=== PATIENT | female | born 1945 | race Caucasian/White ===

== ENCOUNTER → 2018-01-21 07:30 | Outpatient (CLI) | payer MEDICARE, SELFPAY ==
--- NOTE | 2018-01-21 07:33 | CDU_ITS ---
Reason For Study: Carotid stenosis Rt. Velocities/BP Lt. Velocities/BP Prox CCA 113.0/21.1 cm/sec. Prox CCA 123.0/23.6 cm/sec. Mid CCA 95.0/21.7 cm/sec. Mid CCA 116.0/25.9 cm/sec. Dist CCA 102.0/27.0 cm/sec. Dist CCA 102.0/23.6 cm/sec. Prox ICA 128.0/42.4 cm/sec. Prox ICA 131.0/41.2 cm/sec. Mid ICA 132.0/40.9 cm/sec. Mid ICA 115.0/31.1 cm/sec. Dist ICA 106.0/35.4 cm/sec. Dist ICA 109.0/32.2 cm/sec. Rt. ICA/CCA = 1.4. Lt. ICA/CCA = 1.1. Prox ECA 105.0/17.6 cm/sec. Prox ECA 111.0/14.7 cm/sec. Rt. Vert. 62.9/21.2 cm/sec. Lt. Vert. 59.2/11.7 cm/sec. Right Extracranial There is intimal thickening but no significant atherosclerotic plaque noted in the right common carotid artery. There is heterogeneous, irregular atherosclerotic plaque noted in the right internal carotid artery. The atherosclerotic plaque causes acoustic shadowing. There is heterogeneous, irregular atherosclerotic plaque noted in the right external carotid artery. Antegrade flow is noted in the right vertebral artery. Left Extracranial There is intimal thickening but no significant atherosclerotic plaque noted in the left common carotid artery. There is heterogeneous, irregular atherosclerotic plaque noted in the left internal carotid artery. The atherosclerotic plaque causes acoustic shadowing. There is heterogeneous, irregular atherosclerotic plaque noted in the left external carotid artery. Antegrade flow is noted in the left vertebral artery. Procedure Carotid Duplex 29178. Exam performed in department. Interpretation Summary Mild (<50%) stenosis right extracranial internal carotid. Mild (<50%) stenosis left extracranial internal carotid. Acoustic shadowing is noted in the proximal internal carotid arteries bilaterally, which obscures clarke-scale views of the arterial lumen. Therefore, luminal narrowing cannot be fully assessed, and may exceed that which is estimated by velocity criteria alone. Therefore, alternative imaging modalities may be helpful. Flow within the vertebral arteries is antegrade bilaterally. Ordering Physician: Charlotte Stevenson Referring Physician: Charlotte Stevenson Performed By: Kiesha Meyers RVT
== END ==
PROVIDERS: Family Provider Family Medicine; PCP Family Medicine; Visit Provider Family Medicine
DX: I65.23 Occlusion and stenosis of bilateral carotid arteries (principal)
CPT/HCPCS: 93880

== ENCOUNTER 2018-03-20 18:36 | Emergency (ER) | payer MEDICARE, SELFPAY ==
[2018-03-20 18:39] VITALS: BP 206/99; PULSE 98; RESP 17; TEMP 37.4; O2SAT 94; BMI 33.6
[2018-03-20 18:55] VITALS: O2SAT 97
--- NOTE | 2018-03-20 18:57 | EKG12_ITS ---
Test Reason : SOB Blood Pressure : / mmHG Vent. Rate : 090 BPM Atrial Rate : 090 BPM P-R Int : 146 ms QRS Dur : 074 ms QT Int : 360 ms P-R-T Axes : -02 015 034 degrees QTc Int : 440 ms Normal sinus rhythm Low voltage QRS Borderline ECG Confirmed by IBIS DANIELS, PATRICE ([id number]), scientific editor DEWEY WILLETT ([id number]) on 03/22/2018 1:19:02 PM Referred By: DAWSON Confirmed By:PATRICE BAUMANN MD
[2018-03-20] MEDS: Albuterol 2.5 MG/3 ML VIAL.NEB. INHALATION (19:06)
[2018-03-20] MEDS: Ipratropium/Albuterol Sulfate 3 ML AMPUL.NEB INHALATION (19:06)
[2018-03-20 19:07] VITALS: PULSE 95; RESP 20
[2018-03-20] MEDS: Triamcinolone Acetonide 40 MG/ML Vial IM (19:10)
--- NOTE | 2018-03-20 19:20 | RAD_ITS ---
STUDY: X-RAY CHEST REASON FOR EXAM: Female, 72 years old. Short of breath TECHNIQUE: PA and lateral views of the chest. COMPARISON: None. FINDINGS: The lungs are clear and expanded. There is no demonstrated pleural abnormality. Normal size heart. Normal mediastinum and chrissy. Normal visualized pulmonary arteries. Normal visualized aortic arch and descending thoracic aorta. There are diffuse degenerative changes of the visualized thoracic spine. Normal visualized ribs, clavicles, and shoulders. There is no demonstrated abnormality of the visualized soft tissue structures of the upper abdomen. RAD/Chest PA and Lateral IMPRESSION: No acute intrathoracic process identified. Electronically Signed: Linda Leon MD at 20:20 EDT Tel , Service support ,
--- NOTE | 2018-03-20 19:50 | ED.VISSUMM ---
- ER Visit Summary Date of Service: 03/20/18 Chief Complaint: Shortness of breath History of Present Illness: The patient is a 72 F who states that she was mowing yesterday and became short of breath. She used her albuterol inhaler with some improvement of symptoms last night. She also had associated itchy and watery eyes which improved with some eyedrops. She does have a history of seasonal allergies. Today she felt more short of breath and her albuterol inhaler did not seem to be helping. She has had a dry cough. She denies any chest pain fevers nausea vomiting or diarrhea. No history of coronary artery disease or myocardial infarction. No history of asthma or COPD. Physical Examination: Initial blood pressure 206/99 vitals otherwise unremarkable pulse ox 94% on room air Patient is slightly tachypneic but able to speak in full sentences she does have inspiratory and expiratory wheezing Heart is regular rate and rhythm Abdomen soft Alert Extremities nontender without edema easily palpable radial pulses Test Results: EKG shows normal sinus rhythm at a rate of 90. Two-view chest x-ray shows no acute process on my review. Emergency Department Course and Treatment: Given the patient's history of seasonal allergies with worsening shortness of breath after being outside mowing and significant wheezing I do believe this is related to an allergic or asthmatic bronchitis. She was given albuterol and Atrovent aerosols with marked improvement of symptoms. She was also given intramuscular Kenalog. She does not have a spacer for her albuterol. She was given a new albuterol MDI and spacer and will have respiratory instruct on appropriate use as well. She understands to return for new or worsening symptoms and was instructed on specific signs and symptoms to monitor for conditions under which to return to the emergency department and she was discharged. Treatment Plan: [] Disposition: Discharge Impression: Asthmatic bronchitis This note was generated with [employer] dictation software. It may contain incorrect words, spelling, and punctuation that were not noted in review of the chart prior to signing ED Disposition - Plan for ED Patient: Chief Complaint: Shortness of Breath Referrals: Charlotte Stevenson DO [Primary Care Provider] -
--- NOTE | 2018-03-20 19:53 | ED.DCSUM_ITS ---
- ER Visit Summary Date of Service: 03/20/18 Chief Complaint: Shortness of breath History of Present Illness: The patient is a 72 F who states that she was mowing yesterday and became short of breath. She used her albuterol inhaler with some improvement of symptoms last night. She also had associated itchy and watery eyes which improved with some eyedrops. She does have a history of seasonal allergies. Today she felt more short of breath and her albuterol inhaler did not seem to be helping. She has had a dry cough. She denies any chest pain fevers nausea vomiting or diarrhea. No history of coronary artery disease or myocardial infarction. No history of asthma or COPD. Physical Examination: Initial blood pressure 206/99 vitals otherwise unremarkable pulse ox 94% on room air Patient is slightly tachypneic but able to speak in full sentences she does have inspiratory and expiratory wheezing Heart is regular rate and rhythm Abdomen soft Alert Extremities nontender without edema easily palpable radial pulses Test Results: EKG shows normal sinus rhythm at a rate of 90. Two-view chest x- ray shows no acute process on my review. Emergency Department Course and Treatment: Given the patient's history of seasonal allergies with worsening shortness of breath after being outside mowing and significant wheezing I do believe this is related to an allergic or asthmatic bronchitis. She was given albuterol and Atrovent aerosols with marked improvement of symptoms. She was also given intramuscular Kenalog. She does not have a spacer for her albuterol. She was given a new albuterol MDI and spacer and will have respiratory instruct on appropriate use as well. She understands to return for new or worsening symptoms and was instructed on specific signs and symptoms to monitor for conditions under which to return to the emergency department and she was discharged. Treatment Plan: [] Disposition: Discharge Impression: Asthmatic bronchitis This note was generated with [employer] dictation software. It may contain incorrect words, spelling, and punctuation that were not noted in review of the chart prior to signing ED Disposition - Plan for ED Patient: Chief Complaint: Shortness of Breath Referrals: Charlotte Stevenson DO [Primary Care Provider] -
--- NOTE | 2018-03-20 19:53 | ED.DEP ---
ED Disposition - Plan for ED Patient: Chief Complaint: Shortness of Breath Instructions: ED Bronchitis Asthmatic Referrals: Charlotte Stevenson DO [Primary Care Provider] -
[2018-03-20 20:03] VITALS: BP 161/84; PULSE 91; RESP 16; O2SAT 97
--- NOTE | 2018-03-21 13:19 | CM.ED ---
ED CALLBACK : Follow-up call placed to patient. Voicemail received and message left with contact information.
== END 2018-03-20 20:03 | disposition home or self-care (01) ==
LOC: ED 19:22
PROVIDERS: Emergency Provider Emergency Medicine; Family Provider Family Medicine; PCP Family Medicine
DX: J45.909 Unspecified asthma, uncomplicated (principal); E78.00 Pure hypercholesterolemia, unspecified; I10 Essential (primary) hypertension
CPT/HCPCS: 71046; 93005; 94640; 96372; 99283

== ENCOUNTER 2018-03-22 00:23 | Emergency (ER) | payer MEDICARE, SELFPAY ==
[2018-03-22 00:23] VITALS: BP 171/104; PULSE 165; RESP 24; TEMP 36.6; O2SAT 93; BMI 33.6
--- NOTE | 2018-03-22 00:39 | ED.RN ---
RN CALLED FOR EKG, PULLED OLD EKG'S FOR
--- NOTE | 2018-03-22 00:46 | EKG12_ITS ---
Test Reason : REPEAT Blood Pressure : / mmHG Vent. Rate : 082 BPM Atrial Rate : 082 BPM P-R Int : 152 ms QRS Dur : 074 ms QT Int : 374 ms P-R-T Axes : -06 018 017 degrees QTc Int : 436 ms Normal sinus rhythm Normal ECG Confirmed by PATRICE BAUMANN MD ([id number]), business editor DEWEY WILLETT ([id number]) on 03/25/2018 2:52:52 PM Referred By: QUITA Confirmed By:PATRICE BAUMANN MD
--- NOTE | 2018-03-22 00:46 | RAD_ITS ---
STUDY: X-RAY CHEST REASON FOR EXAM: Female, 72 years old. Heart racing TECHNIQUE: Single frontal view of the chest. COMPARISON: 03/20/2018 FINDINGS: The film is mislabeled with a left-sided marker over the right shoulder. The lungs are clear and expanded. There is no demonstrated pleural abnormality. Normal size heart. Normal mediastinum and chrissy. Normal visualized pulmonary arteries. Normal visualized aortic arch and descending thoracic aorta. There are diffuse degenerative changes of the visualized thoracic spine. Normal visualized ribs, clavicles, and shoulders. There is no demonstrated abnormality of the visualized soft tissue structures of the upper abdomen. RAD/Chest 1 View (Portable) IMPRESSION: No acute pulmonary findings. Electronically Signed: Rishi Wolff MD at 1:38 EDT Tel , Service support ,
[2018-03-22] MEDS: dilTIAZem 25 MG/5 ML Vial 20 MG IV BOLUS (00:49)
--- NOTE | 2018-03-22 00:49 | ED.DCSUM_ITS ---
- ER Visit Summary Date of Service: 03/22/18 Chief Complaint: Heart racing History of Present Illness: The patient is a 72 F with history of hypertension and hypercholesterolemia who presents for sudden onset of heart racing. Patient was sleeping and was woken by a sensation that her heart was beating really hard and fast. She denies any chest pain, dizziness or lightheadedness, fever, abdominal pain, nausea or vomiting. Patient is having shortness of breath stemming from an allergic reaction to mowing the lawn 2 days ago. She was seen in the emergency department and treated with albuterol treatments, a steroid shot and has been using the albuterol, with the last dose 2 hours ago. Patient has no history of atrial fibrillation. No cardiac history. No alcohol or tobacco use other than occasional drink with dinner. Physical Examination: Vital signs: afebrile, irregularly tachycardic rate 160-180, no hypotension, no hypoxia on room air General: well nourished, well developed, sitting in bed Skin: warm, dry, no rash, no pallor HEENT: normocephalic and atraumatic; PERRL, EOMI, moist mucous membranes Cardiovascular: irregularly irregular rate and rhythm without murmurs, no peripheral edema, 2+ pulses strong all distal extremities Respiratory: Mild dyspnea, diffuse wheezing all serna, no rales, rhonchi Abdominal: Abdomen is soft, nontender with normoactive bowel sounds, no guarding or rebound, no masses MSK: Moves all extremities, no deformities, normal strength Neuro: Awake and alert, oriented ?4. No facial droop, sensation and motor function intact and symmetric Test Results: Abnormal Lab Results 03/22/18 03/22/18 03/22/18 00:36 00:36 00:36 WBC 14.6 H RBC 5.06 Hgb 15.3 H Hct 43.8 MCV 86.6 MCH 30.2 MCHC 34.9 RDW 12.9 RDW Differential 40.1 Plt Count 325 MPV 9.8 Immature Gran % (Auto) 0.200 Neut % (Auto) 63.5 Lymph % (Auto) 19.5 [place] % (Auto) 9.5 Eos % (Auto) 7.2 H Baso % (Auto) 0.1 Absolute Neuts (auto) 9.3 H Absolute Lymphs (auto) 2.84 Total Counted Not Reportable PT 13.6 INR 1.0 APTT 31.6 D-Dimer Quant (PE/DVT) 0.51 H* Sodium 143 Potassium 3.8 Chloride 110 H Carbon Dioxide 24.0 Anion Gap 9 BUN 14 Creatinine 0.72 Estim Creat Clear Calc 43.30 Est GFR (MDRD) Af Amer 103 Est GFR (MDRD) Non-Af 85 BUN/Creatinine Ratio 19.5 Glucose 160 H Calcium 9.5 Magnesium 2.4 Troponin I 0.045 B-Natriuretic Peptide TSH 3.12 03/22/18 00:36 WBC RBC Hgb Hct MCV MCH MCHC RDW RDW Differential Plt Count MPV Immature Gran % (Auto) Neut % (Auto) Lymph % (Auto) [place] % (Auto) Eos % (Auto) Baso % (Auto) Absolute Neuts (auto) Absolute Lymphs (auto) Total Counted PT INR APTT D-Dimer Quant (PE/DVT) Sodium Potassium Chloride Carbon Dioxide Anion Gap BUN Creatinine Estim Creat Clear Calc Est GFR (MDRD) Af Amer Est GFR (MDRD) Non-Af BUN/Creatinine Ratio Glucose Calcium Magnesium Troponin I B-Natriuretic Peptide 112.9 H TSH Clinical Impression(s) from Imaging Studies Chest X-Ray 03/22/18 00:46 IMPRESSION: No acute pulmonary findings. Electronically Signed: Rishi Wolff MD at 1:38 EDT Tel , Service support , Chest CTA 03/22/18 01:14 IMPRESSION: Normal CTA chest examination, without a demonstrated pulmonary embolism or arterial dissection. 5 and 4 mm nodules in the left lower lobe. Based on Fleischner Society Guidelines, suggested follow-up for a >4-6 mm lung nodule detected incidentally on CT (in patients over age 35) is as follows: Low risk patients: Initial follow-up CT at 12 months. If stable at 12 months, no further follow-up is necessary. High risk patients: Initial follow-up CT at 6-12 months. If stable at initial follow-up, repeat CT at 18-24 months. Electronically Signed: Rishi Wolff MD at 2:38 EDT Tel , Service support , Emergency Department Course and Treatment: Patient presents in A. fib with RVR, with no prior history of atrial fibrillation. Patient is currently being treated for wheezing that started 2 days ago after exposure to mowed grass, and has been using albuterol with the last treatment a couple hours prior to presentation. Differential includes AMI, PE, acute CHF, infection, albuterol or steroid use, hyperthyroidism, among other possibilities. Vagal maneuvers were performed upon initial presentation and were unsuccessful. Patient is hemodynamically stable with no chest pain, new shortness of breath, or altered mental status. Rate control with Cardizem was attempted, and patient had modest improvement. She did have wheezing diffusely, but no albuterol treatment given due to the current tachydysrhythmia. Labs showed mild indeterminate troponin (likely due to the tachycardic rate), normal TSH, no electrolyte derangements, leukocytosis of 14.6 (patient is on steroids currently , having received an injection 2 days ago). Because the patient has persistent wheezing with no prior history of reactive airway disease or COPD, a d-dimer was checked, as the tachycardia makes pulmonary embolism on the differential. It was elevated at 0.51. CTA of the chest was performed showed no PE or other acute findings, other than incidental lung nodules. Patient was discussed with Dr. Lr, and decision made to cardiovert patient in the emergency department after a dose of Lovenox. Patient given the Lovenox. While preparing for the cardioversion, patient spontaneously converted to normal sinus rhythm. Repeat EKG showed sinus rhythm with no ST or T-wave changes, patient's baseline as compared to the EKG 2 days ago. Repeat lung exam showed improvement of the wheezing, now only mild. Patient feels well. She was discharged home with instructions to follow-up with her primary care doctor to discuss alternative treatments to her wheezing due to seasonal allergies. Also patient is to follow -up with cardiology regarding this new onset of A. fib with RVR. Patient discharged home with her symptoms resolved. Treatment Plan: [] Disposition: [] Impression: New onset A. fib with RVR Critical care time of 40 minutes for initial evaluation, chemical cardioversion attempts, EKG interpretations, frequent re-evaluations, care coordination, specialist consultation. This note was generated with [employer] software. It may contain incorrect words, spelling, and punctuation that were not noted in review of the chart prior to signing ED Disposition - Plan for ED Patient: Disposition: Home or Assisted Living Chief Complaint: Palpitations Instructions: ED Afib Referrals: Lasha Lr MD [STAFF PHYSICIAN] - As soon as possible Charlotte Stevenson DO [Primary Care Provider] - As soon as possible Additional Instructions: You were in the heart rhythm Atrial Fibrillation at a rapid rate tonight. You went back into a normal heart rhythm on your own. Please stop taking the albuterol and follow-up with your family doctor as soon as possible to discuss alternate treatments for your wheezing. Please follow-up with cardiology, calling tomorrow to make a follow-up appointment, for further evaluation of your atrial fibrillation episode. If you go back into the rapid heart rhythm, developed chest pain, have worsening shortness of breath, any dizziness or lightheadedness, or any other concerns, please return immediately to the emergency department for another evaluation.
[2018-03-22 00:58] LABS: Absolute Lymphocyte Count 2.84 X10^3/ul (0.83-4.51); Absolute Neutrophil Count 9.3 X10^3/uL (2.0-7.7); Basophil# 0.02 X10^3/uL; Basophil% 0.1 % (0-1); Eosinophil# 1.05 X10^3/uL; Eosinophils% 7.2 % (0-5); Hematocrit 43.8 % (37-47); Hemoglobin 15.3 g/dl (12.0-15.0); Lymphocyte # 2.84 X10^3/ul (4.0); Lymphocyte % 19.5 % (19-41); Mean Corp Hgb Conc 34.9 g/gl (32-36); Mean Corpuscular Hgb 30.2 pg (27.0-32.0); Mean Corpuscular Volume 86.6 fL (81-99); Mean Platelet Vol. 9.8 fl (6.2-12.0); Monocyte# 1.39 X10^3/uL; Monocyte% 9.5 % (0-10); Neutrophil # 9.26 X10^3/uL (2.7-7.7); Neutrophil % 63.5 % (47-70); Platelet Count 325 K/mm3 (150-450); RBC Distribution Width CV 12.9 % (11.6-14.6); RBC Distribution Width SD 40.1 fl (35.1-43.9); Red Blood Count 5.06 M/mm3 (4.2-5.4); White Blood Count 14.6 K/mm3 (4.4-11.0)
[2018-03-22 00:59] LABS: POSITIVE COUNT NO; POSITIVE DIFFERENTIAL NO; POSITIVE MORPHOLOGY NO
[2018-03-22 01:03] LABS: Partial Thromboplast Time 31.6 Seconds (24.1-36.2); Prothrombin Time (Protime)PT. 13.6 SECONDS (11.7-14.9)
[2018-03-22] MEDS: 0.9% Normal Saline 1,000 ML 250 ML IV (01:08)
[2018-03-22 01:09] LABS: D-Dimer Quantitative (DVT/PE) 0.51 FEU/ug/m (0.27-0.49)
--- NOTE | 2018-03-22 01:10 | ED.RN ---
LAB CALLED WITH CRITICAL LAB RESULTS. D DIMER 0.51. DR. DEVLIN MADE AWARE. NO NEW ORDERS AT THIS TIME
--- NOTE | 2018-03-22 01:14 | CT_ITS ---
STUDY: CTA CHEST REASON FOR EXAM: Female, 72 years old. Heart racing and SOB RADIATION DOSAGE (If Supplied By Facility): CTDIvol = ( 13.18 ) mGy, DLP = ( 749.02 ) mGycm TECHNIQUE: The examination was performed with the intravenous administration of 100ML ml of Isovue 370 contrast material. Post-processing of the angiographic images was performed, with multiplanar reformation and 3D reconstruction. Individualized dose optimization techniques were used for this CT. COMPARISON: None. FINDINGS: Small hiatal hernia. Normal enhancement of the main pulmonary artery and right and left pulmonary arteries. Normal enhancement of the bilateral peripheral pulmonary arteries. There is no demonstrated pulmonary embolism. Normal thoracic aorta and visualized great vessels. There is no demonstrated aortic dissection. Normal heart and pericardium. Normal mediastinum. Normal hilar regions. Normal visualized trachea and bronchi. The lungs are well expanded. A 4 mm nodule is present in the left lower lobe on image 131 of series 2. A 5 mm nodules present in the left lower lobe on image 130. Normal pleura. Normal chest wall structures. There are degenerative changes of thoracic spine. Normal visualized upper abdomen. CT/CTA Chest W/WO Contrast IMPRESSION: Normal CTA chest examination, without a demonstrated pulmonary embolism or arterial dissection. 5 and 4 mm nodules in the left lower lobe. Based on Fleischner Society Guidelines, suggested follow-up for a >4-6 mm lung nodule detected incidentally on CT (in patients over age 35) is as follows: Low risk patients: Initial follow-up CT at 12 months. If stable at 12 months, no further follow-up is necessary. High risk patients: Initial follow-up CT at 6-12 months. If stable at initial follow-up, repeat CT at 18-24 months. Electronically Signed: Rishi Wolff MD at 2:38 EDT Tel , Service support ,
[2018-03-22 01:19] LABS: Anion Gap 9 (5-15); BUN 14 mg/dL (7-18); BUN/Creat Ratio 19.5 RATIO (10-20); Calcium,Total 9.5 mg/dL (8.5-10.1); Chloride 110 mmol/L (98-107); Creatinine, Serum 0.72 mg/dL (0.55-1.02); EST Glomerular Filtration Rate 85 mL/min (>60); Est Glom Filt Rate - Afr Amer 103 mL/min (>60); Glucose 160 mg/dL (74-106); Magnesium 2.4 mg/dL (1.6-2.6); Potassium 3.8 mmol/L (3.5-5.1); Sodium Level 143 mmol/L (136-145); Thyroid Stim Hormone (TSH) 3.12 uIU/mL (0.358-3.74)
[2018-03-22] MEDS: dilTIAZem 25 MG/5 ML Vial IV BOLUS (01:24)
[2018-03-22 01:25] VITALS: BP 152/109; PULSE 136; RESP 20; O2SAT 95
[2018-03-22 01:38] LABS: BNP,B-Type NATRIURETIC PEPTIDE 112.9 pg/mL (0-100)
--- NOTE | 2018-03-22 02:00 | EKG12_ITS ---
Test Reason : CP Blood Pressure : / mmHG Vent. Rate : 165 BPM Atrial Rate : 141 BPM P-R Int : 000 ms QRS Dur : 080 ms QT Int : 256 ms P-R-T Axes : 000 046 -27 degrees QTc Int : [address] depression, consider subendocardial injury Abnormal ECG Confirmed by IBIS DANIELS, PATRICE ([id number]), makeup editor DEWEY WILLETT ([id number]) on 03/25/2018 2:53:05 PM Referred By: QUITA Confirmed By:PATRICE BAUMANN MD
[2018-03-22 02:03] VITALS: BP 146/107; PULSE 127; RESP 15; O2SAT 95
[2018-03-22 02:31] VITALS: BP 147/96; PULSE 126; RESP 17; TEMP 36.7; O2SAT 95
--- NOTE | 2018-03-22 03:02 | ED.RN ---
PT'S HEART RATE 80' AND AWARE.
[2018-03-22] MEDS: Enoxaparin 100 MG/ML Syringe 90 MG SC (03:11)
[2018-03-22 03:13] VITALS: BP 147/74; PULSE 80; RESP 18; O2SAT 94
--- NOTE | 2018-03-22 03:13 | EKG12_ITS ---
Test Reason : REPEAT Blood Pressure : / mmHG Vent. Rate : 138 BPM Atrial Rate : 170 BPM P-R Int : 000 ms QRS Dur : 076 ms QT Int : 292 ms P-R-T Axes : 000 024 003 degrees QTc Int : 442 ms Atrial fibrillation Nonspecific ST abnormality Abnormal ECG Confirmed by PATRICE BAUMANN MD ([id number]), editor publications DEWEY WILLETT ([id number]) on 03/25/2018 2:53:19 PM Referred By: QUITA Confirmed By:PATRICE BAUMANN MD
--- NOTE | 2018-03-22 03:15 | ED.DEP ---
ED Disposition - Plan for ED Patient: Disposition: Home or Assisted Living Chief Complaint: Palpitations Instructions: ED Afib Referrals: Lasha Lr MD [STAFF PHYSICIAN] - As soon as possible Charlotte Stevenson DO [Primary Care Provider] - As soon as possible Additional Instructions: You were in the heart rhythm Atrial Fibrillation at a rapid rate tonight. You went back into a normal heart rhythm on your own. Please stop taking the albuterol and follow-up with your family doctor as soon as possible to discuss alternate treatments for your wheezing. Please follow-up with cardiology, calling tomorrow to make a follow-up appointment, for further evaluation of your atrial fibrillation episode. If you go back into the rapid heart rhythm, developed chest pain, have worsening shortness of breath, any dizziness or lightheadedness, or any other concerns, please return immediately to the emergency department for another evaluation.
[2018-03-22 03:33] VITALS: BP 147/74; PULSE 76; RESP 16; O2SAT 95
== END 2018-03-22 03:34 | disposition home or self-care (01) ==
PROVIDERS: Emergency Provider Emergency Medicine; Family Provider Family Medicine; PCP Family Medicine
DX: I48.91 Unspecified atrial fibrillation (principal); I10 Essential (primary) hypertension; E78.00 Pure hypercholesterolemia, unspecified
CPT/HCPCS: 71045; 71275; 80048; 83735; 83880; 84443; 84484; 85025; 85379; 85610; 85730; 93005; 99284; J7030; Q9967; A4216

== ENCOUNTER → 2018-04-13 09:00 | Outpatient (CLI) | payer MEDICARE, SELFPAY ==
--- NOTE | 2018-04-13 06:57 | ECHOD_ITS ---
Reason For Study: dyspnea/SOB Procedure This was a 2D Doppler, Color Flow transthoracic echocardiogram. Exam performed in department. Left Ventricle Normal size and thickness. The estimated ejection fraction is 70 %. Stage 1 diastolic dysfunction. No regional wall motion abnormalities noted. Right Ventricle Normal size and thickness. Normal systolic function. Atria Normal left atrium. Normal right atrium. Normal atrial septum. Mitral Valve The mitral valve is structurally normal. No prolapse or stenosis seen. Tricuspid Valve Normal tricuspid valve. Trivial tricuspid valve insufficiency. Right ventricular systolic pressure estimated to be 25 mmHg. Aortic Valve Normal aortic valve. Trisinus/trileaflet aortic valve. Pulmonic Valve Normal pulmonic valve. Great Vessels Normal aortic root. Normal arch. Normal inferior vena cava. Inferior vena cava collapse with sniff. Pericardium/Pleural No pericardial effusion. Medication Diluted definity 1.0ml given slow IV push to enhance endocardial definition. MMode/2D Measurements & Calculations LVIDd: 3.8 cm IVSd: 1.1 cm Ao root diam: 3.0 cm LVIDs: 2.1 cm LVPWd: 1.1 cm LA dimension: 3.4 cm RVDd: 3.3 cm FS: 45.8 % LAV(MOD-bp): 40.6 ml LA A4 area: 11.9 cm2 RA A4 area: 7.8 cm2 LAV(MOD-bp) Indexed: 21.5 ml/m2 LAV(MOD-sp2): 53.3 ml LAV(MOD-sp4): 25.0 ml Time Measurements MV dec time: 0.27 sec Doppler Measurements & Calculations MV E max morgan: 61.8 cm/sec Lat Peak E' Morgan: 11.7 cm/sec Med Peak E' Morgan: 9.4 cm/sec MV A max morgan: 77.9 cm/sec E/E' lat: 5.3 E/E' med: 6.6 MV E/A: 0.79 MV V2 max: 95.9 cm/sec Ao V2 max: 137.3 cm/sec LV V1 max: 111.2 cm/sec MV max P.7 mmHg Ao max P.5 mmHg LV V1 max P.9 mmHg MV V2 mean: 46.2 cm/sec Ao V2 mean: 86.8 cm/sec LV V1 mean P.6 mmHg MV mean P.0 mmHg Ao mean P.5 mmHg LV V1 mean: 76.8 cm/sec MV V2 VTI: 23.5 cm Ao V2 VTI: 27.0 cm LV V1 VTI: 26.0 cm PA V2 max: 98.0 cm/sec TR max morgan: 221.3 cm/sec TR max P.6 mmHg Interpretation Summary The estimated ejection fraction is 70 %. Stage 1 diastolic dysfunction. Trivial tricuspid valve insufficiency. Right ventricular systolic pressure estimated to be 25 mmHg. There is no comparison study available. Ordering Physician: Jc Gomes Referring Physician: Charlotte Stevenson Performed By: Aryan Gates RCS
--- NOTE | 2018-04-13 09:00 | DT_ITS ---
This patient was seen during an EMR downtime April 11, 2018 - April 18, 2018. This patient may have a combination of paper and electronic documentation or all paper documentation. All documentation is viewable within the e-chart portion of [facility] for each patient visit.
== END ==
PROVIDERS: Family Provider Family Medicine; PCP Family Medicine; Visit Provider Internal Medicine Cardiovascular Disease
DX: I48.91 Unspecified atrial fibrillation (principal); R94.31 Abnormal electrocardiogram [ECG] [EKG]; R06.00 Dyspnea, unspecified
CPT/HCPCS: 93306; Q9957; A4216

== ENCOUNTER → 2018-04-21 13:31 | Outpatient (CLI) | payer MEDICARE, SELFPAY ==
[2018-04-21 14:30] LABS: Erythrocyte Sedimentation Rate 8 mm/hr (0-30)
[2018-04-21 14:38] LABS: Absolute Lymphocyte Count 2.27 X10^3/ul (0.83-4.51); Absolute Neutrophil Count 4.8 X10^3/uL (2.0-7.7); Basophil# 0.01 X10^3/uL; Basophil% 0.1 % (0-1); Eosinophil# 0.21 X10^3/uL; Eosinophils% 2.7 % (0-5); Hematocrit 42.6 % (37-47); Hemoglobin 13.9 g/dl (12.0-15.0); Lymphocyte # 2.27 X10^3/ul (4.0); Lymphocyte % 29.1 % (19-41); Mean Corp Hgb Conc 32.6 g/gl (32-36); Mean Corpuscular Hgb 29.3 pg (27.0-32.0); Mean Corpuscular Volume 89.7 fL (81-99); Mean Platelet Vol. 9.6 fl (6.2-12.0); Monocyte# 0.51 X10^3/uL; Monocyte% 6.5 % (0-10); Neutrophil % 61.5 % (47-70); Platelet Count 273 K/mm3 (150-450); RBC Distribution Width CV 12.6 % (11.6-14.6); RBC Distribution Width SD 41.3 fl (35.1-43.9); Red Blood Count 4.75 M/mm3 (4.2-5.4); White Blood Count 7.8 K/mm3 (4.4-11.0)
[2018-04-21 14:41] LABS: POSITIVE COUNT NO; POSITIVE DIFFERENTIAL NO; POSITIVE MORPHOLOGY NO
[2018-04-21 14:50] LABS: CRP < 2.90 mg/L (0.0-3.0)
== END ==
PROVIDERS: Family Provider Family Medicine; PCP Family Medicine; Visit Provider Family Medicine
DX: R68.84 Jaw pain (principal)
CPT/HCPCS: 36415; 85025; 85652; 86140

== ENCOUNTER → 2018-05-10 09:29 | Outpatient (CLI) | payer MEDICARE, SELFPAY ==
--- NOTE | 2018-05-10 09:30 | STE_ITS ---
Reason For Study: ATRIAL FIBRILLATION Stress Results Protocol: Stress Echocardiogram Maximum Predicted HR: 150 bpm Target HR: 128 bpm% Maximum Pr edicted HR: 100 % DurationHeart Rate Stage (mm:ss) (bpm) BPCom ment BASELINE 71 158/86 2 ML DILUTED DEFINITY USED DURING STRESS OSCAR PROTOCOL- STAGE 1 3:00 12 6 162/94 OSCAR PROTOCOL- STAGE 2 2:02 15 0 170/94LEG FATIGUE RECOVERY 87 178/86 Stress Duration: 5:02 mm:ss Maximum Stress HR: 150 bpm Baseline Echocardiogram Findings The estimated ejection fraction is 65 %. Stress Echo Wall motion Data Resting WMIntermediate WMStress WM Resting Wall Motion Wall Motion Stress No regional wall motion No regional wall motion abnormalities noted. abnormalities noted. EKG Data The baseline ECG demonstrates normal sinus rhythm with at rate of _ beats per minute. The patient exercised according to the regular Oscar protocol for a total duration of 5:02. The maximum heart rate attained was 150 beats per minute. This was 100% of maximum predicted heart rate. The patient exercised into stage 2 of the Oscar protocol. During stress, there were no ST or T wave changes noted to suggest ischemia. No clinical angina was noted. No arrhythmias noted. Interpretation Summary The estimated ejection fraction is 65 %. Normal, adequate, treadmill echocardiogram. Negative for ischemia by EKG and echocardiographic criteria. No anginal symptoms noted. Hypertensive blood pressure response to exercise. Average exercise capacity for age. No arrhythmias noted. Decreased sensitivity due to poor echo windows requiring Definity enhancing agent. Final LVEF is 75%. No complications. Ordering Physician: Jc Gomes Referring Physician: Jc Gomes Performed By: Adamaris Krishnamurthy RDCS
== END ==
PROVIDERS: Family Provider Family Medicine; PCP Family Medicine; Visit Provider Internal Medicine Cardiovascular Disease
DX: I48.91 Unspecified atrial fibrillation (principal)
CPT/HCPCS: 93017; 93350; Q9957; A4216; C8928

== ENCOUNTER → 2018-07-19 15:15 | Outpatient (CLI) | payer MEDICARE, SELFPAY ==
[2018-07-19 15:58] LABS: Color, Urine Yellow (Yellow); Glucose, Dipstick Normal (Normal); Ketone-Dipstick Negative (Negative); Leukocyte Esterase-Dipstick Negative /ul (Negative); Nitrite-Dipstick Negative (Negative); Occult Blood-Urine Negative /ul (Negative); Protein-Dipstick Negative (Negative); Specific Gravity, Urine 1.005 (1.002-1.030); Urine Bilirubin Dipstick Negative (Negative); Urine Clarity Clear (Clear); Urine Urobilinogen Normal (Normal)
[2018-07-19 16:15] LABS: Creatinine, Urine (random) < 13.00 mg/dL (NO RANGE EST.); Protein, Urine (Random) < 6.0 mg/dL (<11.9)
[2018-07-19 16:29] LABS: AST(SGOT) 28 U/L (15-37); Alanine Aminotransfer ALT/SGPT 41 U/L (13-56); Albumin, Serum 4.2 g/dL (3.2-5.0); Alkaline Phosphatase 105 U/L (45-117); Anion Gap 10 (5-15); BUN 15 mg/dL (7-18); BUN/Creat Ratio 19.3 RATIO (10-20); Calcium,Total 9.7 mg/dL (8.5-10.1); Chloride 104 mmol/L (98-107); Creatinine, Serum 0.78 mg/dL (0.55-1.02); EST Glomerular Filtration Rate 78 mL/min (>60); Est Glom Filt Rate - Afr Amer 94 mL/min (>60); Globulin 4.2 g/dL (2.2-4.2); Glucose 104 mg/dL (74-106); Protein, Total 8.4 g/dL (6.4-8.2); Sodium Level 140 mmol/L (136-145)
== END ==
PROVIDERS: Family Provider Family Medicine; PCP Family Medicine; Visit Provider Family Medicine
DX: I10 Essential (primary) hypertension (principal)
CPT/HCPCS: 36415; 80053; 81002; 82570; 84156

== ENCOUNTER → 2018-11-14 16:14 | Outpatient (CLI) | payer MEDICARE, SELFPAY | PROVIDERS: Family Provider Family Medicine; PCP Family Medicine; Referring Provider Otolaryngology Otolaryngology/Facial Plastic Surgery; Visit Provider Otolaryngology Otolaryngology/Facial Plastic Surgery | DX: J02.9 Acute pharyngitis, unspecified (principal) | CPT/HCPCS: 87070 ==

== ENCOUNTER → 2018-12-02 10:06 | Outpatient (CLI) | payer MEDICARE, SELFPAY ==
[2018-12-01 13:58] VITALS: BMI 33.8
--- NOTE | 2018-12-02 10:09 | BI_ITS ---
MAMMOGRAPHY - BILATERAL SCREENING REASON FOR EXAM: Female, 73 years old. Routine annual screening examination. PERTINENT HISTORY: Left excisional breast biopsy. Prior right stereotactic breast biopsy. TECHNIQUE: Digital bilateral breast bryce (3D mammographic acquisition) in the CC and MLO projections. 2-D mediolateral oblique (MLO) and craniocaudad (CC) views of both breasts were obtained. CAD: Full Field Digital Mammography with Computer Added Detection was performed. COMPARISON: Comparison is made with prior study dated May 29, 2018 and November 10, 2016. FINDINGS: Breast Composition: The breasts are almost entirely fatty. There are no dominant masses or suspicious calcifications. Stable small benign-appearing bilateral axillary lymph nodes. No other significant abnormalities are identified. There has been no significant change since the prior study. BI/SCREENING MAMM (CAD), BILAT IMPRESSION: Stable bilateral screening mammogram. Yearly follow-up mammogram recommended. (A) ASSESSMENT CATEGORY: BIRADS Category 2: Benign. A letter regarding these results will be sent to the patient by the facility within 30 days. Approximately 10% of breast cancers are not detected by mammography. A normal mammogram should not delay biopsy of a clinically suspicious abnormality. [id number] Electronically Signed: Ash Wang MD at 11:52 EST , Service support ,
== END ==
PROVIDERS: Family Provider Family Medicine; PCP Family Medicine; Referring Provider Family Medicine; Visit Provider Family Medicine
DX: Z12.31 Encounter for screening mammogram for malignant neoplasm of breast (principal)
CPT/HCPCS: 77063; 77067

== ENCOUNTER → 2019-02-20 12:38 | Outpatient (CLI) | payer MEDICARE, SELFPAY ==
[2018-12-01 13:58] VITALS: BMI 33.8
--- NOTE | 2019-02-20 12:43 | CT_ITS ---
STUDY: CT CHEST WITHOUT CONTRAST REASON FOR EXAM: Female, 73 years old. Lung nodules RADIATION DOSAGE (If Supplied By Facility): CTDIvol = ( 17.48 ) mGy, DLP = ( 633.39 ) mGycm TECHNIQUE: Transaxial imaging was performed without the administration of intravenous contrast material. Individualized dose optimization techniques were used for this CT. COMPARISON: Chest 03/22/2018, abdomen December 10, 2014 FINDINGS: 3 mm right lower lobe nodule on image 74 of series 4, stable since 2014 and considered benign. Similar finding on image 77. 6 and 4 mm nodules in the left lower lobe on image 74, also stable since 2015 and considered benign. There is no demonstrated pleural abnormality. Normal heart and pericardium. Normal mediastinum. Normal hilar regions. Normal unenhanced pulmonary arteries. Normal aorta arch and descending thoracic aorta. Normal osseous structures. There is no demonstrated abnormality of the visualized upper abdomen. CT/Chest without Contrast IMPRESSION: Bilateral lower lobe nodules are stable compared to 2015 exam and are considered benign. Electronically Signed: Rishi Wolff MD at 22:19 EDT Tel , Service support ,
== END ==
PROVIDERS: Family Provider Family Medicine; PCP Family Medicine; Referring Provider Family Medicine; Visit Provider Family Medicine
DX: R93.89 Abnormal findings on diagnostic imaging of other specified body structures (principal)
CPT/HCPCS: 71250

== ENCOUNTER → 2019-03-10 09:05 | Outpatient (CLI) | payer MEDICARE, SELFPAY ==
[2018-12-01 13:58] VITALS: BMI 33.8
--- NOTE | 2019-03-10 09:10 | US_ITS ---
STUDY: ABDOMINAL ULTRASOUND - RIGHT UPPER QUADRANT REASON FOR VISIT: Female, 73 years old. Right upper quadrant pain TECHNIQUE: Ultrasound evaluation of the right upper quadrant was performed with real-time and static clarke-scale imaging. TECHNICAL QUALITY: Adequate. COMPARISON: December 10, 2014 CT scan abdomen FINDINGS: Liver: The liver measures 15.9 cm. There is increased echogenicity consistent with fatty infiltration. The bile ducts are within normal limits. There is hepatic color flow. The direction of portal flow is hepatopetal. There is no demonstrated mass lesion. Gallbladder: The gallbladder is been surgically removed. Common Bile Duct (C.B.D.): The common bile duct measures 6 mm. Pancreas: Normal size of the head, body of the pancreas. There is normal echogenicity of the pancreas. There is no demonstrated pancreatic mass or cyst. The tail of pancreas is not well-visualized. Right Kidney: Normal size of the right kidney. The right kidney measures 11.9 x 5.4 x 5.2 cm. Normal renal cortex. The right cortex measures 1.4 cm. There is no demonstrated renal mass or cyst. There is no right hydronephrosis. US/Abdomen Limited IMPRESSION: Status post post cholecystectomy. Hepatic steatosis. No evidence of hydronephrosis. Limited visualization of the pancreas. Electronically Signed: Sultana Macias MD at 1:57 EDT Tel , Service support ,
--- NOTE | 2019-03-10 09:47 | CDU_ITS ---
Reason For Study: STENOSIS Rt. Velocities/BP Lt. Velocities/BP Prox CCA 118/21 cm/sec. Prox CCA 138/30 cm/sec. Mid CCA 85/20 cm/sec. Mid CCA 107/29 cm/sec. Dist CCA 84/20 cm/sec. Dist CCA 100/27 cm/sec. Prox ICA 80/24 cm/sec. Prox ICA 163/49 cm/sec. Mid ICA 114/34 cm/sec. Mid ICA 111/28 cm/sec. Dist ICA 76/29 cm/sec. Dist ICA 77/26 cm/sec. Rt. ICA/CCA = 1.0. Lt. ICA/CCA = 1.2. Prox ECA 105/11 cm/sec. Prox ECA 80/21 cm/sec. Rt. Vert. 78/16 cm/sec. Lt. Vert. 70/18 cm/sec. Right Extracranial There is intimal thickening but no significant atherosclerotic plaque noted in the right common carotid artery. There is heterogeneous, irregular atherosclerotic plaque noted in the right internal carotid artery. The atherosclerotic plaque causes acoustic shadowing. There is heterogeneous, irregular atherosclerotic plaque noted in the right external carotid artery. Antegrade flow is noted in the right vertebral artery. Left Extracranial There is intimal thickening but no significant atherosclerotic plaque noted in the left common carotid artery. There is heterogeneous, irregular atherosclerotic plaque noted in the left internal carotid artery. The atherosclerotic plaque causes acoustic shadowing. There is heterogeneous, irregular atherosclerotic plaque noted in the left external carotid artery. Antegrade flow is noted in the left vertebral artery. Procedure Carotid Duplex [id number]. Exam performed in department. Interpretation Summary Mild (<50%) stenosis right extracranial internal carotid. Moderate (50-69%) stenosis left extracranial internal carotid. Flow within the vertebral arteries is antegrade bilaterally. Ordering Physician: Charlotte Stevenson Referring Physician: Charlotte Stevenson Performed By: Love Rowland, RDCS, RVT
== END ==
PROVIDERS: Family Provider Family Medicine; PCP Family Medicine; Referring Provider Family Medicine; Visit Provider Family Medicine
DX: R10.11 Right upper quadrant pain (principal); I65.23 Occlusion and stenosis of bilateral carotid arteries
CPT/HCPCS: 76705; 93880

== ENCOUNTER → 2019-12-05 10:36 | Outpatient (CLI) | payer MEDICARE, SELFPAY ==
[2019-06-26 13:17] VITALS: BMI 34.3
--- NOTE | 2019-12-05 10:40 | BI_ITS ---
MAMMOGRAPHY - BILATERAL SCREENING REASON FOR EXAM: Female, 74 years old. Routine annual screening examination. PERTINENT HISTORY: Non-contributory. Remote right stereotactic breast biopsy and left excisional breast biopsy. TECHNIQUE: Digital bilateral breast alayna (3D mammographic acquisition) in the CC and MLO projections. 2-D mediolateral oblique (MLO) and craniocaudad (CC) views of both breasts were obtained. CAD: Full Field Digital Mammography with Computer Added Detection was performed. COMPARISON: Comparison is made with prior study dated comparison is made with prior examination dated December 02, 2018 and November 29, 2017. FINDINGS: Breast Composition: The breasts are almost entirely fatty. There are no dominant masses or suspicious calcifications. Stable benign-appearing bilateral axillary lymph nodes. No other significant abnormalities are identified. There has been no significant change since the prior study. BI/SCREEN MAMM (CAD) W/ALAYNA BILAT IMPRESSION: Stable bilateral screening mammogram. Yearly follow-up mammogram recommended. (A) ASSESSMENT CATEGORY: BIRADS Category 2: Benign. A letter regarding these results will be sent to the patient by the facility within 30 days. Approximately 10% of breast cancers are not detected by mammography. A normal mammogram should not delay biopsy of a clinically suspicious abnormality. [id number] Electronically Signed: Ash Wang, at 11:59 EST , Service support ,
== END ==
PROVIDERS: Family Provider Family Medicine; PCP Family Medicine; Referring Provider Family Medicine; Visit Provider Family Medicine
DX: Z12.31 Encounter for screening mammogram for malignant neoplasm of breast (principal)
CPT/HCPCS: 77063; 77067

== ENCOUNTER 2019-12-12 22:19 | Emergency (ER) | payer MEDICARE, SELFPAY ==
[2019-06-26 13:17] VITALS: BMI 34.3
[2019-12-12 22:20] VITALS: BP 197/89; PULSE 82; RESP 18; TEMP 36.4; O2SAT 98; BMI 33.6
--- NOTE | 2019-12-12 22:43 | CT_ITS ---
STUDY: CT BRAIN WITHOUT CONTRAST REASON FOR EXAM: Female, 74 years old. [place] WITH ELEVATED BP RADIATION DOSAGE (If Supplied By Facility): CTDIvol = ( 44.99 ) mGy, DLP = ( 846.73 ) mGycm TECHNIQUE: Transaxial CT imaging of the brain was performed without administration of intravenous contrast material. Individualized dose optimization techniques were used for this CT. COMPARISON: No relevant priors. FINDINGS: Normal soft tissue structures. Normal calvarium. Normal size ventricles and extra-axial spaces for the patient''s age. Normal white matter tracts of the cerebral hemispheres. Normal basal ganglia and thalami. Normal brainstem. Normal cerebellum. There is no intracranial hemorrhage. There are no findings of an acute ischemic infarction. There is mucoperiosteal inflammatory disease of the bilateral ethmoid and maxillary sinuses consistent with mild chronic sinusitis. The bilateral mastoid air cells and ossicles are unopacified. Intracranial arteriosclerosis of the carotid and vertebral arteries. CT/Brain/Head without Contrast IMPRESSION: There is no acute intracranial pathology. Arteriosclerosis and chronic sinus disease. Electronically Signed: Melanie Chow MD at 23:34 EST , Service support ,
--- NOTE | 2019-12-12 22:43 | EKG12_ITS ---
Test Reason : HYPERTRNSION Blood Pressure : / mmHG Vent. Rate : 073 BPM Atrial Rate : 073 BPM P-R Int : 174 ms QRS Dur : 084 ms QT Int : 406 ms P-R-T Axes : 023 008 012 degrees QTc Int : 447 ms Normal sinus rhythm Normal ECG Confirmed by EPI JAMISON ([id number]), desk editor GLENDA SPENCER ([id number]) on 12/15/2019 9:30:32 AM Referred By: CRIS Confirmed By:EPI JAMISON
--- NOTE | 2019-12-12 22:45 | ED.VIS.GEN ---
History of Present Illness Chief Complaint: Hypertension Narrative: Patient is a 74-year-old female who presents with elevated blood pressure. She has had a recent URI-like illness with sore throat. She has been using a vitamin supplement to boost her immune system. She has not been using decongestants but does use saline spray in her nose. She was seen at a [facility] clinic and had a rapid strep test which was negative. At that time her blood pressure was noted to be 150s. Since then she has been frequently checking it at home and has had readings as high as 200 systolic. She complains of a mild to moderate headache which she currently rates as 4 out of 10. She did speak to the nursing line for her primary care physician who noted this may be related to her current illness. Patient became worried that she may have a stroke so presented here. She denies any chest pain or shortness of breath. Lisinopril is her only current medication for blood pressure. Past Medical History - Allergies and Home Meds Allergies/Adverse Reactions: Allergies ciprofloxacin [From Cipro] Allergy (Verified 12/12/19 22:22) Other fluorescein Allergy (Verified 12/12/19 22:22) Anaphylaxis lactose Allergy (Verified 12/12/19 22:22) Upset Stomach nitrofurantoin Allergy (Verified 12/12/19 22:22) Other Sulfa (Sulfonamide Antibiotics) Allergy (Verified 12/12/19 22:22) Rash Primary Care Physician: Charlotte Stevenson DO [Primary Care Provider] - Past Medical History: - - Hypertension Smoking Status: Never smoker Review of Systems All systems negative except as indicated General: Denies: Fever Cardiovascular: Denies: Chest pain Respiratory: Denies: Dyspnea Gastrointestinal: Denies: Nausea, Vomiting Musculoskeletal: Denies: Myalgias, Arthralgias Skin: Denies: Rash Neurological: Reports: Headache Physical Exam Vital Signs/Narrative: Vital Signs Temp Pulse Resp BP Pulse Ox 12/12/19 22:20 97.5 F L 82 18 197/89 H 98 Inital Vital Signs reviewed: Yes General: Well nourished, Well developed Head: Normocephalic, Atraumatic Eyes: EOMI ENT: Moist mucous membranes Neck: Supple Cardiovascular: Regular rate, Regular rhythm Respiratory: No distress, CTA bilaterally Abdomen: Soft, Nontender Skin: Normal color Neurological: Alert, Oriented x3, Normal Strength, Normal Sensation Psychological: Normal affect Diagnostic/Tx/Re-eval Impressions Brain CT 12/12/19 22:43 IMPRESSION: There is no acute intracranial pathology. Arteriosclerosis and chronic sinus disease. Electronically Signed: Melanie Chow MD at 23:34 EST , Service support , 12/12/19 22:43 Brain/Head without Contrast [CT] Stat - Medical Decision Making CT of the head is negative. EKG shows normal sinus rhythm at a rate of 73. Repeat blood pressure without intervention is 152/76. Patient was reassured. She was advised to follow-up with her primary care physician. She understands to return for new or worsening symptoms. ED Disposition - Plan for ED Patient: Disposition: Home or Assisted Living Diagnosis: Hypertension Instructions: HYPERTENSION, Established, Out of Control Referrals: Charlotte Stevenson DO [Primary Care Provider] -
[2019-12-12] MEDS: Acetaminophen 500 MG Tablet 1000 MG PO (22:48)
[2019-12-12 23:49] VITALS: BP 152/76; PULSE 69; RESP 16; O2SAT 94
[2019-12-13 00:14] VITALS: BP 176/75
== END 2019-12-13 00:15 | disposition home or self-care (01) ==
PROVIDERS: Emergency Provider Emergency Medicine; PCP Family Medicine
DX: I10 Essential (primary) hypertension (principal); Z88.1 Allergy status to other antibiotic agents; Z88.2 Allergy status to sulfonamides
CPT/HCPCS: 70450; 93005; 99282

== ENCOUNTER → 2020-04-08 14:00 | Outpatient (CLI) | payer MEDICARE, SELFPAY ==
[2019-12-25 15:26] VITALS: BMI 34.0
--- NOTE | 2020-04-08 14:05 | CT_ITS ---
STUDY: CT ABDOMEN WITH CONTRAST REASON FOR EXAM: Female, 74 years old. RUQ PAIN, CONSTIPATION, PAIN UNDER RT RIB RADIATION DOSAGE (If Supplied By Facility): CTDIvol = ( 18.94 ) mGy, DLP = ( 690.45 ) mGycm TECHNIQUE: Transaxial images were obtained post I.V. administration of Oral and IV Read i-CAT and 100mL Isovue-300, and without oral contrast. Sagittal and coronal images were reconstructed. Individualized dose optimization techniques were used for this CT. COMPARISON: 2014 FINDINGS: The visualized lung bases are unremarkable. The visualized portions of the heart are within normal limits. There is decreased attenuation of the liver consistent with steatosis. There are surgical clips in the gallbladder fossa consistent with a prior cholecystectomy. Normal spleen. Normal pancreas. Normal bilateral adrenal glands. Normal right kidney. Normal left kidney. Normal visualized stomach. Normal small intestine. Normal colon. The appendix is visualized and appears normal. Appendix best seen on axial images 65 through 71 There is diffuse atherosclerotic calcification of the abdominal aorta, without a demonstrated aneurysm. Normal inferior vena cava. Normal retroperitoneum. Normal abdominal wall. There are diffuse degenerative changes of the visualized lumbar spine. CT/Abdomen WITH IV Contrast IMPRESSION: Fatty liver, no discrete lesion No free intraperitoneal fluid, air, or suspicious adenopathy Normal appendix visualized Degenerative bony changes Electronically Signed: Blane Rocha MD at 14:50 EDT , Service support ,
[2020-04-08 14:21] LABS: CREATININE FINGERSTICK < 0.6 mg/dL (0.55-1.02)
== END ==
PROVIDERS: PCP Family Medicine; Referring Provider Family Medicine; Visit Provider Family Medicine
DX: R10.11 Right upper quadrant pain (principal); K59.00 Constipation, unspecified
CPT/HCPCS: 74160; Q9967

== ENCOUNTER → 2020-04-12 09:58 | Outpatient (CLI) | payer MEDICARE, SELFPAY ==
[2019-12-25 15:26] VITALS: BMI 34.0
--- NOTE | 2020-04-12 09:59 | CDU_ITS ---
Reason For Study: Carotid stenosis Rt. Velocities/BP Lt. Velocities/BP Prox CCA 144.8/20.6 cm/sec. Prox CCA 113.8/18.8 cm/sec. Mid CCA 119.3/17 cm/sec. Mid CCA 112/22.5 cm/sec. Dist CCA 115.6/20.6 cm/sec. Dist CCA 91.9/18.8 cm/sec. Prox ICA 145.5/31.4 cm/sec. Prox ICA 158.8/42.2 cm/sec. Mid ICA 134.6/35.8 cm/sec. Mid ICA 163.1/40.2 cm/sec. Dist ICA 128/33.6 cm/sec. Dist ICA 147.7/44.6 cm/sec. Rt. ICA/CCA = 1.2. Lt. ICA/CCA = 1.5. Prox ECA 171.8/11.6 cm/sec. Prox ECA 146.7/7.9 cm/sec. Rt. Vert. 90/15.1 cm/sec. Lt. Vert. 80.2/11.4 cm/sec. Right Extracranial There is intimal thickening but no significant atherosclerotic plaque noted in the right common carotid artery. There is heterogeneous, irregular atherosclerotic plaque noted in the right internal carotid artery. The atherosclerotic plaque causes acoustic shadowing. There is homogeneous, irregular atherosclerotic plaque noted in the right external carotid artery. Antegrade flow is noted in the right vertebral artery. Left Extracranial There is homogeneous, smooth atherosclerotic plaque noted in the left common carotid artery. There is heterogeneous, irregular atherosclerotic plaque noted in the left internal carotid artery. There is heterogeneous, irregular atherosclerotic plaque noted in the left external carotid artery. Antegrade flow is noted in the left vertebral artery. Procedure Carotid Duplex [id number]. Exam performed in department. Interpretation Summary Moderate (50-69%) stenosis right extracranial internal carotid. Moderate (50-69%) stenosis left extracranial internal carotid. Flow within the vertebral arteries is antegrade bilaterally. Ordering Physician: Charlotte Stevenson Referring Physician: Charlotte Stevenson Performed By: Alejandra Greene RVT
== END ==
PROVIDERS: PCP Family Medicine; Referring Provider Family Medicine; Visit Provider Family Medicine
DX: I65.23 Occlusion and stenosis of bilateral carotid arteries (principal)
CPT/HCPCS: 93880

== ENCOUNTER → 2020-07-12 09:30 | Outpatient (CLI) | payer MEDICARE, SELFPAY ==
[2020-07-04 12:34] VITALS: BMI 34.2
--- NOTE | 2020-07-12 09:37 | MRI_ITS ---
STUDY: MRI ORBITS WITH AND WITHOUT CONTRAST REASON FOR EXAM: Female, 75 years old. left orbit pain, inflammation, rt inferior homonyous hemianopsia x 4 days TECHNIQUE: Standardized multiplanar fat and water weighted pulse sequences were obtained. IV Yes YES was administered. COMPARISON: 12/12/2019 CT of the head FINDINGS: Normal bilateral optic nerve sheath complexes and optic nerves. Normal bilateral intraconal and extraconal spaces. Normal bilateral extraocular muscles. Normal optic chiasm and post-chiasmatic tracts. Normal sella turcica, pituitary gland, infundibular stalk, and hypothalamus. Normal bilateral cavernous sinuses. Normal tectal plate and pineal gland. Normal flow voids within the major intracranial circulation suggesting patency by spin echo criteria. Normal size of the ventricles and extra-axial spaces for the patient''s age. Normal white matter tracts of the supratentorial brain. Normal bilateral basal ganglia. Normal thalami. There is no extra-axial fluid accumulation. Normal midbrain, jacobo and medulla. Normal cerebellum. Normal basal cisterns. MRI/Brain W/WO Contrast IMPRESSION: Unremarkable enhanced MRI of the orbits. Electronically Signed: Janusz Rajput MD at 11:09 EDT Tel , Service support ,
[2020-07-12 10:00] LABS: CREATININE FINGERSTICK 0.7 mg/dL (0.55-1.02); EGFR FINGERSTICK > 60.0000 mL/min (>60)
== END ==
PROVIDERS: PCP Family Medicine; Referring Provider Ophthalmology; Visit Provider Ophthalmology
DX: H57.12 Ocular pain, left eye (principal); H53.461 Homonymous bilateral field defects, right side
CPT/HCPCS: 70553; A9575

== ENCOUNTER → 2020-08-07 | Outpatient (CLI) | payer MEDICARE, SELFPAY ==
[2020-07-04 12:34] VITALS: BMI 34.2
[2020-08-07 08:45] LABS: AST(SGOT) 29 U/L (15-37); Alanine Aminotransfer ALT/SGPT 44 U/L (13-56); Albumin, Serum 4.5 g/dL (3.2-5.0); Alkaline Phosphatase 105 U/L (45-117); Anion Gap 4 (5-15); BUN 17 mg/dL (7-18); BUN/Creat Ratio 21.3 RATIO (10-20); Bilirubin, Direct 0.21 mg/dL (0.00-0.30); Calcium,Total 9.5 mg/dL (8.5-10.1); Chloride 101 mmol/L (98-107); Cholesterol 152 mg/dL (200); EST Glomerular Filtration Rate 75 mL/min (>60); Est Glom Filt Rate - Afr Amer 91 mL/min (>60); Globulin 4.2 g/dL (2.2-4.2); Glucose 124 mg/dL (74-106); High Density Lipoprotein 61 mg/dL; Potassium 3.8 mmol/L (3.5-5.1); Protein, Total 8.7 g/dL (6.4-8.2); Sodium Level 135 mmol/L (136-145); Triglycerides 176 mg/dL; Very Low Density Lipoprotein 35 mg/dL (5-40)
== END | disposition home or self-care (01) ==
PROVIDERS: PCP Family Medicine; Referring Provider Physician Assistant Medical; Visit Provider Physician Assistant Medical
DX: I10 Essential (primary) hypertension (principal); E78.5 Hyperlipidemia, unspecified
CPT/HCPCS: 36415; 80048; 80061; 80076

== ENCOUNTER → 2020-10-24 15:29 | Outpatient (CLI) | payer MEDICARE, SELFPAY ==
[2020-07-04 12:34] VITALS: BMI 34.2
--- NOTE | 2020-10-24 15:31 | MRI_ITS ---
STUDY: MRI THORACIC SPINE WITHOUT CONTRAST REASON FOR EXAM: Female, 75 years old. DEGEN DISC DISEASE, right rib pain radiates around to the back TECHNIQUE: Standardized fat and water weighted pulse sequences were obtained in the sagittal and axial planes. COMPARISON: None. FINDINGS: Normal kyphosis of the thoracic spine. There is no substantial scoliosis. No evidence for acute fracture or subluxation. There is a lesion in the left pedicle of T12 demonstrating increased signal intensity on T1 and T2 images consistent with hemangioma. There is mild multilevel disc space narrowing and endplate spurring with desiccation of the discs at all levels consistent with degeneration.. Tiny central disc protrusion at T7-8 without narrowing of the spinal canal. There is a tiny perineural cyst in the left nerve root foramen at T8-9 Normal visualized thoracic cord. Normal conus medullaris that terminates at T12-L1. The soft tissue structures are unremarkable. MRI/Spine Thoracic (Routine) IMPRESSION: No evidence for acute fracture or subluxation.. Spondylosis and multilevel disc degeneration. Tiny central disc protrusion at T7-8 without significant spinal stenosis. Incidental finding of hemangioma within the left pedicle of T12 Electronically Signed: Beau Cueva MD at 17:23 EST , Service support ,
== END ==
PROVIDERS: PCP Family Medicine; Visit Provider Family Medicine
DX: M51.34 Other intervertebral disc degeneration, thoracic region (principal); M54.14 Radiculopathy, thoracic region
CPT/HCPCS: 72146

== ENCOUNTER → 2020-12-19 12:42 | Outpatient (CLI) | payer MEDICARE, SELFPAY ==
[2020-07-04 12:34] VITALS: BMI 34.2
--- NOTE | 2020-12-19 12:47 | BI_ITS ---
MAMMOGRAPHY - BILATERAL SCREENING REASON FOR EXAM: Female, 75 years old. Routine annual screening examination. PERTINENT HISTORY: Non-contributory. Remote right stereotactic breast biopsy and left excisional breast biopsy. TECHNIQUE: Digital bilateral breast alayna (3D mammographic acquisition) in the CC and MLO projections. 2-D mediolateral oblique (MLO) and craniocaudad (CC) views of both breasts were obtained. CAD: Full Field Digital Mammography with Computer Added Detection was performed. COMPARISON: Comparison is made with prior examination dated 12/05/2019 and 12/02/2018. FINDINGS: Breast Composition: The breasts are almost entirely fatty. There are no dominant masses or suspicious calcifications. Stable benign appearing skin calcifications. Stable small benign-appearing bilateral axillary lymph nodes. No other significant abnormalities are identified. There has been no significant change since the prior study. BI/SCRN MAMM (CAD)W/ALAYNA BILAT IMPRESSION: Stable bilateral screening mammogram. Yearly follow-up mammogram recommended. (A) ASSESSMENT CATEGORY: BIRADS Category 2: Benign. A letter regarding these results will be sent to the patient by the facility within 30 days. Approximately 10% of breast cancers are not detected by mammography. A normal mammogram should not delay biopsy of a clinically suspicious abnormality. [id number] Electronically Signed: Ash Wang MD at 9:43 EST , Service support ,
== END ==
PROVIDERS: PCP Family Medicine; Referring Provider Family Medicine; Visit Provider Family Medicine
DX: Z12.31 Encounter for screening mammogram for malignant neoplasm of breast (principal)
CPT/HCPCS: 77063; 77067

== ENCOUNTER → 2020-12-27 08:32 | Outpatient (CLI) | payer MEDICARE, SELFPAY ==
[2020-07-04 12:34] VITALS: BMI 34.2
[2020-12-27 10:27] LABS: AST(SGOT) 22 U/L (15-37); Alanine Aminotransfer ALT/SGPT 33 U/L (13-56); Albumin, Serum 4.1 g/dL (3.2-5.0); Alkaline Phosphatase 111 U/L (45-117); Bilirubin, Direct 0.11 mg/dL (0.00-0.30); Cholesterol 148 mg/dL (200); Globulin 3.7 g/dL (2.2-4.2); High Density Lipoprotein 56 mg/dL; Protein, Total 7.8 g/dL (6.4-8.2); Triglycerides 181 mg/dL; Very Low Density Lipoprotein 36 mg/dL (5-40)
== END ==
PROVIDERS: PCP Family Medicine; Referring Provider Nurse Practitioner Family; Visit Provider Nurse Practitioner Family
DX: E78.00 Pure hypercholesterolemia, unspecified (principal); E78.5 Hyperlipidemia, unspecified
CPT/HCPCS: 36415; 80061; 80076

== ENCOUNTER → 2021-03-18 13:51 | Outpatient (CLI) | payer MEDICARE, SELFPAY ==
[2021-01-03 09:52] VITALS: BMI 33.3
--- NOTE | 2021-03-18 13:54 | CDU_ITS ---
Reason For Study: Carotid artery stenosis Rt. Velocities/BP Lt. Velocities/BP Prox CCA 106/16 cm/sec. Prox CCA 90.4/20.1 cm/sec. Mid CCA 93/17.3 cm/sec. Mid CCA 102.5/23.4 cm/sec. Dist CCA 85.2/16 cm/sec. Dist CCA 77.2/16.8 cm/sec. Prox ICA 135.7/29.8 cm/sec. Prox ICA 144/37.1 cm/sec. Mid ICA 133.9/33.4 cm/sec. Mid ICA 139.4/29.8 cm/sec. Dist ICA 104.7/33.4 cm/sec. Dist ICA 101/27.9 cm/sec. Rt. ICA/CCA = 1.46. Lt. ICA/CCA = 1.59. Prox ECA 133.9/13.3 cm/sec. Prox ECA 130.2/17 cm/sec. Rt. Vert. 61.9/12.4 cm/sec. Lt. Vert. 65.4/9 cm/sec. Right Extracranial There is homogeneous, smooth atherosclerotic plaque noted in the right common carotid artery. There is heterogeneous, irregular atherosclerotic plaque noted in the right internal carotid artery. The atherosclerotic plaque causes acoustic shadowing. There is heterogeneous, irregular atherosclerotic plaque noted in the right external carotid artery. Antegrade flow is noted in the right vertebral artery. Left Extracranial There is homogeneous, smooth atherosclerotic plaque noted in the left common carotid artery. There is heterogeneous, irregular atherosclerotic plaque noted in the left internal carotid artery. The atherosclerotic plaque causes acoustic shadowing. There is heterogeneous, irregular atherosclerotic plaque noted in the left external carotid artery. Antegrade flow is noted in the left vertebral artery. Procedure Carotid Duplex [id number]. This is a Carotid Duplex examination using B-mode, color flow and specral Doppler. Exam performed in department. VL/Carotid Duplex Ultrasound Interpretation Summary Moderate (50-69%) stenosis right extracranial internal carotid. Moderate (50-69 %) stenosis left extracranial internal carotid. Flow within the vertebral arteries is antegrade bilaterally. Ordering Physician: Charlotte Stevenson Referring Physician: Charlotte Stevenson Performed By: Alejandra Greene RVT
== END ==
PROVIDERS: PCP Family Medicine; Referring Provider Family Medicine; Visit Provider Family Medicine
DX: I65.23 Occlusion and stenosis of bilateral carotid arteries (principal)
CPT/HCPCS: 93880

== ENCOUNTER → 2021-07-01 08:46 | Outpatient (CLI) | payer MEDICARE, SELFPAY ==
[2021-07-01 10:39] LABS: AST(SGOT) 19 U/L (15-37); Alanine Aminotransfer ALT/SGPT 36 U/L (13-56); Alkaline Phosphatase 84 U/L (45-117); Bilirubin, Direct 0.14 mg/dL (0.00-0.30); Cholesterol 269 mg/dL (200); Globulin 4.1 g/dL (2.2-4.2); High Density Lipoprotein 52 mg/dL; Protein, Total 8.1 g/dL (6.4-8.2); Triglycerides 222 mg/dL; Very Low Density Lipoprotein 44 mg/dL (5-40)
== END ==
PROVIDERS: PCP Family Medicine; Referring Provider Nurse Practitioner Family; Visit Provider Nurse Practitioner Family
DX: E78.00 Pure hypercholesterolemia, unspecified (principal); E78.5 Hyperlipidemia, unspecified
CPT/HCPCS: 36415; 80061; 80076

== ENCOUNTER → 2021-07-02 14:51 | Outpatient (CLI) | payer MEDICARE, SELFPAY | PROVIDERS: PCP Family Medicine; Referring Provider Otolaryngology Otolaryngology/Facial Plastic Surgery; Visit Provider Otolaryngology Otolaryngology/Facial Plastic Surgery | DX: J32.9 Chronic sinusitis, unspecified (principal) | CPT/HCPCS: 87070; 87205 ==

== ENCOUNTER 2021-09-13 17:41 | Emergency (ER) | payer MEDICARE, SELFPAY ==
[2021-09-13 17:42] VITALS: BP 176/98; PULSE 88; RESP 16; TEMP 36.6; O2SAT 99; BMI 32.5
[2021-09-13 17:51] VITALS: BP 184/84; PULSE 83; RESP 18
--- NOTE | 2021-09-13 17:57 | EKG12_ITS ---
Test Reason : Blood Pressure : / mmHG Vent. Rate : 076 BPM Atrial Rate : 076 BPM P-R Int : 180 ms QRS Dur : 070 ms QT Int : 390 ms P-R-T Axes : 024 004 012 degrees QTc Int : 438 ms Normal sinus rhythm Normal ECG Confirmed by WALDO DANIELS, CURTIS ([id number]), continuity editor REY WEATHERS ([id number]) on 09/16/2021 8:03:51 AM Referred By: Confirmed By:CURTIS HAAS MD
--- NOTE | 2021-09-13 17:58 | EDS_ITS ---
HPI History of Present Illness Chief Complaint: Hypertension Detail of Chief Complaint: Elevated sugar readings x1 week Informant: patient and spouse/S.O. Onset/Context/Timing Onset: Weeks Context: Sudden Onset Timing: Intermittent and Waxes and wanes Quality: Highest systolic reading was 179 Location: Home Current Severity: Moderate Maximum Severity: Moderate Worsened by: Possible anxiety Relieved by: Nothing Associated Symptoms Associated Symptoms: Patient got flushed and lightheaded while working out in the garden. Pleas Narrative Narrative: Patient is an elderly woman with longstanding history of hypertension. She had noted that her blood pressure readings were high. She saw her PCP on . She was started on amlodipine 5 mg daily in addition to hydrochlorothiazide 12.5 mg daily and lisinopril 20 mg twice daily. She had oatmeal for breakfast early this morning. After she felt flushed and lightheaded she took her blood pressure. Pressure was elevated. She sat down and had something to eat. She waited for her . She states she feels her heart pounding it was fast. Her heart rate never was above 100. She states that the numbers that she documented are not normal. She was informed the normal heart rate ranges 60-100. Patient denies headache. She denies double vision, blurred vision or loss of vision. She denies ringing or ears or decreased hearing. She denies trouble with speech or swallowing. She denied chest pain or back pain. She denied weakness in her arms or legs. She denied numbness or tingling in her arms or legs. She denies problems with her balance or gait. Prior similar symptoms: Yes Recent Illness/Hospitalization: Yes [facility] Medical History (Updated 09/13/21 @ 19:[address] Alex Nelson MD) Atrial fibrillation with rapid ventricular response (03/21/18) Bilateral carotid artery stenosis Hyperlipidemia Hypertension Osteopenia Reactive airway disease Home Medications lisinopril 20 mg PO BID 03/20/18 [History Last Taken Unknown] spmtirep-ubp-CO-lycopen-lutein 1 ea PO DAILY 03/20/18 [History Last Taken Unknown] cranberry 500 mg capsule 2,000 mg PO DAILY cap 04/05/18 [History Last Taken Unknown] Lactobacillus rhamnosus GG 5 billion cell chewable tablet 1 tab PO DAILY tab 12/01/18 [History Last Taken Unknown] metronidazole 0.75 % topical gel 1 applic TOPICAL .COMPLEX 12/01/18 [History Last Taken Unknown] montelukast 10 mg tablet 10 mg PO QPM 12/01/18 [History Last Taken Unknown] hydrochlorothiazide 12.5 mg tablet 12.5 mg PO DAILY #90 tab 01/09/21 [Rx Last Taken Unknown] rosuvastatin 10 mg tablet 5 mg PO .COMPLEX tab 08/13/21 [History Last Taken Unknown] amlodipine 5 mg tablet 5 mg PO DAILY #30 tab 09/11/21 [Rx Last Taken Unknown] Allergy/AdvReac Type Severity Reaction Status Date / Time ciprofloxacin [From Cipro] Allergy Other Verified 09/13/21 17:45 fluorescein Allergy Anaphylaxis Verified 09/13/21 17:45 lactose Allergy Upset Verified 09/13/21 17:45 Stomach nitrofurantoin Allergy Other Verified 09/13/21 17:45 Sulfa (Sulfonamide Allergy Rash Verified 09/13/21 17:45 Antibiotics) Family History Father Diabetes Hypertension Brother Diabetes Hypertension Brother Heart disease irregular heart beat w/ PPM Surgical History H/O breast biopsy H/O hemorrhoidectomy History of cataract surgery History of partial hysterectomy History of tonsillectomy Hx of cholecystectomy Social History (Updated 09/13/21 @ 18:[address] Alex Nelson MD) household members: spouse Smoking Status: Never smoker alcohol intake: never substance use type: does not use caffeine: No ROS ROS ED Constitutional Constitutional ED: Denies chills, fever(s), subjective or sweats Eyes Eyes: Denies blurry vision, change in vision or diplopia ENT ENT ED: Denies ear pain, rhinorrhea or sore throat Cardiovascular Cardiovascular: Reports palpitations and racing heartbeat; Denies chest pain or orthopnea Respiratory/Chest Respiratory/Chest: Denies cough, dyspnea, dyspnea on exertion or orthopnea Gastrointestinal Gastrointestinal: Denies abdominal pain, constipation, diarrhea, nausea or vomiting Genitourinary Genitourinary ED: Denies dysuria, hematuria or urinary frequency Musculoskeletal Musculoskeletal: Denies arthralgias, back pain, myalgias or neck pain Integumentary Denies rash Neurologic Neurologic: Denies headache(s), paresthesias or weakness Psychiatric Psychiatric: Reports anxiety Hematologic/Lymphatic Hematologic/Lymphatic: Denies easy bleeding or easy bruising Allergic/Immunologic Allergic/Immunologic ED: Denies mouth swelling or tongue swelling EXAM Physical Exam Const Vital Signs: 09/13/21 17:42 09/13/21 17:51 09/13/21 18:08 Temperature 98 F Temperature Source Temporal Pulse Rate 88 83 81 Respiratory Rate 16 18 16 Respiratory Effort Normal Respiratory Pattern Normal Blood Pressure 176/98 H 184/84 H 158/86 H Blood Pressure Mean 124 117 110 Pulse Ox 99 98 Oxygen Delivery Method Room Air 09/13/21 18:44 09/13/21 18:53 Temperature Temperature Source Pulse Rate 71 68 Respiratory Rate 18 16 Respiratory Effort Respiratory Pattern Blood Pressure 152/75 H 134/76 H Blood Pressure Mean 100 95 Pulse Ox 98 97 Oxygen Delivery Method Room Air Room Air Positive well nourished, well developed and obese General Appearance ED: well developed and other Patient appears stressed. She is very concerned that her pressure is elevated and that her heart rate is presently in the 90s. ; Negative for cyanotic, diaphoretic or NAD Nutritional Appearance: obese HEENT HEENT Narrative: Head is atraumatic normocephalic. Ears normal. Nares patent. Uvula midline. Posterior pharynx out erythema or exudate. Eyes PERRL and EOMs intact bilaterally Eyes Narrative: There is no APD. There is no papilledema. She does have AV nicking noted. There is no exudate or hemorrhage noted. General Eye ED: Negative for pale conjunctiva or scleral icterus Neck no lymphadenopathy, supple and no JVD Neck Narrative: There is no carotid bruit. Resp normal respiratory effort and clear to auscultation bilaterally Cardio regular rate, regular rhythm, S1 normal heart sound, S2 normal heart sound and no murmurs GI normal to inspection, nondistended, normoactive bowel sounds and non-tender; Negative for hepatosplenomegaly GI Narrative: There is no palpable pulsatile mass. There is no abdominal bruit. Palpation: soft Back/Spine no CVA tenderness Extremity normal to inspection Extremity Narrative: DP and PT pulse are palpable. General Extremety ED: Negative for edema or tenderness General Extremity: Negative for edema Neuro oriented x3, CN's II-XII intact bilaterally and no sensory deficits noted Neuro Narrative: There is no dysmetria. DTR symmetric upper lower extremity with no clonus or Babinski sign. Sensorium / Orientation: alert Motor Exam: strength 5/5 throughout Psych Mood & Affect: anxious Skin no rashes or lesions noted and no wounds MDM MDM MDM Narrative Medical decision making narrative: Patient has not had a creatinine in 1 year. Will obtain blood work and UA determine there is evidence of endorgan injury. EKG to determine if there is LVH or changes compared to prior. Since there is no concerning symptoms will have nurse check blood pressure every 15 minutes and observe. Patient's been told that 75% of patients were just observed pressure returns to normal. She was told to try to relax. Lab Data Attestation: I reviewed the patient's lab results. Lab results narrative: Laboratory results are normal Labs: Laboratory Results - last 24 hr 09/13/21 09/13/21 18:04 18:22 Sodium 134 L Potassium 3.9 Chloride 102 Carbon Dioxide 25.0 Anion Gap 7 BUN 18 Creatinine 0.78 Estim Creat Clear Calc 40.83 Est GFR (MDRD) Af Amer 93 Est GFR (MDRD) Non-Af 77 BUN/Creatinine Ratio 23.0 H Glucose 109 H Calcium 9.8 Urine Color Yellow Urine Clarity Clear Urine pH 7.0 Ur Specific [place] 1.010 Urine Protein Negative Urine Glucose (UA) Normal Urine Ketones Negative Urine Occult Blood Negative Urine Nitrite Negative Urine Bilirubin Negative Urine Urobilinogen Normal Ur Leukocyte Esterase 100 H Urine RBC 0 SEEN Urine WBC 0-5 SEEN Ur Squamous Epith Cells 0-5 SEEN Urine Bacteria 0 SEEN Urine Mucus 0 SEEN EKG Initial EKG: Attestation: I personally reviewed and interpreted this EKG as follows: Interpretation: Sinus Rhythm (Sinus rhythm ventricular rate of 76. The EKG is normal. UT interval is 180 ms. QRS duration 70 ms. QT duration 10 to 90 ms. [place] is normal.) Treatment and Re-Evaluation Comments:: With no evidence of endorgan injury and most recent blood pressure 134/76 patient be discharged home Discharge Plan Triage Chief Complaint: Hypertension ED Provider: Alex Nelson Dx/Rx/DC Orders Clinical Impression: Elevated blood pressure reading with diagnosis of hypertension Instructions: ED High Blood Pressure Hypertension Prescriptions: No Action montelukast 10 mg tablet 10 mg PO QPM RF: 0 Culturelle Kids Probiotics 5 billion cell tablet,chewable 1 tab PO DAILY RF: 0 metronidazole 0.75 % gel 1 applic TOPICAL .COMPLEX RF: 0 lisinopril 20 MG tablet 20 mg PO BID RF: 0 vltlqcwt-pjy-LW-lycopen-lutein 1 EACH tablet 1 ea PO DAILY RF: 0 cranberry 500 mg capsule 2,000 mg PO DAILY RF: 0 hydrochlorothiazide 12.5 mg tablet 12.5 mg PO DAILY Qty: 90 RF: 3 rosuvastatin 10 mg tablet 5 mg PO .COMPLEX RF: 0 amlodipine 5 mg tablet 5 mg PO DAILY Qty: 30 RF: 11 Primary Care Provider: Charlotte Stevenson Referrals: Charlotte Stevenson DO [Primary Care Provider] - 1-2 Weeks Miky Chase MD [STAFF PHYSICIAN] - As Needed Activity Restrictions/Additional Instructions: If you are having no symptoms recommend not checking your blood pressure. Disposition Disposition: Home, Self Care
[2021-09-13 18:08] VITALS: BP 158/86; PULSE 81; RESP 16; O2SAT 98
[2021-09-13 18:29] LABS: Bacteria 0 SEEN /hpf (None Seen); Mucous, Urine 0 SEEN /hpf (<or=2+); Red Blood Cells-Urine 0 SEEN /hpf (0-5)
[2021-09-13 18:32] LABS: Anion Gap 7 (5-15); BUN 18 mg/dL (7-18); Calcium,Total 9.8 mg/dL (8.5-10.1); Chloride 102 mmol/L (98-107); Creatinine, Serum 0.78 mg/dL (0.55-1.02); EST Glomerular Filtration Rate 77 mL/min (>60); Est Glom Filt Rate - Afr Amer 93 mL/min (>60); Estimated Creatinine Clearance 40.83 ml/min; Glucose 109 mg/dL (74-106); Potassium 3.9 mmol/L (3.5-5.1); Sodium Level 134 mmol/L (136-145)
[2021-09-13 18:36] LABS: Color, Urine Yellow (Yellow); Glucose, Dipstick Normal (Normal); Ketone-Dipstick Negative (Negative); Leukocyte Esterase-Dipstick 100 /ul (Negative); Nitrite-Dipstick Negative (Negative); Occult Blood-Urine Negative /ul (Negative); Protein-Dipstick Negative (Negative); Urine Bilirubin Dipstick Negative (Negative); Urine Clarity Clear (Clear); Urine Urobilinogen Normal (Normal)
[2021-09-13 18:42] LABS: Squamous Epithelial Cells - UA 0-5 SEEN /hpf (5-10); White Blood Cells 0-5 SEEN /hpf (0-5)
[2021-09-13 18:44] VITALS: BP 152/75; PULSE 71; RESP 18; O2SAT 98
[2021-09-13 18:53] VITALS: BP 134/76; PULSE 68; RESP 16; O2SAT 97
[2021-09-13 19:11] VITALS: BP 142/68; PULSE 74; RESP 16; O2SAT 99
== END 2021-09-13 19:12 | disposition home or self-care (01) ==
PROVIDERS: Emergency Provider Emergency Medicine; PCP Family Medicine
DX: I10 Essential (primary) hypertension (principal); E66.9 Obesity, unspecified; E78.5 Hyperlipidemia, unspecified; I48.91 Unspecified atrial fibrillation; M85.80 Other specified disorders of bone density and structure, unspecified site; J45.909 Unspecified asthma, uncomplicated; I65.23 Occlusion and stenosis of bilateral carotid arteries; Z79.899 Other long term (current) drug therapy
CPT/HCPCS: 80048; 81001; 93005; 99284; A4216

== ENCOUNTER → 2021-09-15 11:29 | Outpatient (CLI) | payer MEDICARE, SELFPAY ==
[2021-09-15 12:04] LABS: Free T3 2.8 pg/mL (2.18-3.98); T4 Free Direct 1.05 ng/dL (0.76-1.46); Thyroid Stim Hormone (TSH) 1.45 uIU/mL (0.358-3.74)
== END ==
PROVIDERS: PCP Family Medicine; Visit Provider Family Medicine
DX: R53.83 Other fatigue (principal); I10 Essential (primary) hypertension
CPT/HCPCS: 84439; 84443; 84481

== ENCOUNTER → 2021-09-25 09:19 | Outpatient (CLI) | payer MEDICARE, SELFPAY ==
--- NOTE | 2021-09-25 09:30 | BD_ITS ---
STUDY: DUAL ENERGY X-RAY ABSORPTIOMETRY / DXA REASON FOR EXAM: Female, 76 years old. 733.00OsteoporosisBONE DENSITY REASON FOR EXAM TECHNIQUE: Bone Mineral Density (BMD) measurements of lumbar spine and bilateral hips were obtained. COMPARISON: Comparison is made with prior study 08/17/2017. FINDINGS: Lumbar Spine (L1-L4): g/cm2 (0.976) / T-score (-0.6) / Z-score (1.7) Findings are suggestive of normal bone density with a low fracture risk. Left Femur Total: g/cm2 (0.863) / T-score (-0.6) / Z-score (1.1) Left Femoral Neck: g/cm2 (0.647) / T-score (-1.8) / Z-score (0.2) Right Femur Total: g/cm2 (0.884) / T-score (-0.5) / Z-score (1.3) Right Femoral Neck: g/cm2 (0.682) / T-score (-1.5) / Z-score (0.5) The T-Scores on the most recent prior examination were: Lumbar Spine (L1-L4): There has been worsening of bone density since the previous examination. Left Femur Total: which represents a worsening of 0.5%. Right Femur Total: which represents a worsening of 1.7%. BD/Dexa Bone Density Study IMPRESSION: The patient is considered osteopenic as outlined below according to World Kash Organization (WHO) criteria with a moderate fracture risk. There has been worsening of bone density since the previous examination. Reference Information: The T-score is the number of standard deviations above or below the standard which is normal for young adults at their peak bone mineral density. The World Health Organization (WHO) interprets the T-scores as follows: Above -1 Normal bone density Between -1 and -2.5 Osteopenia Equal to / or below -2.5 Osteoporosis As a practical clinical guideline, osteopenia may be graded as follows: Mild -1 through -1.5 Moderate -1.6 through -2.0 Severe -2.1 through -2.4 The Z-score is the number of standard deviations above or below age-matched controls. A Z-score of less than -1.5 would be considered abnormal. References: 1. NIH Osteoporosis and Related Bone Diseases www osteo.org 2. International Society for Clinical Densitometry www iscd.org 3. National Osteoporosis Foundation www nof.org Electronically Signed: Ash Wang MD at 9:36 EST , Service support ,
== END ==
PROVIDERS: PCP Family Medicine; Referring Provider Family Medicine; Visit Provider Family Medicine
DX: M81.0 Age-related osteoporosis without current pathological fracture (principal)
CPT/HCPCS: 77080

== ENCOUNTER → 2021-10-07 10:41 | Outpatient (CLI) | payer MEDICARE, SELFPAY ==
--- NOTE | 2021-10-07 10:44 | CDU_ITS ---
Reason For Study: CAROTID ARTERY STENOSIS Rt. Velocities/BP Lt. Velocities/BP Prox CCA 125.6/18.6 cm/sec. Prox CCA 161.6/34.2 cm/sec. Mid CCA 118.2/17.7 cm/sec. Mid CCA 135.2/27.7 cm/sec. Dist CCA 89.5/19.0 cm/sec. Dist CCA 113.2/27.7 cm/sec. Prox ICA 116.7/21.7 cm/sec. Prox ICA 129.5/23.6 cm/sec. Mid ICA 131.2/32.7 cm/sec. Mid ICA 124.0/34.5 cm/sec. Dist ICA 111.1/30.8 cm/sec. Dist ICA 103.9/29.0 cm/sec. Rt. ICA/CCA = 131.2/118.2=1.1. Lt. ICA/CCA = 129.5/135.2=1.0. Prox ECA 152.7/16.7 cm/sec. Prox ECA 208.8/18.1 cm/sec. Rt. Vert. 77.6/11.7 cm/sec. Lt. Vert. 82.0/12.6 cm/sec. Right Extracranial There is intimal thickening but no significant atherosclerotic plaque noted in the right common carotid artery. There is heterogeneous, irregular atherosclerotic plaque noted in the right internal carotid artery. The distal right internal carotid artery is not well visualized. There is homogeneous, smooth atherosclerotic plaque noted in the right external carotid artery. Antegrade flow is noted in the right vertebral artery. There is heterogeneous, irregular atherosclerotic plaque noted in the right bulb. Left Extracranial There is intimal thickening but no significant atherosclerotic plaque noted in the left common carotid artery. There is heterogeneous, smooth atherosclerotic plaque noted in the left internal carotid artery. The distal left internal carotid artery is not well visualized. There is heterogeneous, irregular atherosclerotic plaque noted in the left external carotid artery. Antegrade flow is noted in the left vertebral artery. There is heterogeneous, irregular atherosclerotic plaque noted in the left bulb. Procedure Carotid Duplex [id number]. This is a Carotid Duplex examination using B-mode, color flow and specral Doppler. The study was technically difficult. Exam performed in department. VL/Carotid Duplex Ultrasound Interpretation Summary Moderate (50-69%) stenosis right extracranial internal carotid. Moderate (50-69 %) stenosis left extracranial internal carotid. Flow within the vertebral arteries is antegrade bilaterally. Ordering Physician: Charlotte Stevenson Referring Physician: Miky Chase Performed By: Krystal Pereira, LEAH, RVT
== END ==
PROVIDERS: PCP Family Medicine; Referring Provider Family Medicine; Visit Provider Family Medicine
DX: I65.23 Occlusion and stenosis of bilateral carotid arteries (principal)
CPT/HCPCS: 93880

== ENCOUNTER 2021-12-25 10:41 | Outpatient (CLI) | payer MEDICARE, SELFPAY ==
--- NOTE | 2021-12-25 10:43 | BI_ITS ---
MAMMOGRAPHY - BILATERAL SCREENING REASON FOR EXAM: Female, 76 years old. Routine annual screening examination. PERTINENT HISTORY: Non-contributory. History of prior left excisional breast biopsy and right stereotactic breast biopsy. TECHNIQUE: Digital bilateral breast alayna (3D mammographic acquisition) in the CC and MLO projections. 2-D mediolateral oblique (MLO) and craniocaudad (CC) views of both breasts were obtained. CAD: Full Field Digital Mammography with Computer Added Detection was performed. COMPARISON: Comparison is made with prior study dated 12/19/2020 and 12/05/2019. FINDINGS: Breast Composition: The breasts are almost entirely fatty. There are no dominant masses or suspicious calcifications. Stable benign-appearing bilateral axillary lymph nodes. Stable bilateral macrocalcifications. No other significant abnormalities are identified. There has been no significant change since the prior study. BI/SCRN MAMM (CAD)W/ALAYNA BILAT IMPRESSION: Stable bilateral screening mammogram. Yearly follow-up mammogram recommended. (A) ASSESSMENT CATEGORY: BIRADS Category 2: Benign. A letter regarding these results will be sent to the patient by the facility within 30 days. Approximately 10% of breast cancers are not detected by mammography. A normal mammogram should not delay biopsy of a clinically suspicious abnormality. [id number] Electronically Signed: Ash Wang MD at 14:03 EST ,
== END 2021-12-25 23:59 | disposition home or self-care (01) ==
LOC: OPBI 10:41
PROVIDERS: PCP Family Medicine; Referring Provider Family Medicine; Visit Provider Family Medicine
DX: Z12.31 Encounter for screening mammogram for malignant neoplasm of breast (principal)
CPT/HCPCS: 77063; 77067

== ENCOUNTER → 2022-03-31 | Outpatient (CLI) | payer MEDICARE, SELFPAY ==
--- NOTE | 2022-03-31 09:41 | RAD_ITS ---
INDICATION: DYSPHAGIA EXAMINATION/TECHNIQUE: Barium oral contrast , barium pill, and gas bubbles were administered to the patient. Total Fluoroscopic Time: 0.18 minutes/seconds AND number of Fluoroscopic Images: 13 COMPARISON: Esophagram from 07/06/2014 FINDINGS: No masses or strictures are identified. There is no hiatal hernia. The mucosal pattern is unremarkable. There is normal motility. Reflux was not elicited. RAD/Esophagus Dual Contrast IMPRESSION: Negative. Electronically Signed: Juan J Varela, at 10:58 EDT ,
== END | disposition home or self-care (01) ==
LOC: RAD 09:40
PROVIDERS: PCP Family Medicine; Visit Provider Internal Medicine Gastroenterology
DX: R13.10 Dysphagia, unspecified (principal)
CPT/HCPCS: 74221

== ENCOUNTER → 2022-09-09 | Outpatient (CLI) | payer MEDICARE, SELFPAY | END | disposition home or self-care (01) | LOC: LABSPEC 13:15 | PROVIDERS: PCP Family Medicine; Visit Provider Family Medicine | DX: N39.0 Urinary tract infection, site not specified (principal) | CPT/HCPCS: 87077; 87086; 87088; 87186 ==

== ENCOUNTER → 2022-09-24 | Outpatient (CLI) | payer MEDICARE, SELFPAY ==
--- NOTE | 2022-09-24 07:47 | US_ITS ---
STUDY: ABDOMINAL ULTRASOUND REASON FOR EXAM: Female, 77 years old. PELVIC PAIN TECHNIQUE: Transabdominal ultrasound was performed with real-time and static clarke scale imaging. TECHNICAL QUALITY: Limited. Examination limited due to a combination of factors including obesity and bowel gas. COMPARISON: Comparison is made with prior examination dated 03/10/2019. FINDINGS: Liver: The liver is mildly enlarged and measures 17.9 cm. There is increased echogenicity consistent with fatty infiltration. The bile ducts are within normal limits. There is hepatic color flow. The direction of portal flow is hepatopetal. There is no demonstrated mass lesion. Gallbladder: The patient is status post cholecystectomy. Common Bile Duct (C.B.D.): The common bile duct measures 5.1 mm. Pancreas: There is nonvisualization of the pancreas due to overlying bowel gas. Spleen: Normal size of the spleen. The spleen measures 9.8 cm x 5.1 cm x 4.4 cm. Right Kidney: Normal size of the right kidney. The right kidney measures 10.9 cm x 6 cm x 5 cm. Normal renal cortex. The right cortex measures 1.2 cm. There is no demonstrated renal mass or cyst. There is no right hydronephrosis. Left Kidney: Normal size of the left kidney. The left kidney measures 12.2 cm x 4.1 cm x 5 cm. Normal renal cortex. The left cortex measures 1.4 cm. There is no demonstrated renal mass or cyst. There is no left hydronephrosis. Aorta: Unremarkable I.V.C.: The IVC is patent. There is no ascites. US/Abdomen Complete IMPRESSION: Mild hepatomegaly and diffuse fatty infiltration of the liver. The patient is status post cholecystectomy. Electronically Signed: Ash Wang MD at 11:00 EST ,
== END | disposition home or self-care (01) ==
LOC: US 07:37
PROVIDERS: PCP Family Medicine; Referring Provider Family Medicine; Visit Provider Family Medicine
DX: R14.0 Abdominal distension (gaseous) (principal); R10.9 Unspecified abdominal pain; R10.2 Pelvic and perineal pain; N39.0 Urinary tract infection, site not specified
CPT/HCPCS: 76700

== ENCOUNTER → 2022-10-02 | Outpatient (CLI) | payer MEDICARE, SELFPAY ==
--- NOTE | 2022-10-02 12:23 | US_ITS ---
INDICATION: pelvic pain EXAMINATION: Ultrasound US Pelvis Non OB Complete With Transvaginal Imaging TECHNIQUE: Transabdominal and transvaginal pelvic ultrasound was performed. Grayscale, spectral waveform, and color flow Doppler evaluation of the adnexa. COMPARISON: CT abdomen pelvis with contrast from 12/10/2014. FINDINGS: UTERUS: Total hysterectomy. No masses or fluid collections in the hysterectomy bed. RIGHT OVARY: Not visualized and may be surgically absent. No right adnexal mass or fluid collection. LEFT OVARY: Not visualized and may be surgically absent. No left adnexal mass or fluid collection. FREE FLUID: None. BLADDER: Normal appearance. US/Pelvic (Non ) IMPRESSION: 1. No acute findings. 2. Stable total hysterectomy. 3. Kidneys not visualized or may be surgically absent. Electronically Signed: Juan J Varela, at 14:03 EST ,
== END | disposition home or self-care (01) ==
LOC: OPUS 12:22
PROVIDERS: PCP Family Medicine; Referring Provider Family Medicine; Visit Provider Family Medicine
DX: N39.0 Urinary tract infection, site not specified (principal); R14.0 Abdominal distension (gaseous); R10.9 Unspecified abdominal pain; R10.2 Pelvic and perineal pain
CPT/HCPCS: 76830; 76856

== ENCOUNTER → 2022-10-07 | Outpatient (CLI) | payer MEDICARE, SELFPAY ==
--- NOTE | 2022-10-07 09:50 | CDU_ITS ---
Reason For Study: Stenosis Rt. Velocities/BP Lt. Velocities/BP Prox CCA 88.1/19.2 cm/sec. Prox CCA 112/20.6 cm/sec. Mid CCA 78.7/20.1 cm/sec. Mid CCA 93.7/24.3 cm/sec. Dist CCA 74/20.1 cm/sec. Dist CCA 80.9/22.5 cm/sec. Prox ICA 130.2/29.8 cm/sec. Prox ICA 130.2/37.1 cm/sec. Mid ICA 84.6/24.3 cm/sec. Mid ICA 108.3/33.4 cm/sec. Dist ICA 104.7/29.8 cm/sec. Dist ICA 119.3/33.4 cm/sec. Rt. ICA/CCA = 1.65. Lt. ICA/CCA = 1.39. Prox ECA 88.3/8 cm/sec. Prox ECA 121.1/7.9 cm/sec. Rt. Vert. 70/15.2 cm/sec. Lt. Vert. 52/9.1 cm/sec. Right Extracranial There is intimal thickening but no significant atherosclerotic plaque noted in the right common carotid artery. There is heterogeneous, irregular atherosclerotic plaque noted in the right internal carotid artery. The atherosclerotic plaque causes acoustic shadowing. There is homogeneous, smooth atherosclerotic plaque noted in the right external carotid artery. Antegrade flow is noted in the right vertebral artery. Left Extracranial There is intimal thickening but no significant atherosclerotic plaque noted in the left common carotid artery. There is heterogeneous, irregular atherosclerotic plaque noted in the left internal carotid artery. The atherosclerotic plaque causes acoustic shadowing. There is heterogeneous, irregular atherosclerotic plaque noted in the left external carotid artery. Antegrade flow is noted in the left vertebral artery. Procedure Carotid Duplex [id number]. This is a Carotid Duplex examination using B-mode, color flow and specral Doppler. Exam performed in department. VL/Carotid Duplex Ultrasound Interpretation Summary Irregular calcific plaque with shadowing at the proximal right internal carotid artery with 50 to 69% stenosis Less than 50% stenosis right external carotid artery Extensive calcific plaque with shadowing proximal left internal carotid artery approximately 1.7 cm in length. 50 to 69% stenosis left internal carotid artery Less than 50% stenosis left external carotid artery Patent and antegrade vertebral arteries bilaterally This examination appears to be similar to the previous examination of October 07, 2021 Ordering Physician: Charlotte Stevenson Referring Physician: Charlotte Stevenson Performed By: Alejandra Greene RVT
== END | disposition home or self-care (01) ==
LOC: CVS 09:48
PROVIDERS: PCP Family Medicine; Visit Provider Family Medicine
DX: I65.23 Occlusion and stenosis of bilateral carotid arteries (principal)
CPT/HCPCS: 93880

== ENCOUNTER 2022-11-29 10:23 | Emergency (ER) | payer MEDICARE, SELFPAY ==
[2022-11-29 10:24] VITALS: BP 170/70; PULSE 69; RESP 14; TEMP 36.2; O2SAT 97; BMI 32.8
--- NOTE | 2022-11-29 11:07 | EKG12_ITS ---
Test Reason : Blood Pressure : / mmHG Vent. Rate : 075 BPM Atrial Rate : 075 BPM P-R Int : 170 ms QRS Dur : 078 ms QT Int : 408 ms P-R-T Axes : 014 016 022 degrees QTc Int : 455 ms Sinus rhythm with occasional Premature ventricular complexes Otherwise normal ECG Confirmed by IBIS DANIELS, PATRICE ([id number]), editorial director REY WEATHERS ([id number]) on 11/30/2022 10:53:03 AM Referred By: Confirmed By:PATRICE BAUMANN MD
--- NOTE | 2022-11-29 11:21 | ED.VIS.CHEST ---
HPI History of Present Illness Chief Complaint: Chest Pain Informant: patient Onset/Context/Timing Onset: Days (4) Activity at onset: gradual Timing: Waxes and wanes Quality: Positive for Tightness Location: Substernal and Left Parasternal Worsened By: Eating and - (Worse in the evening) Relieved By: Nothing Associated Symptoms: Positive for Nausea and Palpitations; Negative for Vomiting, Diaphoresis, Dyspnea, Cough, Fever, Lightheadedness or Acid Reflux Narrative Narrative: Patient presents with chest pain that has been getting worse over the last 4 days. Patient states it waxes and wanes. Patient describes it as a tightness. Patient states it is over the substernal and left parasternal area. Patient states it is worse after she eats and worse in the evenings. Patient states nothing seems to help with it. Patient admits to occasional nausea but denies any vomiting. Patient states she did have an episode where she felt lightheaded, shaky, and tingling today. Patient states she has been having episodes where she feels like her heart is racing at times. Patient denies any fevers or chills. Patient denies any cardiac or PE risk factors. CVD Risk Factors: Positive for Hypertension and Hypercholesterolemia; Negative for Diabetes, Family History 1' </=55 or Smoking PE Risk Factors: Negative for Recent Travel/Surgery, Recent Immobilization, Prior DVT or PE, Cancer or OCP + Smoking + >/=35 [facility] Medical History Atrial fibrillation with rapid ventricular response (03/21/18) Bilateral carotid artery stenosis Essential hypertension Hyperlipidemia Osteopenia Paroxysmal atrial fibrillation Reactive airway disease Home Medications lisinopril 20 mg tablet 20 mg PO BID 03/20/18 [History Last Taken Unknown] cikkyhfz-ipt-vkimm acid 0.4 mg-lycopene 300 mcg-lutein 250 mcg tablet 1 ea PO DAILY 03/20/18 [History Last Taken Unknown] cranberry 500 mg capsule 2,000 mg PO DAILY 04/05/18 [History Last Taken Unknown] Lactobacillus rhamnosus GG 5 billion cell chewable tablet (Culturelle Kids Probiotics) 1 tab PO DAILY 12/01/18 [History Last Taken Unknown] metronidazole 0.75 % topical gel 1 applic topical .COMPLEX 12/01/18 [History Last Taken Unknown] montelukast 10 mg tablet 10 mg PO QPM 12/01/18 [History Last Taken Unknown] hydrochlorothiazide 12.5 mg tablet 12.5 mg PO DAILY #90 tabs 01/09/21 [Rx Last Taken Unknown] rosuvastatin 10 mg tablet 10 mg PO .COMPLEX 03/16/22 [History Last Taken Unknown] cephalexin 500 mg capsule 500 mg PO BID 09/11/22 [History Last Taken Unknown] pantoprazole 40 mg tablet,delayed release 40 mg PO DAILY 09/11/22 [History Last Taken Unknown] Allergy/AdvReac Type Severity Reaction Status Date / Time ciprofloxacin [From Cipro] Allergy Other Verified 11/29/22 10:24 fluorescein Allergy Anaphylaxis Verified 11/29/22 10:24 lactose Allergy Upset Verified 11/29/22 10:24 Stomach nitrofurantoin Allergy Other Verified 11/29/22 10:24 Sulfa (Sulfonamide Allergy Rash Verified 11/29/22 10:24 Antibiotics) aspirin AdvReac Other Verified 11/29/22 12:21 Family History (Reviewed 09/11/22 @ 11:22 by Lorena Jaime VISITOR SERVICES TECHNICIAN, VISITOR SERVICES TECHNICIAN-C) Father Diabetes Hypertension Brother Diabetes Hypertension Brother Heart disease irregular heart beat w/ PPM Surgical History H/O breast biopsy H/O hemorrhoidectomy History of cataract surgery History of partial hysterectomy History of tonsillectomy Hx of cholecystectomy Social History household members: spouse Smoking Status: Never smoker alcohol intake: never substance use type: does not use caffeine: No ROS ROS ED Constitutional Constitutional ED: Denies chills or fever(s) Eyes Eyes: Denies blurry vision or change in vision ENT ENT ED: Denies rhinorrhea or sore throat Cardiovascular Cardiovascular: Reports chest pain and palpitations Respiratory/Chest Respiratory/Chest: Denies cough or dyspnea Gastrointestinal Gastrointestinal: Reports nausea; Denies abdominal pain or vomiting Genitourinary Genitourinary ED: Denies dysuria or hematuria Musculoskeletal Musculoskeletal: Reports back pain and neck pain Integumentary Denies abscess or rash Neurologic Neurologic: Reports weakness; Denies headache(s) Allergic/Immunologic Allergic/Immunologic ED: Denies mouth swelling or urticaria EXAM Physical Exam Const Vital Signs: 11/29/22 10:24 11/29/22 11:11 11/29/22 12:28 Temperature 97.2 F L Temperature Source Temporal Pulse Rate 69 73 Respiratory Rate 14 14 Blood Pressure 170/70 H 137/72 H Blood Pressure Mean 103 93 Pulse Ox 97 97 Oxygen Delivery Method Room Air Room Air Room Air Positive well nourished, well developed and obese General Appearance ED: well developed and NAD Nutritional Appearance: obese HEENT normocephalic and atraumatic Eyes PERRL and EOMs intact bilaterally Neck supple and no JVD Chest Wall palpation of chest normal Resp normal respiratory effort and clear to auscultation bilaterally Effort and Inspection: Negative for respiratory distress Cardio regular rate, regular rhythm and no murmurs GI normal to inspection, nondistended, normoactive bowel sounds, soft to palpation, non-tender and non-distended Extremity normal to inspection General Extremety ED: Negative for edema or tenderness General Extremity: Negative for edema Neuro oriented x3, CN's II-XII intact bilaterally and no sensory deficits noted Sensorium / Orientation: awake and alert Motor Exam: strength 5/5 throughout Psych mental status grossly normal Heart Score History: Slightly/Non-Suspicious ECG: Normal Age: >/= 65 years Risk Factors: 1 or 2 Risk Factors Troponin: </= Normal Limit Score: 3 MDM MDM MDM Narrative Medical decision making narrative: Patient was given aspirin here. Differential diagnosis includes cardiac ischemia/dysrhythmia, pneumonia, electrolyte abnormality, congestive heart failure, GERD, and musculoskeletal etiology. Other than her age, patient is a heart is negative and has no PE risk factors, so I do not feel that this is from a pulmonary embolus. Will obtain EKG to assess for cardiac dysrhythmia and cardiac ischemia. Will check a CBC to check for leukocytosis and anemia. Will obtain a basic metabolic profile to check for renal function and electrolyte abnormality. Will obtain a chest x-ray to assess for pneumonia, cardiomegaly, or congestive heart failure. Will obtain a troponin to check for cardiac ischemia. Lab Data Attestation: I reviewed the patient's lab results. Lab results narrative: CBC was reviewed and was within normal limits. Basic metabolic profile was reviewed. There is a mild elevation of the glucose at 125 but was otherwise within normal limits. High-sensitivity troponin was reviewed and was normal at 17. 2-hour repeat high-sensitivity troponin was also reviewed and was normal at 19. Labs: Laboratory Results - last 24 hr 11/29/22 11/29/22 11/29/22 10:43 10:43 12:53 WBC 9.6 RBC 4.93 Hgb 14.9 Hct 42.7 MCV 86.6 MCH 30.2 MCHC 34.9 RDW Std Deviation 37.2 RDW Coeff of [place] 11.8 Plt Count 320 MPV 9.8 Immature Gran % (Auto) 0.200 Neut % (Auto) 67.4 Lymph % (Auto) 22.4 [place] % (Auto) 8.8 Eos % (Auto) 0.9 Baso % (Auto) 0.3 Absolute Neuts (auto) 6.5 Absolute Lymphs (auto) 2.15 Nucleated RBC % 0 Sodium 137 Potassium 3.8 Chloride 103 Carbon Dioxide 25.0 Anion Gap 9 BUN 17 Creatinine 0.82 Estim Creat Clear Calc 49.04 Est GFR (MDRD) Af Amer 87 Est GFR (MDRD) Non-Af 72 BUN/Creatinine Ratio 20.6 H Glucose 125 H Calcium 9.9 Troponin I High Sens 17 19 Radiography Diagnostic Testing: Clinical Impression(s) from Imaging Studies Chest X-Ray 11/29/22 11:25 IMPRESSION: Degenerative changes, as described above. No demonstrated acute cardiopulmonary process. Electronically Signed: Remy Macdonald MD at 11:52 EST Reading Location ID and State: [facility] / [place] , Service support , Portable 1 view chest x-ray was obtained. On my independent interpretation, lung serna are clear. There is normal cardiac silhouette. Bony thorax is normal. There is no acute process noted. Radiologist also interpreted the x-ray and noted some degenerative changes. EKG Initial EKG: Attestation: I personally reviewed and interpreted this EKG as follows: Interpretation: Sinus Rhythm (With occasional PVCs with a rate of 75) and No Acute Injury Pattern Comments: EKG was obtained. On my interpretation, it showed a normal sinus rhythm with a rate of 75 with occasional PVCs. OR interval, QRS interval, and QTc intervals were all normal. [place] was normal. There are no acute ST or T wave changes. Prior EKG tracings: available for review Prior: Unchanged (09/13/2021) Treatment and Re-Evaluation Narrative: Patient was advised of her findings. Patient has a HEART score of 3. Patient was advised that this is low risk for acute cardiac event. Patient was advised that this could be due to gastroesophageal reflux disease, anxiety, or musculoskeletal etiology. Patient was instructed to follow-up with her primary care physician in 5 to 7 days for further evaluation. Patient understood and was agreeable with the plan. All questions were answered. Discharge Plan Triage Chief Complaint: Chest Pain ED Provider: Yuri Garcia Dx/Rx/DC Orders Clinical Impression: Chest pain of uncertain etiology Instructions: ED Chest Pain, Uncertain Cause Prescriptions: No Action montelukast 10 mg tablet 10 mg PO QPM Culturelle Kids Probiotics 5 billion cell tablet,chewable 1 tab PO DAILY metronidazole 0.75 % gel 1 applic TOPICAL .COMPLEX Label Comments: 1 applic TOPICAL as directed; Rx Instructions: 1 applic TOPICAL as directed; cephalexin 500 mg capsule 500 mg PO BID pantoprazole 40 mg tablet,delayed release (DR/EC) 40 mg PO DAILY lisinopril 20 MG tablet 20 mg PO BID tcvolcgs-xhw-SP-lycopen-lutein 1 EACH tablet 1 ea PO DAILY cranberry 500 mg capsule 2,000 mg PO DAILY hydrochlorothiazide 12.5 mg tablet 12.5 mg PO DAILY Qty: 90 3RF rosuvastatin 10 mg tablet 10 mg PO .COMPLEX Rx Instructions: 10 mg PO 3 times per week; Primary Care Provider: Charlotte Stevenson Referrals: Charlotte Stevenson DO [Primary Care Provider] - 3-5 Days Disposition Disposition: Home, Self Care
[2022-11-29 11:25] LABS: Absolute Lymphocyte Count 2.15 X10^3/uL (0.83-4.51); Absolute Neutrophil Count 6.5 X10^3/uL (2.0-7.7); Basophil# 0.03 X10^3/uL; Basophil% 0.3 % (0-1); Eosinophil# 0.09 X10^3/uL; Eosinophils% 0.9 % (0-5); Hematocrit 42.7 % (37-47); Hemoglobin 14.9 g/dL (12.0-15.0); Lymphocyte # 2.15 X10^3/ul (0.83-4.51); Lymphocyte % 22.4 % (19-41); Mean Corp Hgb Conc 34.9 g/dL (32-36); Mean Corpuscular Hgb 30.2 pg (27.0-32.0); Mean Corpuscular Volume 86.6 fL (81-99); Mean Platelet Vol. 9.8 fl (6.2-12.0); Monocyte# 0.84 X10^3/uL; Monocyte% 8.8 % (0-10); NRBC Flagged by Analyzer 0 % (0-5); Neutrophil # 6.46 X10^3/uL (2.7-7.7); Neutrophil % 67.4 % (47-70); Platelet Count 320 K/mm3 (150-450); RBC Distribution Width CV 11.8 % (11.6-14.6); RBC Distribution Width SD 37.2 fl (35.1-43.9); Red Blood Count 4.93 M/mm3 (4.2-5.4); White Blood Count 9.6 K/mm3 (4.4-11.0)
--- NOTE | 2022-11-29 11:25 | RAD_ITS ---
STUDY: X-RAY CHEST REASON FOR EXAM: Female, 77 years old. chest pain CP X 3 D. FEELS LIKE A KNOT UNDER BREAST GOING INTO THE BACK, C/O DIZZINESS AND WEAKNESS TECHNIQUE: Single AP portable view of the chest. COMPARISON: March 22, 2018 FINDINGS: The lungs are clear and expanded. There is no demonstrated pleural abnormality. Normal size heart. Normal mediastinum and chrissy. Normal visualized pulmonary arteries. There is atherosclerotic calcification of the aortic arch with tortuosity. There are diffuse degenerative changes of the visualized thoracic spine. Normal visualized ribs, clavicles, and shoulders. There is no demonstrated abnormality of the visualized soft tissue structures of the upper abdomen. RAD/Chest 1 View (Portable) IMPRESSION: Degenerative changes, as described above. No demonstrated acute cardiopulmonary process. Electronically Signed: Remy Macdonald MD at 11:52 EST ,
[2022-11-29 11:39] LABS: Anion Gap 9 (5-15); BUN 17 mg/dL (7-18); BUN/Creat Ratio 20.6 RATIO (10-20); Calcium,Total 9.9 mg/dL (8.5-10.1); Chloride 103 mmol/L (98-107); Creatinine, Serum 0.82 mg/dL (0.55-1.02); EST Glomerular Filtration Rate 72 mL/min (>60); Est Glom Filt Rate - Afr Amer 87 mL/min (>60); Estimated Creatinine Clearance 49.04 ml/min; Glucose 125 mg/dL (74-106); Potassium 3.8 mmol/L (3.5-5.1); Sodium Level 137 mmol/L (136-145); Troponin-I HS (w/2H Reflex) 17 pg/mL (3.0-54.0)
[2022-11-29 12:28] VITALS: BP 137/72; PULSE 73; RESP 14; O2SAT 97
[2022-11-29 13:18] LABS: Reflex Troponin-HS? (from REC) Y
[2022-11-29 13:35] LABS: Troponin-I HS 19 pg/mL (3.0-54.0)
[2022-11-29 14:24] VITALS: BP 146/85; PULSE 73; RESP 15; O2SAT 98
== END 2022-11-29 14:25 | disposition home or self-care (01) ==
PROVIDERS: Emergency Provider Emergency Medicine; PCP Family Medicine; Visit Provider Emergency Medicine
DX: R07.89 Other chest pain (principal); I48.0 Paroxysmal atrial fibrillation; R11.0 Nausea; R00.2 Palpitations; I10 Essential (primary) hypertension; E78.00 Pure hypercholesterolemia, unspecified; Z79.899 Other long term (current) drug therapy
CPT/HCPCS: 71045; 80048; 84484; 85025; 93005; 99284; A4216

== ENCOUNTER → 2022-12-03 | Outpatient (CLI) | payer MEDICARE, SELFPAY ==
[2022-12-03 15:55] LABS: Hemoglobin A1c 5.9 % (3.8-5.6)
[2022-12-03 16:13] LABS: Free T3 2.6 pg/mL (2.18-3.98); T4 Free Direct 1.01 ng/dL (0.76-1.46); Thyroid Stim Hormone (TSH) 0.56 uIU/mL (0.358-3.74)
== END | disposition home or self-care (01) ==
LOC: LAB 13:56
PROVIDERS: PCP Family Medicine; Visit Provider Family Medicine
DX: R73.03 Prediabetes (principal); E03.9 Hypothyroidism, unspecified; R73.02 Impaired glucose tolerance (oral)
CPT/HCPCS: 83036; 83735; 84439; 84443; 84481

== ENCOUNTER → 2022-12-28 | Outpatient (CLI) | payer MEDICARE, SELFPAY ==
--- NOTE | 2022-12-28 10:54 | BI_ITS ---
MAMMOGRAPHY - BILATERAL SCREENING REASON FOR EXAM: Female, 77 years old. Routine annual screening examination. PERTINENT HISTORY: Non-contributory. TECHNIQUE: Digital bilateral breast alayna (3D mammographic acquisition) in the CC and MLO projections. 2-D mediolateral oblique (MLO) and craniocaudad (CC) views of both breasts were obtained. CAD: Full Field Digital Mammography with Computer Added Detection was performed. COMPARISON: Comparison is made with prior study dated 12/25/2021 and 12/19/2020. FINDINGS: Breast Composition: The breasts are almost entirely fatty. There are no dominant masses or suspicious calcifications. Stable bilateral calcifications suggestive of dermal calcifications. No other significant abnormalities are identified. There has been no significant change since the prior study. BI/SCRN MAMM (CAD)W/ALAYNA BILAT IMPRESSION: Stable bilateral screening mammogram. Yearly follow-up mammogram recommended. (A) ASSESSMENT CATEGORY: BIRADS Category 2: Benign. A letter regarding these results will be sent to the patient by the facility within 30 days. Approximately 10% of breast cancers are not detected by mammography. A normal mammogram should not delay biopsy of a clinically suspicious abnormality. [id number] Electronically Signed: Ash Wang MD at 14:21 EST ,
== END | disposition home or self-care (01) ==
LOC: OPBI 10:52
PROVIDERS: PCP Family Medicine; Visit Provider Family Medicine
DX: Z12.31 Encounter for screening mammogram for malignant neoplasm of breast (principal)
CPT/HCPCS: 77063; 77067

== ENCOUNTER → 2023-03-08 | Outpatient (CLI) | payer MEDICARE, SELFPAY ==
[2023-03-08 12:32] LABS: Absolute Lymphocyte Count 1.94 X10^3/uL (0.83-4.51); Absolute Neutrophil Count 3.5 X10^3/uL (2.0-7.7); Basophil# 0.03 X10^3/uL; Basophil% 0.5 % (0-1); Eosinophil# 0.28 X10^3/uL; Eosinophils% 4.3 % (0-5); Hematocrit 39.3 % (37-47); Hemoglobin 13.4 g/dL (12.0-15.0); Lymphocyte # 1.94 X10^3/ul (0.83-4.51); Lymphocyte % 29.9 % (19-41); Mean Corp Hgb Conc 34.1 g/dL (32-36); Mean Corpuscular Hgb 30.7 pg (27.0-32.0); Mean Corpuscular Volume 89.9 fL (81-99); Mean Platelet Vol. 9.9 fl (6.2-12.0); Monocyte# 0.68 X10^3/uL; Monocyte% 10.5 % (0-10); NRBC Flagged by Analyzer 0 % (0-5); Neutrophil # 3.54 X10^3/uL (2.7-7.7); Neutrophil % 54.6 % (47-70); Platelet Count 279 K/mm3 (150-450); RBC Distribution Width CV 11.9 % (11.6-14.6); Red Blood Count 4.37 M/mm3 (4.2-5.4); White Blood Count 6.5 K/mm3 (4.4-11.0)
[2023-03-08 13:11] LABS: ALB/GLOB Ratio 0.9 RATIO (0.9-2.4); AST(SGOT) 20 U/L (15-37); Alanine Aminotransfer ALT/SGPT 29 U/L (13-56); Albumin, Serum 3.8 g/dL (3.2-5.0); Alkaline Phosphatase 104 U/L (45-117); Anion Gap 9 (5-15); BUN 19 mg/dL (7-18); BUN/Creat Ratio 22.8 RATIO (10-20); Calcium,Total 9.5 mg/dL (8.5-10.1); Chloride 103 mmol/L (98-107); Cholesterol 193 mg/dL (200); Creatinine, Serum 0.83 mg/dL (0.55-1.02); EST Glomerular Filtration Rate 71 mL/min (>60); Est Glom Filt Rate - Afr Amer 86 mL/min (>60); Globulin 4.1 g/dL (2.2-4.2); Glucose 108 mg/dL (74-106); High Density Lipoprotein 48 mg/dL; Potassium 4.1 mmol/L (3.5-5.1); Protein, Total 7.9 g/dL (6.4-8.2); Sodium Level 138 mmol/L (136-145); Triglycerides 261 mg/dL; Very Low Density Lipoprotein 52 mg/dL (5-40)
[2023-03-09 08:50] LABS: Hemoglobin A1c 5.9 % (3.8-5.6)
== END | disposition home or self-care (01) ==
LOC: BFHLAB 09:38
PROVIDERS: PCP Family Medicine; Referring Provider Family Medicine; Visit Provider Family Medicine
DX: Z51.81 Encounter for therapeutic drug level monitoring (principal); R73.03 Prediabetes; E78.1 Pure hyperglyceridemia; R73.02 Impaired glucose tolerance (oral)
CPT/HCPCS: 36415; 80053; 80061; 83036; 85025

== ENCOUNTER → 2023-09-06 | Outpatient (CLI) | payer MEDICARE, SELFPAY ==
[2023-09-06 12:05] LABS: Absolute Lymphocyte Count 2.19 X10^3/uL (0.83-4.51); Absolute Neutrophil Count 4.1 X10^3/uL (2.0-7.7); Basophil# 0.03 X10^3/uL; Basophil% 0.4 % (0-1); Eosinophil# 0.32 X10^3/uL; Eosinophils% 4.4 % (0-5); Hematocrit 40.8 % (37-47); Hemoglobin 13.3 g/dL (12.0-15.0); Lymphocyte # 2.19 X10^3/ul (0.83-4.51); Lymphocyte % 30.4 % (19-41); Mean Corp Hgb Conc 32.6 g/dL (32-36); Mean Corpuscular Hgb 29.2 pg (27.0-32.0); Mean Corpuscular Volume 89.5 fL (81-99); Monocyte# 0.57 X10^3/uL; Monocyte% 7.9 % (0-10); NRBC Flagged by Analyzer 0 % (0-5); Neutrophil # 4.08 X10^3/uL (2.7-7.7); Neutrophil % 56.6 % (47-70); Platelet Count 290 K/mm3 (150-450); RBC Distribution Width SD 39.1 fl (35.1-43.9); Red Blood Count 4.56 M/mm3 (4.2-5.4); White Blood Count 7.2 K/mm3 (4.4-11.0)
[2023-09-06 13:51] LABS: Hemoglobin A1c 5.8 % (3.8-5.6)
[2023-09-06 17:10] LABS: ALB/GLOB Ratio 0.9 RATIO (0.9-2.4); AST(SGOT) 20 U/L (15-37); Alanine Aminotransfer ALT/SGPT 33 U/L (13-56); Albumin, Serum 3.8 g/dL (3.2-5.0); Alkaline Phosphatase 99 U/L (45-117); Anion Gap 6 (5-15); BUN 20 mg/dL (7-18); BUN/Creat Ratio 27.9 RATIO (10-20); Calcium,Total 9.1 mg/dL (8.5-10.1); Chloride 106 mmol/L (98-107); Cholesterol 157 mg/dL (200); Creatinine, Serum 0.72 mg/dL (0.55-1.02); EST Glomerular Filtration Rate 84 mL/min (>60); Est Glom Filt Rate - Afr Amer 102 mL/min (>60); Free T3 2.7 pg/mL (2.18-3.98); Globulin 4.2 g/dL (2.2-4.2); Glucose 106 mg/dL (74-106); High Density Lipoprotein 52 mg/dL; Potassium 4.2 mmol/L (3.5-5.1); Sodium Level 139 mmol/L (136-145); T4 Free Direct 0.86 ng/dL (0.76-1.46); Thyroid Stim Hormone (TSH) 1.09 uIU/mL (0.358-3.74); Triglycerides 251 mg/dL; Very Low Density Lipoprotein 50 mg/dL (5-40)
== END | disposition home or self-care (01) ==
LOC: BFHLAB 10:28
PROVIDERS: PCP Family Medicine; Referring Provider Family Medicine; Visit Provider Family Medicine
DX: E78.5 Hyperlipidemia, unspecified (principal); R73.03 Prediabetes; R73.02 Impaired glucose tolerance (oral); E78.1 Pure hyperglyceridemia
CPT/HCPCS: 36415; 80053; 80061; 83036; 84439; 84443; 84481; 85025

== ENCOUNTER → 2023-10-28 | Outpatient (CLI) | payer MEDICARE, SELFPAY ==
--- NOTE | 2023-10-28 08:52 | CDU_ITS ---
Reason For Study: Stenosis Rt. Velocities/BP Lt. Velocities/BP Prox CCA 108.4/16.3 cm/sec. Prox CCA 102.3/21.2 cm/sec. Mid CCA 79/15.1 cm/sec. Mid CCA 98.6/16.3 cm/sec. Dist CCA 80.2/16.3 cm/sec. Dist CCA 85.1/17.6 cm/sec. Prox ICA 135.7/29.8 cm/sec. Prox ICA 148.5/42.6 cm/sec. Mid ICA 92.5/23.7 cm/sec. Mid ICA 122.9/27.9 cm/sec. Dist ICA 68.7/18.3 cm/sec. Dist ICA 113.8/33.4 cm/sec. Rt. ICA/CCA = 1.69. Lt. ICA/CCA = 1.51. Prox ECA 132.1/11.5 cm/sec. Prox ECA 168.6/9.7 cm/sec. Rt. Vert. 63/11.4 cm/sec. Lt. Vert. 55.3/8 cm/sec. Right Extracranial There is intimal thickening but no significant atherosclerotic plaque noted in the right common carotid artery. There is heterogeneous, irregular atherosclerotic plaque noted in the right internal carotid artery. The atherosclerotic plaque causes acoustic shadowing. There is heterogeneous, irregular atherosclerotic plaque noted in the right external carotid artery. Antegrade flow is noted in the right vertebral artery. Left Extracranial There is homogeneous, smooth atherosclerotic plaque noted in the left common carotid artery. There is heterogeneous, irregular atherosclerotic plaque noted in the left internal carotid artery. The atherosclerotic plaque causes acoustic shadowing. There is heterogeneous, irregular atherosclerotic plaque noted in the left external carotid artery. Antegrade flow is noted in the left vertebral artery. Procedure Carotid Duplex [id number]. This is a Carotid Duplex examination using B-mode, color flow and specral Doppler. Exam performed in department. VL/Carotid Duplex Ultrasound Interpretation Summary Moderate (50-69%) stenosis right extracranial internal carotid. Moderate (50-69%) stenosis left extracranial internal carotid. Patent and antegrade vertebrals bilaterally. Limited due to calcific shadowing, alternative imaging may be beneficial Ordering Physician: Charlotte Stevenson Referring Physician: Charlotte Stevenson Performed By: Alejandra Greene RVT
== END | disposition home or self-care (01) ==
LOC: CVS 08:50
PROVIDERS: PCP Family Medicine; Referring Provider Family Medicine; Visit Provider Family Medicine
DX: I65.23 Occlusion and stenosis of bilateral carotid arteries (principal)
CPT/HCPCS: 93880

== ENCOUNTER → 2023-12-29 | Outpatient (CLI) | payer MEDICARE, SELFPAY ==
--- NOTE | 2023-12-29 09:24 | BI_ITS ---
MAMMOGRAPHY - BILATERAL SCREENING REASON FOR EXAM: Female, 78 years old. Routine annual screening examination. PERTINENT HISTORY: Remote right stereotactic breast biopsy and left excisional breast biopsy. TECHNIQUE: Digital bilateral breast alayna (3D mammographic acquisition) in the CC and MLO projections. 2-D mediolateral oblique (MLO) and craniocaudad (CC) views of both breasts were obtained. CAD: Full Field Digital Mammography with Computer Added Detection was performed. COMPARISON: Comparison is made with prior study dated December 28, 2022 and December 25, 2021. FINDINGS: Breast Composition: The breasts are almost entirely fatty. There are no dominant masses or suspicious calcifications. Stable benign-appearing bilateral axillary lymph nodes. Stable dural calcifications in both breasts. No other significant abnormalities are identified. There has been no significant change since the prior study. BI/SCRN MAMM (CAD)W/ALAYNA BILAT IMPRESSION: Stable bilateral screening mammogram. Yearly follow-up mammogram recommended. (A) ASSESSMENT CATEGORY: BIRADS Category 2: Benign. A letter regarding these results will be sent to the patient by the facility within 30 days. Approximately 10% of breast cancers are not detected by mammography. A normal mammogram should not delay biopsy of a clinically suspicious abnormality. [id number] Electronically Signed: Ash Wang MD at 10:33 EST ,
--- NOTE | 2023-12-29 09:28 | BD_ITS ---
STUDY: DUAL ENERGY X-RAY ABSORPTIOMETRY / DXA REASON FOR EXAM: Female, 78 years old. M810 TECHNIQUE: Bone Mineral Density (BMD) measurements of lumbar spine and bilateral hips were obtained. COMPARISON: Comparison is made with prior study dated September 25, 2021. FINDINGS: Lumbar Spine (L1-L4): g/cm2 (0.958) / T-score (-0.8) / Z-score (1.7) Findings are suggestive of normal bone density with a low fracture risk. Left Femur Total: g/cm2 (0.821) / T-score (-1.0) / Z-score (0.9) Left Femoral Neck: g/cm2 (0.610) / T-score (-2.2) / Z-score (0.0) Right Femur Total: g/cm2 (0.862) / T-score (-0.7) / Z-score (1.2) Right Femoral Neck: g/cm2 (0.628) / T-score (-2.0) / Z-score (0.2) The T-Scores on the most recent prior examination were: Lumbar Spine (L1-L4): There has been worsening of bone density since the previous examination. Left Femur Total: which represents a worsening of 4.9. Right Femur Total: which represents a worsening of 2.4%. BD/Dexa Bone Density Study IMPRESSION: The patient is considered as outlined below according to World Kash Organization (WHO) criteria with a high fracture risk. There has been worsening of bone density since the previous examination. Reference Information: The T-score is the number of standard deviations above or below the standard which is normal for young adults at their peak bone mineral density. The World Health Organization (WHO) interprets the T-scores as follows: Above -1 Normal bone density Between -1 and -2.5 Osteopenia Equal to / or below -2.5 Osteoporosis As a practical clinical guideline, osteopenia may be graded as follows: Mild -1 through -1.5 Moderate -1.6 through -2.0 Severe -2.1 through -2.4 The Z-score is the number of standard deviations above or below age-matched controls. A Z-score of less than -1.5 would be considered abnormal. References: 1. NIH Osteoporosis and Related Bone Diseases www osteo.org 2. International Society for Clinical Densitometry www iscd.org 3. National Osteoporosis Foundation www nof.org Electronically Signed: Ash Wang MD at 13:19 EST ,
--- OUTSIDE RECORDS SUMMARY | 2023-12-29 10:03 | XMS RPT_ITS | CCD ---
Author Name Unknown Address [address] [place] [address] Organization [facility] Care Team Providers [employer] Supervisor Name Role Phone MALYS, ADALI A. Unavailable Unavailable MALYS, ADALI A. Unavailable Unavailable MALYS, ADALI A. Unavailable Unavailable MALYS, ADALI A. Unavailable Unavailable MALYS, ADALI A Referring Unavailable ALAM, GLENN Primary Care Unavailable MALYS, ADALI A Referring Unavailable ALAM, GLENN Primary Care Unavailable Allergies Allergy Classification Reported Allergen(s) Allergy Type Date of Onset Reaction(s) Facility (1 source) Ciprofloxacin; Translations: [CIPROFLOXACIN] Drug Allergy 6 [facility] Repository (1 source) Fluorescein; Translations: [FLUORESCEIN] Drug Allergy 6 [facility] (1 source) Penicillins; Translations: [PENICILLINS] Propensity to adverse reactions to drug (disorder) 6 [facility] Rep[facility] (1 source) Sulfonamides (Antibiotic); Translations: [SULFA (SULFONAMIDE ANTIBIOTICS)] Propensity to adverse reactions to drug (disorder) 6 [facility] Rep[facility] Results Test Name Value Interpretation Reference Range Facil ity Encounters Encounter Date Encounter Type Care Provider Facility Start: 09-07-2022 End: 09-07-2022 ambulatory ADALI A MALYS Facility:[facility] Start: 03-03-2022 End: 03-03-2022 ambulatory ADALI A MALYS Facility:[facility] Start: 08-12-2017 End: 08-13-2017 Ambulatory ADALI A. MALYS Facility:[facility] Start: 08-04-2017 End: 08-05-2017 Ambulatory ADALI A. MALYS Facility:[facility] Payers Date Payer Category Payer Medicare [id number] Summary Purpose Family History No Family History Records FoundNo Family History Records Found Advance Directives No Advanced Directives Records FoundNo Advanced Directives Records Found Additional Source Comments INFORMATION SOURCE (unrecogn ized section and content) DATE CREATED AUTHOR AUTHOR'S SEAN SURESH 09/08/2022 [facility] FOR RECORDS PERTAINING TO PATIENTS WHO ARE OR HAVE BEEN ENROLLED IN A CHEMICAL DEPENDENCY/SUBSTANCEABUSE PROGRAM, SOME INFORMATION MAY BE OMITTED. This clinical summary was aggregated from multiple sources. Caution should be exercised in using it in the provision of clinical care. This summary normalizes information from multiple sources, and as a consequence, information in this document may materially change the coding, format and clinical context of patient data. In addition, data may be omitted in some cases. CLINICAL DECISIONS SHOULD BE BASED ON THE PRIMARY CLINICAL RECORDS. [facility], [facility]. provides no warranty or guarantee of the accuracy or completeness of information in this document.
== END | disposition home or self-care (01) ==
PROVIDERS: PCP Family Medicine; Referring Provider Family Medicine; Visit Provider Family Medicine
DX: Z12.31 Encounter for screening mammogram for malignant neoplasm of breast (principal); M81.0 Age-related osteoporosis without current pathological fracture
CPT/HCPCS: 77063; 77067; 77080

== ENCOUNTER → 2024-07-12 | Outpatient (CLI) | payer MEDICARE, SELFPAY ==
[2024-07-12 12:58] LABS: Absolute Lymphocyte Count 2.55 X10^3/uL (0.83-4.51); Absolute Neutrophil Count 6.3 X10^3/uL (2.0-7.7); Basophil# 0.04 X10^3/uL; Basophil% 0.4 % (0-1); Eosinophil# 0.17 X10^3/uL; Eosinophils% 1.7 % (0-5); Hematocrit 42.4 % (37-47); Hemoglobin 14.2 g/dL (12.0-15.0); Lymphocyte # 2.55 X10^3/ul (0.83-4.51); Lymphocyte % 25.1 % (19-41); Mean Corp Hgb Conc 33.5 g/dL (32-36); Mean Corpuscular Hgb 29.3 pg (27.0-32.0); Mean Corpuscular Volume 87.6 fL (81-99); Mean Platelet Vol. 10.1 fl (6.2-12.0); Monocyte# 1.05 X10^3/uL; Monocyte% 10.3 % (0-10); NRBC Flagged by Analyzer 0 % (0-5); Neutrophil # 6.31 X10^3/uL (2.7-7.7); Neutrophil % 62.2 % (47-70); Platelet Count 323 K/mm3 (150-450); RBC Distribution Width SD 38.6 fl (35.1-43.9); Red Blood Count 4.84 M/mm3 (4.2-5.4); White Blood Count 10.2 K/mm3 (4.4-11.0)
[2024-07-12 13:43] LABS: ALB/GLOB Ratio 0.9 RATIO (0.9-2.4); AST(SGOT) 31 U/L (15-37); Alanine Aminotransfer ALT/SGPT 39 U/L (13-56); Alkaline Phosphatase 104 U/L (45-117); Anion Gap 6 (5-15); BUN 18 mg/dL (7-18); BUN/Creat Ratio 22.1 RATIO (10-20); Chloride 103 mmol/L (98-107); Creatinine, Serum 0.82 mg/dL (0.55-1.02); EST Glomerular Filtration Rate 72 mL/min (>60); Est Glom Filt Rate - Afr Amer 87 mL/min (>60); Globulin 4.3 g/dL (2.2-4.2); Glucose 115 mg/dL (74-106); Magnesium 2.7 mg/dL (1.6-2.6); Potassium 3.9 mmol/L (3.5-5.1); Protein, Total 8.3 g/dL (6.4-8.2); Sodium Level 136 mmol/L (136-145)
== END | disposition home or self-care (01) ==
LOC: LAB 11:38
PROVIDERS: PCP Family Medicine; Referring Provider Nurse Practitioner Family; Visit Provider Nurse Practitioner Family
DX: I48.0 Paroxysmal atrial fibrillation (principal); I10 Essential (primary) hypertension; E78.5 Hyperlipidemia, unspecified
CPT/HCPCS: 36415; 80053; 83735; 84439; 84443; 85025

== ENCOUNTER → 2024-08-07 | Outpatient (CLI) | payer MEDICARE, SELFPAY ==
--- NOTE | 2024-08-07 12:45 | ECHOCS_ITS ---
Reason For Study: ATRIAL FIBRILLATION Procedure This was a 2D Doppler, Color Flow transthoracic echocardiogram. The study was technically difficult. Contrast injection was performed. Exam performed in department. Left Ventricle Normal LV size. Mild concentric left ventricular hypertrophy. Left ventricular systolic function is normal. The left ventricular ejection fraction is 65 %. No regional wall motion abnormalities noted. Right Ventricle Normal RV size. Normal systolic function. Mitral Valve There is mild to moderate mitral annular calcification. Tricuspid Valve Normal tricuspid valve. Mild (1+) tricuspid valve insufficiency. Pulmonary artery systolic pressure is 24 mmHg. Aortic Valve Trisinus/trileaflet aortic valve. Mild focal aortic valve calcification. Pulmonic Valve Normal pulmonic valve. Great Vessels Normal aortic root. The pulmonary artery is normal size. Normal inferior vena cava. Pericardium/Pleural No pericardial effusion. Medication 22 gauge I.V. with prn adaptor inserted into right arm. Diluted definity 2ml given slow IV push to enhance endocardial definition. MMode/2D Measurements & Calculations LVIDd: 3.3 cm IVSd: 1.4 cm LAV(MOD-bp): 41.8 ml LVIDs: 1.8 cm LVPWd: 1.2 cm LAV(MOD-bp) Indexed: 22.4 ml/m2 FS: 45.6 % LAV(MOD-sp2): 37.4 ml LAV(MOD-sp4): 46.8 ml SV(MOD-sp4): 65.3 ml LVAd ap4: 28.7 cm2 LVAd ap2: 28.8 cm2 LVLd ap4: 8.0 cm LVLd ap2: 7.8 cm EDV(MOD-sp4): 83.0 ml EDV(MOD-sp2): 85.0 ml EDV(sp4-el): 87.3 ml EDV(sp2-el): 90.2 ml LVAs ap4: 11.0 cm2 LVAs ap2: 15.9 cm2 LVLs ap4: 5.8 cm LVLs ap2: 6.8 cm ESV(MOD-sp4): 17.6 ml ESV(MOD-sp2): 32.0 ml ESV(sp4-el): 17.7 ml ESV(sp2-el): 31.6 ml EF(MOD-sp4): 78.7 % EF(MOD-sp2): 62.4 % EF(sp4-el): 79.7 % SV(MOD-sp2): 53.0 ml SV(sp4-el): 69.6 ml Ao sinus diam: 3.[address] Junction: 2.4 cm LA A4 area: 17.7 cm2 LA dimension(2D): 3.6 cm TAPSE: 2.0 cm RA A4 area: 9.9 cm2 Doppler Measurements & Calculations Lat Peak E' Morgan: 11.1 cm/sec Med Peak E' [place]: 6.7 cm/sec LV V1 max: 130.0 cm/sec LV V1 max P.8 mmHg LV V1 mean P.8 mmHg LV V1 mean: 91.5 cm/sec LV V1 VTI: 28.9 cm TV V2 max: 230.6 cm/sec TV max P.3 mmHg ECHO/Echo Complete W/ Contrast Interpretation Summary Normal LV size. Left ventricular systolic function is normal. The left ventricular ejection fraction is 65 %. Mild concentric left ventricular hypertrophy. Contrast injection was performed. Ordering Physician: Benoit Krishnamurthy Referring Physician: Charlotte Stevenson Performed By: Jeannette You RDCS and Student
== END | disposition home or self-care (01) ==
LOC: CVS 12:39
PROVIDERS: PCP Family Medicine; Referring Provider Nurse Practitioner Family; Visit Provider Nurse Practitioner Family
DX: I48.0 Paroxysmal atrial fibrillation (principal)
CPT/HCPCS: 93306; Q9957; A4216; C8929

== ENCOUNTER 2024-09-12 05:29 | Inpatient (IN) | payer MEDICARE, SELFPAY ==
[2024-09-12] VITALS (23 sets, daily range): BP systolic 100–180; BP diastolic 53–120; PULSE 57–141; RESP 14–26; TEMP 36.6–37.1; O2SAT 95–100; BMI 33.7; BMI 32.5
--- NOTE | 2024-09-12 05:47 | EKG12_ITS ---
Test Reason : TACHYCARDIA Blood Pressure : */* mmHG Vent. Rate : 141 BPM Atrial Rate : * BPM P-R Int : * ms QRS Dur : 72 ms QT Int : 316 ms P-R-T Axes : * 39 -47 degrees QTcB Int : 484 ms Critical Test Result: High HR Atrial fibrillation with rapid ventricular response Marked ST abnormality, possible inferior subendocardial injury Abnormal ECG Confirmed by Mohamud Canela ([id number]), television news video editor REY WEATHERS ([id number]) on 09/13/2024 11:38:53 AM Referred By: TL Confirmed By: Mohamud Canela
--- NOTE | 2024-09-12 05:50 | RAD_ITS ---
EXAM: XR CHEST, 1 VIEW CLINICAL INDICATION: chest pain TECHNIQUE: Frontal view of the chest. COMPARISON: 11/29/2022. FINDINGS: LUNGS AND PLEURAL SPACES: Unremarkable. No consolidation or edema. No pneumothorax. No effusion. HEART: Unremarkable. Cardiac silhouette not enlarged. MEDIASTINUM: Central airways and mediastinal contour are unremarkable. BONES/JOINTS: Unremarkable. No acute fracture. SOFT TISSUES: Unremarkable. RAD/Chest 1 View (Portable) IMPRESSION: No radiographic evidence of acute cardiopulmonary disease. Electronically Signed: Mohamud Tamez MD at 6:48 EST ,
[2024-09-12] MEDS: Aspirin 81 MG TAB.CHEW 324 MG PO (05:55)
[2024-09-12] MEDS: Metoprolol Tartrate 5 MG/5 ML Vial IV ×3 (05:58→06:12)
[2024-09-12 05:59] LABS: Absolute Lymphocyte Count 3.21 X10^3/uL (0.83-4.51); Absolute Neutrophil Count 5.6 X10^3/uL (2.0-7.7); Basophil# 0.04 X10^3/uL; Basophil% 0.4 % (0-1); Eosinophil# 0.28 X10^3/uL; Eosinophils% 2.8 % (0-5); Hematocrit 41.2 % (37-47); Hemoglobin 14.4 g/dL (12.0-15.0); Lymphocyte # 3.21 X10^3/ul (0.83-4.51); Lymphocyte % 31.8 % (19-41); Mean Corpuscular Hgb 30.1 pg (27.0-32.0); Mean Platelet Vol. 9.9 fl (6.2-12.0); Monocyte# 0.94 X10^3/uL; Monocyte% 9.3 % (0-10); NRBC Flagged by Analyzer 0 % (0-5); Neutrophil # 5.59 X10^3/uL (2.7-7.7); Neutrophil % 55.3 % (47-70); Platelet Count 298 K/mm3 (150-450); RBC Distribution Width CV 12.4 % (11.6-14.6); RBC Distribution Width SD 38.4 fl (35.1-43.9); Red Blood Count 4.79 M/mm3 (4.2-5.4); White Blood Count 10.1 K/mm3 (4.4-11.0)
--- NOTE | 2024-09-12 06:14 | EDS_ITS ---
HPI History of Present Illness Chief Complaint: Palpitations Informant: patient and spouse/S.O. Narrative Narrative: Recurrent palpitations awaken at 4:30 in the morning lightheaded symptoms. States sometimes will feel some chest tightness with the palpitations. No recent cough. No recent vomiting or diarrhea. Denies tobacco history. Triage EKG returning A-fib with RVR. Discussed with the patient she states recently started on metoprolol she takes in the evenings. She is followed by cardiology. She only takes a baby aspirin at this time. Hypertension, hyperlipidemia, prediabetes history. No stroke history. History of carotid disease. She took her metoprolol last night. Prior similar symptoms: Yes [facility] Medical History Paroxysmal atrial fibrillation Essential hypertension Reactive airway disease Osteopenia Bilateral carotid artery stenosis Hyperlipidemia Atrial fibrillation with rapid ventricular response (03/21/18) Home Medications ?Medication ?Instructions ?Recorded ?Last Taken ?Type lisinopril 20 mg tablet 20 mg PO BID 03/20/18 Unknown History qqpmzkye-sdy-cszxo acid 0.4 1 ea PO DAILY 03/20/18 Unknown History mg-lycopene 300 mcg-lutein 250 mcg tablet cranberry 500 mg capsule 2,000 mg PO DAILY 04/05/18 Unknown History metronidazole 0.75 % topical gel 1 applic topical .COMPLEX 12/01/18 Unknown History hydrochlorothiazide 12.5 mg tablet 12.5 mg PO DAILY #90 tabs 01/09/21 Unknown Rx pantoprazole 40 mg tablet,delayed 40 mg PO DAILY 09/11/22 Unknown History release rosuvastatin 10 mg tablet 10 mg PO DAILY 07/20/23 Unknown History aspirin 81 mg tablet,delayed 81 mg PO 3XW 07/12/24 Unknown History release (Adult Aspirin Regimen) montelukast 10 mg tablet 10 mg PO QDAY PRN 07/12/24 Unknown History metoprolol succinate 25 mg 25 mg PO DAILY #30 tabs 08/07/24 Unknown Rx tablet,extended release 24 hr Allergy/AdvReac Type Severity Reaction Status Date / Time ciprofloxacin (From Cipro) Allergy Other Verified 09/12/24 05:30 fluorescein Allergy Anaphylaxis Verified 09/12/24 05:30 lactose Allergy Upset Verified 09/12/24 05:30 Stomach nitrofurantoin Allergy Other Verified 09/12/24 05:30 Sulfa (Sulfonamide Allergy Rash Verified 09/12/24 05:30 Antibiotics) aspirin AdvReac Other Verified 09/12/24 05:30 Family History Father Diabetes Hypertension Brother Diabetes Hypertension Brother Heart disease irregular heart beat w/ PPM Surgical History H/O breast biopsy H/O hemorrhoidectomy History of partial hysterectomy Hx of cholecystectomy History of tonsillectomy History of cataract surgery Social History household members: spouse Smoking Status: Never smoker alcohol intake: never substance use type: does not use caffeine: No ROS ROS ED Constitutional Constitutional ED: Denies chills, fever(s) or sweats Eyes Eyes: Denies change in vision ENT ENT ED: Denies dysphagia or sore throat Cardiovascular Cardiovascular: Reports palpitations and racing heartbeat; Denies chest pain or leg edema Respiratory/Chest Respiratory/Chest: Denies cough, dyspnea or dyspnea on exertion Gastrointestinal Gastrointestinal: Denies abdominal pain, diarrhea, nausea or vomiting Genitourinary Genitourinary ED: Denies dysuria, hematuria or urinary frequency Musculoskeletal Musculoskeletal: Denies back pain, extremity pain or neck pain Integumentary Denies rash or wounds Neurologic Neurologic: Denies headache(s), paresthesias or weakness EXAM Physical Exam Const Vital Signs: 09/12/24 05:29 09/12/24 05:29 09/12/24 05:49 Temperature 98 F Temperature Source Oral Pulse Rate 140 H Respiratory Rate 19 H Respiratory Effort Normal Non-Labored Blood Pressure 176/105 H Blood Pressure Mean 128 Pulse Ox 100 100 Oxygen Delivery Method Room Air Room Air Oxygen Flow Rate (L/min) 09/12/24 05:58 09/12/24 06:04 09/12/24 06:05 Temperature Temperature Source Pulse Rate 130 H 77 122 H Respiratory Rate 18 19 H Respiratory Effort Blood Pressure 145/105 H 180/68 H Blood Pressure Mean 118 105 Pulse Ox 100 100 Oxygen Delivery Method Room Air Nasal Cannula Oxygen Flow Rate (L/min) 2 09/12/24 06:10 09/12/24 06:12 09/12/24 06:38 Temperature Temperature Source Pulse Rate 68 133 H 141 H Respiratory Rate 19 H 18 Respiratory Effort Blood Pressure 175/91 H 176/105 H Blood Pressure Mean 119 128 Pulse Ox 99 100 Oxygen Delivery Method Room Air Nasal Cannula Oxygen Flow Rate (L/min) 2 09/12/24 07:00 09/12/24 07:31 Temperature Temperature Source Pulse Rate 77 62 Respiratory Rate 18 18 Respiratory Effort Blood Pressure 167/120 H 127/116 H Blood Pressure Mean 135 119 Pulse Ox 100 100 Oxygen Delivery Method Nasal Cannula Oxygen Flow Rate (L/min) 2 2 Positive well nourished and well developed General Appearance ED: well developed and NAD HEENT Reports moist mucous membranes normocephalic and atraumatic Eyes EOMs intact bilaterally and conjunctivae normal General Eye ED: Yes normal appearance of both eyes Neck no lymphadenopathy and supple General: Negative for tenderness Chest Wall Chest: Negative for tenderness Resp normal respiratory effort and normal air movement Effort and Inspection: symmetric chest movement; Negative for respiratory distress Cardio no murmurs Rate: tachycardic Rhythm: abnormal rhythm Peripheral Pulses: pulses 2+ throughout GI normal to inspection, nondistended, normoactive bowel sounds and non-tender Palpation: Negative for guarding or rebound tenderness present Back/Spine no CVA tenderness and no thoracic nor lumbar tenderness Extremity normal to inspection General Extremety ED: Negative for edema or tenderness General Extremity: Negative for edema Neuro oriented x3 and no sensory deficits noted Sensorium / Orientation: awake and alert Skin no rashes or lesions noted and no wounds MDM MDM MDM Narrative Medical decision making narrative: Interventions / MDM: Differential diagnosis: A-fib with RVR, palpitations, chest pain Diagnosis considered but do not suspect: N/A My EKG interpretation: A-fib RVR rate of 141, ST depressions in anterior lateral leads with no elevations. Imaging independently reviewed and interpreted by myself: 1 view chest x-ray: No acute process, no pneumothorax External documents reviewed: Previous cardiology note visits, 1 episode of A-fib RVR initially diagnosed May 2018 secondary to albuterol use. 1 event since that time. This was being monitored. Holter monitor for 13 days in July additional finding with A-fib with RVR. Echocardiogram August 07, 2024 EF of 65%. Test considered but not ordered:N/A ED course: Presenting recurrent palpitations EKG A-fib with RVR blood pressure 170s. ST depressions anterior lateral leads likely demand from rate. She does report intermittent chest tightness with tachycardia. Labs including cardiac enzymes ordered. Aspirin ordered. Lopressor IV. 0610: Being evaluated for her second dose of Lopressor did note her to go back to sinus rhythm rate in the 60s however shortly afterwards she went back in RVR heart rate of 112. Give her low-dose of Lopressor. Blood pressure remained stable. Of note reviewing records noted her Holter monitor with additional episode of A- fib RVR CHADS2 Vascor is a 5. She states metoprolol is called in by cardiology for which she started taking. She is hesitant for additional anticoagulation therapy due to reports concerns of bruising that she seen in her friends. 0620: Third dose metoprolol again transient sinus rhythm back to A-fib rate of 130s. Will start a Cardizem drip. 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 She had intermittent paroxysmal sinus rhythm I would go in atrial fibrillation. I reach out spoke with on-call lime vat tender Dr. Canela, he states those pauses are normal with her trying to convert. I discussed her ST depressions on EKG from her arrival. Discussed her initial troponin of 53. He recommended giving her oral metoprolol tartrate 50 mg. And if she converts and maintains to stop the Cardizem drip and monitor. Discussed and agrees with starting Eliquis at this time. Patient agrees with this. Will cycle cardiac enzymes. If she remains A-fib with RVR or enzymes are elevated she will require admission. 0740: Patient sign off to oncoming physcian. Re-evaluation: stable Disposition discussed with patient/family/significant other: patient and spouse Case discussed with consulting clinician: Cardiology This note was generated with [employer] dictation software. It may contain incorrect words, spelling, and punctuation that were not noted in checking the note before signing. Lab Data Attestation: I reviewed the patient's lab results. Labs: Laboratory Results - last 24 hr 09/12/24 05:35 WBC 10.1 RBC 4.79 Hgb 14.4 Hct 41.2 MCV 86.0 MCH 30.1 MCHC 35.0 RDW Std Deviation 38.4 RDW Coeff of Wesley 12.4 Plt Count 298 MPV 9.9 Immature Gran % (Auto) 0.400 Neut % (Auto) 55.3 Lymph % (Auto) 31.8 [place] % (Auto) 9.3 Eos % (Auto) 2.8 Baso % (Auto) 0.4 Absolute Neuts (auto) 5.6 Absolute Lymphs (auto) 3.21 Nucleated RBC % 0 Sodium 139 Potassium 3.3 L Chloride 105 Carbon Dioxide 24.0 Anion Gap 9 BUN 17 Creatinine 0.86 Estim Creat Clear Calc 57.08 Est GFR (MDRD) Af Amer 82 Est GFR (MDRD) Non-Af 68 BUN/Creatinine Ratio 19.7 Glucose 138 H Calcium 9.7 Troponin I High Sens 53 Radiography Diagnostic Testing: Clinical Impression(s) from Imaging Studies Chest X-Ray 09/12/24 05:50 IMPRESSION: No radiographic evidence of acute cardiopulmonary disease. Electronically Signed: Mohamud Tamez MD at 6:48 EST , Critical Care Time Critical Care Time: Yes Critical care time (excluding procedures): 30-74 minutes, Discussing w/Patient &/or Family/Boat Person, Discussing w/Consultants, Arranging Admission or Transfer, Performing Direct Patient Care at Bedside and - (35 minutes) Discharge Plan Dx/Rx/DC Orders Clinical Impression: Atrial fibrillation with RVR, Hypokalemia, Chest pain Disposition Disposition: [facility]
[2024-09-12 06:29] LABS: Anion Gap 9 (5-15); BUN 17 mg/dL (7-18); BUN/Creat Ratio 19.7 RATIO (10-20); Calcium,Total 9.7 mg/dL (8.5-10.1); Chloride 105 mmol/L (98-107); Creatinine, Serum 0.86 mg/dL (0.55-1.02); EST Glomerular Filtration Rate 68 mL/min (>60); Est Glom Filt Rate - Afr Amer 82 mL/min (>60); Estimated Creatinine Clearance 57.08 ml/min; Glucose 138 mg/dL (74-106); Potassium 3.3 mmol/L (3.5-5.1); Sodium Level 139 mmol/L (136-145); Troponin-I HS (w/2H Reflex) 53 pg/mL (3.0-54.0)
[2024-09-12] MEDS: Diltiazem 125 MG in Dextrose 5%-Water (100mL Bag) 100 ML IV (06:38)
[2024-09-12] MEDS: Potassium Chloride Oral Tablet 20 MEQ 40 MEQ PO (06:44)
[2024-09-12] MEDS: APIXABAN 5 MG TABLET PO (07:11)
[2024-09-12] MEDS: Metoprolol Tartrate 50 MG Tablet PO (07:11)
--- NOTE | 2024-09-12 07:30 | ED.RN ---
Per Dr. Mchugh do not titrate Cardizem gtt.
[2024-09-12 07:56] LABS: Reflex Troponin-HS? (from REC) Y
[2024-09-12 08:36] LABS: Troponin-I HS 66 pg/mL (3.0-54.0)
--- NOTE | 2024-09-12 08:38 | HP.PCM.HOS_ITS ---
[facility] - General General Date of Admission: 09/12/24 Date of Service: 09/12/24 Chief Complaint: Palpitations HPI Narrative BELEM ESTES, is a 79 F who presented to the emergency department [facility] on 03/27/2024 in the morning due to palpitation she was having at home. She stated that she was awakened from sleep due to palpitations. She does have a known history of atrial fibrillation and takes metoprolol 25 mg daily at home for this. She had elected to not be on anticoagulation previously. Her [id number] score is 5. She also has a history of moderate carotid artery disease with 50 to 69% stenosis bilaterally. Patient reported that she woke up between 4 and 430 this morning at which time she had a sensation of anxiety and lightheadedness. She felt very anxious and felt palpitations so decided to come to the emergency department. Upon presentation she was found to be in A-fib with RVR and then spontaneously converted into normal sinus rhythm. She ultimately was treated with 3 doses of metoprolol to IV and 1 oral 50 mg dose and then was placed on a Cardizem drip due to persistent intermittent A-fib. Following the administration of beta- denisse and calcium channel denisse she had some sinus pauses due to likely related to her sinus node recovery time being prolonged which made her more anxious and jittery. Vital signs on presentation showed a temperature of 98, heart rate was 140, respiratory was 19, blood pressure was 176/105, and pulse ox was 100% on room air. CBC was unremarkable. Coags were unremarkable. Chemistry panel showed mild hypokalemia with potassium of 3.3 but was otherwise unremarkable other than a nonfasting glucose of 138. Initial troponin was 53 with a delta troponin of 66. EKG was consistent with A-fib with RVR. Chest x-ray was unremarkable. She did have a recent TSH on 07/12/2024 at which time was 1.04. Given her symptoms on presentation and intermittent sinus node pauses due to prolonged recovery time with medications and ongoing intermittent atrial fibrillation the case was discussed with cardiology and they did recommend admission for evaluation and consideration for pacemaker. If her sinus node pauses do not improve despite the wearing off of beta-blockade and calcium channel blockade pacemaker will need to be considered. [facility] Medical History Paroxysmal atrial fibrillation Essential hypertension Reactive airway disease Osteopenia Bilateral carotid artery stenosis Hyperlipidemia Atrial fibrillation with rapid ventricular response (03/21/18) Home Medications ?Medication ?Instructions ?Recorded ?Last Taken ?Type lisinopril 20 mg tablet 20 mg PO BID blood pressu 03/20/18 Unknown History ftogptvu-ouu-wyqnz acid 0.4 1 ea PO DAILY suppliment 03/20/18 Unknown History mg-lycopene 300 mcg-lutein 250 mcg tablet cranberry 500 mg capsule 2,000 mg PO DAILY suppliment 04/05/18 Unknown History metronidazole 0.75 % topical gel 1 applic topical PRN rash 12/01/18 Unknown History hydrochlorothiazide 12.5 mg tablet 12.5 mg PO DAILY bp #90 tabs 01/09/21 Unknown Rx pantoprazole 40 mg tablet,delayed 40 mg PO DAILY reflux 09/11/22 Unknown History release rosuvastatin 10 mg tablet 10 mg PO DAILY cholesterol 07/20/23 Unknown History aspirin 81 mg tablet,delayed 81 mg PO DAILY preventative 07/12/24 Unknown History release (Adult Aspirin Regimen) montelukast 10 mg tablet 10 mg PO QDAY PRN allergies 07/12/24 09/11/24 History metoprolol succinate 25 mg 25 mg PO QHS heart #90 tabs 09/12/24 Unknown Rx tablet,extended release 24 hr Allergy/AdvReac Type Severity Reaction Status Date / Time ciprofloxacin (From Cipro) Allergy Other Verified 09/12/24 05:30 fluorescein Allergy Anaphylaxis Verified 09/12/24 05:30 lactose Allergy Upset Verified 09/12/24 05:30 Stomach nitrofurantoin Allergy Other Verified 09/12/24 05:30 Sulfa (Sulfonamide Allergy Rash Verified 09/12/24 05:30 Antibiotics) aspirin AdvReac Other Verified 09/12/24 05:30 Family History Father Diabetes Hypertension Brother Diabetes Hypertension Brother Heart disease irregular heart beat w/ PPM Surgical History H/O breast biopsy H/O hemorrhoidectomy History of partial hysterectomy Hx of cholecystectomy History of tonsillectomy History of cataract surgery Social History household members: spouse Smoking Status: Never smoker alcohol intake: never substance use type: does not use caffeine: No ROS Constitutional Constitutional: Reports fatigue; Denies anorexia, change in weight, chills, fever(s), malaise, night sweats, weakness or other Eyes Eyes: Denies blurry vision, change in eye color, change in vision, discharge from eye(s), double vision, erythema, eye pain, loss of vision or other ENT HEENT: Denies abnormal hearing, dysphagia, ear pain, epistaxis, headache(s), hearing loss, nasal congestion, nasal discharge, post nasal drip, sinus pressure, sore throat or other Cardiovascular Cardiovascular: Reports lightheadedness, palpitations, rapid heart rate and other Details: Presyncopal sensation ; Denies chest pain, claudication, dyspnea on exertion, edema, orthopnea, paroxysmal nocturnal dyspnea or syncope Respiratory/Chest Respiratory/Chest: Denies cough, dyspnea, excessive phlegm production, hemoptysis, productive cough, shortness of breath at rest, shortness of breath with exertion, wheezing or other Gastrointestinal Gastrointestinal: Denies abdominal pain, coffee ground emesis, constipation, diarrhea, dyspepsia, hematemesis, hematochezia, loose stools, melena, nausea, vomiting or other Genitourinary Genitourinary: Denies burning urination, difficulty urinating, dysuria, hematuria, nocturia, urinary frequency, urinary hesitancy, urinary incontinence, urinary urgency or other Musculoskeletal Musculoskeletal: Denies arthralgias, back pain, joint pain, joint stiffness, joint swelling, myalgias, neck pain or other Neurologic Neurologic: Denies abnormal gait, abnormal speech, confusion, disequilibrium, dizziness, focal weakness, headache(s), numbness, paresthesias, seizure-like activity, seizures, syncope, tingling, tremor(s) or other Psychiatric Psychiatric: Reports anxiety; Denies depression, homicidal ideation, suicidal ideation or other Endocrine Endocrinology: Denies change in body appearance, cold intolerance, excessive sweating, heat intolerance, polydipsia, polyuria or other Hematologic/Lymphatic Hematologic/Lymphatic: Denies anemia, easy bleeding, easy bruising, lymphadenopathy or other Allergic/Immunologic Allergic/Immunologic: Denies rhinitis, hives, eczemia, asthma or other Vital Signs Vital Signs Vital Signs: 09/12/24 05:29 09/12/24 05:29 09/12/24 05:49 Temperature 98 F Temperature Source Oral Pulse Rate 140 H Respiratory Rate 19 H Respiratory Effort Normal Non-Labored Blood Pressure 176/105 H Blood Pressure Mean 128 Pulse Ox 100 100 Oxygen Delivery Method Room Air Room Air Oxygen Flow Rate (L/min) 09/12/24 05:58 09/12/24 06:04 09/12/24 06:05 Temperature Temperature Source Pulse Rate 130 H 77 122 H Respiratory Rate 18 19 H Respiratory Effort Blood Pressure 145/105 H 180/68 H Blood Pressure Mean 118 105 Pulse Ox 100 100 Oxygen Delivery Method Room Air Nasal Cannula Oxygen Flow Rate (L/min) 2 09/12/24 06:10 09/12/24 06:12 09/12/24 06:38 Temperature Temperature Source Pulse Rate 68 133 H 141 H Respiratory Rate 19 H 18 Respiratory Effort Blood Pressure 175/91 H 176/105 H Blood Pressure Mean 119 128 Pulse Ox 99 100 Oxygen Delivery Method Room Air Nasal Cannula Oxygen Flow Rate (L/min) 2 09/12/24 07:00 09/12/24 07:31 09/12/24 07:57 Temperature Temperature Source Pulse Rate 77 62 101 H Respiratory Rate 18 18 19 H Respiratory Effort Blood Pressure 167/120 H 127/116 H 148/101 H Blood Pressure Mean 135 119 116 Pulse Ox 100 100 96 Oxygen Delivery Method Nasal Cannula Nasal Cannula Oxygen Flow Rate (L/min) 2 2 2 09/12/24 08:26 Temperature 98.2 F Temperature Source Pulse Rate 102 H Respiratory Rate 19 H Respiratory Effort Blood Pressure 144/92 H Blood Pressure Mean 109 Pulse Ox 97 Oxygen Delivery Method Oxygen Flow Rate (L/min) Weight Weight: 86.4 kg Body Mass Index (BMI) 33.7 Physical Exam Const alert, oriented x3, no apparent distress, healthy appearing and well nourished; Negative for average body habitus Constitutional Narrative: Obese, mildly anxious, elderly, white female, sitting up in bed, at bedside, currently appears comfortable, does not appear toxic, anxiety does increase when sinus node pauses occur as would be expected General Appearance: cooperative HEENT normocephalic, head/scalp atraumatic and hearing grossly normal bilaterally HEENT Narrative: Mallampati 2, no thrush Eyes PERRL and conjunctivae normal Eyes Narrative: No scleral icterus Neck no lymphadenopathy and supple Neck Narrative: Trachea midline, no noted thyroid enlargement Resp normal respiratory effort, no retractions, no use of accessory muscles and clear to auscultation bilaterally Auscultation: Negative for rales, rhonchi or wheezes Cardio S1 normal heart sound, S2 normal heart sound, no murmurs, no rub, no gallops and no clicks; Negative for regular rate or regular rhythm Cardio Narrative: Irregularly irregular rhythm with rapid rate, intermittent pauses noted GI normal to inspection, nondistended, normoactive bowel sounds, soft to palpation and non-tender Extremity no clubbing, cyanosis or edema Extremity Narrative: Pedal and radial pulses are 2+ Neuro oriented x3, moves all extremities and no focal motor deficits Speech: speech normal Psych affect normal Psych Narrative: Answers questions appropriately, interacts appropriately, eye contact is good Mood & Affect: anxious Results Lab / Micro Data 09/12/24 05:35 09/12/24 05:35 Labs: Laboratory Results - last 24 hr 09/12/24 05:35: WBC 10.1, RBC 4.79, Hgb 14.4, Hct 41.2, MCV 86.0, MCH 30.1, MCHC 35.0, RDW Std Deviation 38.4, RDW Coeff of [place] 12.4, Plt Count 298, MPV 9.9, Immature Gran % (Auto) 0.400, Neut % (Auto) 55.3, Lymph % (Auto) 31.8, [place] % (Auto) 9.3, Eos % (Auto) 2.8, Baso % (Auto) 0.4, Absolute Neuts (auto) 5.6, Absolute Lymphs (auto) 3.21, Nucleated RBC % 0, Sodium 139, Potassium 3.3 L, Chloride 105, Carbon Dioxide 24.0, Anion Gap 9, BUN 17, Creatinine 0.86, Estim Creat Clear Calc 57.08, Est GFR (MDRD) Af Amer 82, Est GFR (MDRD) Non-Af 68, BUN/Creatinine Ratio 19.7, Glucose 138 H, Calcium 9.7, Troponin I High Sens 53 09/12/24 08:05: Troponin I High Sens 66 H Imaging Radiology Impression Chest X-Ray 09/12/24 05:50 IMPRESSION: No radiographic evidence of acute cardiopulmonary disease. Electronically Signed: Mohamud Tamez MD at 6:48 EST , Assessment & Plan Assessment/Plan (1) Atrial fibrillation with RVR: (2) Hypokalemia: (3) Sinus pause: PLAN: Plan Atrial fibrillation with RVR -Patient with known history -Okay for anticoagulation but will utilize heparin for now until we can decide if she needs pacemaker -Plan will be to transition to oral agents with Eliquis 5 mg p.o. twice daily once decision is made with regards to pacer -Flecainide per cardiology -Patient had recent TSH that was within normal limits -Avoid calcium channel denisse and beta-blockade -If has any recurrence of RVR would call cardiology and not give AV shnatanu blockade -Cardiology is consulted-appreciate input--> discussed with Dr. Canela Hypokalemia -40 mEq p.o. potassium given the emergency department -Recheck in a.m. -Check a.m. magnesium Sinus node pauses -Likely related to use of metoprolol and calcium channel denisse -Would avoid rate modulating drugs -Continue to monitor on telemetry -Ongoing evaluation for need of pacemaker Essential hypertension/hyperlipidemia -Continue home HCTZ -Continue home lisinopril -Stop home metoprolol -continue home rosuvastatin GERD -Continue home PPI Carotid artery stenosis -Bilateral 50 to 69% -Continue therapy as above for blood pressure and cholesterol management -Continue aspirin 81 mg daily Osteoporosis -Recent DEXA in December 2023 -Recommend close outpatient follow-up this patient is at increased risk for fracture if she does fall Hepatomegaly -Ultrasound done in 2021 that showed fatty infiltration -Suspect GRAVES -continue aspirin -monitor clinically DVT prophylaxis -Heparin drip as noted above CODE STATUS -Full code as discussed at admission Charges/Coding Visit Charges Inpatient E&M: 44321 Init Hosp L2
--- NOTE | 2024-09-12 09:29 | CON.PCM.CA_ITS ---
Assessment & Plan Assessment/Plan (1) Sinus pause: PLAN: Patient's had episodes of sinus pauses up to 5 to 6 seconds when she converts from atrial fibs back to sinus rhythm. These are very symptomatic she becomes dizzy and lightheaded and extremely anxious. She has not had any linda syncope but she feels like if she was trying to stand up she probably would fall. The patient did receive IV Cardizem and additional dose of metoprolol in the emergency department this morning. Will need to have these wear off prior to making a definitive decision about pacing. (2) Paroxysmal atrial fibrillation: PLAN: Patient has a history of paroxysmal atrial fibrillation dating back to 2018. It has been very infrequent. She had 5 episodes in the month of July that prompted a reevaluation in the [place] [facility] office. An echocardiogram was done at that time which showed normal LV function EF in the 65% range. Both atria were of normal size there was no significant valvular heart disease. The patient has no previous history of valvular heart disease nor does she have a history of known coronary disease. I would recommend that we admit the patient to the hospital and monitor her closely as we institute therapy with flecainide starting with 100 mg twice daily to see if we can control the atrial fibrillation. I would hold the beta-denisse and calcium channel denisse at this time. Would discontinue oral anticoagulation and replace this with IV heparin in case the patient requires permanent pacing in the near future. (3) Essential hypertension: PLAN: Patient's blood pressure has been adequate controlled in her home environment is appropriately elevated given her anxiety provoking symptoms. (4) Hyperlipidemia: QUALIFIERS: Hyperlipidemia type: unspecified Qualified Code(s): E 78.5 - Hyperlipidemia, unspecified PLAN: Patient's lipids have been treated with rosuvastatin this should be continued per the primary service. PLAN: Plan 1. Admit to progressive coronary care unit. 2. [place] flecainide 100 mg twice daily. Monitor closely for rate conduction issues. 3. Will allow washout of the rate modulating drugs metoprolol and diltiazem and if persistent sinus pauses would have to consider permanent pacemaker implantation. 4. Will require long-term oral anticoagulation. Would defer institution of Eliquis at this time in lieu of the need for potential permanent pacemaker implantation will anticoagulate with IV heparin. 5. Will follow-up closely with you. HPI Consult Data Date of Consult: 09/12/24 HPI Narrative Reason for Consultation: PAF with sinus pauses HPI Narrative: BELEM ESTES, is a 79 F who presents patient has a history of documented paroxysmal atrial fibrillation that occurred on a Holter monitor in July 2024. She has a [id number] score of 5 but had opted not to pursue oral anticoagulation therapy. The patient also has a history of mild to moderate carotid artery disease 50 to 69% stenosis bilaterally. The patient awoke at about 0430 hrs. this morning with a sensation of jitteriness and lightheadedness. She felt very anxious and came to the emergency department. She was documented to be in atrial fibrillation with a rapid ventricular response that spontaneously converted into a sinus rhythm. There was significant sinus pause due to sinus node recovery time and the patient's symptoms were reproduced at the time of the sinus pause the jitteriness the lightheadedness and the anxiousness. She then would stay in sinus rhythm for approximately 10 to 15 seconds and then revert back into atrial fibrillation. The patient was treated with IV diltiazem with not much change. An additional 50 mg of metoprolol tartrate was given orally. It appears that this only increase the sinus node recovery time and did not control the atrial fibrillation. The patient continues to have intermittent conversions from atrial fibs to sinus rhythm and back. The patient's history is consistent with a recent sinus congestion with which she took a new antihistamine. Other than that she has had no change in her medications denies any shortness of breath has not had any long trips denies any chest discomfort. Cardiac isoenzymes were negative x 2 sets on this admission. The patient has never been on antiarrhythmic therapy. The patient did receive Eliquis 5 mg orally as a one-time dose in the emergency department. But she continues to be profoundly symptomatic as she flips back and forth between atrial fibrillation and sinus bradycardia at 50 to 55 bpm. [facility] Medical History Paroxysmal atrial fibrillation Essential hypertension Reactive airway disease Osteopenia Bilateral carotid artery stenosis Hyperlipidemia Atrial fibrillation with rapid ventricular response (03/21/18) Home Medications ?Medication ?Instructions ?Recorded ?Last Taken ?Type lisinopril 20 mg tablet 20 mg PO BID 03/20/18 Unknown History tojaeysm-nde-ofcpa acid 0.4 1 ea PO DAILY 03/20/18 Unknown History mg-lycopene 300 mcg-lutein 250 mcg tablet cranberry 500 mg capsule 2,000 mg PO DAILY 04/05/18 Unknown History metronidazole 0.75 % topical gel 1 applic topical .COMPLEX 12/01/18 Unknown History hydrochlorothiazide 12.5 mg tablet 12.5 mg PO DAILY #90 tabs 01/09/21 Unknown Rx pantoprazole 40 mg tablet,delayed 40 mg PO DAILY 09/11/22 Unknown History release rosuvastatin 10 mg tablet 10 mg PO DAILY 07/20/23 Unknown History aspirin 81 mg tablet,delayed 81 mg PO 3XW 07/12/24 Unknown History release (Adult Aspirin Regimen) montelukast 10 mg tablet 10 mg PO QDAY PRN 07/12/24 Unknown History metoprolol succinate 25 mg 25 mg PO DAILY #30 tabs 08/07/24 Unknown Rx tablet,extended release 24 hr Allergy/AdvReac Type Severity Reaction Status Date / Time ciprofloxacin (From Cipro) Allergy Other Verified 09/12/24 05:30 fluorescein Allergy Anaphylaxis Verified 09/12/24 05:30 lactose Allergy Upset Verified 09/12/24 05:30 Stomach nitrofurantoin Allergy Other Verified 09/12/24 05:30 Sulfa (Sulfonamide Allergy Rash Verified 09/12/24 05:30 Antibiotics) aspirin AdvReac Other Verified 09/12/24 05:30 Family History Father Diabetes Hypertension Brother Diabetes Hypertension Brother Heart disease irregular heart beat w/ PPM Surgical History H/O breast biopsy H/O hemorrhoidectomy History of partial hysterectomy Hx of cholecystectomy History of tonsillectomy History of cataract surgery Social History household members: spouse Smoking Status: Never smoker alcohol intake: never substance use type: does not use caffeine: No ROS Constitutional Constitutional: Reports as per HPI Eyes Eyes: Reports systems reviewed and no addt'l complaints, except as documented ENT HEENT: Reports as per HPI Cardiovascular Cardiovascular: Reports as per HPI Respiratory/Chest Respiratory/Chest: Reports as per HPI Gastrointestinal Gastrointestinal: Reports systems reviewed and no addt'l complaints, except as documented Genitourinary Genitourinary: Reports systems reviewed and no addt'l complaints, except as documented Musculoskeletal Musculoskeletal: Reports systems reviewed and no addt'l complaints, except as documented Integumentary Integumentary: Reports systems reviewed and no addt'l complaints, except as documented Neurologic Neurologic: Reports as per HPI Psychiatric Psychiatric: Reports as per HPI and anxiety Endocrine Endocrinology: Reports systems reviewed and no addt'l complaints, except as documented Hematologic/Lymphatic Hematologic/Lymphatic: Reports as per HPI Allergic/Immunologic Allergic/Immunologic: Reports as per HPI Physical Exam Narrative The patient is appropriately anxious resting in recumbent position on the gurney in the emergency department. Const alert and oriented x3 HEENT normocephalic Eyes EOMs intact bilaterally Neck supple, no JVD and no carotid bruits Chest inspection of chest normal Resp normal respiratory effort and clear to auscultation bilaterally Cardio Rate: tachycardic Rhythm: abnormal rhythm irregularly irregular Heart Sounds: S1 normal and S2 normal; Negative for click, gallop, murmur or rub GI soft to palpation and non-tender Extremity no pedal edema Skin no rashes or lesions noted Neuro Neuro Narrative: Alert and oriented x 3 Psych mental status grossly normal Risk Stratification Risk Stratification Applicable: Yes Age >/= 65: Yes >/= 3 CAD Risk Factors (HTN, HLD, DM, family hx of CAD, or current smoker): No Aspirin Use in the Past 7 Days: No Severe Angina (>/= episodes in 24 hours): No EKG ST Changes >/= 0.5mm: No Positive Cardiac Marker: No ANDREA Risk Stratification Score: 1 ANDREA % Risk: 5% Risk Charges/Coding Visit Charges Inpatient E&M: 84943 Init Hosp L3 Objective Data Vital Signs: Vital Signs Temp Pulse Resp BP Pulse Ox O2 Del Method O2 Flow Rate 98.2 F 112 H 19 H 143/103 H 99 Nasal Cannula 2 09/12/24 08:26 09/12/24 08:57 09/12/24 08:57 09/12/24 08:57 09/12/24 08:57 09/12/24 08:57 09/12/24 08:39 Oxygen Flow Rate (L/min) 2 Oxygen Delivery Method Nasal Cannula Weight: 190 lb 7.67 oz Body Mass Index (BMI) 33.7 Intake & Output: Intake and Output for Last 24 Hours 09/10/24 09/11/24 09/12/24 22:59 23:59 23:59 Intake Total 08.16 Balance 08.16 Lab / Micro Data Attestation: I reviewed the patient's lab results. 09/12/24 05:35 09/12/24 05:35 Labs: Laboratory Results - last 24 hr 09/12/24 05:35: WBC 10.1, RBC 4.79, Hgb 14.4, Hct 41.2, MCV 86.0, MCH 30.1, MCHC 35.0, RDW Std Deviation 38.4, RDW Coeff of Wesley 12.4, Plt Count 298, MPV 9.9, Immature Gran % (Auto) 0.400, Neut % (Auto) 55.3, Lymph % (Auto) 31.8, Cottle % (Auto) 9.3, Eos % (Auto) 2.8, Baso % (Auto) 0.4, Absolute Neuts (auto) 5.6, Absolute Lymphs (auto) 3.21, Nucleated RBC % 0, Sodium 139, Potassium 3.3 L, Chloride 105, Carbon Dioxide 24.0, Anion Gap 9, BUN 17, Creatinine 0.86, Estim Creat Clear Calc 57.08, Est GFR (MDRD) Af Amer 82, Est GFR (MDRD) Non-Af 68, BUN/Creatinine Ratio 19.7, Glucose 138 H, Calcium 9.7, Troponin I High Sens 53 09/12/24 08:05: Troponin I High Sens 66 H Rhythm Strip Rhythm Strip: A-fib Rate: 120 Cardiology Labs/Tests 09/12/24 05:35: WBC 10.1, RBC 4.79, Hgb 14.4, Hct 41.2, MCV 86.0, MCH 30.1, MCHC 35.0, Plt Count 298, MPV 9.9, Immature Gran % (Auto) 0.400, Neut % (Auto) 55.3, Lymph % (Auto) 31.8, Cottle % (Auto) 9.3, Eos % (Auto) 2.8, Baso % (Auto) 0.4, Absolute Neuts (auto) 5.6, Nucleated RBC % 0, Sodium 139, Potassium 3.3 L, Chloride 105, Carbon Dioxide 24.0, Anion Gap 9, BUN 17, Creatinine 0.86, Est GFR (MDRD) Af Amer 82, Est GFR (MDRD) Non-Af 68, BUN/Creatinine Ratio 19.7, Glucose 138 H, Calcium 9.7 Rhythm: EKG: ECHO: Stress Test: Cardiac Cath: PCI: CT Surgery: Holter monitor: EPS: PPM: CXR: Chest CT Scan: Radiography Diagnostic Testing: Radiology Impression Chest X-Ray 09/12/24 05:50 IMPRESSION: No radiographic evidence of acute cardiopulmonary disease. Electronically Signed: Mohamud Tamez MD at 6:48 EST ,
[2024-09-12 09:30] LABS: International Normalized Ratio 1.1; Prothrombin Time (Protime)PT. 13.8 SECONDS (11.7-14.9)
[2024-09-12] MEDS: HEPARIN/D5w 25,000 UNITS 25,000 UNITS/250 ML IV.SOLN. 10 UNITS CONT INF (10:19)
[2024-09-12] MEDS: Flecainide 100 MG Tablet PO ×2 (10:20→21:30)
[2024-09-12] MEDS: Pantoprazole Sodium 40 MG Tablet PO (12:05)
[2024-09-12] MEDS: Lisinopril 20 MG Tablet PO ×2 (12:06→21:32)
[2024-09-12 13:20] LABS: Troponin-I HS 64 pg/mL (3.0-54.0)
--- NOTE | 2024-09-12 13:45 | CHAPLAIN ---
Type of Pastoral Visit _x__ Initial Visit ___ Follow-up Visit ___ On-call Visit ___ General Patient Visit ___ Spiritual Assessment ___ Family Conference ___ Bereavement ___ Rapid Response ___ Code Blue ___ Other (describe below) Pastoral Care Referral From _x__ Patient ___ Family ___ Nurse ___ Physician ___ Quality Assurance Supervisor Chassis ___ Analytical Manager ___ Other (describe below) Sacrament/Intervention _x__ Active listening ___ Anointing ___ Uatsdin ___ Bereavement ___ Communion _x__ [place] exploration ___ _x__ Life review _x__ Prayer ___ Reconciliation ___ Sacrament of Sick ___ Supportive presence ___ Wedding ___ Other (describe below) Pastoral Comments patient speaks of reason for admission and how she is handling her situation; pt reports on family health history and has realistic concerns about her health; pt is active in a local tenriism and expresses venice in God; pt has family support; pt states that she is okay for now and will just rest until I am discharged probably tomorrow;
[2024-09-12 16:19] LABS: Partial Thromboplast Time 54.9 Seconds (24.1-36.2)
[2024-09-12] MEDS: Atorvastatin Calcium 20 MG Tablet PO (21:31)
[2024-09-12 23:16] LABS: Partial Thromboplast Time 64.1 Seconds (24.1-36.2)
[2024-09-13 03:00] VITALS: BP 141/69; PULSE 58; RESP 12; TEMP 36.6; O2SAT 97
--- NOTE | 2024-09-13 05:55 | EKG12_ITS ---
Test Reason : RHYTHM CHANGE Blood Pressure : */* mmHG Vent. Rate : 58 BPM Atrial Rate : 58 BPM P-R Int : 200 ms QRS Dur : 74 ms QT Int : 458 ms P-R-T Axes : 22 10 -4 degrees QTcB Int : 449 ms Sinus bradycardia Possible Inferior infarct , age undetermined Abnormal ECG When compared with ECG of 12-Sep-2024 05:37, MANUAL COMPARISON REQUIRED DATA IS UNCONFIRMED Confirmed by Mohamud Canela ([id number]), communications editor REY WEATHERS ([id number]) on 09/13/2024 1:11:11 PM Referred By: Confirmed By: Mohamud Canela
[2024-09-13 06:04] LABS: Partial Thromboplast Time 64.8 Seconds (24.1-36.2)
[2024-09-13 06:26] LABS: Anion Gap 8 (5-15); BUN 25 mg/dL (7-18); BUN/Creat Ratio 28.2 RATIO (10-20); Calcium,Total 9.6 mg/dL (8.5-10.1); Chloride 107 mmol/L (98-107); Creatinine, Serum 0.89 mg/dL (0.55-1.02); EST Glomerular Filtration Rate 66 mL/min (>60); Est Glom Filt Rate - Afr Amer 80 mL/min (>60); Estimated Creatinine Clearance 54.12 ml/min; Glucose 119 mg/dL (74-106); Phosphorus 4.2 mg/dL (2.5-4.9); Potassium 3.7 mmol/L (3.5-5.1); Sodium Level 137 mmol/L (136-145)
[2024-09-13] MEDS: HEPARIN/D5w 25,000 UNITS 25,000 UNITS/250 ML IV.SOLN. 10 UNITS CONT INF (06:32)
[2024-09-13 07:18] VITALS: O2SAT 97
--- NOTE | 2024-09-13 08:30 | PCM.PN.CARD ---
Subjective Subjective Patient reports that she rested well last evening. She remains in sinus rhythm with heart rates in the 50 to 60 bpm range. She has had no recurrence of the atrial fibrillation or sinus pauses. EKG this morning is pending at this time. Objective Data Vital Signs: Vital Signs Temp Pulse Resp BP Pulse Ox O2 Del Method O2 Flow Rate 97.9 F 58 L 12 141/69 H 97 Room Air 2 09/13/24 03:00 09/13/24 03:00 09/13/24 03:00 09/13/24 03:00 09/13/24 03:00 09/13/24 03:00 09/12/24 12:00 Oxygen Flow Rate (L/min) 2 Oxygen Delivery Method Room Air Weight: 183 lb 10.321 oz Body Mass Index (BMI) 32.5 Intake & Output: Intake and Output for Last 24 Hours 09/11/24 09/12/24 09/13/24 23:59 23:59 23:59 Intake Total 945.27 / 1445.27 571.00 / 571.00 Balance 945.27 / 1445.27 571.00 / 571.00 Lab / Micro Data Attestation: I reviewed the patient's lab results. 09/12/24 05:35 09/13/24 05:28 Labs: Laboratory Results - last 24 hr 09/12/24 05:35: PT 13.8, INR 1.1, APTT 32.0 09/12/24 08:05: Troponin I High Sens 66 H 09/12/24 11:30: Troponin I High Sens 64 H 09/12/24 16:00: APTT 54.9 H 09/12/24 22:58: APTT 64.1 H 09/13/24 05:28: APTT 64.8 H, Sodium 137, Potassium 3.7, Chloride 107, Carbon Dioxide 22.0, Anion Gap 8, BUN 25 H, Creatinine 0.89, Estim Creat Clear Calc 54.12, Est GFR (MDRD) Af Amer 80, Est GFR (MDRD) Non-Af 66, BUN/Creatinine Ratio 28.2 H, Glucose 119 H, Calcium 9.6, Phosphorus 4.2, Magnesium 2.0 Rhythm Strip Rhythm Strip: Sinus Rhythm Rate: 55 Cardiology Labs/Tests 09/12/24 05:35: PT 13.8, INR 1.1, APTT 32.0 09/12/24 16:00: APTT 54.9 H 09/12/24 22:58: APTT 64.1 H 09/13/24 05:28: APTT 64.8 H, Sodium 137, Potassium 3.7, Chloride 107, Carbon Dioxide 22.0, Anion Gap 8, BUN 25 H, Creatinine 0.89, Est GFR (MDRD) Af Amer 80, Est GFR (MDRD) Non-Af 66, BUN/Creatinine Ratio 28.2 H, Glucose 119 H, Calcium 9.6, Phosphorus 4.2, Magnesium 2.0 Rhythm: EKG: ECHO: Stress Test: Cardiac Cath: PCI: CT Surgery: Holter monitor: EPS: PPM: CXR: Chest CT Scan: Physical Exam Const alert and oriented x3 Orientation / Consciousness: awake HEENT normocephalic Eyes EOMs intact bilaterally Neck no JVD Chest inspection of chest normal Resp normal respiratory effort and clear to auscultation bilaterally Cardio Rate: regular rate Rhythm: regular rhythm Heart Sounds: S1 normal and S2 normal; Negative for click, gallop, murmur or rub Extremity no pedal edema Skin no rashes or lesions noted Neuro Neuro Narrative: Alert and oriented x 3 Psych mental status grossly normal Assessment & Plan Assessment/Plan (1) Paroxysmal atrial fibrillation: PLAN: Patient has a history of paroxysmal atrial fibrillation. She presented yesterday with atrial for with rapid ventricular response and would spontaneously intermittently convert. When she did there was a prolonged sinus node recovery time resulting in significant pauses that were very symptomatic. To control the rapid rate Lopressor and diltiazem had been administered which precipitated greater sinus node recovery times. The patient was instituted on flecainide 100 mg twice daily after being admitted to the hospital and spontaneously converted to sinus rhythm with heart rates have maintained in the 55 to 60 bpm range. She has had no recurrence of her sinus pauses. All rate slowing drugs have been held. EKG this AM Sinus [place]in with QT 460msec. Will convert heparin to Eliquis for long-term oral anticoagulation. The patient's [id number] score equals 5. (2) Sinus pause: PLAN: Patient's sinus pauses were related to her prolonged sinus node recovery time when she spontaneously converted from atrial fibrillation. This was exacerbated by the metoprolol and diltiazem which have been discontinued. The patient is maintained sinus rhythm on flecainide we will continue to monitor her QT interval for another 24 hours. Patient should be able to be discharged to home tomorrow morning. Should be maintained on flecainide 100 mg twice daily. PLAN: Plan 1. Continue flecainide 100 mg p.o. twice daily. 2. Obtain QT interval on EKG this morning. 3. Discontinue heparin. Start Eliquis 5 mg p.o. twice daily for long-term oral anticoagulation. 4. Tentative schedule for discharge 11 7 AM after EKG is performed and QT interval is documented to be acceptable. 5. Patient be instructed to follow-up in the [place] [facility] office in 1 week for follow-up EKG in [address] Canela. Charges/Coding Visit Charges Inpatient E&M: 36041 Subs Hosp L2
[2024-09-13] MEDS: APIXABAN 5 MG TABLET PO ×2 (09:26→22:17)
[2024-09-13] MEDS: Lisinopril 20 MG Tablet PO ×2 (09:27→22:17)
[2024-09-13] MEDS: Pantoprazole Sodium 40 MG Tablet PO (09:27)
[2024-09-13] MEDS: Aspirin E.C. 81 MG Tablet PO (09:27)
[2024-09-13] MEDS: Flecainide 100 MG Tablet PO ×2 (09:27→22:17)
[2024-09-13 09:29] VITALS: BP 148/71; PULSE 60; RESP 16; TEMP 36.8; O2SAT 97
--- NOTE | 2024-09-13 12:51 | CASEMGMT ---
RN CM RADAR REPAIRER CM?to room to meet with patient for initial transition planning/care coordination assessment. RN CM?introduced self and role at [facility]. Pt voices understanding and consents to assessment?at this time. Pt resting in bed in no distress at this time. @ bedside. Pt is A/O at this time and answers all questions appropriately. Care providers, pharmacy, and demographics verified/updated at this time. Strata:?3 PCP: Dr Stevenson Specialists: [facility]/Cardiology Preferred Pharmacy: [facility] @ discharge. Otherwise, uses [facility] Insurance: [employer] [facility] Prescription Benefit: Yes. Pt to discharge home on Eliquis. Made aware of 30-day free trial-offer card, that will be applied by [facility] pharmacy. Made aware, if refills are not affordable to follow-up with cardiology or PCP. Voices understanding. Living Will/HPOA: Has both LW and HCPOA, who is her , Kris. Son, Chavez, is 1st alternative. LNOK: , son. Living Arrangements: Lives w/ in 2-story home 2/2 steps to enter through the front entrance, or 12-13 steps to enter through the garage. Denies difficulty w/stairs. Could do FFSU, if needed. Independent w/ADL's and IADL's. Transportation:?Pt states drives self and states no transportation concerns at this time. also drives. DME: Denies using any DME and denies needs. HHC/SNF: No hx of either. No needs identified. Pt wishes to return home and states has no concerns with going home at time of discharge. CM?to follow for any further discharge planning/needs. Pt and voice no further concerns/needs at this time. Advised them to ask for CM?if any further questions/concerns/needs arise. They voice understanding. PLAN: Home Nico STONER RN, CM
[2024-09-13 15:55] VITALS: BP 127/65; PULSE 58; RESP 16; TEMP 36.7; O2SAT 94
--- NOTE | 2024-09-13 16:37 | PCM.PN.HOSP ---
Reason for Visit Reason for Visit: Palpitations Subjective Subjective Converted to normal sinus rhythm last night. States that she feels comfortable right now. Was started on flecainide and QTc is stable. Anxious to go home but understanding that she will need to wait till tomorrow due to flecainide being initiated. No issues with anticoagulation thus far. States she feels much better overall. Objective Data Objective Data Vital Signs: Vital Signs Temp Pulse Resp BP Pulse Ox O2 Del Method O2 Flow Rate 98.1 F 58 L 16 127/65 H 94 Room Air 2 09/13/24 15:55 09/13/24 15:55 09/13/24 15:55 09/13/24 15:55 09/13/24 15:55 09/13/24 15:55 09/12/24 12:00 Oxygen Flow Rate (L/min) 2 Oxygen Delivery Method Room Air Weight: 83.3 kg Body Mass Index (BMI) 32.5 Intake & Output: Intake and Output for Last 24 Hours 09/11/24 09/12/24 09/13/24 23:59 23:59 23:59 Intake Total 945.27 / 1445.27 945.67 / 945.67 Balance 945.27 / 1445.27 945.67 / 945.67 Lab / Micro Data 09/12/24 05:35 09/13/24 05:28 Labs: Laboratory Results - last 24 hr 09/12/24 22:58: APTT 64.1 H 09/13/24 05:28: APTT 64.8 H, Sodium 137, Potassium 3.7, Chloride 107, Carbon Dioxide 22.0, Anion Gap 8, BUN 25 H, Creatinine 0.89, Estim Creat Clear Calc 54.12, Est GFR (MDRD) Af Amer 80, Est GFR (MDRD) Non-Af 66, BUN/Creatinine Ratio 28.2 H, Glucose 119 H, Calcium 9.6, Phosphorus 4.2, Magnesium 2.0 Rhythm Strip Rhythm Strip: Sinus Rhythm Rate: 55 Physical Exam Const alert, oriented x3, no apparent distress, healthy appearing and well nourished; Negative for average body habitus Constitutional Narrative: Obese, calm, pleasant, elderly white female, sitting up in bed, watching television, appears comfortable, nontoxic, at bedside General Appearance: cooperative HEENT normocephalic, head/scalp atraumatic and hearing grossly normal bilaterally Resp normal respiratory effort, no retractions, no use of accessory muscles and clear to auscultation bilaterally Auscultation: Negative for rales, rhonchi or wheezes Cardio regular rate, regular rhythm, S1 normal heart sound, S2 normal heart sound, no murmurs, no rub, no gallops and no clicks Cardio Narrative: Now in normal sinus rhythm GI normal to inspection, nondistended, normoactive bowel sounds, soft to palpation and non-tender Extremity no clubbing, cyanosis or edema Extremity Narrative: Pedal and radial pulses are 2+ Neuro oriented x3 and moves all extremities Speech: speech normal Psych affect normal Psych Narrative: Much less anxious today Assessment & Plan Assessment/Plan (1) Atrial fibrillation with RVR: (2) Hypokalemia: (3) Sinus pause: PLAN: Plan Atrial fibrillation with RVR -Patient with known history -Now back in normal sinus rhythm -Continue flecainide -Pre-flecainide QTc was 449 with repeat this morning after flecainide 463 -Will obtain another EKG in a.m. -Heparin drip transition to Eliquis 5 mg p.o. twice daily Hypokalemia - resolved Sinus node pauses -Likely related to use of metoprolol and calcium channel denisse -Resolved Essential hypertension/hyperlipidemia -Continue home HCTZ -Continue home lisinopril -continue home rosuvastatin -Will discontinue beta-blockade at discharge GERD -Continue home PPI Carotid artery stenosis -Bilateral 50 to 69% -Continue therapy as above for blood pressure and cholesterol management -Continue aspirin 81 mg daily Osteoporosis -Recent DEXA in December 2023 -Recommend close outpatient follow-up this patient is at increased risk for fracture if she does fall Hepatomegaly -Ultrasound done in 2021 that showed fatty infiltration -Suspect GRAVES -continue aspirin -monitor clinically DVT prophylaxis -Eliquis 5 mg p.o. twice daily CODE STATUS -Full code Charges/Coding Visit Charges Inpatient E&M: 82207 Subs Hosp L2
[2024-09-13 21:55] VITALS: BP 129/72; PULSE 60; RESP 16; TEMP 36.4; O2SAT 97
[2024-09-13] MEDS: Atorvastatin Calcium 20 MG Tablet PO (22:16)
[2024-09-14 03:19] VITALS: BP 146/63; PULSE 60; RESP 16; TEMP 36.6; O2SAT 95
--- NOTE | 2024-09-14 05:55 | EKG12_ITS ---
Test Reason : AM EKG Blood Pressure : */* mmHG Vent. Rate : 59 BPM Atrial Rate : 59 BPM P-R Int : 204 ms QRS Dur : 84 ms QT Int : 474 ms P-R-T Axes : 33 19 -1 degrees QTcB Int : 469 ms Sinus bradycardia Otherwise normal ECG When compared with ECG of 13-Sep-2024 08:07, No significant change was found Confirmed by Mohamud Canela ([id number]), news editor DIVINE DENIS ([id number]) on 09/15/2024 8:21:31 AM Referred By: Confirmed By: Mohamud Canela
[2024-09-14 08:09] LABS: Partial Thromboplast Time 38.8 Seconds (24.1-36.2)
--- NOTE | 2024-09-14 08:12 | PN.CARD_ITS ---
Subjective Subjective Patient reports that she slept well and denies any tacky or bradycardia arrhythmias. She does have an radha on her phone that is able to check her heart rate and rhythm. She demonstrated that to me today and it shows that she is in sinus rhythm and correlates with her appropriate heart rate on telemetry. Patient is EKG this morning shows sinus bradycardia at 59 bpm and a QT interval of 470 ms. She is tolerating the flecainide at 100 mg twice daily. Objective Data Vital Signs: Vital Signs Temp Pulse Resp BP Pulse Ox O2 Del Method O2 Flow Rate 97.8 F 60 16 146/63 H 95 Room Air 2 09/14/24 03:19 09/14/24 03:19 09/14/24 03:19 09/14/24 03:19 09/14/24 03:19 09/14/24 03:19 09/12/24 12:00 Oxygen Flow Rate (L/min) 2 Oxygen Delivery Method Room Air Weight: 183 lb 10.321 oz Body Mass Index (BMI) 32.5 Intake & Output: Intake and Output for Last 24 Hours 09/12/24 09/13/24 09/14/24 23:59 23:59 23:59 Intake Total 945.27 / 1445.27 1345.67 / 1595.67 500 / 500 Balance 945.27 / 1445.27 1345.67 / 1595.67 500 / 500 Lab / Micro Data Attestation: I reviewed the patient's lab results. 09/12/24 05:35 09/13/24 05:28 Labs: Laboratory Results - last 24 hr 09/14/24 06:31: APTT 38.8 H Rhythm Strip Rhythm Strip: Sinus Rhythm Rate: 59 Ectopy: None Cardiology Labs/Tests 09/14/24 06:31: APTT 38.8 H Rhythm: EKG: ECHO: Stress Test: Cardiac Cath: PCI: CT Surgery: Holter monitor: EPS: PPM: CXR: Chest CT Scan: Physical Exam Const alert and oriented x3 HEENT normocephalic Eyes EOMs intact bilaterally Neck no JVD Chest inspection of chest normal Resp normal respiratory effort and clear to auscultation bilaterally Cardio Rate: bradycardia Rhythm: regular rhythm Heart Sounds: S1 normal and S2 normal; Negative for click, gallop, murmur or rub Extremity no pedal edema Skin no rashes or lesions noted Neuro Neuro Narrative: Alert and oriented x 3 Psych mental status grossly normal Assessment & Plan Assessment/Plan (1) Paroxysmal atrial fibrillation: PLAN: Patient's atrial fibrillation has been well-controlled over the last 48 hours. She remains in sinus rhythm with heart rates in the 55 to 60 bpm range. She is tolerating the flecainide 100 mg twice daily with a QT interval of 470 ms. From a cardiovascular standpoint the patient can be discharged to home this morning. She should follow-up with the [facility] office advanced practitioner in 1 week for an EKG and medication review. At that time we will arrange for her to have long-term oral anticoagulation with Eliquis and she should be reevaluated in [address] Canela in the office. I went over with the patient in detail how to utilize her device on her phone should she have symptoms. Her primary symptoms occurred due to a prolonged sinus node recovery time when she reverted from atrial fibrillation back into sinus rhythm. At that time she was on rate slowing drugs metoprolol and diltiazem. The patient is aware in the past when she went into atrial fibrillation and she is able to track that with the radha on her phone. I asked her to make sure that if she feels those sensations to utilize her phone radha to document what is going on and if she is syncopal or near syncopal she should have someone bring her back to the emergency room. The plan would be to maintain her in normal sinus rhythm with flecainide and we may consider dropping the dose from 100 mg twice daily down to 50 mg twice daily after 3 to 6 months. If she remains in sinus rhythm for 6 months with no recurrence of her atrial fibrillation we could discontinue the Eliquis and then utilize her wearable monitor to determine the need for future oral anticoagulation. (2) Essential hypertension: PLAN: Patient's blood pressure is adequate controlled in the hospital she will be reevaluated in the office. I would recommend that with future alterations in her medical regiment to treat her hypertension that rate modulating drugs to be avoided. PLAN: Plan 1. Will discharge to home on flecainide 100 mg twice daily and Eliquis 5 mg twice daily. 2. Patient will have an EKG and see one of the advanced practitioners in the [facility] in 1 week. 3. Patient will follow-up with Dr. Canela in 2 weeks in the [facility] office. 4. Patient was instructed in the use of her wearable device and her phone radha to monitor her rhythm in her home environment. 5. The patient was instructed to bring her meds in the bottles to every office visit. Charges/Coding Visit Charges Inpatient E&M: 48723 Subs Hosp L3
[2024-09-14 08:24] VITALS: O2SAT 98
[2024-09-14 08:59] VITALS: BP 170/71; PULSE 59; RESP 16; TEMP 36.8; O2SAT 95
[2024-09-14] MEDS: Pantoprazole Sodium 40 MG Tablet PO (09:06)
[2024-09-14] MEDS: Flecainide 100 MG Tablet PO (09:06)
[2024-09-14] MEDS: APIXABAN 5 MG TABLET PO (09:06)
[2024-09-14] MEDS: Lisinopril 20 MG Tablet PO (09:06)
[2024-09-14 11:27] VITALS: BP 157/68
[2024-09-14] MEDS: amLODIPine 5 MG Tablet PO (11:28)
--- NOTE | 2024-09-14 12:37 | PCM.DC.SUM ---
Providers Date of Admission: 09/12/24 Date of Discharge: 09/14/24 Primary Care Physician: Dr. Charlotte Stevenson DO Consultations 09/12/24 09:45 Consult: Cardiology Routine Consulting Provider: Mohamud Canela Reason for Consult: Afib with RVR EMERGENT Consult: No MD Notified: Yes Date Notified: 09/12/24 Time Notified: 08:45 Method of Notification: Verbal Reason For Visit: AFIB WITH RVR Diagnosis Discharge Diagnosis (1) Paroxysmal atrial fibrillation: Status: Acute Code(s): I48.0 - Paroxysmal atrial fibrillation (2) Essential hypertension: Status: Acute Code(s): I10 - Essential (primary) hypertension Medications at Discharge Home Medications lisinopril 20 mg tablet 20 mg PO BID blood pressu 03/20/18 yyxdsnjc-ouo-opdqg acid 0.4 mg-lycopene 300 mcg-lutein 250 mcg tablet 1 ea PO DAILY suppliment 03/20/18 cranberry 500 mg capsule 2,000 mg PO DAILY suppliment 04/05/18 metronidazole 0.75 % topical gel 1 applic topical PRN rash 12/01/18 hydrochlorothiazide 12.5 mg tablet 12.5 mg PO DAILY bp #90 tabs 01/09/21 pantoprazole 40 mg tablet,delayed release 40 mg PO DAILY reflux 09/11/22 rosuvastatin 10 mg tablet 10 mg PO DAILY cholesterol 07/20/23 aspirin 81 mg tablet,delayed release (Adult Aspirin Regimen) 81 mg PO DAILY preventative 07/12/24 montelukast 10 mg tablet 10 mg PO QDAY PRN allergies 07/12/24 estriol micronized (bulk) 100 % powder 1 ea miscellaneous QWEEK infections 09/13/24 fluticasone furoate 27.5 mcg/actuation nasal spray,suspension 2 spray intranasal DAILY PRN allergies 09/13/24 amlodipine 5 mg tablet 5 mg PO DAILY #30 tabs 09/14/24 apixaban 5 mg tablet (Eliquis) 5 mg PO BID #60 tabs 09/14/24 flecainide 100 mg tablet 100 mg PO BID #60 tabs 09/14/24 Hospital Course Operations None Procedures 2-D Echocardiogram, EKG and - (Chest x-ray) Summary of Care Provided Minutes Spent on Discharge: 38 Hospital Course: BELEM ESTES, is a 79 F who presented to the emergency department [facility] on 03/27/2024 in the morning due to palpitation she was having at home. She stated that she was awakened from sleep due to palpitations. She does have a known history of atrial fibrillation and takes metoprolol 25 mg daily at home for this. She had elected to not be on anticoagulation previously. Her [id number] score is 5. She also has a history of moderate carotid artery disease with 50 to 69% stenosis bilaterally. Patient reported that she woke up between 4 and 430 this morning at which time she had a sensation of anxiety and lightheadedness. She felt very anxious and felt palpitations so decided to come to the emergency department. Upon presentation she was found to be in A-fib with RVR and then spontaneously converted into normal sinus rhythm. She ultimately was treated with 3 doses of metoprolol to IV and 1 oral 50 mg dose and then was placed on a Cardizem drip due to persistent intermittent A-fib. Following the administration of beta-denisse and calcium channel denisse she had some sinus pauses due to likely related to her sinus node recovery time being prolonged which made her more anxious and jittery. Vital signs on presentation showed a temperature of 98, heart rate was 140, respiratory was 19, blood pressure was 176/105, and pulse ox was 100% on room air. CBC was unremarkable. Coags were unremarkable. Chemistry panel showed mild hypokalemia with potassium of 3.3 but was otherwise unremarkable other than a nonfasting glucose of 138. Initial troponin was 53 with a delta troponin of 66. EKG was consistent with A-fib with RVR. Chest x-ray was unremarkable. She did have a recent TSH on 07/12/2024 at which time was 1.04. Given her symptoms on presentation and intermittent sinus node pauses due to prolonged recovery time with medications and ongoing intermittent atrial fibrillation the case was discussed with cardiology and they did recommend admission for evaluation and consideration for pacemaker. With discontinuation of beta-blockade and calcium channel blockade and initiation of flecainide started by cardiology, her A-fib reverted to sinus rhythm and the sinus pauses resolved. Rhythm control was preferred as she had significant the symptomatic heart block on medications that affected rate. She did agree to start anticoagulation after risks and benefits were discussed and initially was on heparin as there was concern for possible pacemaker requirement and then transition to Eliquis once that concern resolved. She was monitored for 6 doses of her flecainide. QTc was monitored on daily basis via EKG and she had no significant QT prolongation utilizing flecainide. She will follow-up in 1 week with a heart group for repeat EKG and see one of the RADHA's and then follow-up with Dr. Canela in 2 weeks for further evaluation. With discontinuation of her home metoprolol we did add amlodipine 5 mg daily and discussed blood pressure goals of 130/80 or less. We did discuss that she may need further up titration versus additional medications to address her blood pressure in the outpatient setting. She will check her blood pressures randomly on a daily basis and write them down and take them to her appointment and I have asked her to take her blood pressure monitor to her appointment to have it calibrated against an intraoffice sphygmomanometer. Patient will continue using her watch and phone radha to monitor her rhythm in the home environment and was asked to bring her home medications to her visit as an outpatient. She was able to be discharged home in stable condition on 09/14/2024. I have asked her to follow-up with her primary care physician in 1 week and cardiology as noted above. Discharge diagnoses: Paroxysmal atrial fibrillation-now in sinus Sinus node pauses-resolved Hypokalemia-resolved Essential hypertension Hyperlipidemia GERD Carotid artery stenosis Osteoporosis Hepatomegaly Physical Exam Const alert, oriented x3, no apparent distress, no limitations, healthy appearing and well nourished; Negative for average body habitus Constitutional Narrative: Obese, calm, pleasant, elderly white female, sitting up in bed, watching television, appears comfortable, nontoxic, at bedside General Appearance: cooperative, comfortable, well kempt and well developed Exam Limitations: no limitations Nutritional Appearance: obese HEENT normocephalic, head/scalp atraumatic, hearing grossly normal bilaterally and moist oral mucous membranes HEENT Narrative: Mallampati 2, no thrush Eyes Eyes Narrative: No scleral icterus Neck no lymphadenopathy Neck Narrative: Trachea midline, no noted thyroid enlargement Resp normal respiratory effort, no retractions, no use of accessory muscles and clear to auscultation bilaterally Auscultation: Negative for rales, rhonchi or wheezes Cardio regular rate, regular rhythm, S1 normal heart sound, S2 normal heart sound, no murmurs, no rub, no gallops and no clicks GI normal to inspection, nondistended, normoactive bowel sounds, soft to palpation and non-tender Extremity no clubbing, cyanosis or edema Extremity Narrative: Pedal and radial pulses are 2+ Neuro oriented x3, moves all extremities and no focal motor deficits Speech: speech normal Psych affect normal Psych Narrative: Calm, interacts appropriately, very pleasant Mood & Affect: anxious Weight / BMI Weight Weight: 83.3 kg Body Mass Index (BMI) 32.5 ABG / Lab / Microbiology Data 09/12/24 05:35 09/13/24 05:28 Laboratory: Laboratory Results - last 24 hr 09/14/24 06:31: APTT 38.8 H D/C Instructions Discharge Diet: Low fat / Low cholesterol Discharge Activity: Return to Normal Activity Meaningful Use Info Meaningful Use Meaningful Use Diagnoses (Choose all that apply): None applicable Ischemic Stroke Statin Dosing Therapy Reference: STATIN DOSE THERAPY REFERENCE: * Patients > 75 years receive moderate or high dose statin therapy. * Patients 75 years or YOUNGER should receive HIGH intensity statin dose unless contraindicated. You will be required to document reason for non-treatment if statin daily dose does not meet guidelines. HIGH DOSE STATIN THERAPY DAILY Atorvastatin > than or = to 40 mg Rosuvastatin > than or = to 20 mg Amlodipine + Atorvastatin > than or = to 2.5/40 mg Ezetimibe + Simvastatin 10/80 mg Simvastatin 80mg Discharge Plan Admission Admit Date/Time: 09/12/24 09:12 Primary Reason for Your Visit: Palpitations Attending Provider: Emilie Enriquez Primary Care Provider: Charlotte Stevenson Consulting Providers: Mohamud Canela Instructions Additional Instructions / Restrictions: 1. Take blood pressure daily at random times throughout the day and keep track of what your blood pressures are running. Take them to your next appointment. Goal blood pressure should be less than 130/80. We did alter some of your medications due to to needing to discontinue your metoprolol. Discharge Orders/Prescriptions Prescriptions: New Eliquis 5 mg Tablet 5 mg PO BID Qty: 60 0RF amlodipine 5 mg Tablet 5 mg PO DAILY Qty: 30 0RF flecainide 100 mg Tablet 100 mg PO BID Qty: 60 0RF Continued metronidazole 0.75 % gel 1 applic TOPICAL PRN Patient Comments: 1 applic TOPICAL as directed; Rx Instructions: 1 applic TOPICAL as directed; pantoprazole 40 mg tablet,delayed release (DR/EC) 40 mg PO DAILY aspirin [Adult Aspirin Regimen] 81 mg tablet,delayed release (DR/EC) 81 mg PO DAILY montelukast 10 mg tablet 10 mg PO QDAY PRN (Reason: allergies) lisinopril 20 MG tablet 20 mg PO BID wjltqghu-psu-ZT-lycopen-lutein 1 EACH tablet 1 ea PO DAILY cranberry 500 mg capsule 2,000 mg PO DAILY estriol micronized (bulk) 100 % powder 1 ea MISCELLANEOUS QWEEK fluticasone furoate 27.5 mcg/actuation spray,suspension 2 spray intranasal DAILY PRN (Reason: allergies) Rx Instructions: into each nostril hydrochlorothiazide 12.5 mg tablet 12.5 mg PO DAILY Qty: 90 3RF rosuvastatin 10 mg tablet 10 mg PO DAILY Discontinued metoprolol succinate 25 mg tablet extended release 24 hr 25 mg PO QHS Qty: 90 3RF Referrals / Follow Up: [facility] [Provider Group] - 09/20/24 10:15 am (This appt is for an EKG) Charlotte Stevenson DO [Primary Care Provider] - Within 1 Month Mohamud Canela MD [Med Staff - Active Staff] - 09/26/24 9:00 am (This is the only appt available until the end of October please be sure to keep this appt.) Disposition Disposition (needs filled in before D/C Order can be placed): Home, Self Care Charges/Coding Visit Charges Inpatient E&M: 76607 Disch Hosp >30min
--- NOTE | 2024-09-14 13:32 | CASEMGMT ---
MARCELLE MCCAIN NOTE: Discharge order is in. Magdaquclement has been e-scribed to [facility] retail pharmacy. Per Ann in the pharmacy, Ayden co-pay is $47. Pt and made aware and they would like to use the free 30-day trial offer card. They are aware this card can only be used [id number]. Offered [id number], but they prefer to have pick medications up in the pharmacy. Pt Link: Discussed Pt Link and questions answered. Pt and both interested in this. Referral placed. They deny having further discharge needs/concerns and thanked RN KALYN for information. Nico STONER RN CM
--- NOTE | 2024-09-14 14:13 | PHA.DC.MC.R ---
Pharmacy [facility] Service has performed discharge medication reconciliation and counseling for this patient. 1. AMLODIPINE 5MG PO DAILY 2. APIXABAN 5MG PO BID 3. FLECAINIDE 100MG PO BID 4. STOP METOPROLOL The patient's discharge medication list was reviewed for discrepancies and discrepancies were resolved. The patient was counseled on the following discharge medications and changes in medications for homegoing were reviewed. The Reason for Use, instructions for use, and potential side effects were reviewed for all new medications. The patient's questions regarding all of their medications were answered. The patient was able to verbally demonstrate an understanding of their discharge medications. Patient counseled by pharmacy schedulerHunter. Medications at Discharge Home Medications lisinopril 20 mg tablet 20 mg PO BID blood pressure 03/20/18 ypvtukcw-qtm-bjlme acid 0.4 mg-lycopene 300 mcg-lutein 250 mcg tablet 1 ea PO DAILY supplement 03/20/18 cranberry 500 mg capsule 2,000 mg PO DAILY supplement 04/05/18 metronidazole 0.75 % topical gel 1 applic topical PRN rash 12/01/18 hydrochlorothiazide 12.5 mg tablet 12.5 mg PO DAILY bp #90 tabs 01/09/21 pantoprazole 40 mg tablet,delayed release 40 mg PO DAILY reflux 09/11/22 rosuvastatin 10 mg tablet 10 mg PO DAILY cholesterol 07/20/23 aspirin 81 mg tablet,delayed release (Adult Aspirin Regimen) 81 mg PO DAILY heart health 07/12/24 montelukast 10 mg tablet 10 mg PO QDAY PRN allergies 07/12/24 estriol micronized (bulk) 100 % powder 1 ea miscellaneous QWEEK infections 09/13/24 fluticasone furoate 27.5 mcg/actuation nasal spray,suspension 2 spray intranasal DAILY PRN allergies 09/13/24 amlodipine 5 mg tablet 5 mg PO DAILY #30 tabs 09/14/24 apixaban 5 mg tablet (Eliquis) 5 mg PO BID #60 tabs 09/14/24 flecainide 100 mg tablet 100 mg PO BID #60 tabs 09/14/24
== END 2024-09-14 14:15 | disposition home or self-care (01) | DRG 309 ==
LOC: ED 06:41 → PCU 09:17
PROVIDERS: Internal Medicine Cardiovascular Disease; Admitting Provider Internal Medicine; Emergency Provider Emergency Medicine; PCP Family Medicine; Visit Provider Internal Medicine
DX: I48.0 Paroxysmal atrial fibrillation (principal); I5A Non-ischemic myocardial injury (non-traumatic); K75.81 Nonalcoholic steatohepatitis (NASH); I10 Essential (primary) hypertension; I65.29 Occlusion and stenosis of unspecified carotid artery; E78.5 Hyperlipidemia, unspecified; E87.6 Hypokalemia; K21.9 Gastro-esophageal reflux disease without esophagitis; I45.5 Other specified heart block; R16.0 Hepatomegaly, not elsewhere classified; Z79.82 Long term (current) use of aspirin; M81.0 Age-related osteoporosis without current pathological fracture
CPT/HCPCS: 36415; 71045; 80048; 83735; 84100; 84484; 85025; 85610; 85730; 93005; 94668; 99285; A4216

== ENCOUNTER → 2024-09-20 | Outpatient (CLI) | payer MEDICARE, SELFPAY ==
[2024-09-20 12:17] LABS: Absolute Lymphocyte Count 2.73 X10^3/uL (0.83-4.51); Absolute Neutrophil Count 6.9 X10^3/uL (2.0-7.7); Basophil# 0.04 X10^3/uL; Basophil% 0.4 % (0-1); Eosinophil# 0.15 X10^3/uL; Eosinophils% 1.4 % (0-5); Hematocrit 39.9 % (37-47); Hemoglobin 13.8 g/dL (12.0-15.0); Lymphocyte # 2.73 X10^3/ul (0.83-4.51); Mean Corp Hgb Conc 34.6 g/dL (32-36); Mean Corpuscular Hgb 29.9 pg (27.0-32.0); Mean Corpuscular Volume 86.6 fL (81-99); Monocyte# 1.05 X10^3/uL; Monocyte% 9.6 % (0-10); NRBC Flagged by Analyzer 0 % (0-5); Neutrophil # 6.89 X10^3/uL (2.7-7.7); Neutrophil % 63.1 % (47-70); Platelet Count 323 K/mm3 (150-450); RBC Distribution Width CV 12.2 % (11.6-14.6); RBC Distribution Width SD 38.5 fl (35.1-43.9); Red Blood Count 4.61 M/mm3 (4.2-5.4); White Blood Count 10.9 K/mm3 (4.4-11.0)
[2024-09-20 12:30] LABS: Anion Gap 7 (5-15); BUN 17 mg/dL (7-18); BUN/Creat Ratio 22.3 RATIO (10-20); Calcium,Total 9.7 mg/dL (8.5-10.1); Chloride 103 mmol/L (98-107); Creatinine, Serum 0.76 mg/dL (0.55-1.02); EST Glomerular Filtration Rate 78 mL/min (>60); Est Glom Filt Rate - Afr Amer 95 mL/min (>60); Glucose 120 mg/dL (74-106); Magnesium 2.2 mg/dL (1.6-2.6); Potassium 3.8 mmol/L (3.5-5.1); Sodium Level 135 mmol/L (136-145)
== END | disposition home or self-care (01) ==
LOC: PSN 10:45 → LAB 11:07
PROVIDERS: PCP Family Medicine; Referring Provider Nurse Practitioner Family; Visit Provider Nurse Practitioner Family
DX: R00.2 Palpitations (principal); I48.0 Paroxysmal atrial fibrillation; R42 Dizziness and giddiness; R06.09 Other forms of dyspnea
CPT/HCPCS: 36415; 80048; 83735; 85025; 93225; 93226

== ENCOUNTER 2024-09-23 06:04 | Emergency (ER) | payer MEDICARE, SELFPAY ==
[2024-09-23 06:05] VITALS: BP 159/61; PULSE 72; RESP 16; TEMP 37; O2SAT 96; BMI 32.2
--- NOTE | 2024-09-23 06:23 | EKG12_ITS ---
Test Reason : PALPITATIONS Blood Pressure : */* mmHG Vent. Rate : 66 BPM Atrial Rate : 66 BPM P-R Int : 212 ms QRS Dur : 82 ms QT Int : 446 ms P-R-T Axes : 35 60 22 degrees QTcB Int : 467 ms Poor data quality, interpretation may be adversely affected Sinus rhythm with 1st degree A-V block Otherwise normal ECG Confirmed by IBIS DANIELS, PATRICE ([id number]), primer expeditor and drier DIVINE DENIS ([id number]) on 09/25/2024 9:40:42 AM Referred By: Confirmed By: PATRICE BAUMANN MD
--- NOTE | 2024-09-23 06:24 | EX.ED.DYSGE1 ---
HPI History of Present Illness Chief Complaint: Palpitations Informant: patient and spouse/S.O. Narrative Narrative: 79-year-old female with a history of paroxysmal atrial fibrillation was recently here at the hospital because of symptomatic A-fib episodes, was changed off of her AV shantanu blockers and switched to flecainide. Initially things were going well but she started having symptoms again. She presents this morning at 6 AM Wednesday morning because the past 2 days she has been having very frequent episodes that are random, they are disrupting her life, and she had an episode that woke her up in the middle of the night tonight. She states she feels the worst when the heart rate drops, and she knows this because she is watching her numbers closely on her smart device/watch, watching her pulse go down to 50 often in the last couple days. She has had no lightheadedness, syncope, or other symptoms of symptomatic bradycardia. No chest discomfort or dyspnea. She often gets his symptoms couple hours after taking her flecainide. She states it seems to be regularly occurring. She has been compliant with the medications. [facility] Medical History Paroxysmal atrial fibrillation Essential hypertension Reactive airway disease Osteopenia Bilateral carotid artery stenosis Hyperlipidemia Atrial fibrillation with rapid ventricular response (03/21/18) Home Medications ?Medication ?Instructions ?Recorded ?Last Taken ?Type lisinopril 20 mg tablet 20 mg PO BID blood pressure 03/20/18 Unknown History iwuutffd-yre-uamvr acid 0.4 1 ea PO DAILY supplement 03/20/18 Unknown History mg-lycopene 300 mcg-lutein 250 mcg tablet cranberry 500 mg capsule 2,000 mg PO DAILY supplement 04/05/18 Unknown History metronidazole 0.75 % topical gel 1 applic topical PRN rash 12/01/18 Unknown History hydrochlorothiazide 12.5 mg tablet 12.5 mg PO DAILY bp #90 tabs 01/09/21 Unknown Rx pantoprazole 40 mg tablet,delayed 40 mg PO DAILY reflux 09/11/22 Unknown History release rosuvastatin 10 mg tablet 10 mg PO DAILY cholesterol 07/20/23 Unknown History aspirin 81 mg tablet,delayed 81 mg PO DAILY heart health 07/12/24 Unknown History release (Adult Aspirin Regimen) montelukast 10 mg tablet 10 mg PO QDAY PRN allergies 07/12/24 09/11/24 History estriol micronized (bulk) 100 % 1 ea miscellaneous QWEEK infections 09/13/24 Unknown History powder fluticasone furoate 27.5 2 spray intranasal DAILY PRN 09/13/24 Unknown History mcg/actuation nasal allergies spray,suspension amlodipine 5 mg tablet 5 mg PO DAILY #30 tabs 09/14/24 Unknown Rx apixaban 5 mg tablet (Eliquis) 5 mg PO BID #60 tabs 09/14/24 Unknown Rx flecainide 100 mg tablet 150 mg (1.5 x 100 mg) PO BID #60 09/23/24 Unknown Rx tabs Allergy/AdvReac Type Severity Reaction Status Date / Time ciprofloxacin (From Cipro) Allergy Other Verified 09/23/24 06:05 fluorescein Allergy Anaphylaxis Verified 09/23/24 06:05 lactose Allergy Upset Verified 09/23/24 06:05 Stomach nitrofurantoin Allergy Other Verified 09/23/24 06:05 Sulfa (Sulfonamide Allergy Rash Verified 09/23/24 06:05 Antibiotics) aspirin AdvReac Other Verified 09/23/24 06:05 Family History Father Diabetes Hypertension Brother Diabetes Hypertension Brother Heart disease irregular heart beat w/ PPM Surgical History H/O breast biopsy H/O hemorrhoidectomy History of partial hysterectomy Hx of cholecystectomy History of tonsillectomy History of cataract surgery Social History household members: spouse Smoking Status: Never smoker alcohol intake: never substance use type: does not use caffeine: No ROS ROS ED Constitutional Constitutional ED: Denies chills or fever(s) Eyes Eyes: Denies change in vision or diplopia ENT ENT ED: Denies rhinorrhea or sore throat Cardiovascular Cardiovascular: Reports palpitations; Denies chest pain, lightheadedness or syncope Respiratory/Chest Respiratory/Chest: Denies cough or dyspnea Gastrointestinal Gastrointestinal: Denies abdominal pain, diarrhea, nausea or vomiting Genitourinary Genitourinary ED: Denies dysuria or hematuria Musculoskeletal Musculoskeletal: Denies back pain or neck pain Integumentary Denies abscess or rash Neurologic Neurologic: Denies headache(s), paresthesias or weakness EXAM Physical Exam Const Vital Signs: 09/23/24 06:05 09/23/24 06:07 Temperature 98.6 F Temperature Source Oral Pulse Rate 72 Respiratory Rate 16 Respiratory Effort Normal Blood Pressure 159/61 H Blood Pressure Mean 93 Pulse Ox 96 Oxygen Delivery Method Room Air Positive well nourished and well developed General Appearance ED: well developed and NAD HEENT Reports moist mucous membranes normocephalic and atraumatic Eyes PERRL and EOMs intact bilaterally Neck full ROM and supple Resp normal respiratory effort and clear to auscultation bilaterally Cardio regular rate, regular rhythm and no murmurs GI non-tender and non-distended Auscultation: normoactive bowel sounds Palpation: soft Back/Spine no CVA tenderness General Back: other FROM Extremity normal to inspection General Extremety ED: Negative for edema, pulses abnormal or tenderness General Extremity: Negative for edema or pulses abnormal Neuro oriented x3, CN's II-XII intact bilaterally and no sensory deficits noted Sensorium / Orientation: awake and alert Motor Exam: strength 5/5 throughout Psych Mood & Affect: anxious Skin no rashes or lesions noted and no wounds MDM MDM MDM Narrative Medical decision making narrative: EKG is normal on my interpretation, her labs are unremarkable as well. She had no episodes of dysrhythmias or symptoms while in the emergency department for 2 hours. I discussed with Dr. Munson on-call for cardiology, he agrees patient does not have an indication for admission at this time, recommends going up on her flecainide from 100 twice daily to 150 twice daily and following up as scheduled on Wednesday in the office. She is comfortable with that plan. Lab Data Attestation: I reviewed the patient's lab results. Labs: Laboratory Results - last 24 hr 09/23/24 06:11 WBC 9.8 RBC 4.73 Hgb 14.1 Hct 40.6 MCV 85.8 MCH 29.8 MCHC 34.7 RDW Std Deviation 37.3 RDW Coeff of [place] 11.9 Plt Count 323 MPV 9.7 Immature Gran % (Auto) 0.400 Neut % (Auto) 61.5 Lymph % (Auto) 27.1 [place] % (Auto) 9.7 Eos % (Auto) 0.9 Baso % (Auto) 0.4 Absolute Neuts (auto) 6.1 Absolute Lymphs (auto) 2.67 Nucleated RBC % 0 Sodium 137 Potassium 3.7 Chloride 104 Carbon Dioxide 23.0 Anion Gap 10 BUN 17 Creatinine 0.88 Estim Creat Clear Calc 54.46 Est GFR (MDRD) Af Amer 80 Est GFR (MDRD) Non-Af 66 BUN/Creatinine Ratio 19.3 Glucose 142 H Calcium 9.7 Troponin I High Sens 29 Rhythm Strip Rhythm Strip: Sinus Rhythm Rate: 70 Ectopy: None EKG Initial EKG: Attestation: I personally reviewed and interpreted this EKG as follows: Interpretation: Sinus Rhythm, No Acute Injury Pattern and AV Block (1st deg) Management Discussion w/another healthcare provider: It Security Analyst (cardiology) Discharge Plan Triage Chief Complaint: Palpitations ED Provider: Billy Agudelo Dx/Rx/DC Orders Clinical Impression: Paroxysmal atrial fibrillation Instructions: AFib Dc Prescriptions: Continued metronidazole 0.75 % gel 1 applic TOPICAL PRN Patient Comments: 1 applic TOPICAL as directed; Rx Instructions: 1 applic TOPICAL as directed; pantoprazole 40 mg tablet,delayed release (DR/EC) 40 mg PO DAILY aspirin [Adult Aspirin Regimen] 81 mg tablet,delayed release (DR/EC) 81 mg PO DAILY montelukast 10 mg tablet 10 mg PO QDAY PRN (Reason: allergies) lisinopril 20 MG tablet 20 mg PO BID uunlnzqm-qyz-TY-lycopen-lutein 1 EACH tablet 1 ea PO DAILY cranberry 500 mg capsule 2,000 mg PO DAILY estriol micronized (bulk) 100 % powder 1 ea MISCELLANEOUS QWEEK fluticasone furoate 27.5 mcg/actuation spray,suspension 2 spray intranasal DAILY PRN (Reason: allergies) Rx Instructions: into each nostril Eliquis 5 mg Tablet 5 mg PO BID Qty: 60 0RF amlodipine 5 mg Tablet 5 mg PO DAILY Qty: 30 0RF hydrochlorothiazide 12.5 mg tablet 12.5 mg PO DAILY Qty: 90 3RF rosuvastatin 10 mg tablet 10 mg PO DAILY Changed flecainide 100 mg Tablet 150 mg PO BID Qty: 60 0RF Primary Care Provider: Charlotte Stevenson Referrals: Charlotte Stevenson DO [Primary Care Provider] - Mohamud Canela MD [Med Staff - Active Staff] - Keep Jeanie appointment Print Language: Mongolian Disposition Disposition: Home, Self Care
[2024-09-23 06:34] LABS: Absolute Lymphocyte Count 2.67 X10^3/uL (0.83-4.51); Absolute Neutrophil Count 6.1 X10^3/uL (2.0-7.7); Basophil# 0.04 X10^3/uL; Basophil% 0.4 % (0-1); Eosinophil# 0.09 X10^3/uL; Eosinophils% 0.9 % (0-5); Hematocrit 40.6 % (37-47); Hemoglobin 14.1 g/dL (12.0-15.0); Lymphocyte # 2.67 X10^3/ul (0.83-4.51); Lymphocyte % 27.1 % (19-41); Mean Corp Hgb Conc 34.7 g/dL (32-36); Mean Corpuscular Hgb 29.8 pg (27.0-32.0); Mean Corpuscular Volume 85.8 fL (81-99); Mean Platelet Vol. 9.7 fl (6.2-12.0); Monocyte# 0.95 X10^3/uL; Monocyte% 9.7 % (0-10); NRBC Flagged by Analyzer 0 % (0-5); Neutrophil # 6.05 X10^3/uL (2.7-7.7); Neutrophil % 61.5 % (47-70); Platelet Count 323 K/mm3 (150-450); RBC Distribution Width CV 11.9 % (11.6-14.6); RBC Distribution Width SD 37.3 fl (35.1-43.9); Red Blood Count 4.73 M/mm3 (4.2-5.4); White Blood Count 9.8 K/mm3 (4.4-11.0)
[2024-09-23 06:54] LABS: Anion Gap 10 (5-15); BUN 17 mg/dL (7-18); BUN/Creat Ratio 19.3 RATIO (10-20); Calcium,Total 9.7 mg/dL (8.5-10.1); Chloride 104 mmol/L (98-107); Creatinine, Serum 0.88 mg/dL (0.55-1.02); EST Glomerular Filtration Rate 66 mL/min (>60); Est Glom Filt Rate - Afr Amer 80 mL/min (>60); Estimated Creatinine Clearance 54.46 ml/min; Glucose 142 mg/dL (74-106); Potassium 3.7 mmol/L (3.5-5.1); Sodium Level 137 mmol/L (136-145); Troponin-I HS 29 pg/mL (3.0-54.0)
[2024-09-23 07:13] VITALS: BP 155/62; PULSE 62; RESP 19; TEMP 36.8; O2SAT 98
== END 2024-09-23 07:45 | disposition home or self-care (01) ==
PROVIDERS: Emergency Provider Emergency Medicine; PCP Family Medicine; Visit Provider Emergency Medicine
DX: I48.0 Paroxysmal atrial fibrillation (principal); I10 Essential (primary) hypertension; R00.2 Palpitations; E78.5 Hyperlipidemia, unspecified; Z79.899 Other long term (current) drug therapy; Z79.82 Long term (current) use of aspirin; Z79.01 Long term (current) use of anticoagulants; Z90.710 Acquired absence of both cervix and uterus; Z90.49 Acquired absence of other specified parts of digestive tract
CPT/HCPCS: 80048; 84484; 85025; 93005; 99283; A4216

== ENCOUNTER → 2024-11-03 | Outpatient (CLI) | payer MEDICARE, SELFPAY | END | disposition home or self-care (01) | LOC: LABSPEC 14:20 | PROVIDERS: PCP Family Medicine; Referring Provider Family Medicine; Visit Provider Family Medicine | DX: R30.0 Dysuria (principal) | CPT/HCPCS: 87086 ==

== ENCOUNTER → 2024-11-17 | Outpatient (CLI) | payer MEDICARE, SELFPAY ==
[2024-11-17 09:45] LABS: Mucous, Urine 0 SEEN /hpf (<or=2+); Red Blood Cells-Urine 0 SEEN /hpf (0-5)
[2024-11-17 11:58] LABS: Absolute Lymphocyte Count 2.18 X10^3/uL (0.83-4.51); Absolute Neutrophil Count 7.7 X10^3/uL (2.0-7.7); Basophil# 0.06 X10^3/uL; Basophil% 0.5 % (0-1); Eosinophil# 0.25 X10^3/uL; Eosinophils% 2.3 % (0-5); Hematocrit 36.8 % (37-47); Hemoglobin 12.7 g/dL (12.0-15.0); Lymphocyte # 2.18 X10^3/ul (0.83-4.51); Lymphocyte % 19.8 % (19-41); Mean Corp Hgb Conc 34.5 g/dL (32-36); Mean Corpuscular Hgb 29.7 pg (27.0-32.0); Mean Platelet Vol. 9.5 fl (6.2-12.0); Monocyte# 0.77 X10^3/uL; NRBC Flagged by Analyzer 0 % (0-5); Neutrophil # 7.68 X10^3/uL (2.7-7.7); Neutrophil % 69.9 % (47-70); Platelet Count 347 K/mm3 (150-450); RBC Distribution Width CV 12.1 % (11.6-14.6); RBC Distribution Width SD 38.1 fl (35.1-43.9); Red Blood Count 4.28 M/mm3 (4.2-5.4)
[2024-11-17 12:16] LABS: Color, Urine Yellow (Yellow); Glucose, Dipstick Normal (Normal); Ketone-Dipstick Negative (Negative); Leukocyte Esterase-Dipstick 25 /ul (Negative); Nitrite-Dipstick Negative (Negative); Occult Blood-Urine Negative /ul (Negative); Protein-Dipstick Negative (Negative); Urine Bilirubin Dipstick Negative (Negative); Urine Clarity Clear (Clear); Urine Urobilinogen Normal (Normal)
[2024-11-17 12:24] LABS: ALB/GLOB Ratio 0.8 RATIO (0.9-2.4); AST(SGOT) 18 U/L (15-37); Alanine Aminotransfer ALT/SGPT 24 U/L (13-56); Albumin, Serum 3.4 g/dL (3.2-5.0); Alkaline Phosphatase 95 U/L (45-117); Anion Gap 7 (5-15); BUN 14 mg/dL (7-18); BUN/Creat Ratio 17.3 RATIO (10-20); Calcium,Total 8.9 mg/dL (8.5-10.1); Chloride 102 mmol/L (98-107); Creatinine, Serum 0.81 mg/dL (0.55-1.02); EST Glomerular Filtration Rate 73 mL/min (>60); Est Glom Filt Rate - Afr Amer 89 mL/min (>60); Ferritin 184 ng/mL (8-252); Globulin 4.3 g/dL (2.2-4.2); Glucose 106 mg/dL (74-106); Iron 59 ug/dL (50-170); Potassium 3.2 mmol/L (3.5-5.1); Protein, Total 7.7 g/dL (6.4-8.2); Sodium Level 136 mmol/L (136-145)
[2024-11-17 12:25] LABS: Bacteria RARE /hpf (None Seen); Squamous Epithelial Cells - UA 5-10 SEEN /hpf (5-10); White Blood Cells 0-5 SEEN /hpf (0-5)
[2024-11-17 14:26] LABS: Hemoglobin A1c 6.1 % (3.8-5.6)
== END | disposition home or self-care (01) ==
PROVIDERS: PCP Family Medicine; Referring Provider Family Medicine; Visit Provider Family Medicine
DX: R30.0 Dysuria (principal); Z83.49 Family history of other endocrine, nutritional and metabolic diseases; K76.0 Fatty (change of) liver, not elsewhere classified; I10 Essential (primary) hypertension; R73.02 Impaired glucose tolerance (oral); Z51.81 Encounter for therapeutic drug level monitoring
CPT/HCPCS: 36415; 80053; 81001; 82728; 83036; 83540; 85025; 87086

== ENCOUNTER → 2025-01-01 | Outpatient (CLI) | payer MEDICARE, SELFPAY ==
--- NOTE | 2025-01-01 10:31 | BI_ITS ---
PROCEDURE: SCRN MAMM (CAD)W/ALAYNA BILAT REASON FOR EXAM: F, Age 79 y/o, no family history. Prior right stereotactic breast biopsy and left excisional breast biopsy. TECHNIQUE: Bilateral screening digital breast tomosynthesis with 2D and 3D images. Computer aided detection. COMPARISON: Prior exam(s) dating back to December 29, 2023.. FINDINGS: The breasts are almost entirely fatty. Stable bilateral fat containing axillary lymph nodes. Stable bilateral skin calcifications. No suspicious masses, areas of developing architectural distortion, or suspicious calcifications. BI/SCRN MAMM (CAD)W/ALAYNA BILAT IMPRESSION: BI-RADS 2: BENIGN. RECOMMEND ANNUAL MAMMOGRAPHIC SCREENING. Follow-up code: Routine Follow-up The patient will be notified of the results by letter. Reading Location: [id number]
== END | disposition home or self-care (01) ==
LOC: OPBI 10:29
PROVIDERS: PCP Family Medicine; Referring Provider Family Medicine; Visit Provider Family Medicine
DX: Z12.31 Encounter for screening mammogram for malignant neoplasm of breast (principal)
CPT/HCPCS: 77063; 77067

== ENCOUNTER → 2025-04-17 | Outpatient (CLI) | payer MEDICARE, SELFPAY ==
[2025-04-17 10:26] LABS: Absolute Lymphocyte Count 1.85 X10^3/uL (0.83-4.51); Absolute Neutrophil Count 3.7 X10^3/uL (2.0-7.7); Basophil# 0.05 X10^3/uL; Basophil% 0.8 % (0-1); Eosinophil# 0.15 X10^3/uL; Eosinophils% 2.4 % (0-5); Hematocrit 37.9 % (37-47); Hemoglobin 12.8 g/dL (12.0-15.0); Lymphocyte # 1.85 X10^3/ul (0.83-4.51); Mean Corp Hgb Conc 33.8 g/dL (32-36); Mean Corpuscular Volume 88.8 fL (81-99); Mean Platelet Vol. 9.9 fl (6.2-12.0); Monocyte# 0.65 X10^3/uL; Monocyte% 10.2 % (0-10); NRBC Flagged by Analyzer 0 % (0-5); Neutrophil # 3.65 X10^3/uL (2.7-7.7); Neutrophil % 57.3 % (47-70); Platelet Count 280 K/mm3 (150-450); RBC Distribution Width CV 12.3 % (11.6-14.6); RBC Distribution Width SD 39.6 fl (35.1-43.9); Red Blood Count 4.27 M/mm3 (4.2-5.4); White Blood Count 6.4 K/mm3 (4.4-11.0)
[2025-04-17 10:42] LABS: Hemoglobin A1c 6.2 % (<=5.6)
[2025-04-17 10:48] LABS: ALB/GLOB Ratio 1.4 RATIO (0.9-2.4); AST(SGOT) 25 U/L (<=31); Alanine Aminotransfer ALT/SGPT 22 U/L (<=34); Albumin, Serum 4.3 g/dL (3.4-4.8); Alkaline Phosphatase 98 U/L (35-104); Anion Gap 11 (5-15); BUN 14 mg/dL (4-19); Calcium,Total 9.5 mg/dL (7.6-11.0); Carbon Dioxide 24.7 mmol/L (21.0-32.0); Chloride 103 mmol/L (98-108); Creatinine, Serum 0.71 mg/dL (0.70-1.20); EST Glomerular Filtration Rate 88 (>60); Globulin 3.1 g/dL (2.2-4.2); Glucose 114 mg/dL (70-99); Potassium 4.3 mmol/L (3.3-5.1); Protein, Total 7.4 g/dL (5.9-8.4); Sodium Level 139 mmol/L (133-145); Total Bilirubin 0.41 mg/dL (0.00-1.30)
== END | disposition home or self-care (01) ==
LOC: MTLAB 09:03
PROVIDERS: PCP Family Medicine; Referring Provider Family Medicine; Visit Provider Family Medicine
DX: I10 Essential (primary) hypertension (principal); R73.02 Impaired glucose tolerance (oral); Z51.81 Encounter for therapeutic drug level monitoring
CPT/HCPCS: 36415; 80053; 83036; 85025

== ENCOUNTER → 2025-05-03 | Outpatient (CLI) | payer MEDICARE, SELFPAY ==
--- NOTE | 2025-05-03 10:53 | CDU_ITS ---
Reason For Study Reason For Study: CAROTID STENOSIS Rt. Velocities/BP Lt. Velocities/BP Prox CCA 134.2/15.1 cm/sec. Prox CCA 145.4/28.5 cm/sec. Mid CCA 107.6/17.9 cm/sec. Mid CCA 113.1/18.1 cm/sec. Dist CCA 103.9/24.1 cm/sec. Dist CCA 94.8/16.3 cm/sec. Prox ICA 125.3/23.0 cm/sec. Prox ICA 153.4/37.1 cm/sec. Mid ICA 138.1/26.7 cm/sec. Mid ICA 131.5/26.1 cm/sec. Dist ICA 103.4/26.7 cm/sec. Dist ICA 111.7/28.3 cm/sec. Rt. ICA/CCA = 138.1/107.6=1.3. Lt. ICA/CCA = 153.4/113.1=1.4. Prox ECA 116.2/9.3 cm/sec. Prox ECA 172.8/15.7 cm/sec. Rt. Vert. 74.3/13.8 cm/sec. Lt. Vert. 56.3/0.0 cm/sec. Right Extracranial There is intimal thickening but no significant atherosclerotic plaque noted in the right common carotid artery. There is heterogeneous, irregular atherosclerotic plaque noted in the right internal carotid artery. The atherosclerotic plaque causes acoustic shadowing. Antegrade flow is noted in the right vertebral artery. There is heterogeneous, irregular atherosclerotic plaque noted in the right bulb. Left Extracranial There is homogeneous, smooth atherosclerotic plaque noted in the left common carotid artery. There is heterogeneous, irregular atherosclerotic plaque noted in the left internal carotid artery. The atherosclerotic plaque causes acoustic shadowing. The left external carotid artery is not well visualized. There is heterogeneous, irregular atherosclerotic plaque noted in the left bulb. Procedure Carotid Duplex 47811. This is a Carotid Duplex examination using B-mode, color flow and specral Doppler. The study was technically difficult. Exam performed in department. VL/Carotid Duplex Ultrasound Interpretation Summary Moderate (50-69%) stenosis right extracranial internal carotid. Moderate (50-69%) stenosis left extracranial internal carotid. Patent and antegrade vertebrals bilaterally. Ordering Physician: Charlotte Stevenson Referring Physician: Charlotte Stevenson Performed By: Krystal Pereira, LEAH, RVT
--- OUTSIDE RECORDS SUMMARY | 2025-05-03 21:12 | XMS RPT_ITS | CCD ---
Author Organization [facility] Care Team Providers Care Cadmium Plater Name Role Phone CHARLOTTE STEVENSON Unavailable Unavailable CHARLOTTE STEVENSON Unavailable Unavailable CHARLOTTE STEVENSON Unavailable Unavailable CHARLOTTE STEVENSON Unavailable Unavailable Dr. Charlotte Stevenson Primary Care Provider Addison SEGMENTAL PAVER INSTALLER, SEGMENTAL PAVER INSTALLER-C Lorena Attending Provider Dr. Charlotte Stevenson Referring Provider Dr. Charlotte Stevenson Primary Care Provider [phone] Dr. Charlotte Stevenson Referring Provider Addison TORO, SEGMENTAL PAVER INSTALLER-C Lorena Attending Provider Dr. Lucho Jackman Attending Provider [phone] Dr. Charlotte Stevenson Primary Care Provider [phone] Dr. Charlotte Stevenson Referring Provider [phone] Addison TORO, SEGMENTAL PAVER INSTALLER-C Lorena Attending Provider Dr. Charlotte Stevenson Primary Care Provider Dr. Charlotte Stevenson Referring Provider [phone] Addison SEGMENTAL PAVER INSTALLER, SEGMENTAL PAVER INSTALLER-C Lorena Attending Provider Dr. Yuri Nicholas Attending Provider Dr. Charlotte Stevenson Primary Care Provider [phone] Dr. Charlotte Stevenson Referring Provider GLENN RASMUSSEN Primary Care Unavailable Dr. Charlotte Stevenson DO Primary Care Provider [phone] Dr. Misha Mchugh DO Emergency Provider [phone] Emilie Enriquez DO Admit Provider Mina BELL, Dr. Phan Attending Provider Rola DANIELS, Dr. Mallory Other Provider [phone] Mina BELL, Dr. Phan Other Provider Rola DANIELS, Dr. Mallory Attending Provider Elva BELL, Dr. Porter Referring Provider [phone] Roof SEGMENTAL PAVER INSTALLER-C, Benoit H Attending Provider Roof SEGMENTAL PAVER INSTALLER-C, Benoit H Referring Provider Magnus DANIELS, Dr. Cervantes Attending Provider Magnus DANIELS, Dr. Cervantes Emergency Provider Elva BELL, Dr. Porter Attending Provider [phone] Elva BELL, Dr. Porter Primary Care Provider Elva BELL, Dr. Porter Attending Provider [phone] Elva BELL, Dr. Porter Referring Provider Referred, Self Attending Provider Unavailable Referred, Self Referring Provider Unavailable Cristopher DANIELS, Dr. Welch Attending Provider Mohamud Canela Consulting Unavailable Emilie Enriquez Admitting Unavailable Malys, Charlotte Primary Care Unavailable Mohamud Canela Attending Unavailable Emilie Enriquez Consulting Unavailable Emilie Enriquez Attending Unavailable Be, Erbacon Attending Unavailable Roof SEGMENTAL PAVER INSTALLER, Benoit H Referring Unavailable Malys, Charlotte Primary Care Unavailable Roof SEGMENTAL PAVER INSTALLER, Benoit H Referring Unavailable Malys, Charlotte Primary Care Unavailable Mohamud Canela Attending Unavailable Billy Agudelo Attending Unavailable Malys, Charlotte Primary Care Unavailable Roof SEGMENTAL PAVER INSTALLER, Benoit H Referring Unavailable Roof SEGMENTAL PAVER INSTALLER, Benoit H Attending Unavailable Malys, Charlotte Primary Care Unavailable Roof SEGMENTAL PAVER INSTALLER, Benoit H Referring Unavailable Roof SEGMENTAL PAVER INSTALLER, Benoit H Attending Unavailable Malys, Charlotte Primary Care Unavailable Malys, Charlotte Referring Unavailable Malys, Charlotte Primary Care Unavailable Malys, Charlotte Attending Unavailable Be, Lasha Attending Unavailable Malys, Charlotte Primary Care Unavailable Yuri Nicholas Attending Unavailable Malys, Charlotte Primary Care Unavailable Malys, Charlotte Referring Unavailable Malys, Charlotte Primary Care Unavailable Mohamud Canela Attending Unavailable Roof SEGMENTAL PAVER INSTALLER, Benoit H Attending Unavailable Malys, Charlotte Referring Unavailable Malys, Charlotte Primary Care Unavailable Roof SEGMENTAL PAVER INSTALLER, Benoit De Souza Attending Unavailable Malys, Charlotte Referring Unavailable Malys, Charlotte Primary Care Unavailable Referred, Self Attending Unavailable Referred, Self Referring Unavailable Malys, Charlotte Primary Care Unavailable Malys, Charlotte Primary Care Unavailable Malys, Charlotte Attending Unavailable Malys, Charlotte Referring Unavailable Malys, Charlotte Referring Unavailable Malys, Charlotte Primary Care Unavailable Malys, Charlotte Attending Unavailable Malys, Charlotte Referring Unavailable Malys, Charlotte Primary Care Unavailable Malys, Charlotte Attending Unavailable Emilie Enriquez Admitting Unavailable Emilie Enriquez Attending Unavailable Malys, Charlotte Primary Care Unavailable Mohamud Canela Consulting Unavailable Malys, Charlotte Primary Care Unavailable Malys, Charlotte Attending Unavailable Malys, Charlotte Referring Unavailable Roof SEGMENTAL PAVER INSTALLER, Benoit De Souza Referring Unavailable Roof SEGMENTAL PAVER INSTALLER, Benoit De Souza Attending Unavailable Malys, Charlotte Primary Care Unavailable Malys, Charlotte Referring Unavailable Malys, Charlotte Primary Care Unavailable Mohamud Canela Attending Unavailable Roof SEGMENTAL PAVER INSTALLER, Benoit De Souza Referring Unavailable Roof SEGMENTAL PAVER INSTALLER, Benoit De Souza Attending Unavailable Malys, Charlotte Primary Care Unavailable Allergies Allergy Classification Reported Allergen(s) Allergy Type Date of Onset Reaction(s) Facility Fluorescein (1 source) Fluorescein; Translations: [FLUORESCEIN] Drug Allergy 6 [facility] Penicillins (antibiotic) (1 source) Penicillins; Translations: [PENICILLINS] Drug Allergy 6 [facility] Quinolones (antibiotic) (1 source) Ciprofloxacin; Translations: [CIPROFLOXACIN] Drug Allergy 6 [facility] Sulfonamides (antibiotic) (1 source) Sulfonamides (Antibiotic); Translations: [SULFA (SULFONAMIDE ANTIBIOTICS)] Drug Allergy 6 [facility] (14 sources) Ciprofloxacin Drug Allergy 2 Other [facility] (14 sources) Fluorescein Drug Allergy 2 Anaphylaxis [facility] (14 sources) Lactose Drug Allergy 2 Upset Stomach [facility] (14 sources) Nitrofurantoin Drug Allergy 2 Other [facility] (15 sources) Sulfonamides (Antibiotic); Translations: [Sulfa (Sulfonamide Antibiotics)] Allergy to substance 2 Rash [facility] (9 sources) Aspirin Drug Allergy 3 Other [facility] (2 sources) amLODIPine Drug Allergy 5 Feel weak and tired [facility] (1 source) amLODIPine Drug Allergy 5 [facility] (1 source) Aspirin Drug Allergy 5 [facility] (1 source) Ciprofloxacin Drug Allergy 5 [facility] (1 source) Fluorescein Drug Allergy 5 [facility] (1 source) Lactose Drug Allergy 5 [facility] (1 source) Nitrofurantoin Drug Allergy 5 [facility] Medications Current Medications Medication Drug Class(es) Dates Sig (Normalized) Sig (Original) Cranberry (20 sources) Non-Standardized Food Allergenic Extract, Non-Standardized Plant Allergenic Extract Start: 04-05-2018 take 1 capsule by mouth once daily Cranberry 500 mg capsule Active 2000 mg PO DAILY April 05, 2018 11:45am Start: 04-05-2018 take 1 capsule by mo uth once daily Cranberry 500 mg capsule Active 2000 mg PO DAILY April 05, 2018 10:45am Start: 04-05-2018 take 2000 mg by mout h once daily Cranberry Active 2000 MG PO DAILY April 05, 2018 10:45am Start: 04-05-2018 take 2000 mg by mout h once daily Cranberry Active 2000 MG PO DAILY April 05, 2018 11:45am Start: 03-20-2018 End: 04-05-2018 take 2000 mg by mouth once daily Cranberry Discontinued 2000 MG PO DAILY March 20, 2018 6:51pm April 05, 2018 11:46am Start: 03-20-2018 End: 04-05-2018 take 1 capsule by mouth once daily Cranberry 500 MG capsule Discontinued 2000 mg PO DAILY March 20, 2018 12:00am April 05, 2018 11:46am Start: 03-20-2018 End: 04-05-2018 take 1 capsule by mouth once daily Cranberry 500 MG capsule Discontinued 2000 mg PO DAILY March 19, 2018 11:00pm April 05, 2018 10:46am Start: 03-20-2018 End: 04-05-2018 take 2000 mg by mouth once daily Cranberry Discontinued 2000 MG PO DAILY March 20, 2018 12:00am April 05, 2018 11:46am Start: 03-20-2018 End: 04-05-2018 take 2000 mg by mouth once daily Cranberry Discontinued 2000 MG PO DAILY March 19, 2018 11:00pm April 05, 2018 10:46am Estriol Micronized (Bulk) 10 0 % powder (2 sources) Start: 09-13-2024 Estriol Micron ized (Bulk) 100 % powder Active 1 NMA MC EVERY WEEK September 13, 2024 1:00am Start: 09-13-2024 Estriol Micron ized (Bulk) 100 % powder Active 1 NMA MC EVERY WEEK September 13, 2024 12:00am flecainide acetate 50 mg oral tablet (8 sources) Antiarrhythmic Start: 09-26-2024 End: 12-18-2024 take 1 tablet by mouth every twelve hours Flecainide 50 mg tablet Active 50 mg PO Q12H 180 December 18, 2024 12:48pm Start: 09-23-2024 End: 09-26-2024 Flecainide 100 mg Tablet Discontinued 150 mg PO TWICE A DAY 60 September 23, 2024 8:26am September 26, 2024 10:12am Start: 09-14-2024 End: 09-23-2024 take 1 tablet by mouth twice daily Flecainide 100 mg Tablet Discontinued 100 mg PO TWICE A DAY 60 September 14, 2024 1:00am September 23, 2024 8:26am lisinopril 20 mg oral tablet (14 sources) Angiotensin Converting Enzyme Inhibitor Start: 03-20-2018 take 1 tablet by mouth twice daily Lisinopril 20 MG tablet Active 20 mg PO TWICE A DAY March 20, 2018 12:00am metroNIDAZOLE 0.0075 mg/mg topical gel (14 sources) Nitroimidazole Antimicrobial Start: 12-01-2018 Metronidazole 0.75 % gel Active 1 NMA TOPICAL NEEDED December 01, 2018 1:00am 1 applic TOPICAL as directed; Start: 12-01-2018 Metronidazole Active 1 APPLIC TOPICAL .COMPLEX December 01, 2018 12:00am 1 applic TOPICAL as directed; montelukast 10 mg oral tablet (16 sources) Leukotriene Receptor Antagonist Start: 07-12-2024 take 1 tablet by mouth once daily as needed Montelukast 10 mg tablet Active 10 mg PO daily as needed for allergies July 12, 2024 12:00am Start: 12-01-2018 End: 07-20-2023 take 1 tablet by mouth once daily in the evening Montelukast 10 mg tablet Discontinued 10 mg PO EVERY EVENING December 01, 2018 1:00am July 20, 2023 10:05am Hwxhvwop-Egi-Hk-Lycopen-Lute in (12 sources) Start: 03-20-2018 Yvincjep-Znl-Lg-Lycopen-Lute in Active 1 EACH PO DAILY March 20, 2018 6:51pm Start: 03-20-2018 Qwprpski-Lqk-Y u-Hvemnnv-Jblqqw Active 1 EACH PO DAILY March 20, 2018 12:00am Start: 03-20-2018 Dsjzgyvp-Pog-N s-Hnivoyq-Ssfjqx Active 1 EACH PO DAILY March 19, 2018 11:00pm Uxkyonpw-Cet-Yh-Lycopen-Lute in 1 EACH tablet (2 sources) Start: 03-20-2018 Gulglski-Kjw-Vd-Lycopen-Lute in 1 EACH tablet Active 1 NMA PO DAILY March 20, 2018 12:00am Start: 03-20-2018 Voinngzc-Zqz-Z x-Bbkvzsb-Gqmyyj 1 EACH tablet Active 1 NMA PO DAILY March 19, 2018 11:00pm pantoprazole 40 mg delayed release oral tablet (13 sources) Proton Pump Inhibitor Start: 09-11-2022 take 1 tablet by mouth once daily Pantoprazole 40 mg tablet,delayed release (DR/EC) Active 40 mg PO DAILY September 11, 2022 12:00am rosuvastatin calcium 10 mg oral tablet (20 sources) HMG-CoA Reductase Inhibitor Start: 07-20-2023 take 1 tablet by mouth once daily Rosuvastatin 10 mg tablet Active 10 mg PO DAILY July 20, 2023 10:05am Start: 03-16-2022 End: 07-20-2023 take 1 tablet by mouth three times weekly Rosuvastatin 10 mg tablet Discontinued 10 mg PO .COMPLEX March 16, 2022 11:35am July 20, 2023 10:06am 10 mg PO 3 times per week; Start: 08-13-2021 End: 03-16-2022 take 5 mg by mouth three times weekly Rosuvastatin 10 mg tablet Discontinued 5 mg PO .COMPLEX August 13, 2021 1:47pm March 16, 2022 11:35am 5 mg PO 3 times per week; Start: 08-13-2021 End: 03-16-2022 take 5 mg by mouth three times weekly Rosuvastatin Discontinued 5 MG PO .COMPLEX August 13, 2021 12:47pm March 16, 2022 10:35am 5 mg PO 3 times per week; Start: 07-03-2021 End: 08-13-2021 take 5 mg by mouth once daily Rosuvastatin 10 mg table t Discontinued 5 mg PO DAILY July 03, 2021 12:39pm August 13, 2021 1:47pm Start: 07-03-2021 End: 08-13-2021 take 5 mg by mouth once daily Rosuvastatin Discontinue d 5 MG PO DAILY July 03, 2021 11:39am August 13, 2021 12:47pm Start: 03-20-2018 End: 07-03-2021 take 1 tablet by mouth once daily Rosuvastatin 10 MG tablet Discontinued 10 mg PO DAILY March 20, 2018 12:00am July 03, 2021 12:40pm Completed/Discontinued Medications Medication Drug Class(es) Dates Sig (Normalized) Sig (Original) [id number] actuat albuterol 0.09 mg/actuat metered dose inhaler (14 sources) beta2-Adrenergic Agonist Start: 03-20-2018 End: 03-31-2018 Albuterol Sulfate 1 INHALER inhaler Discontinued 2 NMA INHALATION EVERY 4 HOURS NEEDED as needed for Sob &/Or Wheezing March 20, 2018 12:00am March 31, 2018 2:28pm Start: 03-20-2018 End: 03-31-2018 take 1 puff(s) by inhalation every four hours as needed Albuterol Sulfate Discontinued 2 PUFF INHALATION EVERY 4 HOURS NEEDED March 19, 2018 11:00pm March 31, 2018 1:28pm amLODIPine 5 mg oral tablet (18 sources) Dihydropyridine Calcium Channel Denisse Start: 09-14-2024 End: 10-03-2024 take 1 tablet by mouth once daily Amlodipine 5 mg tablet Discontinued 5 mg PO DAILY September 27, 2024 11:35am October 03, 2024 1:16pm Start: 09-11-2021 End: 10-15-2021 take 1 tablet by mouth once daily Amlodipine 5 mg tablet Discontinued 5 mg PO DAILY September 11, 2021 12:00am October 15, 2021 12:24pm apixaban 5 mg oral tablet (6 sources) Factor Xa Inhibitor Start: 09-14-2024 End: 12-18-2024 take 1 tablet by mouth twice daily Apixaban (Eliquis) 5 mg tablet Discontinued 5 mg PO TWICE A DAY 180 September 27, 2024 11:34am December 18, 2024 12:59pm aspirin 81 mg delayed release oral tablet (20 sources) Platelet Aggregation Inhibitor, Nonsteroidal Anti-inflammatory Drug Start: 07-12-2024 End: 09-26-2024 take 1 tablet by mouth once daily Aspirin (Adult Aspirin Regimen) 81 mg tablet,delayed release (DR/EC) Discontinued 81 mg PO DAILY July 12, 2024 10:46am September 26, 2024 10:11am Start: 07-20-2023 End: 07-12-2024 take 1 tablet by mouth every other day Aspirin (Adult Aspirin Regimen) 81 mg tablet,delayed release (DR/EC) Discontinued 81 mg PO .QOD 30 July 20, 2023 12:00am July 12, 2024 10:48am Start: 03-20-2018 End: 01-03-2021 take 1 tablet by mouth once daily Aspirin 81 MG tablet,chewable Discontinued 81 mg PO DAILY@0800 March 20, 2018 12:00am January 03, 2021 10:56am cephalexin 500 mg oral capsule (13 sources) Cephalosporin Antibacterial Start: 09-11-2022 End: 07-20-2023 take 1 capsule by mouth twice daily Cephalexin 500 mg capsule Discontinued 500 mg PO TWICE A DAY September 11, 2022 12:00am July 20, 2023 10:05am Cholecalciferol (Vitamin D3) (Vitamin D3) 5,000 UNIT capsule (14 sources) Start: 12-12-2019 End: 01-03-2021 take 1 tablet by mouth once daily Cholecalciferol (Vitamin D3) (Vitamin D3) 5,000 UNIT capsule Discontinued 1 TABLET PO DAILY December 12, 2019 11:50pm January 03, 2021 10:57am Start: 12-12-2019 End: 01-03-2021 Cholecalciferol (Vitamin D3) (Vitamin D3) 5,000 UNIT capsule Discontinued 1 {tbl} PO DAILY December 12, 2019 1:00am January 03, 2021 10:57am Start: 12-12-2019 End: 01-03-2021 Cholecalciferol (Vitamin D3) (Vitamin D3) 5,000 UNIT capsule Discontinued 1 {tbl} PO DAILY December 12, 2019 12:00am January 03, 2021 9:57am Start: 12-12-2019 End: 01-03-2021 take 1 tablet by mouth once daily Cholecalciferol (Vitamin D3) (Vitamin D3) 5,000 UNIT capsule Discontinued 1 TABLET PO DAILY December 12, 2019 1:00am January 03, 2021 10:57am Start: 12-12-2019 End: 01-03-2021 take 1 tablet by mouth once daily Cholecalciferol (Vitamin D3) (Vitamin D3) 5,000 UNIT capsule Discontinued 1 TABLET PO DAILY December 12, 2019 12:00am January 03, 2021 9:57am fluticasone furoate 0.0275 mg/actuat metered dose nasal spray (16 sources) Corticosteroid Start: 09-13-2024 End: 12-18-2024 Fluticasone Furoate 27.5 mcg/actuation spray,suspension Discontinued 2 NMA INTRANASAL DAILY as needed for allergies September 13, 2024 1:00am December 18, 2024 12:33pm into each nostril Start: 03-20-2018 End: 07-04-2020 Fluticasone Propionate 1 SPR AY spray,suspension Discontinued 2 NMA NASAL DAILY March 20, 2018 12:00am July 04, 2020 3:23pm Start: 03-20-2018 End: 07-04-2020 Fluticasone Propionate Disco ntinued 2 SPRAY NASAL DAILY March 19, 2018 11:00pm July 04, 2020 2:23pm hydroCHLOROthiazide 12.5 mg oral tablet (20 sources) Thiazide Diuretic Start: 07-20-2020 End: 01-09-2021 take 1 tablet by mouth once daily Hydrochlorothiazide 12.5 mg tablet Discontinued 12.5 mg PO DAILY July 23, 2020 2:10pm January 03, 2021 10:56am Start: 12-25-2019 End: 01-15-2020 take 1 tablet by mouth once daily Hydrochlorothiazide 12.5 mg tablet Discontinued 12.5 mg PO DAILY December 25, 2019 1:00am January 15, 2020 6:50pm L.Acidoph, Paracasei,B. Lact is (12 sources) Start: 03-20-2018 End: 04-05-2018 L.Acidoph, Paracasei,B. Lact is Discontinued 1 EACH PO DAILY March 20, 2018 6:51pm April 05, 2018 11:46am Start: 03-20-2018 End: 04-05-2018 L.Acidoph, Paracasei,B. Lact is Discontinued 1 EACH PO DAILY March 20, 2018 12:00am April 05, 2018 11:46am Start: 03-20-2018 End: 04-05-2018 L.Acidoph, Paracasei,B. Lact is Discontinued 1 EACH PO DAILY March 19, 2018 11:00pm April 05, 2018 10:46am L.Acidoph,Paracasei,B.Animal is 1 EACH capsule (2 sources) Start: 03-20-2018 End: 04-05-2018 take 1 capsule by mouth once daily L.Acidoph,Paracasei,B.Animalis 1 EACH capsule Discontinued 1 NMA PO DAILY March 20, 2018 12:00am April 05, 2018 11:46am Start: 03-20-2018 End: 04-05-2018 take 1 capsule by mouth once daily L.Acidoph,Paracasei,B.Animalis 1 EACH ca psule Discontinued 1 NMA PO DAILY March 19, 2018 11:00pm April 05, 2018 10:46am lactobacillus rhamnosus gg [id number] unt chewable tablet (14 sources) Start: 12-01-2018 End: 07-12-2024 take 5 tablets by mouth once daily Lactobacillus Rhamnosus Gg ([facility] [employer]) 5 billion cell tablet,chewable Discontinued 1 {tbl} PO DAILY December 01, 2018 1:00am July 12, 2024 10:47am 24 hr metoprolol succinate 25 mg extended release oral tablet (6 sources) beta-Adrenergi c Denisse Start: 09-12-2024 End: 09-14-2024 take 1 tablet by mouth every twenty-four hours at bedtime Metoprolol Succinate 25 mg tablet extended release 24 hr Discontinued 25 mg PO AT BEDTIME September 12, 2024 11:57am September 14, 2024 1:38pm Start: 08-07-2024 End: 09-12-2024 take 1 tablet by mouth once daily Metoprolol Succinate 25 mg tablet extended release 24 hr Discontinued 25 mg PO DAILY August 07, 2024 12:00am September 12, 2024 11:15am Problems Active Problems Problem Classification Problem Date Documented Da te Episodic/Chronic Asthma (14 sources) Reactive airway disease; Translations: [Unspecified asthma, uncomplicated] 12-01-2018 Chronic Cardiac dysrhythmias (20 sources) Paroxysmal atrial fibrillation; Translations: [Paroxysmal atrial fibrillation] Onset: 03-21-2018 Chronic Conduction disorders (5 sources) Sinus node dysfunction; Translations: [Other specified heart block] Onset: 09-20-2024 09-22-2024 Chronic Diabetes mellitus without complication (2 sources) Prediabetes; Translations: [Impaired glucose tolerance (oral)] Onset: 04-04-2024 Episodic Disorders of lipid metabolism (20 sources) Hyperlipidemia; Translations: [Hyperlipidemia, unspecified] Onset: 04-04-2024 Chronic E Codes: Adverse effects of medical drugs (1 source) Adverse effect of unspecified drugs, medicaments and biological substances, initial encounter; Translations: [Impaired glucose tolerance associated with drugs] Onset: 04-04-2024 Episodic Essential hypertension (20 sources) Essential hypertension; Translations: [Essential (primary) hypertension] Onset: 10-17-2024 Chronic Headache; including migraine (2 sources) Frequent headache; Translations: [Frequent headaches] 12-18-2024 Episodic Occlusion or stenosis of precerebral arteries (20 sources) Bilateral stenosis of carotid arteries; Translations: [Occlusion and stenosis of bilateral carotid arteries] Onset: 12-18-2024 Chronic Unclassified (1 source) This appt is for an EKG Unclassified (1 source) This is the only appt available until the end of October please be sure to keep this appt. Past or Other Problems Problem Classification Problem Date Documented Da te Episodic/Chronic Cardiac dysrhythmias (1 source) Palpitations; Translations: [Palpitations] Onset: 10-23-2024 Episodic Fluid and electrolyte disorders (4 sources) Hypokalemia; Translations: [Hypokalemia] Onset: 09-26-2024 09-22-2024 Episodic Genitourinary symptoms and ill-defined conditions (1 source) Dysuria; Translations: [Dysuria] Onset: 12-14-2024 Episodic Nonspecific chest pain (13 sources) Chest pain; Translations: [Chest pain, unspecified] Onset: 09-20-2024 11-29-2022 Episodic Other screening for suspected conditions (not mental disorders or infectious disease) (1 source) Encounter for screening mammogram for malignant neoplasm of breast; Translations: [Encounter for screening mammogram for malignant neoplasm of breast] Onset: 01-11-2025 Episodic Results Test Name Value Interpretation Reference Range Facility Absolute lymphocyte countOrd ered By: Charlotte Stevenson on 04-17-2025 Lymphocytes Auto (Unsp spec) [#/Vol] 1.85 10*3/uL 0.83-4.51 [facility] Absolute neutrophil countOrd ered By: Charlotte Stevenson on 04-17-2025 Neutrophils (Bld) [#/Vol] 3.7 10*3/uL 2.0-7.7 [facility] Anion gap in Serum or Plasma Ordered By: Charlotte Stevenson on 04-17-2025 Anion gap [Moles/Vol] 11 mmol/L 5- [facility] Automated lymphocyte count a s percentage of total leukocytesOrdered By: Charlotte Stevenson on 04-17-2025 Lymphocytes/100 WBC Auto (Unsp spec) 29.0 % - [facility] BUN/creatinine ratioOrdered By: Charlotte Stevenson on 04-17-2025 Urea nitrogen/Creatinine [Mass ratio] 20.0 mg/mg - [facility] Basophil percentageOrdered B y: Charlotte Stevenson on 04-17-2025 Basophils/100 WBC (Bld) 0.8 % 0- [facility] Bilirubin, totalOrdered By: Charlotte Stevenson on 04-17-2025 Bilirubin [Mass/Vol] 0.41 mg/dL 0.00-1.30 [facility] CBC W/Diff, Automatedon 04-08 Absolute Lymph 1.85 X10 3/uL Normal 0.83-4.51 [facility] Comment on above: Performed By: #### L 100.0100, L501.9916, [id number] #### [facility] [address] [place], [place], [id number] Absolute Neut 3.7 X10 3/uL Normal 2.0-7.7 [facility] Comment on above: Performed By: #### L 100.0100, L501.9985, [id number] #### [facility] [address] [place], [address] Basophils/100 WBC (Bld) 0.8 % Normal 0-1 [facility] Comment on above: Performed By: #### L 100.0100, L501.9985, [id number] #### [facility] [address] [place], [address] Eosinophils/100 WBC (Bld) 2.4 % Normal 0-5 [facility] Comment on above: Performed By: #### L 100.0100, [id number], [id number] #### [facility] [address] [place], [address] Erythrocyte distribution width (RBC) [Ratio] 12.3 % Normal 11.6-14.6 [facility] Comment on above: Performed By: #### L 100.0100, L501.9985, [id number] #### [facility] [address] [place], [address] Hematocrit (Bld) [Volume fraction] 37.9 % Normal 37-47 [facility] Comment on above: Performed By: #### L 100.0100, [id number], [id number] #### [facility] [address] [place], [address] Hemoglobin (Bld) [Mass/Vol] 12.8 g/dL Normal 12.0-15.0 [facility] Comment on above: Performed By: #### L 100.0100, [id number], [id number] #### [facility] [address] [place], [address] IG% 0.300 Normal 0.0-0.9 [facility] Comment on above: Result Comment: IG% - Immature Granulocytes (promyelocytes, myelocytes and metamyelocytes) > 1% indicates that a LEFT SHIFT is Present. Performed By: #### L 100.0100, [id number], [id number] #### [facility] [address] [place], [address] Lymphocytes/100 WBC (Bld) 29.0 % Normal 19-41 [facility] Comment on above: Performed By: #### L 100.0100, [id number], [id number] #### [facility] Laboratory [address] [place], [address] MCH (RBC) [Entitic mass] 30.0 pg Normal 27.0-32.0 [facility] Comment on above: Performed By: #### L 100.0100, L501.9985, L500.4050 #### [facility] [address] [place], [address] MCHC (RBC) [Mass/Vol] 33.8 g/dL Normal 32-36 [facility] Comment on above: Performed By: #### L 100.0100, L501.9985, L500.4050 #### [facility] [address] [place], [address] MCV (RBC) [Entitic vol] 88.8 fL Normal 81-99 [facility] Comment on above: Performed By: #### L 100.0100, L501.9985, L500.4050 #### [facility] [address] [place], [address] Monocytes/100 WBC (Bld) 10.2 % High 0-10 [facility] Comment on above: Performed By: #### L 100.0100, L501.9985, L500.4050 #### [facility] [address] [place], [address] Neutrophils/100 WBC (Bld) 57.3 % Normal 47-70 [facility] Comment on above: Performed By: #### L 100.0100, L501.9985, L500.4050 #### [facility] [address] [place], [address] Nucleated RBC (Bld) [#/Vol] 0 10*3/uL Normal 0-5 [facility] Comment on above: Performed By: #### L 100.0100, L501.9985, L500.4050 #### [facility] [address] [place], [address] Platelet mean volume (Bld) [Entitic vol] 9.9 fL Normal 6.2-12.0 [facility] Comment on above: Performed By: #### L 100.0100, L501.9985, L500.4050 #### [facility] [address] [place], [address] Platelets (Bld) [#/Vol] 280 10*3/uL Normal 150-450 [facility] Comment on above: Performed By: #### L 100.0100, L501.9985, L500.4050 #### [facility] [address] [place], [address] RBC (Bld) [#/Vol] 4.27 10*6/uL Normal 4.2-5.4 [facility] Comment on above: Performed By: #### L 100.0100, L501.9985, L500.4050 #### [facility] [address] [place], [address] RDW SD 39.6 fl Normal 35.1-43.9 [facility] Comment on above: Performed By: #### L 100.0100, L501.9985, L500.4050 #### [facility] [address] [place], [address] WBC (Bld) [#/Vol] 6.4 10*3/uL Normal 4.4-11.0 [facility] Comment on above: Performed By: #### L 100.0100, L501.9985, L500.4050 #### [facility] [address] [place], [address] Carbon dioxide, total [Moles /volume] in Central venous bloodOrdered By: Charlotte Stevenson on 04-17-2025 CO2 [Moles/Vol] 24.7 mmol/L 21.0-32.0 [facility] Chloride assayOrdered By: Erika Stevenson on 04-17-2025 Chloride [Moles/Vol] 103 mmol/L 98-108 [facility] Comprehensive Metabolic Prof ilon 04-17-2025 Albumin [Mass/Vol] 4.3 g/dL Normal 3.4-4.8 [facility] Comment on above: Performed By: #### L 100.0100, L501.9985, L500.4050 #### [facility] [address] [place], [address] Albumin/Globulin [Mass ratio] 1.4 {ratio} Normal 0.9-2.4 [facility] Comment on above: Performed By: #### L 100.0100, L501.9985, L500.4050 #### [facility] [address] [place], [address] ALK PHOS 98 U/L Normal 35-104 [facility] Comment on above: Performed By: #### L 100.0100, L501.9985, L500.4050 #### [facility] [address] [place], [address] ALT [Catalytic activity/Vol] 22 U/L Normal <=34 [facility] Comment on above: Performed By: #### L 100.0100, L501.9985, L500.4050 #### [facility] [address] [place], [address] AST [Catalytic activity/Vol] 25 U/L Normal <=31 [facility] Comment on above: Performed By: #### L 100.0100, L501.9985, L500.4050 #### [facility] [address] [place], [address] Bilirubin [Mass/Vol] 0.41 mg/dL Normal 0.00-1.30 [facility] Comment on above: Performed By: #### L 100.0100, L501.9985, L500.4050 #### [facility] [address] [place], [address] BUN/CRE 20.0 RATIO Normal 10-20 [facility] Comment on above: Performed By: #### L 100.0100, L501.9985, L500.4050 #### [facility] [address] [place], [address] Calcium [Mass/Vol] 9.5 mg/dL Normal 7.6-11.0 [facility] Comment on above: Performed By: #### L 100.0100, L501.9985, L500.4050 #### [facility] [address] [place], [address] Chloride [Moles/Vol] 103 mmol/L Normal 98-108 [facility] Comment on above: Performed By: #### L 100.0100, L501.9985, L500.4050 #### [facility] [address] [place], [address] CO2 [Moles/Vol] 24.7 mmol/L Normal 21.0-32.0 [facility] Comment on above: Performed By: #### L 100.0100, L501.9985, L500.4050 #### [facility] [address] [place], [address] Creatinine [Mass/Vol] 0.71 mg/dL Normal 0.70-1.20 [facility] Comment on above: Performed By: #### L 100.0100, L501.9985, L500.4050 #### [facility] [address] [place], [address] GAP 11 Normal 5-15 [facility] Comment on above: Performed By: #### L 100.0100, L501.9985, L500.4050 #### [facility] [address] [place], [address] GFR/1.73 sq M.predicted among non-blacks MDRD (S/P/Bld) [Vol rate/Area] 88 mL/min/{1.73_m2} Normal >60 [facility] Comment on above: Result Comment: mL/m in/1.73m2 CKD-EPI Creatinine Equation (2020) Performed By: #### L 100.0100, L501.9985, L500.4050 #### [facility] [address] [place], [address] Globulin (S) [Mass/Vol] 3.1 g/dL Normal 2.2-4.2 [facility] Comment on above: Performed By: #### L 100.0100, L501.9985, L500.4050 #### [facility] [address] [place], [address] Glucose [Mass/Vol] 114 mg/dL High 70-99 [facility] Comment on above: Performed By: #### L 100.0100, L501.9985, L500.4050 #### [facility] [address] [place], [address] Potassium [Moles/Vol] 4.3 mmol/L Normal 3.3-5.1 [facility] Comment on above: Performed By: #### L 100.0100, L501.9985, L500.4050 #### [facility] [address] [place], [address] Sodium [Moles/Vol] 139 mmol/L Normal 133-145 [facility] Comment on above: Performed By: #### L 100.0100, L501.9985, L500.4050 #### [facility] [address] [place], [address] T PROT 7.4 g/dL Normal 5.9-8.4 [facility] Comment on above: Performed By: #### L 100.0100, L501.9985, L500.4050 #### [facility] [address] [place], [address] Urea nitrogen [Mass/Vol] 14 mg/dL Normal 4-19 [facility] Comment on above: Performed By: #### L 100.0100, L501.9985, L500.4050 #### [facility] [address] [place], [address] Eosinophil percentageOrdered By: Charlotte Stevenson on 04-17-2025 Eosinophils/100 WBC (Bld) 2.4 % 0-5 [facility] Erythrocyte distribution wid th ratioOrdered By: Charlotte Stevenson on 04-17-2025 Erythrocyte distribution width (RBC) [Ratio] 12.3 % 11.6-14.6 [facility] Erythrocyte distribution wid th standard deviationOrdered By: Charlotte Stevenson on 04-17-2025 Erythrocyte distribution width (RBC) [Ratio] 39.6 fl 35.1-43.9 [facility] Glomerular filtration rate ( GFR) estimation/1.73 sq m using serum, plasma, or whole bOrdered By: Charlotte Stevenson on 04-17-2025 GFR/1.73 sq M.predicted among non-blacks MDRD (S/P/Bld) [Vol rate/Area] 88 mL/min/{1.73_m2} >60 [facility] Comment on above: mL/min/1.73m2 CKD-EP I Creatinine Equation (2020) Hematocrit Auto (Bld) [Volum e fraction]Ordered By: Charlotte Stevenson on 06-10-2025 Hematocrit (Bld) [Volume fraction] 37.9 % 37-47 [facility] Hemoglobin A1con 04-17-2025 HbA1c (Bld) [Mass fraction] 6.2 % High <=5.6 [facility] Comment on above: Result Comment: Norm al < 5.7 % Prediabetic 5.7 - 6.4 % Diabetic >or= 6.5 % Please note range changes. Performed By: #### L 100.0100, L501.9985, L500.4050 #### [facility] [address] [place], [address] Hemoglobin A1c percentageOrd ered By: Charlotte Stevenson on 04-17-2025 HbA1c (Bld) [Mass fraction] 6.2 % High <5.7 [facility] Comment on above: Normal < 5.7 % Predi abetic 5.7 - 6.4 % Diabetic >or= 6.5 % Please note range changes. Hemoglobin measurementOrdere d By: Charlotte Stevenson on 04-17-2025 Hemoglobin (Bld) [Mass/Vol] 12.8 g/dL 12.0-15.0 [facility] Immature granulocytes/100 WB C Auto (Bld)Ordered By: Charlotte Stevenson on 04-17-2025 Immature granulocytes/100 WBC (Bld) 0.300 % 0.0-0.9 [facility] Comment on above: IG% - Immature Granu locytes (promyelocytes, myelocytes and metamyelocytes) > 1% indicates that a LEFT SHIFT is Present. Laboratory - Chemistry and C hemistry - challengeOrdered By: Charlotte Stevenson on 04-17-2025 AST [Catalytic activity/Vol] 25 U/L <32 [facility] MCV (mean corpuscular volume ) determinationOrdered By: Charlotte Stevenson on 04-17-2025 MCV (RBC) [Entitic vol] 88.8 fL 81-99 [facility] Mean corpuscular hemoglobin (MCH) determinationOrdered By: Charlotte Stevenson on 04-17-2025 MCH (RBC) [Entitic mass] 30.0 pg 27.0-32.0 [facility] Mean corpuscular hemoglobin concentration (MCHC) determinationOrdered By: Charlotte Stevenson on 04-17-2025 MCHC (RBC) [Mass/Vol] 33.8 g/dL 32-36 [facility] Mean platelet volume determi nationOrdered By: Charlotte Stevenson on 04-17-2025 Platelet mean volume (Bld) [Entitic vol] 9.9 fL 6.2-12.0 [facility] Monocyte percentageOrdered B y: Charlotte Stevenson on 04-17-2025 Monocytes/100 WBC (Bld) 10.2 % High 0-10 [facility] Neutrophil percentageOrdered By: Charlotte Stevenson on 04-17-2025 Neutrophils/100 WBC (Bld) 57.3 % 47-70 [facility] Nucleated red blood cell per centageOrdered By: Charlotte Stevenson on 04-17-2025 Nucleated RBC/100 WBC (Bld) [Ratio] 0 % 0-5 [facility] Platelet countOrdered By: Erika Stevenson on 04-17-2025 Platelets (Bld) [#/Vol] 280 10*3/uL 150-450 [facility] Potassium measurement (mass/ volume)Ordered By: Charlotte Stevenson on 04-17-2025 Potassium (Unsp spec) [Mass/Vol] 4.3 mmol/L 3.3-5.1 [facility] RBC Auto (Bld) [#/Vol]Ordere d By: Charlotte Stevenson on 04-17-2025 RBC (Bld) [#/Vol] 4.27 10*6/uL 4.2-5.4 [facility] Serum creatinine measurement (mass/volume)Ordered By: Charlotte Stevenson on 04-17-2025 Creatinine [Mass/Vol] 0.71 mg/dL 0.70-1.20 [facility] Serum globulin measurementOr dered By: Charlotte Stevenson on 04-17-2025 Globulin (S) [Mass/Vol] 3.1 g/dL 2.2-4.2 [facility] Serum glucose measurement (m ass/volume)Ordered By: Charlotte Stevenson on 04-17-2025 Glucose [Mass/Vol] 114 mg/dL High 70-99 [facility] Serum or plasma alanine yip otransferase (ALT) measurementOrdered By: Charlotte Stevenosn on 04-17-2025 ALT [Catalytic activity/Vol] 22 U/L <35 [facility] Serum or plasma albumin cheko urement (mass/volume)Ordered By: Charlotte Stevenson on 04-17-2025 Albumin [Mass/Vol] 4.3 g/dL 3.4-4.8 [facility] Serum or plasma albumin/glob ulin mass ratioOrdered By: Charlotte Stevenson on 04-17-2025 Albumin/Globulin [Mass ratio] 1.4 {ratio} 0.9-2.4 [facility] Serum or plasma alkaline ed sphatase measurementOrdered By: Charlotte Stevenson on 04-17-2025 ALP [Catalytic activity/Vol] 98 U/L 35-104 [facility] Serum or plasma calcium cheko urement (mass/volume)Ordered By: Charlotte Stevenson on 04-17-2025 Calcium [Mass/Vol] 9.5 mg/dL 7.6-11.0 [facility] Serum or plasma urea nitroge n measurement (mass/volume)Ordered By: Charlotte Stevenson on 04-17-2025 Urea nitrogen [Mass/Vol] 14 mg/dL 4-19 [facility] Sodium levelOrdered By: Charlotte Stevenson on 04-17-2025 Sodium [Moles/Vol] 139 mmol/L 133-145 [facility] Total proteinOrdered By: Lary Stevenson on 04-17-2025 Protein [Mass/Vol] 7.4 g/dL 5.9-8.4 [facility] White blood cell (WBC) count Ordered By: Charlotte Stevenson on 04-17-2025 WBC (Bld) [#/Vol] 6.4 10*3/uL 4.4-11.0 [facility] Breast imaging reportOrdered By: Ash Wang on 01-01-2025 Study report [facility] Imaging Services [address] [place], [place] [id number] SCRN MAMM (CAD)W/ALAYNA BILAT MR#: [id number] Acct: [id number] Name: BELEM ESTES ANN Rep #: [id number] : 1945 F 79 From: Hans Wang MD PCP: Dr. Charlotte Stevenson DO Status: REG CLI Study:SCRN MAMM (CAD)W/ALAYNA BILAT Date of Exa m: 01/01/25 Exam# [id number] Ordering Dr: Erika Stevenson sa, DO PROCEDURE: SCRN MAMM (CAD)W/ALAYNA BILAT REASON FOR EXAM: F, Age 79 y/o, no family history. Prior right stereotactic breast biopsy and left excisional breast biopsy. TECHNIQUE: Bilateral screening digital breast tomosynthesis with 2D and 3D images. Computeraided detection. COMPARISON: Prior exam(s) dating back to December 29, 2023.. FINDINGS: The breasts are almost entirely fatty. Stable bilateral fat containing axillary lymph nodes. Stable bilateral skin calcifications. No suspicious masses, areas of developing architectural distortion, or suspicious calcifications. BI/SCRN MAMM (CAD)W/ALAYNA BILAT IMPRESSION: BI-RADS 2: BENIGN. RECOMMEND ANNUAL MAMMOGRAPHIC SCREENING. Follow-up code: Routine Follow-up The patient will be notified of the results by letter. Reading Location: [id number] CC: Dr. 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 Charlotte Stevenson DO Status: REG CLI Study: SCRN MAMM (CAD)W/ALAYNA BILAT Date of Exam: 12/10 03/02 Exam# [id number] Ordering Dr: Charlotte Stevenson DO PROCEDURE: SCRN MAMM (CAD)W/ALAYNA BILAT REASON FOR EXAM: F, Age 79 y/o, no family history. Prior right stereotactic breast biopsy and left excisional breast biopsy. TECHNIQUE: Bilateral screening digital breast tomosynthesis with 2D and 3D images. Computer aided detection. COMPARISON: Prior exam(s) dating back to December 29, 2023.. FINDINGS: The breasts are almost entirely fatty. Stable bilateral fat containing axillary lymph nodes. Stable bilateral skin calcifications. No suspicious masses, areas of developing architectural distortion, or suspicious calcifications. BI/SCRN MAMM (CAD)W/ALAYNA BILAT IMPRESSION: BI-RADS 2: BENIGN. RECOMMEND ANNUAL MAMMOGRAPHIC SCREENING. Follow-up code: Routine Follow-up The patient will be notified of the results by letter. Reading Location: [id number] CC: Dr. Charlotte Stevenson DO [employer] Officer: Signed Normal [facility] Cardiology Visit Reporton Cardiology Visit Report [facility] [place] [id number] [facility]. [address] [place] [address] OFFICE VISIT Date of Service: 12/18/24 MR#: [id number] Acct: [id number] Name: BELEM ESTES Rep #: [id number] : 1945 Provider: JUANY esquivel Age/Sex: 79/F Location: [facility] [place] Status: Signed HPI HPI History of Present Illness Details: Patient comes in today for monitoring of her cardiovascular disease status. The patient was in the emergency department 09/23/2020 for with complaints of palpitations that started several days after she had been discharged in the hospital where she was loaded with flecainide. The patient originally presented with near syncope and had a prolonged sinus node recovery time of 3 to 6 seconds while she was converting randomly [id number] from atrial fibrillation to sinus bradycardia. She was hospitalized her beta-denisse therapy was discontinued and she was placed on flecainide which controlled her atrial fibrillation. In the emergency department the patient was in a sinus rhythm with a right bundle branch block. This was found to be an intermittent right bundle branch block that was rate dependent as she was placed on a 24-hour Holter following that evaluation. Her flecainide was increased to 150 mg twice daily in the emergency department. On the Holter monitor average heart rate was 60 bpm with a rate dependent bundle branch block minimum heart rate was 36 which was sinus bradycardia and the maximum heart rate was 83 and a normal sinus rhythm with a right bundle branch block. She also noted palpitations at 83 bpm with no ventricular ectopy and rare PACs. Following this monitor had her hold her flecainide last night and she reports she feels much better this morning. The plan was to decrease her flecainide to 50 mg twice daily at this office visit when she was originally discharged in the hospital after the flecainide load. She denies chest, arm, jaw, or neck discomfort. She denies palpitations. She denies bilateral lower extremity edema. She denies claudication. She denies shortness of breath with activity, shortness of breath at rest, orthopnea, or PND. She denies chronic cough. She denies significant, sudden weight gain. She denies lightheadedness, dizziness, near-syncope, or syncope. She denies blood in urine, blood in stool, or epistaxis. He denies fever with chills. She denies myalgia. She denies fatigue. Her exercise level has remained stable. 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 Is patient in pain?: No Allergies ciprofloxacin (From Cipro) Allergy (Verified 12/18/24 11:28) Other fluorescein Allergy (Verified 12/18/24:) Anaphylaxis lactose Allergy (Verified 12/18/24:) Upset Stomach nitrofurantoin Allergy (Verified 12/18/24:) Other Sulfa (Sulfonamide Antibiotics) Allergy (Verified 12/18/24:) Rash amlodipine Adverse Reaction (Intermediate, Verified 12/18/24:) Feel weak and tired aspirin Adverse Reaction (Verified 12/18/24:) Other Medications ???Medication ???Instructions ???Recorded ???Confirmed ???Type lisinopril 20 mg tablet 20 mg PO BID blood pressure 12/18/24 History qbghnlzt-bov-nzpbl acid 0.4 1 ea PO DAILY supplement 03/20/18 12/18/24 History mg-lycopene 300 mcg-lutein 250 mcg tablet cranberry 500 mg capsule 2,000 mg PO DAILY supplement 04/0512/18/24 History metronidazole 0.75 % topical gel 1 applic topical PRN rash 12/01/18 12/18/24 History hydrochlorothiazide 12.5 mg tablet 12.5 mg PO DAILY bp #90 tabs 02/2612/18/24 Rx pantoprazole 40 mg tablet,delayed 40 mg PO DAILY reflux 09/11/22 History release rosuvastatin 10 mg tablet 10 mg PO DAILY cholesterol 3 12/18/24 History montelukast 10 mg tablet 10 mg PO QDAY PRN allergies 12/18/24 History estriol micronized (bulk) 100 % 1 ea miscellaneous QWEEK infection s 09/13/24 12/18/24 History powder apixaban 5 mg tablet (Eliquis) 5 mg PO BID #180 tabs 12/18/2409/01 Rx flecainide 50 mg tablet 50 mg PO Q12H #180 tabs 12/18/24 0 12/18/24 Rx Ejection fraction %: 65 Have you fallen in the past year?: No PFSH Medical History Paroxysmal atrial fibrillation Essential hypertension Reactive airway disease Osteopenia Bilateral carotid artery stenosis Hyperlipidemia Atrial fibrillation with rapid ventricular response (03/21/18) Surgical History H/O b (more content not included)... Normal [facility] L3410.9999on 11-24-2024 [facility] Misc. COMMENT Normal . [facility] Comment on above: Order Comment: [id number] 5HEREDITARY HEMOCHROMATOSIS Result Comment: Test Ordered: [id number] Hered.Hemochromatosis, DNA Hereditary Hemochromatosis Comment TG Reference Range: . Result: c.845G>A (p.Brf032Jsq) - Not Detected c.187C>G (p.Lnp70Hjt) - Not Detected c.193A>T (p.Jcq88Tsh) - Not Detected Not associated with increased risk to develop clinical symptoms of Hereditary Hemochromatosis. In symptomatic individuals, other causes of iron overload should be evaluated. See Additional Information and Comments. Additional Clinical Information: Hereditary hemochromatosis (HFE related) is an autosomal recessive iron storage disorder. Patients may have a genetic diagnosis of hereditary hemochromatosis and never show clinical symptoms. Clinical symptoms typically appear between 40 to 60 years in males and after menopause in females. Signs and symptoms may include organ damage, primarily in the liver, risk for hepatocellular carcinoma, diabetes, and heart disease due to iron accumulation. Life expectancy may be decreased in individuals who develop cirrhosis. Treatment for clinically symptomatic individuals may include therapeutic phlebotomy. Liver transplant may be used to treat end stage liver failure. For preventive care, monitoring for iron overload is recommended for patients who are homozygous for c.845G>A (p.Lyt118Yna) and have yet to experience clinical symptoms. Comments: The most common HFE variants associated with hereditary hemochromatosis are c.845G>A (p.Ruz591Ulr), c.187C>G (p.Nja11Jbc), c.193A>T (p.Bjb89Lch). While patients homozygous for c.845G>A (p.Vrp847Cur) are the most likely to present clinical symptoms, less than 10% develop clinically significant iron overload with tissue and organ damage. Genetic counseling is recommended to discuss the potential clinical implications of positive results, as well as recommendations for testing family members. Genetic Coordinators are available for health care providers to discuss results at [phone] ([phone]). Test Details: Three variants analyzed: c.845G>A (p.Lnb978Pos), commonly referred to as C282Y c.187C>G (p.Gpr45Zri), commonly referred to as H63D c.193A>T (p.Jpt85Vlw), commonly referred to as S65C Methods/Limitations: DNA Analysis of the HFE gene (NM_000410.4) was performed by PCR amplification followed by restriction enzyme digestion analyses. Results must be combined with clinical information for the most accurate interpretation. Molecular- based testing is highly accurate, but as in any laboratory test, diagnostic errors may occur. False positive or false negative results may occur for reasons that include genetic variants, blood transfusions, bone marrow transplantation, somatic or tissue-specific mosaicism, mislabeled samples, or erroneous representation of family relationships. This test was developed and its performance characteristics determined by [facility]. It has not been cleared or approved by the Food and Drug Administration. References: Ortiz BR, Jimmy PC, Dagoberto KV, Horace LW, Robert ; [employer]. Diagnosis and management of hemochromatosis: 2011 practice guideline by the [employer]. Hepatology. 2011 May;54(1):328-43. doi: 10.1002/hep.12680. PMID: 66439829; PMCID: ERL0006446. Kavita G, Christiano P, Freddie DW, Devika H, Christiano O, Prieto S, Ben I, Justo M, Milly S. [facility] best practice guidelines for the molecular genetic diagnosis of hereditary hemochromatosis (HH). Eur J Hum Renee. 2016 Feb;24(4):479-95. doi: 10.1038/ejhg.2015.128. Epub 2014May 15. PMID: 57575692; PMCID: BHY9783917. Reviewed by: Comment TG Reference Range: . Technical Component performed at [facility] RT Professional Component performed by: Emma Tracy, Ph.D., [facility] Director, Molecular Genetics [address] [place] [id number] Performed at: - [facility] [address] [place], [place] [id number] Reject Opener: Heidy Rivas Formerly Self [facility], Phone: [phone] Performed at: - [address] [id number] Reject Opener: Koffi Verdugo PhD, Phone: [phone] Performed By: #### L 500.2500, L506.4725, L100.0100 #### [facility] [place], [address] Urine Cultureon 11-18-2024 URC Culture exhibits no growth. Normal [facility] Comment on above: Performed By: #### L 500.2500, L501.5425, L100.0100 #### [facility] [address] [place], [address] Absolute neutrophil countOrd ered By: Charlotte Stevenson on 11-17-2024 Neutrophils (Bld) [#/Vol] 7.7 10*3/uL 2.0-7.7 [facility] Albumin to globulin ratioOrd ered By: Charlotte Stevenson on 11-17-2024 Albumin/Globulin [Mass ratio] 0.8 {ratio} Low 0.9-2.4 [facility] Bacteria LM.HPF (Urine sed) [#/Area]Ordered By: Charlotte Stevenson on 11-17-2024 Urine Bacteria RARE /hpf None Seen [facility] Basophil percentageOrdered B y: Charlotte Stevenson on 11-17-2024 Basophils/100 WBC (Bld) 0.5 % 0- [facility] Bilirubin Test strip Ql (U)O rdered By: Charlotte Stevenson on 11-17-2024 Bilirubin Ql (U) Negative Negative [facility] Bilirubin, totalOrdered By: Charlotte Stevenson on 11-17-2024 Bilirubin [Mass/Vol] 0.40 mg/dL 0.20-1.00 [facility] Comment on above: For patients on eltr ombopag therapy, use of Dimension [place] TBIL is not recommended. Blood urea nitrogen (BUN)/cr eatinine ratioOrdered By: Charlotte Stevenson on 11-17-2024 Urea nitrogen/Creatinine [Mass ratio] 17.3 mg/mg 10-20 [facility] CBC W/Diff, Automatedon 11-08 Absolute Lymph 2.18 X10 3/uL Normal 0.83-4.51 [facility] Comment on above: Performed By: #### L 500.2500, L501.5425, L100.0100 #### [facility] [address] [place], [address] Absolute Neut 7.7 X10 3/uL Normal 2.0-7.7 [facility] Comment on above: Performed By: #### L 500.2500, L501.5425, L100.0100 #### [facility] [address] [place], [address] Basophils/100 WBC (Bld) 0.5 % Normal 0-1 [facility] Comment on above: Performed By: #### L 500.2500, L501.5425, L100.0100 #### [facility] [address] [place], [address] Eosinophils/100 WBC (Bld) 2.3 % Normal 0-5 [facility] Comment on above: Performed By: #### L 500.2500, L501.5425, L100.0100 #### [facility] [address] [place], [address] Erythrocyte distribution width (RBC) [Ratio] 12.1 % Normal 11.6-14.6 [facility] Comment on above: Performed By: #### L 500.2500, L501.5425, L100.0100 #### [facility] [address] [place], [address] Hematocrit (Bld) [Volume fraction] 36.8 % Low 37-47 [facility] Comment on above: Performed By: #### L 500.2500, L501.5425, L100.0100 #### [facility] [address] [place], [address] Hemoglobin (Bld) [Mass/Vol] 12.7 g/dL Normal 12.0-15.0 [facility] Comment on above: Performed By: #### L 500.2500, L501.5425, L100.0100 #### [facility] [address] [place], [address] IG% 0.500 Normal 0.0-0.9 [facility] Comment on above: Result Comment: IG% - Immature Granulocytes (promyelocytes, myelocytes and metamyelocytes) > 1% indicates that a LEFT SHIFT is Present. Performed By: #### L 500.2500, L501.5425, L100.0100 #### [facility] [address] [place], [address] Lymphocytes/100 WBC (Bld) 19.8 % Normal 19-41 [facility] Comment on above: Performed By: #### L 500.2500, L501.5425, L100.0100 #### [facility] [address] [place], [address] MCH (RBC) [Entitic mass] 29.7 pg Normal 27.0-32.0 [facility] Comment on above: Performed By: #### L 500.2500, L501.5425, L100.0100 #### [facility] [address] [place], [address] MCHC (RBC) [Mass/Vol] 34.5 g/dL Normal 32-36 [facility] Comment on above: Performed By: #### L 500.2500, L501.5425, L100.0100 #### [facility] [address] [place], [address] MCV (RBC) [Entitic vol] 86.0 fL Normal 81-99 [facility] Comment on above: Performed By: #### L 500.2500, L501.5425, L100.0100 #### [facility] [address] [place], [address] Monocytes/100 WBC (Bld) 7.0 % Normal 0-10 [facility] Comment on above: Performed By: #### L 500.2500, L501.5425, L100.0100 #### [facility] [address] [place], [address] Neutrophils/100 WBC (Bld) 69.9 % Normal 47-70 [facility] Comment on above: Performed By: #### L 500.2500, L501.5425, L100.0100 #### [facility] [address] [place], [address] Nucleated RBC (Bld) [#/Vol] 0 10*3/uL Normal 0-5 [facility] Comment on above: Performed By: #### L 500.2500, L501.5425, L100.0100 #### [facility] [address] [place], [address] Platelet mean volume (Bld) [Entitic vol] 9.5 fL Normal 6.2-12.0 [facility] Comment on above: Performed By: #### L 500.2500, L501.5425, L100.0100 #### [facility] [address] [place], [address] Platelets (Bld) [#/Vol] 347 10*3/uL Normal 150-450 [facility] Comment on above: Performed By: #### L 500.2500, L501.5425, L100.0100 #### [facility] [address] [place], [address] RBC (Bld) [#/Vol] 4.28 10*6/uL Normal 4.2-5.4 [facility] Comment on above: Performed By: #### L 500.2500, L501.5425, L100.0100 #### [facility] [address] [place], [address] RDW SD 38.1 fl Normal 35.1-43.9 [facility] Comment on above: Performed By: #### L 500.2500, L501.5425, L100.0100 #### [facility] [address] [place], [address] WBC (Bld) [#/Vol] 11.0 10*3/uL Normal 4.4-11.0 [facility] Comment on above: Performed By: #### L 500.2500, L501.5425, L100.0100 #### [facility] [address] [place], [address] Carbon dioxide measurementOr dered By: Charlotte Stevenson on 11-17-2024 CO2 [Moles/Vol] 27.0 mmol/L 21.0-32.0 [facility] Chloride measurementOrdered By: Charlotte Stevenson on 11-17-2024 Chloride [Moles/Vol] 102 mmol/L 98-107 [facility] Comprehensive Metabolic Prof ilon 11-17-2024 Albumin [Mass/Vol] 3.4 g/dL Normal 3.2-5.0 [facility] Comment on above: Performed By: #### L 500.2500, L501.5425, L100.0100 #### [facility] [address] [place], [address] Albumin/Globulin [Mass ratio] 0.8 {ratio} Low 0.9-2.4 [facility] Comment on above: Performed By: #### L 500.2500, L501.5425, L100.0100 #### [facility] [address] [place], [address] ALK P 95 U/L Normal 45-117 [facility] Comment on above: Performed By: #### L 500.2500, L501.5425, L100.0100 #### [facility] [address] [place], [address] ALT [Catalytic activity/Vol] 24 U/L Normal 13-56 [facility] Comment on above: Performed By: #### L 500.2500, L501.5425, L100.0100 #### [facility] [address] [place], [address] AST [Catalytic activity/Vol] 18 U/L Normal 15-37 [facility] Comment on above: Performed By: #### L 500.2500, L501.5425, L100.0100 #### [facility] [address] [place], [address] Bilirubin [Mass/Vol] 0.40 mg/dL Normal 0.20-1.00 [facility] Comment on above: Result Comment: For patients on eltrombopag therapy, use of Dimension [place] TBIL is not recommended. Performed By: #### L 500.2500, L501.5425, L100.0100 #### [facility] [address] [place], [address] BUN/CRE 17.3 RATIO Normal 10-20 [facility] Comment on above: Performed By: #### L 500.2500, L501.5425, L100.0100 #### [facility] [address] [place], [address] CA,Total 8.9 mg/dL Normal 8.5-10.1 [facility] Comment on above: Performed By: #### L 500.2500, L501.5425, L100.0100 #### [facility] [address] [place], [address] Chloride [Moles/Vol] 102 mmol/L Normal 98-107 [facility] Comment on above: Performed By: #### L 500.2500, L501.5425, L100.0100 #### [facility] [address] [place], [address] CO2 [Moles/Vol] 27.0 mmol/L Normal 21.0-32.0 [facility] Comment on above: Performed By: #### L 500.2500, L501.5425, L100.0100 #### [facility] [address] [place], [address] Creatinine [Mass/Vol] 0.81 mg/dL Normal 0.55-1.02 [facility] Comment on above: Result Comment: The validity of the calculated GFR GFRAA in patients over 70 years has not been determined. Clinical correlation is essential. Performed By: #### L 500.2500, L501.5425, L100.0100 #### [facility] [address] [place], [address] EST GFR - AA 89 mL/min Normal >60 [facility] Comment on above: Result Comment: Afri can Faroese GFR Calc Performed By: #### L 500.2500, L501.5425, L100.0100 #### [facility] [address] [place], [address] GAP 7 Normal 5-15 [facility] Comment on above: Performed By: #### L 500.2500, L501.5425, L100.0100 #### [facility] [address] [place], [address] GFR/1.73 sq M.predicted among non-blacks MDRD (S/P/Bld) [Vol rate/Area] 73 mL/min/{1.73_m2} Normal >60 [facility] Comment on above: Result Comment: Non- GFR Calc Performed By: #### L 500.2500, L501.5425, L100.0100 #### [facility] [address] [place], [address] Globulin (S) [Mass/Vol] 4.3 g/dL High 2.2-4.2 [facility] Comment on above: Performed By: #### L 500.2500, L501.5425, L100.0100 #### [facility] [address] [place], [address] Glucose [Mass/Vol] 106 mg/dL Normal 74-106 [facility] Comment on above: Result Comment: Fast ing Glucose result from 100 to 125 mg/dL suggests IMPAIRED HOMEOSTASIS per A.D.A. criteria. Performed By: #### L 500.2500, L501.5425, L100.0100 #### [facility] [address] [place], [address] Potassium [Moles/Vol] 3.2 mmol/L Low 3.5-5.1 [facility] Comment on above: Performed By: #### L 500.2500, L501.5425, L100.0100 #### [facility] [address] [place], [address] Sodium [Moles/Vol] 136 mmol/L Normal 136-145 [facility] Comment on above: Performed By: #### L 500.2500, L501.5425, L100.0100 #### [facility] [address] [place], [address] T PROT 7.7 g/dL Normal 6.4-8.2 [facility] Comment on above: Performed By: #### L 500.2500, L501.5425, L100.0100 #### [facility] [address] [place], [address] Urea nitrogen [Mass/Vol] 14 mg/dL Normal 7-18 [facility] Comment on above: Performed By: #### L 500.2500, L501.5425, L100.0100 #### [facility] [address] [place], [address] Eosinophil percentageOrdered By: Charlotte Stevenson on 11-17-2024 Eosinophils/100 WBC (Bld) 2.3 % 0-5 [facility] Epithelial cells.squamous LM Ql (Urine sed)Ordered By: Charlotte Stevenson on 11-17-2024 Epithelial cells.squamous LM.HPF (Urine sed) [#/Area] 5 /[HPF] 5-10 [facility] Erythrocyte distribution wid th ratioOrdered By: Charlotte Stevenson on 11-17-2024 Erythrocyte distribution width (RBC) [Ratio] 12.1 % 11.6-14.6 [facility] Erythrocyte distribution wid th standard deviationOrdered By: Charlotte Stevenson on 11-17-2024 Erythrocyte distribution width (RBC) [Entitic vol] 38.1 fL 35.1-43.9 [facility] Estimated glomerular filtrat ion rate (GFR) AmericanOrdered By: Charlotte Stevenson on 11-17-2024 Estimated GFR (MDRD) Amer 89 mL/min >60 [facility] Comment on above: GFR Calc Ferritinon 11-17-2024 Ferritin [Mass/Vol] 184 ng/mL Normal 8-252 [facility] Comment on above: Performed By: #### L 500.2500, L501.5425, L100.0100 #### [facility] [address] [place], [place], [address] Ferritin measurementOrdered By: Charlotte Stevenson on 11-17-2024 Ferritin [Mass/Vol] 184 ng/mL 8-252 [facility] Glomerular filtration rate ( GFR) estimationOrdered By: Charlotte Stevenson on 11-17-2024 Estimated GFR (MDRD) Non-Af Amer 73 mL/min >60 [facility] Comment on above: Non- GFR Calc Glucose Ql (U)Ordered By: Erika Stevenson on 11-17-2024 Urine Glucose (UA) Normal mg/dl Normal [facility] Glucose measurementOrdered B y: Charlotte Stevenson on 11-17-2024 Glucose [Mass/Vol] 106 mg/dL 74-106 [facility] Comment on above: Fasting Glucose resu lt from 100 to 125 mg/dL suggests IMPAIRED HOMEOSTASIS per A.D.A. criteria. Hematocrit Auto (Bld) [Volum e fraction]Ordered By: Charlotte Stevenson on 11-17-2024 Hematocrit (Bld) [Volume fraction] 36.8 % Low 37-47 [facility] Hemoglobin A1con 11-17-2024 HbA1c (Bld) [Mass fraction] 6.1 % High 3.8-5.6 [facility] Comment on above: Result Comment: Norm al < 5.7 % Prediabetic 5.7 - 6.4 % Diabetic >or= 6.5 % Please note range changes. Performed By: #### L 500.2500, L501.5425, L100.0100 #### [facility] [address] [place], [place], [address] Hemoglobin A1c percentageOrd ered By: Charlotte Stevenson on 11-17-2024 HbA1c (Bld) [Mass fraction] 6.1 % High 3.8-5.6 [facility] Comment on above: Normal < 5.7 % Predi abetic 5.7 - 6.4 % Diabetic >or= 6.5 % Please note range changes. Hemoglobin measurementOrdere d By: Charlotte Stevenson on 11-17-2024 Hemoglobin (Bld) [Mass/Vol] 12.7 g/dL 12.0-15.0 [facility] Immature granulocytes/100 WB C Auto (Bld)Ordered By: Charlotte Stevenson on 11-17-2024 Immature granulocytes/100 WBC (Bld) 0.500 % 0.0-0.9 [facility] Comment on above: IG% - Immature Granu locytes (promyelocytes, myelocytes and metamyelocytes) > 1% indicates that a LEFT SHIFT is Present. Ironon 11-17-2024 Iron [Mass/Vol] 59 ug/dL Normal 50-170 [facility] Comment on above: Performed By: #### L 500.2500, L501.5425, L100.0100 #### [facility] [address] [facility] [place], [address] Iron (Unsp spec) [Mass/Mass] Ordered By: Charlotte Stevenson on 11-17-2024 Iron [Mass/Vol] 59 ug/dL 50-170 [facility] Ketones Test strip Ql (U)Ord ered By: Charlotte Stevenson on 11-17-2024 Ketones Ql (U) Negative Negative [facility] - Chemistry and C hemistry - challengeOrdered By: Charlotte Stevenson on 11-17-2024 AST [Catalytic activity/Vol] 18 U/L 15-37 [facility] Lymphocytes Auto (Unsp spec) [#/Vol]Ordered By: Charlotte Stevenson on 11-17-2024 Lymphocytes (Bld) [#/Vol] 2.18 10*3/uL 0.83-4.51 [facility] Lymphocytes/100 WBC Auto (Un sp spec)Ordered By: Charlotte Stevenson on 11-17-2024 Lymphocytes/100 WBC (Bld) 19.8 % 19-41 [facility] MCV (mean corpuscular volume ) determinationOrdered By: Charlotte Stevenson on 11-17-2024 MCV (RBC) [Entitic vol] 86.0 fL 81-99 [facility] Mean corpuscular hemoglobin (MCH) determinationOrdered By: Charlotte Stevenson on 11-17-2024 MCH (RBC) [Entitic mass] 29.7 pg 27.0-32.0 [facility] Mean corpuscular hemoglobin concentration (MCHC) determinationOrdered By: Charlotte Stevenson on 11-17-2024 MCHC (RBC) [Mass/Vol] 34.5 g/dL 32-36 [facility] Mean platelet volume determi nationOrdered By: Charlotte Stevenson on 11-17-2024 Platelet mean volume (Bld) [Entitic vol] 9.5 fL 6.2-12.0 [facility] Microscopic analysis of urin e for red blood cells (RBC)Ordered By: Charlotte Stevenson on 11-17-2024 Urine RBC 0 SEEN /hpf 0-5 [facility] Monocyte percentageOrdered B y: Charlotte Stevenson on 11-17-2024 Monocytes/100 WBC (Bld) 7.0 % 0-10 [facility] Mucus LM Ql (Urine sed)Order ed By: Charlotte Stevenson on 11-17-2024 Mucus Ql (Urine sed) 0 SEEN /hpf [facility] Neutrophil percentageOrdered By: Charlotte Stevenson on 11-17-2024 Neutrophils/100 WBC (Bld) 69.9 % 47-70 [facility] Nitrite Test strip Ql (U)Ord ered By: Charlotte Stevenson on 11-17-2024 Nitrite Ql (U) Negative Negative [facility] No Panel InformationOrdered By: Charlotte Stevenson on 11-17-2024 Miscellaneous Test COMMENT . [facility] Comment on above: Test Ordered: [id number] Hered.Hemochromatosis, DNAHereditary Hemochromatosis Comment TG Reference Range: .Result:c.845G>A (p.Rvt934Nvy) - Not Detectedc.187C>G (p.Hik42Oxz) - Not Detectedc.193A>T (p.Lbc74Ths) - Not DetectedNot associated with increased risk to develop clinicalsymptoms of Hereditary Hemochromatosis. In symptomaticindividuals, other causes of iron overload should beevaluated. See Additional Information and Comments.Additional Clinical Information:Hereditary hemochromatosis (HFE related) is an autosomalrecessive iron storage disorder. Patients may have agenetic diagnosis of hereditary hemochromatosis and nevershow clinical symptoms. Clinical symptoms typically appearbetween 40 to 60 years in males and after menopause infemales. Signs and symptoms may include organ damage,primarily in the liver, risk for hepatocellularcarcinoma, diabetes, and heart disease due to ironaccumulation. Life expectancy may be decreased inindividuals who develop cirrhosis. Treatment forclinically symptomatic individuals may includetherapeutic phlebotomy. Liver transplant may be used totreat end stage liver failure. For preventive care,monitoring for iron overload is recommended for patientswho are homozygous for c.845G>A (p.Chy549Sqm) and have yetto experience clinical symptoms.Comments:The most common HFE variants associated with hereditaryhemochromatosis are c.845G>A (p.Ixq170Jix), c.187C>G(p.Kwo96Mkn), c.193A>T (p.Xks43Iho). While patientshomozygous for c.845G>A (p.Dou542Vic) are the most likelyto present clinical symptoms, less than 10% developclinically significant iron overload with tissue and organdamage.Genetic counseling is recommended to discuss the potentialclinical implications of positive results, as well asrecommendations for testing family members.Genetic Coordinators are available for health careproviders to discuss results at [phone]).Test Details:Three variants analyzed:c.845G>A (p.Wxv159Jba), commonly referred to as C282Yc.187C>G (p.Eki79Ewp), commonly referred to as H63Dc.193A>T (p.Uky40Qjo), commonly referred to as Z28YJxjdkkc/Limitations:DNA Analysis of the HFE gene (NM_[id number]) was performedby PCR amplification followed by restriction enzymedigestion analyses. Results must be combined with clinicalinformation for the most accurate interpretation. Molecular-based testing is highly accurate, but as in any laboratorytest, diagnostic errors may occur. False positive or falsenegative results may occur for reasons that include geneticvariants, blood transfusions, bone marrow transplantation,somatic or tissue-specific mosaicism, mislabeled samples,or erroneous representation of family relationships.This test was developed and its performancecharacteristics determined by [employer]. It has not beencleared or approved by the Food and Drug Administration.References:Ortiz BR, Jimmy PC, Dagoberto KV, Horace LW, Robert ;[place] Association for the Study of Liver Diseases.Diagnosis and management of hemochromatosis: 2011 practiceguideline by the [place] Association for the Study ofLiver Diseases. Hepatology. 2010;54(1):328-43. doi:10.1002/hep.21155. PMID: 58890781; PMCID: GSF2904997.Kavita G, Christiano P, Freddie DELGADILLO, Devika H, Christiano O,Prieto S, Ben I, Justo M, Milly S. QN best practiceguidelines for the molecular genetic diagnosis ofhereditary hemochromatosis (HH). Eur J Hum Renee. 2016Apr;24(4):479-95. doi: 10.1038/ejhg.2015.128. Epub 2014. PMID: 52880073; PMCID: RRE8059973.Reviewed by: Sona MARIA Reference Range: .Technical Component performed at [facility] RTPProfessional Component performed by:Emma Tracy, Ph.D., FACMGDirector, Molecular [address] [place] [id number] at: [facility] [address] [place], [place] [id number] Director: Heidy Rivas [facility], Phone: [phone] at: - [address] [id number] Director: Koffi Verdugo PhD, Phone: [phone] Nucleated red blood cell per centageOrdered By: Charlotte Stevenson on 11-17-2024 Nucleated RBC/100 WBC (Bld) [Ratio] 0 % 0-5 [facility] Platelet countOrdered By: Erika Stevenson on 11-17-2024 Platelets (Bld) [#/Vol] 347 10*3/uL 150-450 [facility] Potassium measurementOrdered By: Charlotte Stevenson on 11-17-2024 Potassium [Moles/Vol] 3.2 mmol/L Low 3.5-5.1 [facility] Protein Test strip Ql (U)Ord ered By: Charlotte Stevenson on 11-17-2024 Protein Ql (U) Negative Negative [facility] RBC Auto (Bld) [#/Vol]Ordere d By: Charlotte Stevenson on 11-17-2024 RBC (Bld) [#/Vol] 4.28 10*6/uL 4.2-5.4 [facility] Serum anion gap measurementO rdered By: Charlotte Stevenson on 11-17-2024 Anion gap [Moles/Vol] 7 mmol/L 5-15 [facility] Serum globulin measurementOr dered By: Charlotte Stevenson on 11-17-2024 Globulin (S) [Mass/Vol] 4.3 g/dL High 2.2-4.2 [facility] Serum or plasma alanine yip otransferase (ALT) measurementOrdered By: Charlotte Stevenson on 11-17-2024 ALT [Catalytic activity/Vol] 24 U/L 13-56 [facility] Serum or plasma albumin cheko urement (mass/volume)Ordered By: Charlotte Stevenson on 11-17-2024 Albumin [Mass/Vol] 3.4 g/dL 3.2-5.0 [facility] Serum or plasma alkaline ed sphatase measurementOrdered By: Charlotte Stevenson on 11-17-2024 ALP [Catalytic activity/Vol] 95 U/L 45-117 [facility] Serum or plasma calcium cheko urement (mass/volume)Ordered By: Charlotte Stevenson on 11-17-2024 Calcium [Mass/Vol] 8.9 mg/dL 8.5-10.1 [facility] Serum or plasma creatinine m easurement (mass/volume)Ordered By: Charlotte Stevenson on 11-17-2024 Creatinine [Mass/Vol] 0.81 mg/dL 0.55-1.02 [facility] Comment on above: The validity of the calculated GFR & GFRAA in patients over 70 years has not been determined. Clinical correlation is essential. Serum or plasma urea nitroge n measurement (mass/volume)Ordered By: Charlotte Stevenson on 11-17-2024 Urea nitrogen [Mass/Vol] 14 mg/dL 7-18 [facility] Sodium levelOrdered By: Charlotte Stevenson on 11-17-2024 Sodium [Moles/Vol] 136 mmol/L 136-145 [facility] Total proteinOrdered By: Lary Stevenson on 11-17-2024 Protein [Mass/Vol] 7.7 g/dL 6.4-8.2 [facility] Urinalysis, Completeon 11-17 BACTERIA RARE Normal None Seen [facility] Comment on above: Order Comment: CLEAN CATCH Performed By: #### L 500.2500, L501.5425, L100.0100 #### [facility] [address] [place], [address] EPI,SQUAMOUS 5-10 SEEN Normal 5-10 [facility] Comment on above: Order Comment: CLEAN CATCH Performed By: #### L 500.2500, L501.5425, L100.0100 #### [facility] [address] [place], [address] WBC 0-5 SEEN Normal 0-5 [facility] Comment on above: Order Comment: CLEAN CATCH Performed By: #### L 500.2500, L501.5425, L100.0100 #### [facility] [address] [place], [address] Mucus Ql (Urine sed) 0 SEEN Normal [facility] Comment on above: Order Comment: CLEAN CATCH Performed By: #### L 500.2500, L501.5425, L100.0100 #### [facility] [address] [place] [place], [address] RBC 0 SEEN Normal 0-5 [facility] Comment on above: Order Comment: CLEAN CATCH Performed By: #### L 500.2500, L501.5425, L100.0100 #### [facility] [address] [place], [address] Urine blood detectionOrdered By: Charlotte Stevenson on 11-17-2024 Urine Occult Blood Negative Negative [facility] Urine clarityOrdered By: Lary Stevenson on 11-17-2024 Clarity (U) Clear Clear [facility] Urine color determinationOrd ered By: Charlotte Stevenson on 11-17-2024 Color (U) Yellow Yellow [facility] Urine cultureOrdered By: Lary Stevenson on 11-17-2024 Bacteria identified Cx Nom (U) Culture exhibits no growth. [facility] Urine leukocyte esterase det ection by dipstickOrdered By: Charlotte Stevenson on 11-17-2024 Leukocyte esterase Test strip Ql (U) 25 /ul High Negative [facility] Urine pHOrdered By: Charlotte richardson on 11-17-2024 pH (U) 6.0 [pH] 5.0 - 8.0 [facility] Urine specific gravity measu rementOrdered By: Charlotte Stevenson on 11-17-2024 Specific gravity (U) [Rel density] 1.010 1.002-1.03 0 [facility] Urobilinogen Ql (U)Ordered B y: Charlotte Stevenson on 11-17-2024 Urine Urobilinogen Normal mg/dl Normal [facility] White blood cell (WBC) count Ordered By: Charlotte Stevenson on 11-17-2024 WBC (Bld) [#/Vol] 11.0 10*3/uL 4.4-11.0 [facility] White blood cell countOrdere d By: Charlotte Stevenson on 11-17-2024 Urine WBC 0-5 SEEN /hpf 0-5 [facility] Urine Cultureon 11-04-2024 URC Culture exhibits no growth. Normal [facility] Comment on above: Performed By: #### L 500.1330, L501.5489, L100.0100 #### [facility] [place], [address] Urine cultureOrdered By: Lary Stevenson on 11-03-2024 Bacteria identified Cx Nom (U) Culture exhibits no growth. [facility] 12 Lead EKG performed by [facility] on 09-26-2024 12 Lead EKG performed by [facility] [address] [place] [address] 12 Lead EKG performed by [facility] 09/26/24904 MR#: [id number] Acct: [id number] Name: BELEM ESTES ANN Rep #: [id number] : 1945 79 From: Mohamud Canela MD Attending Dr: Dr. Mohamud Canela MD Status: DE P AMB Ordering Dr: Mohamud Canela MD Date: 09/26/24 Location: [facility] Sex: F C Admitted: [facility]/12 Lead EKG performed by [facility] ECG Report Interpretation S inus Bradycardia with occasional junctional rhythmLow voltage -possible pulmonary disease. ABNORMALCompared to 09/25/2024 RBBB no lomger present Electronically signed on 09/26/2024 at 11:[address] Mohamud Canela [employer] Version 8610 09/26/24 1137 Date Mohamud Canela MD CC: Dr. 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 [place] [address] OFFICE VISIT Date of Service: 09/26/24 MR#: [id number] Acct: [id number] Name: BELEM ESTES ANN Rep #: [id number] : 1945 Provider: Dr. Mohamud toribio MD Age/Sex: 79/F Location: [facility] [place] Status: Signed HPI HPI History of Present Illness Details: Patient comes in today for monitoring of her cardiovascular disease status. The patient was in the emergency department 09/23/2020 for with complaints of palpitations that started several days after she had been discharged in the hospital where she was loaded with flecainide. The patient originally presented with near syncope and had a prolonged sinus node recovery time of 3 to 6 seconds while she was converting randomly [id number] from atrial fibrillation to sinus bradycardia. She was hospitalized her beta-denisse therapy was discontinued and she was placed on flecainide which controlled her atrial fibrillation. In the emergency department the patient was in a sinus rhythm with a right bundle branch block. This was found to be an intermittent right bundle branch block that was rate dependent as she was placed on a 24-hour Holter following that evaluation. Her flecainide was increased to 150 mg twice daily in the emergency department. On the Holter monitor average heart rate was 60 bpm with a rate dependent bundle branch block minimum heart rate was 36 which was sinus bradycardia and the maximum heart rate was 83 and a normal sinus rhythm with a right bundle branch block. She also noted palpitations at 83 bpm with no ventricular ectopy and rare PACs. Following this monitor had her hold her flecainide last night and she reports she feels much better this morning. The plan was to decrease her flecainide to 50 mg twice daily at this office visit when she was originally discharged in the hospital after the flecainide load. The patient denies any syncope or near syncope. She does have a [employer] mobile device in her home environment and she brought in some strips that showed what appeared to be sinus rhythm with right bundle branch block and other strips that show sinus rhythm with a normal QRS. This is consistent with what was documented on the Holter monitor. EKG done in the office today shows sinus bradycardia at 51 bpm with an occasional junctional beat but a narrow QRS. She does report that she feels better today after holding the flecainide and we will decrease the dose to 50 mg twice daily. 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 Accompanied by: Is patient in pain?: No Allergies ciprofloxacin (From Cipro) Allergy (Verified 09/26/24 09:09) Other fluorescein Allergy (Verified 09/26/24 09:09) Anaphylaxis lactose Allergy (Verified 09/26/24 09:09) Upset Stomach nitrofurantoin Allergy (Verified 09/26/24 09:09) Other Sulfa (Sulfonamide Antibiotics) Allergy (Verified 09/26/24 09:09) Rash aspirin Adverse Reaction (Verified 09/26/24 09:09) Other Medications ???Medication ???Instructions ???Recorded ???Confirmed ???Type lisinopril 20 mg tablet 20 mg PO BID blood pressure 03/20/18 09/26/24 History wkatbkda-jvm-cgnmw acid 0.4 1 ea PO DAILY supplement 03/20/18 09/26/24 History mg-lycopene 300 mcg-lutein 250 mcg tablet cranberry 500 mg capsule 2,000 mg PO DAILY supplement 04/05/18 09/26/24 History metronidazole 0.75 % topical gel 1 applic topical PRN rash 12/01/18 09/26/24 History hydrochlorothiazide 12.5 mg tablet 12.5 mg PO DAILY bp #90 tabs 01/09/21 09/26/24 Rx pantoprazole 40 mg tablet,delayed 40 mg PO DAILY reflux 09/11/22 09/26/24 History release rosuvastatin 10 mg tablet 10 mg PO DAILY cholesterol 07/20/23 09/26/24 History montelukast 10 mg tablet 10 mg PO QDAY PRN allergies 07/12/24 09/26/24 History estriol micronized (bulk) 100 % 1 ea miscellaneous QWEEK infections 09/13/24 09/26/24 History powder fluticasone furoate 27.5 2 spray intranasal DAILY PRN 09/13/24 09/26/24 History mcg/actuation nasal allergies spray,suspension amlodipine 5 mg tablet 5 mg PO DAILY #30 tabs 09/14/24 09/26/24 Rx apixaban 5 mg tablet (Eliquis) 5 mg PO BID #60 tabs 09/14/24 09/26/24 Rx flecainide 50 mg tablet 50 mg PO Q12H #60 tabs 09/26/24 09/26/24 Rx Ejection fraction %: 65 Have you fallen in the past year?: Yes (Trip and fall) PFSH Medical History Paroxysmal atrial fibrillation Essential hypertension Reactive airway disease Osteopenia Bilatera (more content not included)... Normal [facility] 12 Lead EKGon 09-23-2024 12 Lead EKG [facility] [address] [place] [address] 12 Lead EKG 09/23/24 0635 MR#: [id number] Acct: [id number] Name: BELEM ESTES Rep #: [id number] : 1945 79 From: Lasha Lr MD Attending Dr: Status: DEP ER Ordering Dr: Billy Agudelo MD Date: 09/23/24 Location: ED Sex: F C Admitted: Test Reason : PALPITATIONS Blood Pressure : */* mmHG Vent. Rate : 66 BPM Atrial Rate : 66 BPM P-R Int : 212 ms QRS Dur : 82 ms QT Int : 446 ms P-R-T Axes : 35 60 22 degrees QTcB Int : 467 ms Poor data quality, interpretation may be adversely affected Sinus rhythm with 1st degree A-V block Otherwise normal ECG Confirmed by LASHA LR MD ([id number]), makeup editor DIIVNE DENIS ([id number]) on 09/25/2024 9:40:42 AM Referred By: Confirmed By: LASHA LR MD 09/25/24 0935 Date Lasha Lr MD CC: Dr. Billy Agudelo MD; Dr. Charlotte Stevenson DO Signed Normal [facility] Absolute neutrophil countOrd ered By: Billy Agudelo on 09-23-2024 Neutrophils (Bld) [#/Vol] 6.1 10*3/uL 2.0-7.7 [facility] Basic Metabolic Profile (BMP )on 09-23-2024 BUN/CRE 19.3 RATIO Normal 08-27 [facility] Comment on above: Order Comment: 'TROP ' Serial specimen #1, #2 or #3: 1 Performed By: #### L 500.2500, L501.5425, L100.0100 #### [facility] [address] [place], [address] CA,Total 9.7 mg/dL Normal 8.5-10.1 [facility] Comment on above: Order Comment: 'TROP ' Serial specimen #1, #2 or #3: 1 Performed By: #### L 500.2500, L501.5425, L100.0100 #### [facility] [address] [place], [address] Chloride [Moles/Vol] 104 mmol/L Normal 98-107 [facility] Comment on above: Order Comment: 'TROP ' Serial specimen #1, #2 or #3: 1 Performed By: #### L 500.2500, L501.5425, L100.0100 #### [facility] [address] [place], [address] CO2 [Moles/Vol] 23.0 mmol/L Normal 21.0-32.0 [facility] Comment on above: Order Comment: 'TROP ' Serial specimen #1, #2 or #3: 1 Performed By: #### L 500.2500, L501.5425, L100.0100 #### [facility] [address] [place], [address] Creatinine [Mass/Vol] 0.88 mg/dL Normal 0.55-1.02 [facility] Comment on above: Order Comment: 'TROP ' Serial specimen #1, #2 or #3: 1 Result Comment: The validity of the calculated GFR GFRAA in patients over 70 years has not been determined. Clinical correlation is essential. Performed By: #### L 500.2500, L501.5425, L100.0100 #### [facility] [address] [place], [address] ECRCL 54.46 ml/min Normal [facility] Comment on above: Order Comment: 'TROP ' Serial specimen #1, #2 or #3: 1 Performed By: #### L 500.2500, L501.5425, L100.0100 #### [facility] [address] [place], [address] EST GFR - AA 80 mL/min Normal >60 [facility] Comment on above: Order Comment: 'TROP ' Serial specimen #1, #2 or #3: 1 Result Comment: Afri can Faroese GFR Calc Performed By: #### L 500.2500, L501.5425, L100.0100 #### [facility] [address] [place], [address] GAP 10 Normal 5-15 [facility] Comment on above: Order Comment: 'TROP ' Serial specimen #1, #2 or #3: 1 Performed By: #### L 500.2500, L501.5425, L100.0100 #### [facility] [address] [place], [address] GFR/1.73 sq M.predicted among non-blacks MDRD (S/P/Bld) [Vol rate/Area] 66 mL/min/{1.73_m2} Normal >60 [facility] Comment on above: Order Comment: 'TROP ' Serial specimen #1, #2 or #3: 1 Result Comment: Non- GFR Calc Performed By: #### L 500.2500, L501.5425, L100.0100 #### [facility] [address] [place], [address] Glucose [Mass/Vol] 142 mg/dL High 74-106 [facility] Comment on above: Order Comment: 'TROP ' Serial specimen #1, #2 or #3: 1 Result Comment: Fast ing Glucose result greater than or equal to 126 mg/dL suggests DIABETES MELLITUS per A.D.A. criteria. Performed By: #### L 500.2500, L501.5425, L100.0100 #### [facility] [address] [place], [address] Potassium [Moles/Vol] 3.7 mmol/L Normal 3.5-5.1 [facility] Comment on above: Order Comment: 'TROP ' Serial specimen #1, #2 or #3: 1 Performed By: #### L 500.2500, L501.5425, L100.0100 #### [facility] [address] [place], [address] Sodium [Moles/Vol] 137 mmol/L Normal 136-145 [facility] Comment on above: Order Comment: 'TROP ' Serial specimen #1, #2 or #3: 1 Performed By: #### L 500.2500, L501.5425, L100.0100 #### [facility] [address] [place], [address] Urea nitrogen [Mass/Vol] 17 mg/dL Normal 7-18 [facility] Comment on above: Order Comment: 'TROP ' Serial specimen #1, #2 or #3: 1 Performed By: #### L 500.2500, L501.5425, L100.0100 #### [facility] [address] [place], [address] Basophil percentageOrdered B y: Billy Agudelo on 09-23-2024 Basophils/100 WBC (Bld) 0.4 % 0-1 [facility] Blood urea nitrogen (BUN)/cr eatinine ratioOrdered By: Billy Agudelo on 09-23-2024 Urea nitrogen/Creatinine [Mass ratio] 19.3 mg/mg 10-20 [facility] CBC W/Diff, Automatedon 09-08 Absolute Lymph 2.67 X10 3/uL Normal 0.83-4.51 [facility] Comment on above: Performed By: #### L 500.2500, L501.5425, L100.0100 #### [facility] [address] [place], [address] Absolute Neut 6.1 X10 3/uL Normal 2.0-7.7 [facility] Comment on above: Performed By: #### L 500.2500, L501.5425, L100.0100 #### [facility] [address] [place], [address] Basophils/100 WBC (Bld) 0.4 % Normal 0-1 [facility] Comment on above: Performed By: #### L 500.2500, L501.5425, L100.0100 #### [facility] [address] [place], [address] Eosinophils/100 WBC (Bld) 0.9 % Normal 0-5 [facility] Comment on above: Performed By: #### L 500.2500, L501.5425, L100.0100 #### [facility] [address] [place], [address] Erythrocyte distribution width (RBC) [Ratio] 11.9 % Normal 11.6-14.6 [facility] Comment on above: Performed By: #### L 500.2500, L501.5425, L100.0100 #### [facility] [address] [place], [address] Hematocrit (Bld) [Volume fraction] 40.6 % Normal 37-47 [facility] Comment on above: Performed By: #### L 500.2500, L501.5425, L100.0100 #### [facility] [address] [place], [address] Hemoglobin (Bld) [Mass/Vol] 14.1 g/dL Normal 12.0-15.0 [facility] Comment on above: Performed By: #### L 500.2500, L501.5425, L100.0100 #### [facility] [address] [place], [address] IG% 0.400 Normal 0.0-0.9 [facility] Comment on above: Result Comment: IG% - Immature Granulocytes (promyelocytes, myelocytes and metamyelocytes) > 1% indicates that a LEFT SHIFT is Present. Performed By: #### L 500.2500, L501.5425, L100.0100 #### [facility] [address] [place], [address] Lymphocytes/100 WBC (Bld) 27.1 % Normal 19-41 [facility] Comment on above: Performed By: #### L 500.2500, L501.5425, L100.0100 #### [facility] [address] [place], [address] MCH (RBC) [Entitic mass] 29.8 pg Normal 27.0-32.0 [facility] Comment on above: Performed By: #### L 500.2500, L501.5425, L100.0100 #### [facility] [address] [place], [address] MCHC (RBC) [Mass/Vol] 34.7 g/dL Normal 32-36 [facility] Comment on above: Performed By: #### L 500.2500, L501.5425, L100.0100 #### [facility] [address] [place], [address] MCV (RBC) [Entitic vol] 85.8 fL Normal 81-99 [facility] Comment on above: Performed By: #### L 500.2500, L501.5425, L100.0100 #### [facility] [address] [place], [address] Monocytes/100 WBC (Bld) 9.7 % Normal 0-10 [facility] Comment on above: Performed By: #### L 500.2500, L501.5425, L100.0100 #### [facility] [address] [place], [address] Neutrophils/100 WBC (Bld) 61.5 % Normal 47-70 [facility] Comment on above: Performed By: #### L 500.2500, L501.5425, L100.0100 #### [facility] [address] [place], [address] Nucleated RBC (Bld) [#/Vol] 0 10*3/uL Normal 0-5 [facility] Comment on above: Performed By: #### L 500.2500, L501.5425, L100.0100 #### [facility] [address] [place], [address] Platelet mean volume (Bld) [Entitic vol] 9.7 fL Normal 6.2-12.0 [facility] Comment on above: Performed By: #### L 500.2500, L501.5425, L100.0100 #### [facility] [address] [place], [address] Platelets (Bld) [#/Vol] 323 10*3/uL Normal 150-450 [facility] Comment on above: Performed By: #### L 500.2500, L501.5425, L100.0100 #### [facility] [address] [place], [address] RBC (Bld) [#/Vol] 4.73 10*6/uL Normal 4.2-5.4 [facility] Comment on above: Performed By: #### L 500.2500, L501.5425, L100.0100 #### [facility] [address] [place], [address] RDW SD 37.3 fl Normal 35.1-43.9 [facility] Comment on above: Performed By: #### L 500.2500, L501.5425, L100.0100 #### [facility] [address] [place], [address] WBC (Bld) [#/Vol] 9.8 10*3/uL Normal 4.4-11.0 [facility] Comment on above: Performed By: #### L 500.2500, L501.5425, L100.0100 #### [facility] [address] [place], [address] Carbon dioxide measurementOr dered By: Billy Agudelo on 09-23-2024 CO2 [Moles/Vol] 23.0 mmol/L 21.0-32.0 [facility] Chloride measurementOrdered By: Billy Agudelo on 09-23-2024 Chloride [Moles/Vol] 104 mmol/L 98-107 [facility] Emergency Department Summary on 09-23-2024 Emergency Department Summary [facility] Medical Records Department [address] [place] [address] Emergency Department Summary 09/23/24 MR#: [id number] Acct: [id number] Name: BELEM ESTES Rep #: [id number] : 1945 79 From: Billy Agudelo MD PCP: Dr. Charlotte Stevenson, DO Status:REG ER Location: ED HPI History of Present Illness Chief Complaint: Palpitations Informant: patient and spouse/S.O. Narrative Narrative: 79-year-old female with a history of paroxysmal atrial fibrillation was recently here at the hospital because of symptomatic A-fib episodes, was changed off of her AV shantanu blockers and switched to flecainide. Initially things were going well but she started having symptoms again. She presents this morning at 6 AM Wednesday morning because the past 2 days she has been having very frequent episodes that are random, they are disrupting her life, and she had an episode that woke her up in the middle of the night tonight. She states she feels the worst when the heart rate drops, and she knows this because she is watching her numbers closely on her smart device/watch, watching her pulse go down to 50 often in the last couple days. She has had no lightheadedness, syncope, or other symptoms of symptomatic bradycardia. No chest discomfort or dyspnea. She often gets his symptoms couple hours after taking her flecainide. She states it seems to be regularly occurring. She has been compliant with the medications. [facility] Medical History Paroxysmal atrial fibrillation Essential hypertension Reactive airway disease Osteopenia Bilateral carotid artery stenosis Hyperlipidemia Atrial fibrillation with rapid ventricular response (03/21/18) Home Medications ???Medication ???Instructions ???Recorded ???Last Taken ???Type lisinopril 20 mg tablet 20 mg PO BID blood pressure 03/20/18 Unknown History dpgevpiv-jfn-uleey acid 0.4 1 ea PO DAILY supplement 03/20/18 Unknown History mg-lycopene 300 mcg-lutein 250 mcg tablet cranberry 500 mg capsule 2,000 mg PO DAILY supplement 04/05/18 Unknown History metronidazole 0.75 % topical gel 1 applic topical PRN rash 12/01/18 Unknown History hydrochlorothiazide 12.5 mg tablet 12.5 mg PO DAILY bp #90 tabs 01/09/21 Unknown Rx pantoprazole 40 mg tablet,delayed 40 mg PO DAILY reflux 09/11/22 Unknown History release rosuvastatin 10 mg tablet 10 mg PO DAILY cholesterol 07/20/23 Unknown History aspirin 81 mg tablet,delayed 81 mg PO DAILY heart health 07/12/24 Unknown History release (Adult Aspirin Regimen) montelukast 10 mg tablet 10 mg PO QDAY PRN allergies 07/12/24 09/11/24 History estriol micronized (bulk) 100 % 1 ea miscellaneous QWEEK infections 09/13/24 Unknown History powder fluticasone furoate 27.5 2 spray intranasal DAILY PRN 09/13/24 Unknown History mcg/actuation nasal allergies spray,suspension amlodipine 5 mg tablet 5 mg PO DAILY #30 tabs 09/14/24 Unknown Rx apixaban 5 mg tablet (Eliquis) 5 mg PO BID #60 tabs 09/14/24 Unknown Rx flecainide 100 mg tablet 150 mg (1.5 x 100 mg) PO BID #60 09/23/24 Unknown Rx tabs Allergy/AdvReac Type Severity Reaction Status Date / Time ciprofloxacin (From Cipro) Allergy Other Verified 09/23/24 06:05 fluorescein Allergy Anaphylaxis Verified 09/23/24 06:05 lactose Allergy Upset Verified 09/23/24 06:05 Stomach nitrofurantoin Allergy Other Verified 09/23/24 06:05 Sulfa (Sulfonamide Allergy Rash Verified 09/23/24 06:05 Antibiotics) aspirin AdvReac Other Verified 09/23/24 06:05 Family History Father Diabetes Hypertension Brother Diabetes Hypertension Brother Heart disease irregular heart beat w/ PPM Surgical History H/O breast biopsy H/O hemorrhoidectomy History of partial hysterectomy Hx of cholecystectomy History of tonsillectomy History of cataract surgery Social History household members: spouse Smoking Status: Never smoker alcohol intake: never substance use type: does not use caffeine: No ROS ROS ED Constitutional Constitutional ED: Denies chills or fever(s) Eyes Eyes: Denies change in vision or diplopia ENT ENT ED: Denies rhinorrhea or sore throat Cardiovascular Cardiovascular: Reports palpitations; Denies chest pain, lightheadedness or syncope Respiratory/Chest Respiratory/Chest: Denies cough or dyspnea Gastrointestinal Gastrointestinal: Denies abdominal pain, diarrhea, nausea or vomiting Genitourinary Genitourinary ED: Denies dysuria or hematuria Musculoskeletal Musculoskeletal: Denies back pain or neck pain Integumentary Denies abscess or rash Neurologic Neurologic: Denies headache(s), paresth (more content not included)... Normal [facility] Eosinophil percentageOrdered By: Billy Agudelo on 09-23-2024 Eosinophils/100 WBC (Bld) 0.9 % 0-5 [facility] Erythrocyte distribution wid th ratioOrdered By: Billy Agudelo on 09-23-2024 Erythrocyte distribution width (RBC) [Ratio] 11.9 % 11.6-14.6 [facility] Erythrocyte distribution wid th standard deviationOrdered By: Billy Agudelo on 09-23-2024 Erythrocyte distribution width (RBC) [Entitic vol] 37.3 fL 35.1-43.9 [facility] Estimated glomerular filtrat ion rate (GFR) AmericanOrdered By: Billy Agudelo on 09-23-2024 Estimated GFR (MDRD) Amer 80 mL/min >60 [facility] Comment on above: GFR Calc Estimation of creatinine dona aranceOrdered By: Billy Agudelo on 09-23-2024 Estimated Creatinine Clearance Calc 54.46 ml/min [facility] Glomerular filtration rate ( GFR) estimationOrdered By: Billy Agudelo on 09-23-2024 Estimated GFR (MDRD) Non-Af Amer 66 mL/min >60 [facility] Comment on above: Non- GFR Calc Glucose measurementOrdered B y: Billy Agudelo on 09-23-2024 Glucose [Mass/Vol] 142 mg/dL High 74-106 [facility] Comment on above: Fasting Glucose resu lt greater than or equal to 126 mg/dL suggests DIABETES MELLITUS per A.D.A. criteria. Hematocrit Auto (Bld) [Volum e fraction]Ordered By: Billy Agudelo on 09-23-2024 Hematocrit (Bld) [Volume fraction] 40.6 % 37-47 [facility] Hemoglobin measurementOrdere d By: Billy Agudelo on 09-23-2024 Hemoglobin (Bld) [Mass/Vol] 14.1 g/dL 12.0-15.0 [facility] Immature granulocytes/100 WB C Auto (Bld)Ordered By: Billy Agudelo on 09-23-2024 Immature granulocytes/100 WBC (Bld) 0.400 % 0.0-0.9 [facility] Comment on above: IG% - Immature Granu locytes (promyelocytes, myelocytes and metamyelocytes) > 1% indicates that a LEFT SHIFT is Present. L501.4020on 09-23-2024 TROPONIN-I HS 29 pg/mL Normal 3.0-54.0 [facility] Comment on above: Order Comment: 1 Y Result Comment: Kodak orozco Note: New Test Units and Gender Specific Reference Ranges. For more information see Policy Stat Procedure [place] High Sensitivity Troponin (TNIH) and attachments. Performed By: #### L 500.2500, L501.5425, L100.0100 #### [facility] [address] [place], [address] Lymphocytes Auto (Unsp spec) [#/Vol]Ordered By: Billy Agudelo on 09-23-2024 Lymphocytes (Bld) [#/Vol] 2.67 10*3/uL 0.83-4.51 [facility] Lymphocytes/100 WBC Auto (Un sp spec)Ordered By: Billy Agudelo on 09-23-2024 Lymphocytes/100 WBC (Bld) 27.1 % 19-41 [facility] MCV (mean corpuscular volume ) determinationOrdered By: Billy Agudelo on 09-23-2024 MCV (RBC) [Entitic vol] 85.8 fL 81-99 [facility] Mean corpuscular hemoglobin (MCH) determinationOrdered By: Billy Agudelo on 09-23-2024 MCH (RBC) [Entitic mass] 29.8 pg 27.0-32.0 [facility] Mean corpuscular hemoglobin concentration (MCHC) determinationOrdered By: Billy Agudelo on 09-23-2024 MCHC (RBC) [Mass/Vol] 34.7 g/dL 32-36 [facility] Mean platelet volume determi nationOrdered By: Billy Agudelo on 09-23-2024 Platelet mean volume (Bld) [Entitic vol] 9.7 fL 6.2-12.0 [facility] Monocyte percentageOrdered B y: Billy Agudelo on 09-23-2024 Monocytes/100 WBC (Bld) 9.7 % 0-10 [facility] Neutrophil percentageOrdered By: Billy Agudelo on 09-23-2024 Neutrophils/100 WBC (Bld) 61.5 % 47-70 [facility] Nucleated red blood cell per centageOrdered By: Billy Agudelo on 09-23-2024 Nucleated RBC/100 WBC (Bld) [Ratio] 0 % 0-5 [facility] Platelet countOrdered By: Brent Agudelo on 09-23-2024 Platelets (Bld) [#/Vol] 323 10*3/uL 150-450 [facility] Potassium measurementOrdered By: Billy Agudelo on 09-23-2024 Potassium [Moles/Vol] 3.7 mmol/L 3.5-5.1 [facility] RBC Auto (Bld) [#/Vol]Ordere d By: Billy Agudelo on 09-23-2024 RBC (Bld) [#/Vol] 4.73 10*6/uL 4.2-5.4 [facility] Serum anion gap measurementO rdered By: Billy Agudelo on 09-23-2024 Anion gap [Moles/Vol] 10 mmol/L 5-15 [facility] Serum or plasma calcium cheko urement (mass/volume)Ordered By: Billy Agudelo on 09-23-2024 Calcium [Mass/Vol] 9.7 mg/dL 8.5-10.1 [facility] Serum or plasma creatinine m easurement (mass/volume)Ordered By: Billy Agudelo on 09-23-2024 Creatinine [Mass/Vol] 0.88 mg/dL 0.55-1.02 [facility] Comment on above: The validity of the calculated GFR & GFRAA in patients over 70 years has not been determined. Clinical correlation is essential. Serum or plasma urea nitroge n measurement (mass/volume)Ordered By: Billy Agudelo on 09-23-2024 Urea nitrogen [Mass/Vol] 17 mg/dL 7-18 [facility] Sodium levelOrdered By: Josesito Agudelo on 09-23-2024 Sodium [Moles/Vol] 137 mmol/L 136-145 [facility] Troponin IOrdered By: Jessie Agudelo on 09-23-2024 Troponin I High Sensitivity 29 pg/mL 3.0-54.0 [facility] Comment on above: Please Note: New Erika t Units and Gender Specific Reference Ranges. For more information see Policy Stat Procedure [place] High Sensitivity Troponin (TNIH) and attachments. White blood cell (WBC) count Ordered By: Billy Agudelo on 09-23-2024 WBC (Bld) [#/Vol] 9.8 10*3/uL 4.4-11.0 [facility] 12 Lead EKG performed by [facility] on 09-20-2024 12 Lead EKG performed by [address] [address] 12 Lead EKG performed by [facility] 09/20/24 1000 MR#: [id number] Acct: [id number] Name: BELEM ESTES Rep #: [id number] : 1945 79 From: Mohamud Canela MD Attending Dr: Dr. Mohamud Canela MD Status: DE P KEO Ordering Dr: Mohamud Canela MD Date: 09/20/24 Location: [facility] [place] Sex: F C Admitted: [facility]/12 Lead EKG performed by [facility] ECG Report Interpretation S inus Rhythm -Right bundle branch block. ABNORMAL Electronically signed on 09/25/2024 at 11:[address] Mohamud Canela [employer] Version [id number] 09/25/24 1156 Date Mohamud Canela MD CC: Dr. Charlotte Stevenson, DO Date Dictated: 09/20/24 1000 Date Transcribed: 09/20/24999 [employer] Officer: Signed Normal [facility] Absolute neutrophil countOrd ered By: Benoit Krishnamurthy on 09-20-2024 Neutrophils (Bld) [#/Vol] 6.9 10*3/uL 2.0-7.7 [facility] Basic Metabolic Profile (BMP )on 09-20-2024 BUN/CRE 22.3 RATIO High 10-20 [facility] Comment on above: Performed By: #### L 501.2300, L501.5200, L500.2500 #### [facility] [address] [place], [address] CA,Total 9.7 mg/dL Normal 8.5-10.1 [facility] Comment on above: Performed By: #### L 501.2300, L501.5200, L500.2500 #### [facility] [address] [place], [address] Chloride [Moles/Vol] 103 mmol/L Normal 98-107 [facility] Comment on above: Performed By: #### L 501.2300, L501.5200, L500.2500 #### [facility] [address] [place], [address] CO2 [Moles/Vol] 25.0 mmol/L Normal 21.0-32.0 [facility] Comment on above: Performed By: #### L 501.2300, L501.5200, L500.2500 #### [facility] [address] [place], [address] Creatinine [Mass/Vol] 0.76 mg/dL Normal 0.55-1.02 [facility] Comment on above: Result Comment: The validity of the calculated GFR GFRAA in patients over 70 years has not been determined. Clinical correlation is essential. Performed By: #### L 501.2300, L501.5200, L500.2500 #### [facility] [address] [place], [address] EST GFR - AA 95 mL/min Normal >60 [facility] Comment on above: Result Comment: Afri can Faroese GFR Calc Performed By: #### L 501.2300, L501.5200, L500.2500 #### [facility] [address] [place], [address] GAP 7 Normal 5-15 [facility] Comment on above: Performed By: #### L 501.2300, L501.5200, L500.2500 #### [facility] [address] [place], [address] GFR/1.73 sq M.predicted among non-blacks MDRD (S/P/Bld) [Vol rate/Area] 78 mL/min/{1.73_m2} Normal >60 [facility] Comment on above: Result Comment: Non- GFR Calc Performed By: #### L 501.2300, L501.5200, L500.2500 #### [facility] [address] [place], [address] Glucose [Mass/Vol] 120 mg/dL High 74-106 [facility] Comment on above: Result Comment: Fast ing Glucose result from 100 to 125 mg/dL suggests IMPAIRED HOMEOSTASIS per A.D.A. criteria. Performed By: #### L 501.2300, L501.5200, L500.2500 #### [facility] [address] [place], [address] Potassium [Moles/Vol] 3.8 mmol/L Normal 3.5-5.1 [facility] Comment on above: Performed By: #### L 501.2300, L501.5200, L500.2500 #### [facility] [address] [place], [address] Sodium [Moles/Vol] 135 mmol/L Low 136-145 [facility] Comment on above: Performed By: #### L 501.2300, L501.5200, L500.2500 #### [facility] [address] [place], [address] Urea nitrogen [Mass/Vol] 17 mg/dL Normal 7-18 [facility] Comment on above: Performed By: #### L 501.2300, L501.5200, L500.2500 #### [facility] [address] [place], [address] Basophil percentageOrdered B y: Benoit Krishnamurthy on 09-20-2024 Basophils/100 WBC (Bld) 0.4 % 0-1 [facility] Blood urea nitrogen (BUN)/cr eatinine ratioOrdered By: Benoit Krishnamurthy on 09-20-2024 Urea nitrogen/Creatinine [Mass ratio] 22.3 mg/mg High 10-20 [facility] CBC W/Diff, Automatedon 09-08 Absolute Lymph 2.73 X10 3/uL Normal 0.83-4.51 [facility] Comment on above: Performed By: #### L 501.2300, L501.5200, L500.2500 #### [facility] [address] [place], [address] Absolute Neut 6.9 X10 3/uL Normal 2.0-7.7 [facility] Comment on above: Performed By: #### L 501.2300, L501.5200, L500.2500 #### [facility] [address] [place], [address] Basophils/100 WBC (Bld) 0.4 % Normal 0-1 [facility] Comment on above: Performed By: #### L 501.2300, L501.5200, L500.2500 #### [facility] [address] [place], [address] Eosinophils/100 WBC (Bld) 1.4 % Normal 0-5 [facility] Comment on above: Performed By: #### L 501.2300, L501.5200, L500.2500 #### [facility] [address] [place], [address] Erythrocyte distribution width (RBC) [Ratio] 12.2 % Normal 11.6-14.6 [facility] Comment on above: Performed By: #### L 501.2300, L501.5200, L500.2500 #### [facility] [address] [place], [address] Hematocrit (Bld) [Volume fraction] 39.9 % Normal 37-47 [facility] Comment on above: Performed By: #### L 501.2300, L501.5200, L500.2500 #### [facility] [address] [place], [address] Hemoglobin (Bld) [Mass/Vol] 13.8 g/dL Normal 12.0-15.0 [facility] Comment on above: Performed By: #### L 501.2300, L501.5200, L500.2500 #### [facility] [address] [place], [address] IG% 0.500 Normal 0.0-0.9 [facility] Comment on above: Result Comment: IG% - Immature Granulocytes (promyelocytes, myelocytes and metamyelocytes) > 1% indicates that a LEFT SHIFT is Present. Performed By: #### L 501.2300, L501.5200, L500.2500 #### [facility] [address] [place], [address] Lymphocytes/100 WBC (Bld) 25.0 % Normal 19-41 [facility] Comment on above: Performed By: #### L 501.2300, L501.5200, L500.2500 #### [facility] [address] [place], [address] MCH (RBC) [Entitic mass] 29.9 pg Normal 27.0-32.0 [facility] Comment on above: Performed By: #### L 501.2300, L501.5200, L500.2500 #### [facility] [address] [place], [address] MCHC (RBC) [Mass/Vol] 34.6 g/dL Normal 32-36 [facility] Comment on above: Performed By: #### L 501.2300, L501.5200, L500.2500 #### [facility] [address] [place], [address] MCV (RBC) [Entitic vol] 86.6 fL Normal 81-99 [facility] Comment on above: Performed By: #### L 501.2300, L501.5200, L500.2500 #### [facility] [address] [place], [address] Monocytes/100 WBC (Bld) 9.6 % Normal 0-10 [facility] Comment on above: Performed By: #### L 501.2300, L501.5200, L500.2500 #### [facility] [address] [place], [address] Neutrophils/100 WBC (Bld) 63.1 % Normal 47-70 [facility] Comment on above: Performed By: #### L 501.2300, L501.5200, L500.2500 #### [facility] [address] [place], [address] Nucleated RBC (Bld) [#/Vol] 0 10*3/uL Normal 0-5 [facility] Comment on above: Performed By: #### L 501.2300, L501.5200, L500.2500 #### [facility] [address] [place], [address] Platelet mean volume (Bld) [Entitic vol] 10.0 fL Normal 6.2-12.0 [facility] Comment on above: Performed By: #### L 501.2300, L501.5200, L500.2500 #### [facility] [address] [place], [address] Platelets (Bld) [#/Vol] 323 10*3/uL Normal 150-450 [facility] Comment on above: Performed By: #### L 501.2300, L501.5200, L500.2500 #### [facility] [address] [place], [address] RBC (Bld) [#/Vol] 4.61 10*6/uL Normal 4.2-5.4 [facility] Comment on above: Performed By: #### L 501.2300, L501.5200, L500.2500 #### [facility] [address] [place], [address] RDW SD 38.5 fl Normal 35.1-43.9 [facility] Comment on above: Performed By: #### L 501.2300, L501.5200, L500.2500 #### [facility] [address] [place], [address] WBC (Bld) [#/Vol] 10.9 10*3/uL Normal 4.4-11.0 [facility] Comment on above: Performed By: #### L 501.2300, L501.5200, L500.2500 #### [facility] [address] [place], [address] Carbon dioxide measurementOr dered By: Benoit Krishnamurthy on 09-20-2024 CO2 [Moles/Vol] 25.0 mmol/L 21.0-32.0 [facility] Chloride measurementOrdered By: Benoit Krishnamurthy on 09-20-2024 Chloride [Moles/Vol] 103 mmol/L 98-107 [facility] Eosinophil percentageOrdered By: Benoit Krishnamurthy on 09-20-2024 Eosinophils/100 WBC (Bld) 1.4 % 0-5 [facility] Erythrocyte distribution wid th ratioOrdered By: Benoit Krishnamurthy on 09-20-2024 Erythrocyte distribution width (RBC) [Ratio] 12.2 % 11.6-14.6 [facility] Erythrocyte distribution wid th standard deviationOrdered By: Benoit Krishnamurthy on 09-20-2024 Erythrocyte distribution width (RBC) [Entitic vol] 38.5 fL 35.1-43.9 [facility] Estimated glomerular filtrat ion rate (GFR) AmericanOrdered By: Benoit Krishnamurthy on 09-20-2024 Estimated GFR (MDRD) Amer 95 mL/min >60 [facility] Comment on above: GFR Calc Glomerular filtration rate ( GFR) estimationOrdered By: Benoit Krishnamurthy on 09-20-2024 Estimated GFR (MDRD) Non-Af Amer 78 mL/min >60 [facility] Comment on above: Non- GFR Calc Glucose measurementOrdered B y: Benoit Krishnamurthy on 09-20-2024 Glucose [Mass/Vol] 120 mg/dL High 74-106 [facility] Comment on above: Fasting Glucose resu lt from 100 to 125 mg/dL suggests IMPAIRED HOMEOSTASIS per A.D.A. criteria. Hematocrit Auto (Bld) [Volum e fraction]Ordered By: Benoit Krishnamurthy on 09-20-2024 Hematocrit (Bld) [Volume fraction] 39.9 % 37-47 [facility] Hemoglobin measurementOrdere d By: Benoit Krishnamurthy on 09-20-2024 Hemoglobin (Bld) [Mass/Vol] 13.8 g/dL 12.0-15.0 [facility] Immature granulocytes/100 WB C Auto (Bld)Ordered By: Benoit Krishnamurthy on 09-20-2024 Immature granulocytes/100 WBC (Bld) 0.500 % 0.0-0.9 [facility] Comment on above: IG% - Immature Granu locytes (promyelocytes, myelocytes and metamyelocytes) > 1% indicates that a LEFT SHIFT is Present. Lymphocytes Auto (Unsp spec) [#/Vol]Ordered By: Benoit Krishnamurthy on 09-20-2024 Lymphocytes (Bld) [#/Vol] 2.73 10*3/uL 0.83-4.51 [facility] Lymphocytes/100 WBC Auto (Un sp spec)Ordered By: Benoit Krishnamurthy on 09-20-2024 Lymphocytes/100 WBC (Bld) 25.0 % 19-41 [facility] MCV (mean corpuscular volume ) determinationOrdered By: Benoit Krishnamurthy on 09-20-2024 MCV (RBC) [Entitic vol] 86.6 fL 81-99 [facility] Magnesiumon 09-20-2024 Magnesium [Mass/Vol] 2.2 mg/dL Normal 1.6-2.6 [facility] Comment on above: Performed By: #### L 501.2300, L501.5200, L500.2500 #### [facility] [address] [place] [address], [address] Magnesium measurementOrdered By: Benoit Krishnamurthy on 09-20-2024 Magnesium [Mass/Vol] 2.2 mg/dL 1.6-2.6 [facility] Mean corpuscular hemoglobin (MCH) determinationOrdered By: Benoit Krishnamurthy on 09-20-2024 MCH (RBC) [Entitic mass] 29.9 pg 27.0-32.0 [facility] Mean corpuscular hemoglobin concentration (MCHC) determinationOrdered By: Benoit Krishnamurthy on 09-20-2024 MCHC (RBC) [Mass/Vol] 34.6 g/dL 32-36 [facility] Mean platelet volume determi nationOrdered By: Benoit Krishnamurthy on 09-20-2024 Platelet mean volume (Bld) [Entitic vol] 10.0 fL 6.2-12.0 [facility] Monocyte percentageOrdered B y: Benoit Krishnamurthy on 09-20-2024 Monocytes/100 WBC (Bld) 9.6 % 0-10 [facility] Neutrophil percentageOrdered By: Benoit Krishnamurthy on 09-20-2024 Neutrophils/100 WBC (Bld) 63.1 % 47-70 [facility] Nucleated red blood cell per centageOrdered By: Benoit Krishnamurthy on 09-20-2024 Nucleated RBC/100 WBC (Bld) [Ratio] 0 % 0-5 [facility] Platelet countOrdered By: Erika Krishnamurthy on 09-20-2024 Platelets (Bld) [#/Vol] 323 10*3/uL 150-450 [facility] Potassium measurementOrdered By: Benoit Krishnamurthy on 09-20-2024 Potassium [Moles/Vol] 3.8 mmol/L 3.5-5.1 [facility] RBC Auto (Bld) [#/Vol]Ordere d By: Benoit Krishnamurthy on 09-20-2024 RBC (Bld) [#/Vol] 4.61 10*6/uL 4.2-5.4 [facility] Serum anion gap measurementO rdered By: Benoit Krishnamurthy on 09-20-2024 Anion gap [Moles/Vol] 7 mmol/L 5-15 [facility] Serum or plasma calcium cheko urement (mass/volume)Ordered By: Benoit Krishnamurthy on 09-20-2024 Calcium [Mass/Vol] 9.7 mg/dL 8.5-10.1 [facility] Serum or plasma creatinine m easurement (mass/volume)Ordered By: Benoit Krishnamurthy on 09-20-2024 Creatinine [Mass/Vol] 0.76 mg/dL 0.55-1.02 [facility] Comment on above: The validity of the calculated GFR & GFRAA in patients over 70 years has not been determined. Clinical correlation is essential. Serum or plasma urea nitroge n measurement (mass/volume)Ordered By: Benoit Krishnamurthy on 09-20-2024 Urea nitrogen [Mass/Vol] 17 mg/dL 7-18 [facility] Sodium levelOrdered By: Benoit Krishnamurthy on 09-20-2024 Sodium [Moles/Vol] 135 mmol/L Low 136-145 [facility] White blood cell (WBC) count Ordered By: Benoit Krishnamurthy on 09-20-2024 WBC (Bld) [#/Vol] 10.9 10*3/uL 4.4-11.0 [facility] 12 Lead EKGon 09-14-2024 12 Lead EKG [facility] [address] [place] [address] 12 Lead EKG 09/14/24 0551 MR#: [id number] Acct: [id number] Name: BELEM ESTES Rep #: [id number] : 1945 79 From: Mohamud Canela MD Attending Dr: Dr. Emilie Enriquez DO Status: DIS I N Ordering Dr: Mohamud Canela MD Date: 09/14/24 Location: [facility] Sex: F C Admitted: 09/12/24 Test Reason : AM EKG Blood Pressure : */* mmHG Vent. Rate : 59 BPM Atrial Rate : 59 BPM P-R Int : 204 ms QRS Dur : 84 ms QT Int : 474 ms P-R-T Axes : 33 19 -1 degrees QTcB Int : 469 ms Sinus bradycardia Otherwise normal ECG When compared with ECG of 13-Sep-2024 08:07, No significant change was found Confirmed by Mohamud Canela ([id number]), makeup editor DIVINE DENIS ([id number]) on 09/15/2024 8:21:31 AM Referred By: Confirmed By: Mohamud Canela 09/15/24820 Date Mohamud Canela MD CC: Dr. Emilie Enriquez DO; Dr. Charlotte Stevenson DO; Dr. Mohamud Canela MD Signed Normal [facility] Partial Thromboplast Timeon 09-14-2024 aPTT Coag (Bld) [Time] 38.8 s High 24.1-36.2 [facility] Comment on above: Performed By: #### L 500.2500, L501.5425, L100.0100 #### [facility] [address] [place], [address] aPTT Coag (PPP) [Time]Ordere d By: Emilie Enriquez on 09-14-2024 aPTT Coag (Bld) [Time] 38.8 s High 24.1-36.2 [facility] 12 Lead EKGon 09-13-2024 12 Lead EKG [facility] [address] [place] [address] 12 Lead EKG 09/12/24 1207 MR#: [id number] Acct: [id number] Name: BELEM ESTES Rep #: [id number] : 1945 79 From: Mohamud Canela MD Attending Dr: Dr. Emilie Enriquez DO Status: ADM I N Ordering Dr: Mohamud Canela MD Date: 09/13/24 Location: [facility] Sex: F C Admitted: 09/12/24 Test Reason : RHYTHM CHANGE Blood Pressure : */* mmHG Vent. Rate : 58 BPM Atrial Rate : 58 BPM P-R Int : 200 ms QRS Dur : 74 ms QT Int : 458 ms P-R-T Axes : 22 10 -4 degrees QTcB Int : 449 ms Sinus bradycardia Possible Inferior infarct , age undetermined Abnormal ECG When compared with ECG of 12-Sep-2024 05:37, MANUAL COMPARISON REQUIRED DATA IS UNCONFIRMED Confirmed by Mohamud Canela ([id number]), makeup editor REY WEATHERS ([id number]) on 09/13/2024 1:11:11 PM Referred By: Confirmed By: Mohamud Canela 09/13/24 1311 Date Mohamud Canela MD CC: Dr. Emilie Enriquez DO; Dr. Charlotte Stevenson DO; Dr. Mohamud Canela MD Signed Normal [facility] Basic Metabolic Profile (BMP )on 09-13-2024 BUN/CRE 28.2 RATIO High 10-20 [facility] Comment on above: Performed By: #### L 501.2300, L501.5200, L500.2500 #### [facility] [address] [place], [address] CA,Total 9.6 mg/dL Normal 8.5-10.1 [facility] Comment on above: Performed By: #### L 501.2300, L501.5200, L500.2500 #### [facility] [address] [place], [address] Chloride [Moles/Vol] 107 mmol/L Normal 98-107 [facility] Comment on above: Performed By: #### L 501.2300, L501.5200, L500.2500 #### [facility] [address] [place], [address] CO2 [Moles/Vol] 22.0 mmol/L Normal 21.0-32.0 [facility] Comment on above: Performed By: #### L 501.2300, L501.5200, L500.2500 #### [facility] [address] [place], [address] Creatinine [Mass/Vol] 0.89 mg/dL Normal 0.55-1.02 [facility] Comment on above: Result Comment: The validity of the calculated GFR GFRAA in patients over 70 years has not been determined. Clinical correlation is essential. Performed By: #### L 501.2300, L501.5200, L500.2500 #### [facility] [address] [place], [address] ECRCL 54.12 ml/min Normal [facility] Comment on above: Performed By: #### L 501.2300, L501.5200, L500.2500 #### [facility] [address] [place], [address] EST GFR - AA 80 mL/min Normal >60 [facility] Comment on above: Result Comment: Afri can Faroese GFR Calc Performed By: #### L 501.2300, L501.5200, L500.2500 #### [facility] [address] [place], [address] GAP 8 Normal 5-15 [facility] Comment on above: Performed By: #### L 501.2300, L501.5200, L500.2500 #### [facility] [address] [place], [address] GFR/1.73 sq M.predicted among non-blacks MDRD (S/P/Bld) [Vol rate/Area] 66 mL/min/{1.73_m2} Normal >60 [facility] Comment on above: Result Comment: Non- GFR Calc Performed By: #### L 501.2300, L501.5200, L500.2500 #### [facility] [address] [place], [address] Glucose [Mass/Vol] 119 mg/dL High 74-106 [facility] Comment on above: Result Comment: Fast ing Glucose result from 100 to 125 mg/dL suggests IMPAIRED HOMEOSTASIS per A.D.A. criteria. Performed By: #### L 501.2300, L501.5200, L500.2500 #### [facility] [address] [place], [address] Potassium [Moles/Vol] 3.7 mmol/L Normal 3.5-5.1 [facility] Comment on above: Performed By: #### L 501.2300, L501.5200, L500.2500 #### [facility] [address] [place], [address] Sodium [Moles/Vol] 137 mmol/L Normal 136-145 [facility] Comment on above: Performed By: #### L 501.2300, L501.5200, L500.2500 #### [facility] [address] [place], [address] Urea nitrogen [Mass/Vol] 25 mg/dL High 7-18 [facility] Comment on above: Performed By: #### L 501.2300, L501.5200, L500.2500 #### [facility] [address] [place], [address] Blood urea nitrogen (BUN)/cr eatinine ratioOrdered By: Emilie Enriquez on 09-13-2024 Urea nitrogen/Creatinine [Mass ratio] 28.2 mg/mg High 10-20 [facility] Carbon dioxide measurementOr dered By: Emilie Enriquez on 09-13-2024 CO2 [Moles/Vol] 22.0 mmol/L 21.0-32.0 [facility] Chloride measurementOrdered By: Emilie Enriquez on 09-13-2024 Chloride [Moles/Vol] 107 mmol/L 98-107 [facility] Estimated glomerular filtrat ion rate (GFR) AmericanOrdered By: Emilie Enriquez on 09-13-2024 Estimated GFR (MDRD) Amer 80 mL/min >60 [facility] Comment on above: GFR Calc Estimation of creatinine dona aranceOrdered By: Emilie Enriquez on 09-13-2024 Estimated Creatinine Clearance Calc 54.12 ml/min [facility] Glomerular filtration rate ( GFR) estimationOrdered By: Emilie Enriquez on 09-13-2024 Estimated GFR (MDRD) Non-Af Amer 66 mL/min >60 [facility] Comment on above: Non- GFR Calc Glucose measurementOrdered B y: Emilie Enriquez on 09-13-2024 Glucose [Mass/Vol] 119 mg/dL High 74-106 [facility] Comment on above: Fasting Glucose resu lt from 100 to 125 mg/dL suggests IMPAIRED HOMEOSTASIS per A.D.A. criteria. Magnesiumon 09-13-2024 Magnesium [Mass/Vol] 2.0 mg/dL Normal 1.6-2.6 [facility] Comment on above: Performed By: #### L 501.2300, L501.5200, L500.2500 #### [facility] [address] [place], [place], [address] Magnesium measurementOrdered By: Emilie Enriquez on 09-13-2024 Magnesium [Mass/Vol] 2.0 mg/dL 1.6-2.6 [facility] Partial Thromboplast Timeon 09-13-2024 aPTT Coag (Bld) [Time] 64.8 s High 24.1-36.2 [facility] Comment on above: Performed By: #### L 500.2500, L501.5425, L100.0100 #### [facility] [address] [place], [place], [address] Phosphoruson 09-13-2024 Phosphate [Mass/Vol] 4.2 mg/dL Normal 2.5-4.9 [facility] Comment on above: Performed By: #### L 501.2300, L501.5200, L500.2500 #### [facility] [address] [place], [address] Phosphorus measurementOrdere d By: Emilie Enriquez on 09-13-2024 Phosphorus Level 4.2 mg/dL 2.5-4.9 [facility] Potassium measurementOrdered By: Emilie Enriquez on 09-13-2024 Potassium [Moles/Vol] 3.7 mmol/L 3.5-5.1 [facility] Serum anion gap measurementO rdered By: Emilie Enriquez on 09-13-2024 Anion gap [Moles/Vol] 8 mmol/L 5-15 [facility] Serum or plasma calcium cheko urement (mass/volume)Ordered By: Emilie Enriquez on 09-13-2024 Calcium [Mass/Vol] 9.6 mg/dL 8.5-10.1 [facility] Serum or plasma creatinine m easurement (mass/volume)Ordered By: Emilie Enriquez on 09-13-2024 Creatinine [Mass/Vol] 0.89 mg/dL 0.55-1.02 [facility] Comment on above: The validity of the calculated GFR & GFRAA in patients over 70 years has not been determined. Clinical correlation is essential. Serum or plasma urea nitroge n measurement (mass/volume)Ordered By: Emilie Enriquez on 09-13-2024 Urea nitrogen [Mass/Vol] 25 mg/dL High 7-18 [facility] Sodium levelOrdered By: Mary Enriquez on 09-13-2024 Sodium [Moles/Vol] 137 mmol/L 136-145 [facility] 12 Lead EKGon 09-12-2024 12 Lead EKG [facility] Services [address] [place] [address] 12 Lead EKG 09/12/24 0537 MR#: [id number] Acct: [id number] Name: BELEM ESTES ANN Rep #: [id number] : 1945 79 From: Mohamud Canela MD Attending Dr: Dr. Emilie Enriquez DO Status: ADM I N Ordering Dr: Misha Mchugh DO Date: 09/12/24 Location: [facility] Sex: F C Admitted: 09/12/24 Test Reason : TACHYCARDIA Blood Pressure : */* mmHG Vent. Rate : 141 BPM Atrial Rate : * BPM P-R Int : * ms QRS Dur : 72 ms QT Int : 316 ms P-R-T Axes : * 39 -47 degrees QTcB Int : 484 ms Critical Test Result: High HR Atrial fibrillation with rapid ventricular response Marked ST abnormality, possible inferior subendocardial injury Abnormal ECG Confirmed by Mohamud Canela ([id number]), makeup editor REY WEATHERS ([id number]) on 09/13/2024 11:38:53 AM Referred By: TL Confirmed By: Mohamud Canela 09/13/24 1138 Date Mohamud Canela MD CC: Dr. Emilie Enriquez DO; Dr. Charlotte Stevenson DO; Dr. Misha Mchugh DO Signed Normal [facility] Absolute neutrophil countOrd ered By: Misha Mchugh on 09-12-2024 Neutrophils (Bld) [#/Vol] 5.6 10*3/uL 2.0-7.7 [facility] Basic Metabolic Profile (BMP )on 09-12-2024 BUN/CRE 19.7 RATIO Normal 10-20 [facility] Comment on above: Order Comment: 1 Y Performed By: #### L 500.2500, L501.5425, L100.0100 #### [facility] [address] [place], [address] CA,Total 9.7 mg/dL Normal 8.5-10.1 [facility] Comment on above: Order Comment: 1 Y Performed By: #### L 500.2500, L501.5425, L100.0100 #### [facility] [address] [place], [address] Chloride [Moles/Vol] 105 mmol/L Normal 98-107 [facility] Comment on above: Order Comment: 1 Y Performed By: #### L 500.2500, L501.5425, L100.0100 #### [facility] [address] [place], [address] CO2 [Moles/Vol] 24.0 mmol/L Normal 21.0-32.0 [facility] Comment on above: Order Comment: 1 Y Performed By: #### L 500.2500, L501.5425, L100.0100 #### [facility] [address] [place], [address] Creatinine [Mass/Vol] 0.86 mg/dL Normal 0.55-1.02 [facility] Comment on above: Order Comment: 1 Y Result Comment: The validity of the calculated GFR GFRAA in patients over 70 years has not been determined. Clinical correlation is essential. Performed By: #### L 500.2500, L501.5425, L100.0100 #### [facility] [address] [place], [address] ECRCL 57.08 ml/min Normal [facility] Comment on above: Order Comment: 1 Y Performed By: #### L 500.2500, L501.5425, L100.0100 #### [facility] [address] [place], [address] EST GFR - AA 82 mL/min Normal >60 [facility] Comment on above: Order Comment: 1 Y Result Comment: Afri can Faroese GFR Calc Performed By: #### L 500.2500, L501.5425, L100.0100 #### [facility] [address] [place], [address] GAP 9 Normal 5-15 [facility] Comment on above: Order Comment: 1 Y Performed By: #### L 500.2500, L501.5425, L100.0100 #### [facility] [address] [place], [address] GFR/1.73 sq M.predicted among non-blacks MDRD (S/P/Bld) [Vol rate/Area] 68 mL/min/{1.73_m2} Normal >60 [facility] Comment on above: Order Comment: 1 Y Result Comment: Non- GFR Calc Performed By: #### L 500.2500, L501.5425, L100.0100 #### [facility] [address] [place], [address] Glucose [Mass/Vol] 138 mg/dL High 74-106 [facility] Comment on above: Order Comment: 1 Y Result Comment: Fast ing Glucose result greater than or equal to 126 mg/dL suggests DIABETES MELLITUS per A.D.A. criteria. Performed By: #### L 500.2500, L501.5425, L100.0100 #### [facility] [address] [place], [address] Potassium [Moles/Vol] 3.3 mmol/L Low 3.5-5.1 [facility] Comment on above: Order Comment: 1 Y Performed By: #### L 500.2500, L501.5425, L100.0100 #### [facility] [address] [place], [address] Sodium [Moles/Vol] 139 mmol/L Normal 136-145 [facility] Comment on above: Order Comment: 1 Y Performed By: #### L 500.2500, L501.5425, L100.0100 #### [facility] [address] [place], [address] Urea nitrogen [Mass/Vol] 17 mg/dL Normal 7-18 [facility] Comment on above: Order Comment: 1 Y Performed By: #### L 500.2500, L501.5425, L100.0100 #### [facility] [address] [place], [address] Basophil percentageOrdered B y: Misha Mchugh on 09-12-2024 Basophils/100 WBC (Bld) 0.4 % 0-1 [facility] CBC W/Diff, Automatedon Absolute Lymph 3.21 X10 3/uL Normal 0.83-4.51 [facility] Comment on above: Performed By: #### L 500.2500, L501.5425, L100.0100 #### [facility] [address] [place], [address] Absolute Neut 5.6 X10 3/uL Normal 2.0-7.7 [facility] Comment on above: Performed By: #### L 500.2500, L501.5425, L100.0100 #### [facility] [address] [place], [address] Basophils/100 WBC (Bld) 0.4 % Normal 0-1 [facility] Comment on above: Performed By: #### L 500.2500, L501.5425, L100.0100 #### [facility] [address] [place], [address] Eosinophils/100 WBC (Bld) 2.8 % Normal 0-5 [facility] Comment on above: Performed By: #### L 500.2500, L501.5425, L100.0100 #### [facility] [address] [place], [address] Erythrocyte distribution width (RBC) [Ratio] 12.4 % Normal 11.6-14.6 [facility] Comment on above: Performed By: #### L 500.2500, L501.5425, L100.0100 #### [facility] [address] [place], [address] Hematocrit (Bld) [Volume fraction] 41.2 % Normal 37-47 [facility] Comment on above: Performed By: #### L 500.2500, L501.5425, L100.0100 #### [facility] [address] [place], [address] Hemoglobin (Bld) [Mass/Vol] 14.4 g/dL Normal 12.0-15.0 [facility] Comment on above: Performed By: #### L 500.2500, L501.5425, L100.0100 #### [facility] [address] [place], [address] IG% 0.400 Normal 0.0-0.9 [facility] Comment on above: Result Comment: IG% - Immature Granulocytes (promyelocytes, myelocytes and metamyelocytes) > 1% indicates that a LEFT SHIFT is Present. Performed By: #### L 500.2500, L501.5425, L100.0100 #### [facility] [address] [place], [address] Lymphocytes/100 WBC (Bld) 31.8 % Normal 19-41 [facility] Comment on above: Performed By: #### L 500.2500, L501.5425, L100.0100 #### [facility] [address] [place], [address] MCH (RBC) [Entitic mass] 30.1 pg Normal 27.0-32.0 [facility] Comment on above: Performed By: #### L 500.2500, L501.5425, L100.0100 #### [facility] [address] [place], [address] MCHC (RBC) [Mass/Vol] 35.0 g/dL Normal 32-36 [facility] Comment on above: Performed By: #### L 500.2500, L501.5425, L100.0100 #### [facility] [address] [place], [address] MCV (RBC) [Entitic vol] 86.0 fL Normal 81-99 [facility] Comment on above: Performed By: #### L 500.2500, L501.5425, L100.0100 #### [facility] [address] [place], [address] Monocytes/100 WBC (Bld) 9.3 % Normal 0-10 [facility] Comment on above: Performed By: #### L 500.2500, L501.5425, L100.0100 #### [facility] [address] [place], [address] Neutrophils/100 WBC (Bld) 55.3 % Normal 47-70 [facility] Comment on above: Performed By: #### L 500.2500, L501.5425, L100.0100 #### [facility] [address] [place], [address] Nucleated RBC (Bld) [#/Vol] 0 10*3/uL Normal 0-5 [facility] Comment on above: Performed By: #### L 500.2500, L501.5425, L100.0100 #### [facility] [address] [place], [address] Platelet mean volume (Bld) [Entitic vol] 9.9 fL Normal 6.2-12.0 [facility] Comment on above: Performed By: #### L 500.2500, L501.5425, L100.0100 #### [facility] [address] [place], [address] Platelets (Bld) [#/Vol] 298 10*3/uL Normal 150-450 [facility] Comment on above: Performed By: #### L 500.2500, L501.5425, L100.0100 #### [facility] [address] [place], [address] RBC (Bld) [#/Vol] 4.79 10*6/uL Normal 4.2-5.4 [facility] Comment on above: Performed By: #### L 500.2500, L501.5425, L100.0100 #### [facility] [address] [place], [address] RDW SD 38.4 fl Normal 35.1-43.9 [facility] Comment on above: Performed By: #### L 500.2500, L501.5425, L100.0100 #### [facility] [address] [place], [address] WBC (Bld) [#/Vol] 10.1 10*3/uL Normal 4.4-11.0 [facility] Comment on above: Performed By: #### L 500.2500, L501.5425, L100.0100 #### [facility] [address] [place] [place], [address] Chest 1 View (Portable)on Chest 1 View (Portable) [facility] Imaging Services [address] [place] [address] Chest 1 View (Portable) MR#: [id number] Acct: [id number] Name: BELEM ESTES ANN Rep #: [id number] : 1945 F 79 From: Mohamud Manning PCP: Dr. Charlotte Stevenson DO Status: [facility] ER Study: Chest 1 View (Portable) Date of Exam: 09/12/24 Exam# [id number] Ordering Dr: Misha Mchugh DO 0:[id number] EXAM: XR CHEST, 1 VIEW CLINICAL INDICATION: chest pain TECHNIQUE: Frontal view of the chest. COMPARISON: 11/29/2022. FINDINGS: LUNGS AND PLEURAL SPACES: Unremarkable. No consolidation or edema. No pneumothorax. No effusion. HEART: Unremarkable. Cardiac silhouette not enlarged. MEDIASTINUM: Central airways and mediastinal contour are unremarkable. BONES/JOINTS: Unremarkable. No acute fracture. SOFT TISSUES: Unremarkable. RAD/Chest 1 View (Portable) IMPRESSION: No radiographic evidence of acute cardiopulmonary disease. Electronically Signed: Mohamud Tamez MD at 6:48 EST , CC: Dr. Charlotte Stevenson DO; Dr. Misha Mchugh DO [employer] Officer: Signed Normal [facility] Consultation - Cardiologyon 09-12-2024 Consultation - Cardiology [facility] Medical Records Department [address] [place] [address] Consultation - Cardiology 09/12/24 0929 MR#: [id number] Acct: [id number] Name: BELEM ESTES Rep #: [id number] : 1945 79 From: Mohamud Canela MD PCP: Dr. Charlotte Stevenson DO Status:ADM IN Location: [place] [id number] Assessment Plan Assessment/Plan (1) Sinus pause: PLAN: Patient's had episodes of sinus pauses up to 5 to 6 seconds when she converts from atrial fibs back to sinus rhythm. These are very symptomatic she becomes dizzy and lightheaded and extremely anxious. She has not had any linda syncope but she feels like if she was trying to stand up she probably would fall. The patient did receive IV Cardizem and additional dose of metoprolol in the emergency department this morning. Will need to have these wear off prior to making a definitive decision about pacing. (2) Paroxysmal atrial fibrillation: PLAN: Patient has a history of paroxysmal atrial fibrillation dating back to 2018. It has been very infrequent. She had 5 episodes in the month of July that prompted a reevaluation in the [place] [facility] office. An echocardiogram was done at that time which showed normal LV function EF in the 65% range. Both atria were of normal size there was no significant valvular heart disease. The patient has no previous history of valvular heart disease nor does she have a history of known coronary disease. I would recommend that we admit the patient to the hospital and monitor her closely as we institute therapy with flecainide starting with 100 mg twice daily to see if we can control the atrial fibrillation. I would hold the beta-denisse and calcium channel denisse at this time. Would discontinue oral anticoagulation and replace this with IV heparin in case the patient requires permanent pacing in the near future. (3) Essential hypertension: PLAN: Patient's blood pressure has been adequate controlled in her home environment is appropriately elevated given her anxiety provoking symptoms. (4) Hyperlipidemia: QUALIFIERS: Hyperlipidemia type: unspecified Qualified Code(s): E78.5 - Hyperlipidemia, unspecified PLAN: Patient's lipids have been treated with rosuvastatin this should be continued per the primary service. PLAN: Plan 1. Admit to progressive coronary care unit. 2. [place] flecainide 100 mg twice daily. Monitor closely for rate conduction issues. 3. Will allow washout of the rate modulating drugs metoprolol and diltiazem and if persistent sinus pauses would have to consider permanent pacemaker implantation. 4. Will require long-term oral anticoagulation. Would defer institution of Eliquis at this time in lieu of the need for potential permanent pacemaker implantation will anticoagulate with IV heparin. 5. Will follow-up closely with you. HPI Consult Data Date of Consult: 09/12/24 HPI Narrative Reason for Consultation: PAF with sinus pauses HPI Narrative: BELEM ESTES, is a 79 F who presents patient has a history of documented paroxysmal atrial fibrillation that occurred on a Holter monitor in July 2024. She has a [id number] score of 5 but had opted not to pursue oral anticoagulation therapy. The patient also has a history of mild to moderate carotid artery disease 50 to 69% stenosis bilaterally. The patient awoke at about 0430 hrs. this morning with a sensation of jitteriness and lightheadedness. She felt very anxious and came to the emergency department. She was documented to be in atrial fibrillation with a rapid ventricular response that spontaneously converted into a sinus rhythm. There was significant sinus pause due to sinus node recovery time and the patient's symptoms were reproduced at the time of the sinus pause the jitteriness the lightheadedness and the anxiousness. She then would stay in sinus rhythm for approximately 10 to 15 seconds and then revert back into atrial fibrillation. The patient was treated with IV diltiazem with not much change. An additional 50 mg of metoprolol tartrate was given orally. It appears that this only increase the sinus node recovery time and did not control the atrial fibrillation. The patient continues to have intermittent conversions from atrial fibs to sinus rhythm and back. The patient's history is consistent with a recent sinus congestion with which she took a new antihistamine. Other than that she has had no change in her medications denies any shortness of breath has not had any long trips denies any chest discomfort. Cardiac isoenzymes were negative x 2 sets on this admission. The patient has never been on antiarrhythmic therapy. The patient did receive Eliquis 5 mg orally as a one-time dose in the emergency department. But she continues to be profoundly symptomatic as she flips back and forth between atrial fibrillation and sinus bradycardia at 50 to 55 bpm. (more content not included)... Normal [facility] Emergency Department Summary on 09-12-2024 Emergency Department Summary [facility] Medical Records Department [address] [place] [address] Emergency Department Summary 09/12/24 MR#: [id number] Acct: [id number] Name: BELEM ESTES Rep #: [id number] : 1945 79 From: Misha Hall PCP: Dr. Charlotte Stevenson DO Status:REG ER Location: ED ADDENDUM by Dr. Dangelo Mcdonough MD on 09/12/24 at 0827 Patient turned over to me at around 7:30 AM. In the emergency department currently for recurrent A- fib RVR. Currently she is on a Cardizem drip at a rate of 5 mg. Show periods where she is bradycardic in the 50s. Other times where she is A-fib RVR in the 130 range. Currently she is A- fib RVR rate of 131. And other times will show have sinus pauses with lightheadedness. Initially they were hoping to get the patient feeling better and her rate controlled and allow her to go home but I do not think it is going to be the case. Hospitalist is on page for admission. I discussed patient's test results with both her and her at bedside. 09/12/24 08 Cosigner Signature (if applicable): cc: Dr. Charlotte Stevenson DO * Signed HPI History of Present Illness Chief Complaint: Palpitations Informant: patient and spouse/S.O. Narrative Narrative: Recurrent palpitations awaken at 4:30 in the morning lightheaded symptoms. States sometimes will feel some chest tightness with the palpitations. No recent cough. No recent vomiting or diarrhea. Denies tobacco history. Triage EKG returning A-fib with RVR. Discussed with the patient she states recently started on metoprolol she takes in the evenings. She is followed by cardiology. She only takes a baby aspirin at this time. Hypertension, hyperlipidemia, prediabetes history. No stroke history. History of carotid disease. She took her metoprolol last night. Prior similar symptoms: Yes PFSH [facility] Medical History Paroxysmal atrial fibrillation Essential hypertension Reactive airway disease Osteopenia Bilateral carotid artery stenosis Hyperlipidemia Atrial fibrillation with rapid ventricular response (03/21/18) Home Medications ???Medication ???Instructions ???Recorded ???Last Taken ???Type lisinopril 20 mg tablet 20 mg PO BID 03/20/18 Unknown History yawgxqte-zto-kecft acid 0.4 1 ea PO DAILY 03/20/18 Unknown History mg-lycopene 300 mcg-lutein 250 mcg tablet cranberry 500 mg capsule 2,000 mg PO DAILY 04/05/18 Unknown History metronidazole 0.75 % topical gel 1 applic topical .COMPLEX 12/01/18 Unknown History hydrochlorothiazide 12.5 mg tablet 12.5 mg PO DAILY #90 tabs 01/09/21 Unknown Rx pantoprazole 40 mg tablet,delayed 40 mg PO DAILY 09/11/22 Unknown History release rosuvastatin 10 mg tablet 10 mg PO DAILY 07/20/23 Unknown History aspirin 81 mg tablet,delayed 81 mg PO 3XW 07/12/24 Unknown History release (Adult Aspirin Regimen) montelukast 10 mg tablet 10 mg PO QDAY PRN 07/12/24 Unknown History metoprolol succinate 25 mg 25 mg PO DAILY #30 tabs 08/07/24 Unknown Rx tablet,extended release 24 hr Allergy/AdvReac Type Severity Reaction Status Date / Time ciprofloxacin (From Cipro) Allergy Other Verified 09/12/24 05:30 fluorescein Allergy Anaphylaxis Verified 09/12/24 05:30 lactose Allergy Upset Verified 09/12/24 05:30 Stomach nitrofurantoin Allergy Other Verified 09/12/24 05:30 Sulfa (Sulfonamide Allergy Rash Verified 09/12/24 05:30 Antibiotics) aspirin AdvReac Other Verified 09/12/24 05:30 Family History Father Diabetes Hypertension Brother Diabetes Hypertension Brother Heart disease irregular heart beat w/ PPM Surgical History H/O breast biopsy H/O hemorrhoidectomy History of partial hysterectomy Hx of cholecystectomy History of tonsillectomy History of cataract surgery Social History household members: spouse Smoking Status: Never smoker alcohol intake: never substance use type: does not use caffeine: No ROS ROS ED Constitutional Constitutional ED: Denies chills, fever(s) or sweats Eyes Eyes: Denies change in vision ENT ENT ED: Denies dysphagia or sore throat Cardiovascular Cardiovascular: Reports palpitations and racing heartbeat; Denies chest pain or leg edema Respiratory/Chest Respiratory/Chest: Denies cough, dyspnea or dyspnea on exertion Gastrointestinal Gastrointestinal: Denies abdominal pain, diarrhea, nausea or vomiting Genitourinary Genitourinary ED: Denies dysuria, hematuria or urinary frequency Musculoskeletal Musculoskeletal: Denies back pain, extremity pain or neck pain Integumentary Denies rash or wounds Neurologic Neurologic: Denies headache(s), paresthesias or weakness EXAM Physical (more content not included)... Normal [facility] Eosinophil percentageOrdered By: Misha Mchugh on 09-12-2024 Eosinophils/100 WBC (Bld) 2.8 % 0-5 [facility] Erythrocyte distribution wid th ratioOrdered By: Misha Mchugh on 09-12-2024 Erythrocyte distribution width (RBC) [Ratio] 12.4 % 11.6-14.6 [facility] Erythrocyte distribution wid th standard deviationOrdered By: Misha Mchugh on 09-12-2024 Erythrocyte distribution width (RBC) [Entitic vol] 38.4 fL 35.1-43.9 [facility] H AND P Exam - Hospital[place] 09-12-2024 H&P Exam - Hospitalist [facility] Medical Records Department [address] [place] [address] H P Exam - Hospitalist 09/12/24 0838 MR#: [id number] Acct: [id number] Name: BELEM ESTES ANN Rep #: [id number] : 1945 79 From: Emilie Enriquez DO PCP: Dr. Charlotte Stevenson DO Status:ADM IN Location: [facility] [id number] HPI - General General Date of Admission: 09/12/24 Date of Service: 09/12/24 Chief Complaint: Palpitations HPI Narrative BELEM ESTES, is a 79 F who presented to the emergency department [facility] on [place] 03/27/2024 in the morning due to palpitation she was having at home. She stated that she was awakened from sleep due to palpitations. She does have a known history of atrial fibrillation and takes metoprolol 25 mg daily at home for this. She had elected to not be on anticoagulation previously. Her SIL7EP2-DSZb score is 5. She also has a history of moderate carotid artery disease with 50 to 69% stenosis bilaterally. Patient reported that she woke up between 4 and 430 this morning at which time she had a sensation of anxiety and lightheadedness. She felt very anxious and felt palpitations so decided to come to the emergency department. Upon presentation she was found to be in A-fib with RVR and then spontaneously converted into normal sinus rhythm. She ultimately was treated with 3 doses of metoprolol to IV and 1 oral 50 mg dose and then was placed on a Cardizem drip due to persistent intermittent A-fib. Following the administration of beta-denisse and calcium channel denisse she had some sinus pauses due to likely related to her sinus node recovery time being prolonged which made her more anxious and jittery. Vital signs on presentation showed a temperature of 98, heart rate was 140, respiratory was 19, blood pressure was 176/105, and pulse ox was 100% on room air. CBC was unremarkable. Coags were unremarkable. Chemistry panel showed mild hypokalemia with potassium of 3.3 but was otherwise unremarkable other than a nonfasting glucose of 138. Initial troponin was 53 with a delta troponin of 66. EKG was consistent with A-fib with RVR. Chest x-ray was unremarkable. She did have a recent TSH on 07/12/2024 at which time was 1.04. Given her symptoms on presentation and intermittent sinus node pauses due to prolonged recovery time with medications and ongoing intermittent atrial fibrillation the case was discussed with cardiology and they did recommend admission for evaluation and consideration for pacemaker. If her sinus node pauses do not improve despite the wearing off of beta-blockade and calcium channel blockade pacemaker will need to be considered. [facility] Medical History Paroxysmal atrial fibrillation Essential hypertension Reactive airway disease Osteopenia Bilateral carotid artery stenosis Hyperlipidemia Atrial fibrillation with rapid ventricular response (03/21/18) Home Medications ???Medication ???Instructions ???Recorded ???Last Taken ???Type lisinopril 20 mg tablet 20 mg PO BID blood pressu 03/20/18 Unknown History cimufxkt-mki-fymmj acid 0.4 1 ea PO DAILY suppliment 03/20/18 Unknown History mg-lycopene 300 mcg-lutein 250 mcg tablet cranberry 500 mg capsule 2,000 mg PO DAILY suppliment 04/05/18 Unknown History metronidazole 0.75 % topical gel 1 applic topical PRN rash 12/01/18 Unknown History hydrochlorothiazide 12.5 mg tablet 12.5 mg PO DAILY bp #90 tabs 01/09/21 Unknown Rx pantoprazole 40 mg tablet,delayed 40 mg PO DAILY reflux 09/11/22 Unknown History release rosuvastatin 10 mg tablet 10 mg PO DAILY cholesterol 07/20/23 Unknown History aspirin 81 mg tablet,delayed 81 mg PO DAILY preventative 07/12/24 Unknown History release (Adult Aspirin Regimen) montelukast 10 mg tablet 10 mg PO QDAY PRN allergies 07/12/24 09/11/24 History metoprolol succinate 25 mg 25 mg PO QHS heart #90 tabs 09/12/24 Unknown Rx tablet,extended release 24 hr Allergy/AdvReac Type Severity Reaction Status Date / Time ciprofloxacin (From Cipro) Allergy Other Verified 09/12/24 05:30 fluorescein Allergy Anaphylaxis Verified 09/12/24 05:30 lactose Allergy Upset Verified 09/12/24 05:30 Stomach nitrofurantoin Allergy Other Verified 09/12/24 05:30 Sulfa (Sulfonamide Allergy Rash Verified 09/12/24 05:30 Antibiotics) aspirin AdvReac Other Verified 09/12/24 05:30 Family History Father Diabetes Hypertension Brother Diabetes Hypertension Brother Heart disease irregular heart beat w/ PPM Surgical History H/O breast biopsy H/O hemorrhoidectomy History of partial hysterectomy Hx of cholecystectomy History of tonsillectomy History of cataract surgery Social History ... Normal [facility] Hematocrit Auto (Bld) [Volum e fraction]Ordered By: Misha Mchugh on 09-12-2024 Hematocrit (Bld) [Volume fraction] 41.2 % 37-47 [facility] Hemoglobin measurementOrdere d By: Misha Mchugh on 09-12-2024 Hemoglobin (Bld) [Mass/Vol] 14.4 g/dL 12.0-15.0 [facility] Immature granulocytes/100 WB C Auto (Bld)Ordered By: Misha Mchugh on 09-12-2024 Immature granulocytes/100 WBC (Bld) 0.400 % 0.0-0.9 [facility] Comment on above: IG% - Immature Granu locytes (promyelocytes, myelocytes and metamyelocytes) > 1% indicates that a LEFT SHIFT is Present. International normalized rat io (INR) calculationOrdered By: Emilie Enriquez on 09-12-2024 INR Coag (Bld) [Relative time] 1.1 {INR} [facility] L501.4020on 09-12-2024 TROPONIN-I HS 64 pg/mL High 3.0-54.0 [facility] Comment on above: Order Comment: 1 Y Result Comment: Plea se Note: New Test Units and Gender Specific Reference Ranges. For more information see Policy Stat Procedure [place] High Sensitivity Troponin (TNIH) and attachments. Performed By: #### L 500.2500, L501.5425, L100.0100 #### [facility] [address] [place], [address] TROPONIN-I HS 66 pg/mL High 3.0-54.0 [facility] Comment on above: Result Comment: Plea se Note: New Test Units and Gender Specific Reference Ranges. For more information see Policy Stat Procedure [place] High Sensitivity Troponin (TNIH) and attachments. Performed By: #### L 501.4020 #### [facility] [address] [place], [address] L501.5425on 09-12-2024 TROPONIN-I HS 53 pg/mL Normal 3.0-54.0 [facility] Comment on above: Order Comment: 1 Y Result Comment: Kodak orozco Note: New Test Units and Gender Specific Reference Ranges. For more information see Policy Stat Procedure [place] High Sensitivity Troponin (TNIH) and attachments. Performed By: #### L 500.2500, L501.5425, L100.0100 #### [facility] [address] [place], [address] Lymphocytes Auto (Unsp spec) [#/Vol]Ordered By: Misha Mchugh on 09-12-2024 Lymphocytes (Bld) [#/Vol] 3.21 10*3/uL 0.83-4.51 [facility] Lymphocytes/100 WBC Auto (Un sp spec)Ordered By: Misha Mchugh on 09-12-2024 Lymphocytes/100 WBC (Bld) 31.8 % 19-41 [facility] MCV (mean corpuscular volume ) determinationOrdered By: Misha Mchugh on 09-12-2024 MCV (RBC) [Entitic vol] 86.0 fL 81-99 [facility] Mean corpuscular hemoglobin (MCH) determinationOrdered By: Misha Mchugh on 09-12-2024 MCH (RBC) [Entitic mass] 30.1 pg 27.0-32.0 [facility] Mean corpuscular hemoglobin concentration (MCHC) determinationOrdered By: Misha Mchugh on 09-12-2024 MCHC (RBC) [Mass/Vol] 35.0 g/dL 32-36 [facility] Mean platelet volume determi nationOrdered By: Misha Mchugh on 09-12-2024 Platelet mean volume (Bld) [Entitic vol] 9.9 fL 6.2-12.0 [facility] Monocyte percentageOrdered B y: Misha Mchugh on 09-12-2024 Monocytes/100 WBC (Bld) 9.3 % 0-10 [facility] Neutrophil percentageOrdered By: Misha Mchugh on 09-12-2024 Neutrophils/100 WBC (Bld) 55.3 % 47-70 [facility] Nucleated red blood cell per centageOrdered By: Misha Mchugh on 09-12-2024 Nucleated RBC/100 WBC (Bld) [Ratio] 0 % 0-5 [facility] Partial Thromboplast Timeon 09-12-2024 aPTT Coag (Bld) [Time] 64.1 s High 24.1-36.2 [facility] Comment on above: Performed By: #### L 500.2500, L501.5425, L100.0100 #### [facility] [address] [place], [address] aPTT Coag (Bld) [Time] 54.9 s High 24.1-36.2 [facility] Comment on above: Performed By: #### L 500.2500, L501.5425, L100.0100 #### [facility] [address] [place], [address] aPTT Coag (Bld) [Time] 32.0 s Normal 24.1-36.2 [facility] Comment on above: Performed By: #### L 501.2300, L501.5200, L500.2500 #### [facility] [address] [place], [address] Platelet countOrdered By: Shade Mchugh on 09-12-2024 Platelets (Bld) [#/Vol] 298 10*3/uL 150-450 [facility] Prothrombin Time w/INRon INR Coag (PPP) [Relative time] 1.1 {INR} Normal [facility] Comment on above: Performed By: #### L 501.2300, L501.5200, L500.2500 #### [facility] [address] [place], [address] PT Coag (PPP) [Time] 13.8 s Normal 11.7-14.9 [facility] Comment on above: Performed By: #### L 501.2300, L501.5200, L500.2500 #### [facility] [address] [place], [address] Prothrombin timeOrdered By: Emilie Enriquez on 09-12-2024 PT Coag (PPP) [Time] 13.8 s 11.7-14.9 [facility] RBC Auto (Bld) [#/Vol]Ordere d By: Misha Le on 09-12-2024 RBC (Bld) [#/Vol] 4.79 10*6/uL 4.2-5.4 [facility] Troponin IOrdered By: Perfecto Enriquez on 09-12-2024 Troponin I High Sensitivity 64 pg/mL High 3.0-54.0 [facility] Comment on above: Please Note: New Erika t Units and Gender Specific Reference Ranges. For more information see Policy Stat Procedure [place] High Sensitivity Troponin (TNIH) and attachments. White blood cell (WBC) count Ordered By: Misha Le on 09-12-2024 WBC (Bld) [#/Vol] 10.1 10*3/uL 4.4-11.0 [facility] Echo Complete W/ Contraston 08-07-2024 Echo Complete W/ Contrast [facility] [address] [place] [address] Echo Complete W/ Contrast 08/07/24 1256 MR#: [id number] Acct: [id number] Name: BELEM ESTES ANN Rep #: [id number] : 1945 79 From: Lasha Lr MD Attending Dr: Benoit Krishnamurthy, SEGMENTAL PAVER INSTALLER-C Status: REG CLI Ordering Dr: Benoit Krishnamurthy SEGMENTAL PAVER INSTALLER SEGMENTAL PAVER INSTALLER-C Date: 08/07/24 Location: [facility] Sex: F C Admitted: Reason For Study: ATRIAL FIBRILLATION Procedure This was a 2D Doppler, Color Flow transthoracic echocardiogram. The study was technically difficult. Contrast injection was performed. Exam performed in department. Left Ventricle Normal LV size. Mild concentric left ventricular hypertrophy. Left ventricular systolic function is normal. The left ventricular ejection fraction is 65 %. No regional wall motion abnormalities noted. Right Ventricle Normal RV size. Normal systolic function. Mitral Valve There is mild to moderate mitral annular calcification. Tricuspid Valve Normal tricuspid valve. Mild (1+) tricuspid valve insufficiency. Pulmonary artery systolic pressure is 24 mmHg. Aortic Valve Trisinus/trileaflet aortic valve. Mild focal aortic valve calcification. Pulmonic Valve Normal pulmonic valve. Great Vessels Normal aortic root. The pulmonary artery is normal size. Normal inferior vena cava. Pericardium/Pleural No pericardial effusion. Medication 22 gauge I.V. with prn adaptor inserted into right arm. Diluted definity 2ml given slow IV push to enhance endocardial definition. MMode/2D Measurements Calculations LVIDd: 3.3 cm IVSd: 1.4 cm LAV(MOD-bp): 41.8 ml LVIDs: 1.8 cm LVPWd: 1.2 cm LAV(MOD-bp) Indexed: 22.4 ml/m2 FS: 45.6 % LAV(MOD-sp2): 37.4 ml LAV(MOD-sp4): 46.8 ml SV(MOD-sp4): 65.3 ml LVAd ap4: 28.7 cm2 LVAd ap2: 28.8 cm2 LVLd ap4: 8.0 cm LVLd ap2: 7.8 cm EDV(MOD-sp4): 83.0 ml EDV(MOD-sp2): 85.0 ml EDV(sp4-el): 87.3 ml EDV(sp2-el): 90.2 ml LVAs ap4: 11.0 cm2 LVAs ap2: 15.9 cm2 LVLs ap4: 5.8 cm LVLs ap2: 6.8 cm ESV(MOD-sp4): 17.6 ml ESV(MOD-sp2): 32.0 ml ESV(sp4-el): 17.7 ml ESV(sp2-el): 31.6 ml EF(MOD-sp4): 78.7 % EF(MOD-sp2): 62.4 % EF(sp4-el): 79.7 % SV(MOD-sp2): 53.0 ml SV(sp4-el): 69.6 ml Ao sinus diam: 3.[address] Junction: 2.4 cm LA A4 area: 17.7 cm2 LA dimension(2D): 3.6 cm TAPSE: 2.0 cm RA A4 area: 9.9 cm2 Doppler Measurements Calculations Lat Peak E' Morgan: 11.1 cm/sec Med Peak E' Morgan: 6.7 cm/sec LV V1 max: 130.0 cm/sec LV V1 max P.8 mmHg LV V1 mean P.8 mmHg LV V1 mean: 91.5 cm/sec LV V1 VTI: 28.9 cm TV V2 max: 230.6 cm/sec TV max P.3 mmHg ECHO/Echo Complete W/ Contrast Interpretation Summary Normal LV size. Left ventricular systolic function is normal. The left ventricular ejection fraction is 65 %. Mild concentric left ventricular hypertrophy. Contrast injection was performed. Ordering Physician: Benoit Krishnamurthy Referring Physician: Charlotte Stevensno Performed By: Jeannette You RDCS and Student 08/07/241533 Date Lasha Lr MD CC: SEGMENTAL PAVER INSTALLER-C Benoit Krishnamurthy; Dr. Charlotte Stevenson, Date Dictated: 08/07/24 1256 Date Transcribed: 08/07/241533 [employer] Officer: Signed Normal [facility] CBC W/Diff, Automatedon 09-0 -2023 Absolute Lymph 2.55 X10 3/uL Normal 0.83-4.51 [facility] Comment on above: Performed By: #### L 501.2300, L501.5200, L500.2500 #### [facility] [address] [place], [address] Absolute Neut 6.3 X10 3/uL Normal 2.0-7.7 [facility] Comment on above: Performed By: #### L 501.2300, L501.5200, L500.2500 #### [facility] [address] [place], [address] Basophils/100 WBC (Bld) 0.4 % Normal 0-1 [facility] Comment on above: Performed By: #### L 501.2300, L501.5200, L500.2500 #### [facility] [address] [place], [address] Eosinophils/100 WBC (Bld) 1.7 % Normal 0-5 [facility] Comment on above: Performed By: #### L 501.2300, L501.5200, L500.2500 #### [facility] [address] [place], [address] Erythrocyte distribution width (RBC) [Ratio] 12.0 % Normal 11.6-14.6 [facility] Comment on above: Performed By: #### L 501.2300, L501.5200, L500.2500 #### [facility] [address] [place], [address] Hematocrit (Bld) [Volume fraction] 42.4 % Normal 37-47 [facility] Comment on above: Performed By: #### L 501.2300, L501.5200, L500.2500 #### [facility] [address] [place], [address] Hemoglobin (Bld) [Mass/Vol] 14.2 g/dL Normal 12.0-15.0 [facility] Comment on above: Performed By: #### L 501.2300, L501.5200, L500.2500 #### [facility] [address] [place], [address] IG% 0.300 Normal 0.0-0.9 [facility] Comment on above: Result Comment: IG% - Immature Granulocytes (promyelocytes, myelocytes and metamyelocytes) > 1% indicates that a LEFT SHIFT is Present. Performed By: #### L 501.2300, L501.5200, L500.2500 #### [facility] [address] [place], [address] Lymphocytes/100 WBC (Bld) 25.1 % Normal 19-41 [facility] Comment on above: Performed By: #### L 501.2300, L501.5200, L500.2500 #### [facility] [address] [place], [address] MCH (RBC) [Entitic mass] 29.3 pg Normal 27.0-32.0 [facility] Comment on above: Performed By: #### L 501.2300, L501.5200, L500.2500 #### [facility] [address] [place], [address] MCHC (RBC) [Mass/Vol] 33.5 g/dL Normal 32-36 [facility] Comment on above: Performed By: #### L 501.2300, L501.5200, L500.2500 #### [facility] [address] [place], [address] MCV (RBC) [Entitic vol] 87.6 fL Normal 81-99 [facility] Comment on above: Performed By: #### L 501.2300, L501.5200, L500.2500 #### [facility] [address] [place], [address] Monocytes/100 WBC (Bld) 10.3 % High 0-10 [facility] Comment on above: Performed By: #### L 501.2300, L501.5200, L500.2500 #### [facility] [address] [place], [address] Neutrophils/100 WBC (Bld) 62.2 % Normal 47-70 [facility] Comment on above: Performed By: #### L 501.2300, L501.5200, L500.2500 #### [facility] [address] [place], [address] Nucleated RBC (Bld) [#/Vol] 0 10*3/uL Normal 0-5 [facility] Comment on above: Performed By: #### L 501.2300, L501.5200, L500.2500 #### [facility] [address] [place], [address] Platelet mean volume (Bld) [Entitic vol] 10.1 fL Normal 6.2-12.0 [facility] Comment on above: Performed By: #### L 501.2300, L501.5200, L500.2500 #### [facility] [address] [place], [address] Platelets (Bld) [#/Vol] 323 10*3/uL Normal 150-450 [facility] Comment on above: Performed By: #### L 501.2300, L501.5200, L500.2500 #### [facility] [address] [place], [address] RBC (Bld) [#/Vol] 4.84 10*6/uL Normal 4.2-5.4 [facility] Comment on above: Performed By: #### L 501.2300, L501.5200, L500.2500 #### [facility] [address] [place], [address] RDW SD 38.6 fl Normal 35.1-43.9 [facility] Comment on above: Performed By: #### L 501.2300, L501.5200, L500.2500 #### [facility] [address] [place], [address] WBC (Bld) [#/Vol] 10.2 10*3/uL Normal 4.4-11.0 [facility] Comment on above: Performed By: #### L 501.2300, L501.5200, L500.2500 #### [facility] [address] [place], [address] Cardiology Visit Reporton Cardiology Visit Report [facility] [address] [place] [address] OFFICE VISIT Date of Service: 07/12/24 MR#: [id number] Acct: [id number] Name: BELEM ESTES ANN Rep #: [id number] : 1945 Provider: JUANY esquivel Age/Sex: 79/F Location: [facility] [place] Status: Signed [facility] HPI History of Present Illness Details: This is a 79-year-old white female who presents today for outpatient cardiovascular follow-up visit. She has a history of paroxysmal atrial fibrillation, carotid artery stenosis, hyperlipidemia, and hypertension. She denies chest, arm, jaw, or neck discomfort. She acknowledges 5 episodes of palpitations over the last month. She describes this as fast and associate with chest tightness and generalized weakness. She states at 1 point her heart is 150 bpm for 1 hour. She denies bilateral lower extremity edema. She denies claudication. She denies shortness of breath with activity, shortness of breath at rest, orthopnea, or PND. She denies chronic cough. She denies significant, sudden weight gain. She denies lightheadedness, dizziness, near-syncope, or syncope. She denies blood in urine, blood in stool, or epistaxis. He denies fever with chills. She denies myalgia. She denies fatigue. Her exercise level has remained stable. 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 Accompanied by: Allergies ciprofloxacin (From Cipro) Allergy (Verified 07/20/23 10:04) Other fluorescein Allergy (Verified 07/20/23 10:04) Anaphylaxis lactose Allergy (Verified 07/20/23 10:04) Upset Stomach nitrofurantoin Allergy (Verified 07/20/23 10:04) Other Sulfa (Sulfonamide Antibiotics) Allergy (Verified 07/20/23 10:04) Rash aspirin Adverse Reaction (Verified 07/20/23 10:04) Other Medications ???Medication ???Instructions ???Recorded ???Confirmed ???Type lisinopril 20 mg tablet 20 mg PO BID 03/20/18 07/12/24 History tfphozyf-hmh-xdsuy acid 0.4 1 ea PO DAILY 03/20/18 07/12/24 History mg-lycopene 300 mcg-lutein 250 mcg tablet cranberry 500 mg capsule 2,000 mg PO DAILY 04/05/18 07/12/24 History metronidazole 0.75 % topical gel 1 applic topical .COMPLEX 12/01/18 07/12/24 History hydrochlorothiazide 12.5 mg tablet 12.5 mg PO DAILY #90 tabs 01/09/21 07/12/24 Rx pantoprazole 40 mg tablet,delayed 40 mg PO DAILY 09/11/22 07/12/24 History release rosuvastatin 10 mg tablet 10 mg PO DAILY 07/20/23 07/12/24 History aspirin 81 mg tablet,delayed 81 mg PO 3XW 07/12/24 07/12/24 History release (Adult Aspirin Regimen) montelukast 10 mg tablet 10 mg PO QDAY PRN 07/12/24 07/12/24 History Ejection fraction %: 70 Have you fallen in the past year?: No PFSH Medical History (Reviewed 07/12/24 @ 11:01 by Benoit Krishnamurthy SEGMENTAL PAVER INSTALLER, SEGMENTAL PAVER INSTALLER-C) Paroxysmal atrial fibrillation Essential hypertension Reactive airway disease Osteopenia Bilateral carotid artery stenosis Hyperlipidemia Atrial fibrillation with rapid ventricular response (03/21/18) Surgical History (Reviewed 07/12/24 @ 11:01 by Benoit Krishnamurthy SEGMENTAL PAVER INSTALLER, SEGMENTAL PAVER INSTALLER-C) H/O breast biopsy H/O hemorrhoidectomy History of partial hysterectomy Hx of cholecystectomy History of tonsillectomy History of cataract surgery Family History Father Diabetes Hypertension Brother Diabetes Hypertension Brother Heart disease irregular heart beat w/ PPM Social History household members: spouse Smoking Status: Never smoker alcohol intake: never substance use type: does not use caffeine: No ROS Const Const: Positive for weakness (generalized on days with tachycardia); Negative for fatigue Eyes Eyes: Negative for change in vision ENT ENT: Negative for dizziness, Nosebleed/epistaxis or balance problems Cardio Chest Pain: No Palpitations: Yes (5 times in the last month) feels like its: fast (150 bpm, last about an hour. Does have chest tightness) Edema: None Muscle aches with walking: None Resp Respiratory: Negative for SOB with activity, SOB at rest, SOB orthopnea SOB lying down, Cough or paroxysmal nocturnal dyspnea GI GI: Negative nausea, heartburn or black,tarry stools : Negative for hematuria Musc Musc: Negative for muscle aches/ myalgia, muscle weakness, joint pain or balance problems Skin Skin: Negative rash Neuro Neuro: Positive for weakness (generalized on days with tachycardia); Negative for dizziness, lightheadedness, near syncope or syncope Jevon Hematologic/Lymphatic: Negative for easy bleeding o (more content not included)... Normal [facility] Comprehensive Metabolic Prof ilon 07-12-2024 Albumin [Mass/Vol] 4.0 g/dL Normal 3.2-5.0 [facility] Comment on above: Performed By: #### L 501.2300, L501.5200, L500.2500 #### [facility] [address] [place], [address] Albumin/Globulin [Mass ratio] 0.9 {ratio} Normal 0.9-2.4 [facility] Comment on above: Performed By: #### L 501.2300, L501.5200, L500.2500 #### [facility] [address] [place], [address] ALK P 104 U/L Normal 45-117 [facility] Comment on above: Performed By: #### L 501.2300, L501.5200, L500.2500 #### [facility] [address] [place], [address] ALT [Catalytic activity/Vol] 39 U/L Normal 13-56 [facility] Comment on above: Performed By: #### L 501.2300, L501.5200, L500.2500 #### [facility] [address] [place], [address] AST [Catalytic activity/Vol] 31 U/L Normal 15-37 [facility] Comment on above: Performed By: #### L 501.2300, L501.5200, L500.2500 #### [facility] [address] [place], [address] Bilirubin [Mass/Vol] 0.50 mg/dL Normal 0.20-1.00 [facility] Comment on above: Result Comment: For patients on eltrombopag therapy, use of Dimension [place] TBIL is not recommended. Performed By: #### L 501.2300, L501.5200, L500.2500 #### [facility] [address] [place], [address] BUN/CRE 22.1 RATIO High 10-20 [facility] Comment on above: Performed By: #### L 501.2300, L501.5200, L500.2500 #### [facility] [address] [place], [address] CA,Total 10.0 mg/dL Normal 8.5-10.1 [facility] Comment on above: Performed By: #### L 501.2300, L501.5200, L500.2500 #### [facility] [address] [place], [address] Chloride [Moles/Vol] 103 mmol/L Normal 98-107 [facility] Comment on above: Performed By: #### L 501.2300, L501.5200, L500.2500 #### [facility] [address] [place], [address] CO2 [Moles/Vol] 27.0 mmol/L Normal 21.0-32.0 [facility] Comment on above: Performed By: #### L 501.2300, L501.5200, L500.2500 #### [facility] [address] [place], [address] Creatinine [Mass/Vol] 0.82 mg/dL Normal 0.55-1.02 [facility] Comment on above: Result Comment: The validity of the calculated GFR GFRAA in patients over 70 years has not been determined. Clinical correlation is essential. Performed By: #### L 501.2300, L501.5200, L500.2500 #### [facility] [address] [place], [address] EST GFR - AA 87 mL/min Normal >60 [facility] Comment on above: Result Comment: Afri can Faroese GFR Calc Performed By: #### L 501.2300, L501.5200, L500.2500 #### [facility] [address] [place], [address] GAP 6 Normal 5-15 [facility] Comment on above: Performed By: #### L 501.2300, L501.5200, L500.2500 #### [facility] [address] [place], [address] GFR/1.73 sq M.predicted among non-blacks MDRD (S/P/Bld) [Vol rate/Area] 72 mL/min/{1.73_m2} Normal >60 [facility] Comment on above: Result Comment: Non- GFR Calc Performed By: #### L 501.2300, L501.5200, L500.2500 #### [facility] [address] [place], [address] Globulin (S) [Mass/Vol] 4.3 g/dL High 2.2-4.2 [facility] Comment on above: Performed By: #### L 501.2300, L501.5200, L500.2500 #### [facility] [address] [place], [address] Glucose [Mass/Vol] 115 mg/dL High 74-106 [facility] Comment on above: Result Comment: Fast ing Glucose result from 100 to 125 mg/dL suggests IMPAIRED HOMEOSTASIS per A.D.A. criteria. Performed By: #### L 501.2300, L501.5200, L500.2500 #### [facility] [address] [place], [address] Potassium [Moles/Vol] 3.9 mmol/L Normal 3.5-5.1 [facility] Comment on above: Performed By: #### L 501.2300, L501.5200, L500.2500 #### [facility] [address] [place], [address] Sodium [Moles/Vol] 136 mmol/L Normal 136-145 [facility] Comment on above: Performed By: #### L 501.2300, L501.5200, L500.2500 #### [facility] [address] [place], [address] T PROT 8.3 g/dL High 6.4-8.2 [facility] Comment on above: Performed By: #### L 501.2300, L501.5200, L500.2500 #### [facility] [address] [place], [address] Urea nitrogen [Mass/Vol] 18 mg/dL Normal 7-18 [facility] Comment on above: Performed By: #### L 501.2300, L501.5200, L500.2500 #### [facility] [address] [place], [address] Magnesiumon 07-12-2024 Magnesium [Mass/Vol] 2.7 mg/dL High 1.6-2.6 [facility] Comment on above: Performed By: #### L 501.2300, L501.5200, L500.2500 #### [facility] [address] [place], [address] T4 Free Directon 07-12-2024 T4 FREE DIRECT 1.00 ng/dL Normal 0.76-1.46 [facility] Comment on above: Performed By: #### L 501.2300, L501.5200, L500.2500 #### [facility] [address] [place], [address] Thyroid Stim Hormone (TSH)on 07-12-2024 TSH 1.040 uIU/mL Normal 0.358-3.74 0 [facility] Comment on above: Performed By: #### L 501.2300, L501.5200, L500.2500 #### [facility] [address] [place], [address] CBC W Auto Differential pane l (Bld)on 04-04-2024 Basophils (Bld) [#/Vol] 0.04 10*3/uL Normal <0.11 [facility] Comment on above: Order Comment: Speci men Type: BLOOD SPECIMEN Ordering Facility: [facility] Address: [address] [place] [address] [place] [address] Performed By: #### 5 7021-8 #### [facility] CLIA [id number] [address] [place] [address] [place] Basophils/100 WBC (Bld) 0.6 % Normal [facility] Comment on above: Order Comment: Speci men Type: BLOOD SPECIMEN Ordering Facility: [facility] Address: [address] [place] [address] Performed By: #### 5 7021-8 #### [facility] CLIA [id number] [address] [place] [address] [place] Differential cell count method Nom (Bld) Auto Normal [facility] Comment on above: Order Comment: Speci men Type: BLOOD SPECIMEN Ordering Facility: [facility] Address: [address] [place] [address] Performed By: #### 5 7021-8 #### [facility] CLIA [id number] [address] [place] [address] [place] Eosinophils (Bld) [#/Vol] 0.28 10*3/uL Normal <0.46 [facility] Comment on above: Order Comment: Speci men Type: BLOOD SPECIMEN Ordering Facility: [facility] Address: [address] [place] [address] [place] [address] Performed By: #### 5 7021-8 #### [facility] CLIA [id number] [address] [place] [address] [place] Eosinophils/100 WBC (Bld) 4.1 % Normal [facility] Comment on above: Order Comment: Speci men Type: BLOOD SPECIMEN Ordering Facility: [facility] Address: [address] [place] [address] [place] [address] Performed By: #### 5 7021-8 #### [facility] CLIA [id number] [address] [place] [address] [place] Erythrocyte distribution width (RBC) [Ratio] 12.3 % Normal 11.5-15.0 [facility] Comment on above: Order Comment: Speci men Type: BLOOD SPECIMEN Ordering Facility: [facility] Address: [address] [place] [address] [place] [address] Performed By: #### 5 7021-8 #### [facility] CLIA [id number] [address] [place] [address] [place] Hematocrit (Bld) [Volume fraction] 37.0 % Normal 36.0-46.0 [facility] Comment on above: Order Comment: Speci men Type: BLOOD SPECIMEN Ordering Facility: [facility] Address: [address] [place] [address] [place] [address] Performed By: #### 5 7021-8 #### [facility] CLIA [id number] [address] [place] [address] [place] Hemoglobin (Bld) [Mass/Vol] 12.8 g/dL Normal 11.5-15.5 [facility] Comment on above: Order Comment: Speci men Type: BLOOD SPECIMEN Ordering Facility: [facility] Address: [address] [place] [address] [place] [address] Performed By: #### 5 7021-8 #### [facility] CLIA [id number] [address] [place] [address] [place] Immature granulocytes (Bld) [#/Vol] 10*3/uL Normal <0.10 [facility] Comment on above: Order Comment: Speci men Type: BLOOD SPECIMEN Ordering Facility: [facility] Address: [address] [place] [address] [place] [address] Performed By: #### 5 7021-8 #### [facility] CLIA [id number] [address] [place] [address] [place] Immature granulocytes/100 WBC (Bld) 0.1 % Normal [facility] Comment on above: Order Comment: Speci men Type: BLOOD SPECIMEN Ordering Facility: [facility] Address: [address] [place] [address] [place] [address] Performed By: #### 5 7021-8 #### [facility] CLIA [id number] [address] [place] [address] [place] Lymphocytes (Bld) [#/Vol] 2.24 10*3/uL Normal 1.00-4.00 [facility] Comment on above: Order Comment: Speci men Type: BLOOD SPECIMEN Ordering Facility: [facility] Address: [address] [place], [place] [address] [address] Performed By: #### 5 7021-8 #### [id number] [address] [place] [address] [place] Lymphocytes/100 WBC (Bld) 32.9 % Normal [facility] Comment on above: Order Comment: Speci men Type: BLOOD SPECIMEN Ordering Facility: [facility] Address: [address] [place] [address] [place] [address] Performed By: #### 5 7021-8 #### [facility] CLIA [id number] [address] [place] [address] [place] MCH (RBC) [Entitic mass] 29.9 pg Normal 26.0-34.0 [facility] Comment on above: Order Comment: Speci men Type: BLOOD SPECIMEN Ordering Facility: [facility] Address: [address] [place] [address] [place] [address] Performed By: #### 5 7021-8 #### [facility] CLIA [id number] [address] [place] [address] [place] MCHC (RBC) [Mass/Vol] 34.6 g/dL Normal 30.5-36.0 [facility] Comment on above: Order Comment: Speci men Type: BLOOD SPECIMEN Ordering Facility: [facility] Address: [address] [place] [address] [place] [address] Performed By: #### 5 7021-8 #### [facility] CLIA [id number] [address] [place] [address] [place] MCV (RBC) [Entitic vol] 86.4 fL Normal 80.0-100.0 [facility] Comment on above: Order Comment: Speci men Type: BLOOD SPECIMEN Ordering Facility: [facility] Address: [address] [place] [address] [place] [address] Performed By: #### 5 7021-8 #### [facility] CLIA [id number] [address] [place] [address] [place] Monocytes (Bld) [#/Vol] 0.71 10*3/uL Normal <0.87 [facility] Comment on above: Order Comment: Speci men Type: BLOOD SPECIMEN Ordering Facility: [facility] Address: [address] [place] [address] [place] [address] Performed By: #### 5 7021-8 #### [facility] CLIA [id number] [address] [place] [address] [place] Monocytes/100 WBC (Bld) 10.4 % Normal [facility] Comment on above: Order Comment: Speci men Type: BLOOD SPECIMEN Ordering Facility: [facility] Address: [address] [place] [address] [place] [address] Performed By: #### 5 7021-8 #### [facility] CLIA [id number] [address] [place] [address] [place] Neutrophils (Bld) [#/Vol] 3.53 10*3/uL Normal 1.45-7.50 [facility] Comment on above: Order Comment: Speci men Type: BLOOD SPECIMEN Ordering Facility: [facility] Address: [address] [place] [address] [place] [address] Performed By: #### 5 7021-8 #### [facility] CLIA [id number] [address] [place] [address] [place] Neutrophils/100 WBC (Bld) 51.9 % Normal [facility] Comment on above: Order Comment: Speci men Type: BLOOD SPECIMEN Ordering Facility: [facility] Address: [address] [place] [address] [place] [address] Performed By: #### 5 7021-8 #### [facility] CLIA [id number] [address] [place] [address] [place] Nucleated RBC (Bld) [#/Vol] 10*3/uL Normal <0.01 [facility] Comment on above: Order Comment: Speci men Type: BLOOD SPECIMEN Ordering Facility: [facility] Address: [address] [place] [address] [place] [address] Performed By: #### 5 7021-8 #### [facility] CLIA [id number] [address] [place] [address] [place] Nucleated RBC/100 WBC (Bld) [Ratio] 0.0 /100 WBC Normal [facility] Comment on above: Order Comment: Speci men Type: BLOOD SPECIMEN Ordering Facility: [facility] Address: [address] [place], [place] [address] [address] Performed By: #### 5 7021-8 #### [facility] CLIA [id number] [address] [place] [address] [place] Platelet mean volume (Bld) [Entitic vol] 9.2 fL Normal 9.0-12.7 [facility] Comment on above: Order Comment: Speci men Type: BLOOD SPECIMEN Ordering Facility: [facility] Address: [address] [place] [address] [place] [address] Performed By: #### 5 7021-8 #### [facility] CLIA [id number] [address] [place] [address] [place] Platelets (Bld) [#/Vol] 259 10*3/uL Normal 150-400 [facility] Comment on above: Order Comment: Speci men Type: BLOOD SPECIMEN Ordering Facility: [facility] Address: [address] [place], [place] [address] [address] Performed By: #### 5 7021-8 #### [facility] CLIA [id number] [address] [place] [address] [place] RBC (Bld) [#/Vol] 4.28 10*6/uL Normal 3.90-5.20 [facility] Comment on above: Order Comment: Speci men Type: BLOOD SPECIMEN Ordering Facility: [facility] Address: [address] [place], [place] [address] [address] Performed By: #### 5 7021-8 #### [facility] CLIA [id number] [address] [place] [address] [place] WBC (Bld) [#/Vol] 6.81 10*3/uL Normal 3.70-11.00 [facility] Comment on above: Order Comment: Speci men Type: BLOOD SPECIMEN Ordering Facility: [facility] Address: [address] [place] [address] [place] [address] Performed By: #### 5 7021-8 #### [facility] CLIA [id number] [address] [place] [address] [place] Comprehensive metabolic 2000 panelon 04-04-2024 Albumin [Mass/Vol] 4.2 g/dL Normal 3.9-4.9 [facility] Comment on above: Order Comment: Speci men Type: BLOOD SPECIMEN Ordering Facility: [facility] Address: [address] [place] [address] [address], [place] [address] Performed By: #### 2 4323-8 #### [facility] CLIA [id number] [address] [place] [address] [place] ALP [Catalytic activity/Vol] 85 U/L Normal 34-123 [facility] Comment on above: Order Comment: Speci men Type: BLOOD SPECIMEN Ordering Facility: [facility] Address: [address] [place] [address] [address], [place] [address] Performed By: #### 2 4323-8 #### [facility] CLIA [id number] [address] [place] [address] [place] ALT [Catalytic activity/Vol] 20 U/L Normal 7-38 [facility] Comment on above: Order Comment: Speci men Type: BLOOD SPECIMEN Ordering Facility: [facility] Address: [address] [place] [address] [address], [place] [address] Performed By: #### 2 4323-8 #### [facility] [id number] [address] [place] [address] [place] Anion gap [Moles/Vol] 11 mmol/L Normal 9-18 [facility] Comment on above: Order Comment: Speci men Type: BLOOD SPECIMEN Ordering Facility: [facility] Address: [address] [place] [address] [address], [place] [address] Performed By: #### 2 4323-8 #### [facility] CLIA [id number] [address] [place] [address] [place] AST [Catalytic activity/Vol] 22 U/L Normal 13-35 [facility] Comment on above: Order Comment: Speci men Type: BLOOD SPECIMEN Ordering Facility: [facility] Address: [address] [place] [address] [address], [place] [address] Performed By: #### 2 4323-8 #### [facility] CLIA [id number] [address] [place] [address] [place] Bilirubin [Mass/Vol] 0.3 mg/dL Normal 0.2-1.3 [facility] Comment on above: Order Comment: Speci men Type: BLOOD SPECIMEN Ordering Facility: [facility] Address: [address] [place] [address] [place] [address] Performed By: #### 2 4323-8 #### [facility] CLIA [id number] [address] [place] [address] [place] Calcium [Mass/Vol] 9.7 mg/dL Normal 8.5-10.2 [facility] Comment on above: Order Comment: Speci men Type: BLOOD SPECIMEN Ordering Facility: [facility] Address: [address] [place] [address] [place] [address] Performed By: #### 2 4323-8 #### [facility] CLIA [id number] [address] [place] [address] [place] Chloride [Moles/Vol] 102 mmol/L Normal 97-105 [facility] Comment on above: Order Comment: Speci men Type: BLOOD SPECIMEN Ordering Facility: [facility] Address: [address] [place] [address] [place] [address] Performed By: #### 2 4323-8 #### [facility] CLIA [id number] [address] [place] [address] [place] CO2 [Moles/Vol] 25 mmol/L Normal 22-30 [facility] Comment on above: Order Comment: Speci men Type: BLOOD SPECIMEN Ordering Facility: [facility] Address: [address] [place], [place] [address] [address] Performed By: #### 2 4323-8 #### [facility] CLIA [id number] [address] [place] [address] [place] Creatinine [Mass/Vol] 0.70 mg/dL Normal 0.58-0.96 [facility] Comment on above: Order Comment: Alfie hunt Type: BLOOD SPECIMEN Ordering Facility: [facility] Address: [address] [place] [address] Performed By: #### 2 4323-8 #### [facility] [id number] [address] [place] [address] [place] Creatinine and Glomerular filtration rate.predicted panel (S/P/Bld) 90 mL/min/1.73m??? Normal >=60 [facility] Comment on above: Order Comment: Alfie hunt Type: BLOOD SPECIMEN Ordering Facility: [facility] Address: [address] [place] [address] Result Comment: Homa mated Glomerular Filtration Rate (eGFR) is calculated using the 2020 CKD-EPI creatinine equation. This equation utilizes serum creatinine, sex, and age as parameters. The creatinine assay has traceable calibration to isotope dilution-mass spectrometry. Refer to KDIGO guidelines for clinical interpretation. In patients with unstable renal function, e.g. those with acute kidney injury, the eGFR may not accurately reflect actual GFR. Performed By: #### 2 4323-8 #### [facility] [id number] [address] [place] [address] [place] Glucose [Mass/Vol] 116 mg/dL High 74-99 [facility] Comment on above: Order Comment: Alfie hunt Type: BLOOD SPECIMEN Ordering Facility: [facility] Address: [address] [place] [address] Result Comment: The [place] Diabetes Association (ADA) provides guidance for cutoff values for fasting glucose and random glucose. The ADA defines fasting as no caloric intake for at least 8 hours. Fasting plasma glucose results between 100 to 125 mg/dL indicate increased risk for diabetes (prediabetes). Fasting plasma glucose results greater than or equal to 126 mg/dL meet the criteria for diagnosis of diabetes. In the absence of unequivocal hyperglycemia, results should be confirmed by repeat testing. In a patient with classic symptoms of hyperglycemia or hyperglycemic crisis, random plasma glucose results greater than or equal to 200 mg/dL meet the criteria for diagnosis of diabetes. Reference: Standards of Medical Care in Diabetes 2016, [place] Diabetes Association. Diabetes Care. 2016.39(Suppl 1). Performed By: #### 2 4323-8 #### [facility] CLIA [id number] [address] [place] [address] [place] Potassium [Moles/Vol] 3.9 mmol/L Normal 3.7-5.1 [facility] Comment on above: Order Comment: Speci men Type: BLOOD SPECIMEN Ordering Facility: [facility] Address: [address] [place] [address] [address], [place] [address] Performed By: #### 2 4323-8 #### [facility] [id number] [address] [place] [address] [place] Protein [Mass/Vol] 7.1 g/dL Normal 6.3-8.0 [facility] Comment on above: Order Comment: Speci men Type: BLOOD SPECIMEN Ordering Facility: [facility] Address: [address] [place] [address] [address], [place] [address] Performed By: #### 2 4323-8 #### [facility] [id number] [address] [place] [address] [place] Sodium [Moles/Vol] 138 mmol/L Normal 136-144 [facility] Comment on above: Order Comment: Speci men Type: BLOOD SPECIMEN Ordering Facility: [facility] Address: [address] [place] [address] [address], [place] [address] Performed By: #### 2 4323-8 #### [facility] CLIA [id number] [address] [place] [address] [place] Urea nitrogen [Mass/Vol] 21 mg/dL Normal 7-21 [facility] Comment on above: Order Comment: Speci men Type: BLOOD SPECIMEN Ordering Facility: [facility] Address: [address] [place] [address] [place] [address] Performed By: #### 2 4323-8 #### [facility] CLIA [id number] [address] [place] [address] [place] HbA1c (Bld)on 04-04-2024 Average glucose Estimated from glycated hemoglobin (Bld) [Mass/Vol] 137 mg/dL Normal [facility] Comment on above: Order Comment: Specciro men Type: BLOOD SPECIMEN Ordering Facility: [facility] Address: [address] [place] [address] [place] [address] Result Comment: eAG: (Estimated average glucose) is a calculated value from HgbA1c and is student services representative of the average blood glucose level in the last 2-3 month period. Performed By: #### 5 5454-3 #### [facility] [place] [id number] [address] [place] [address] [place] HbA1c (Bld) [Mass fraction] 6.4 % High 4.3-5.6 [facility] Comment on above: Order Comment: Alfie hunt Type: BLOOD SPECIMEN Ordering Facility: [facility] Address: [address] [place] [address] [place] [address] Result Comment: [place] Diabetes Association guidelines indicate that patients with HgbA1c in the range 5.7-6.4% are at increased risk for development of diabetes, and intervention by lifestyle modification may be beneficial. HgbA1c greater or equal to 6.5% is considered diagnostic of diabetes. Performed By: #### 5 5454-3 #### [facility] CLIA [id number] [address] [place], [place] [id number] [place] Lipid 1996 panelon Cholesterol [Mass/Vol] 157 mg/dL Normal <200 [facility] Comment on above: Order Comment: Alfie hunt Type: BLOOD SPECIMEN Ordering Facility: [facility] Address: [address] [place] [address] [place] [address] Result Comment: <200 mg/dL, Desirable 200-239 mg/dL, Borderline high >239 mg/dL, High Performed By: #### 3 016-3, 3051-0, 3024-7 #### [facility] CLIA [id number] [address] [place] [address] [place] #### [id number] #### [facility] CLIA [id number] [address] [place] [address] [place] [facility] CLIA [id number] [address] [place] [address] [place] Cholesterol in HDL [Mass/Vol] 47 mg/dL Normal >39 [facility] Comment on above: Order Comment: Alfie hunt Type: BLOOD SPECIMEN Ordering Facility: [facility] Address: [address] [place] [address] [place] [address] Result Comment: 40-5 9 mg/dL, Acceptable >59 mg/dL, High: Negative risk factor for coronary heart disease <40 mg/dL, Low: Positive risk factor for coronary heart disease Performed By: #### 3 016-3, 3051-0, 3024-7 #### [facility] CLIA [id number] [address] [place] [address] [place] #### [id number] #### [facility] CLIA [id number] [address] [place] [id number] [place] [facility] CLIA [id number] [address] [place] [address] [place] Cholesterol in LDL [Mass/Vol] 55 mg/dL Normal <100 [facility] Comment on above: Order Comment: Alfie hunt Type: BLOOD SPECIMEN Ordering Facility: [facility] Address: [address] [place] [address] [place] [address] Result Comment: <100 mg/dL, Optimal 100-129 mg/dL, Near optimal/above optimal 130-159 mg/dL, Borderline high 160-189 mg/dL, High >189 mg/dL, Very high Secondary prevention optimal LDL Cholesterol levels are recommended to be < 70 mg/dL Performed By: #### 3 016-3, 3051-0, 3024-7 #### [facility] CLIA [id number] [address] [place] [id number] [place] #### [id number] #### [facility] CLIA [id number] [address] [place] [address] [place] [facility] CLIA [id number] [address] [place] [address] [place] Cholesterol in LDL/Cholesterol in HDL [Mass ratio] 1.17 {ratio} Normal <2.54 [facility] Comment on above: Order Comment: Speci men Type: BLOOD SPECIMEN Ordering Facility: [facility] Address: [address] [place] [address] [place] [address] Result Comment: Refe rence: 1. National Cholesterol Education Program ATP III Guideline At-A-Glance Quick Desk Reference: National Heart, Lung, and Blood [place]. National Institutes of Health. 2001: NIH Publication No. 01-3305. 2. An International Atherosclerosis Society position paper: global recommendations for the management of dyslipidemia: executive summary, Atherosclerosis. 2014: 232(2):410-413. Performed By: #### 3 016-3, 3051-0, 3024-7 #### [facility] CLIA [id number] [address] [place] [id number] [place] #### [id number] #### [facility] CLIA [id number] [address] [place] [id number] [place] [id number] [address] [place] [address] [place] Cholesterol in VLDL [Mass/Vol] 55 mg/dL High <30 [facility] Comment on above: Order Comment: Speci men Type: BLOOD SPECIMEN Ordering Facility: [facility] Address: [address] [place] [address] [place] [address] Performed By: #### 3 016-3, 0, 3024-05 #### [facility] CLIA [id number] [address] [place] [address] [place] #### 07945-3 #### [facility] CLIA [id number] [facility] [place] [address] [place] [facility] [id number] [address] [place] [address] [place] Cholesterol non HDL [Mass/Vol] 110 mg/dL Normal <130 [facility] Comment on above: Order Comment: Speci men Type: BLOOD SPECIMEN Ordering Facility: [facility] Address: [address] [place] [address] [place] [address] Result Comment: <130 mg/dL, Optimal 130-159 mg/dL, Near optimal/above optimal 160-189 mg/dL, Borderline high 190-219 mg/dL, High >219 mg/dL, Very high Secondary prevention optimal non HDL Cholesterol levels are recommended to be <100 mg/dL Performed By: #### 3 016-3, 0, 3024-05 #### [facility] CLIA [id number] [address] [place] [address] [place] #### 65417-3 #### [facility] CLIA [id number] [address] [place] [address] [place] [facility] CLIA [id number] [address] [place] [address] [place] Cholesterol.total/Chol esterol in HDL [Mass ratio] 3.34 {ratio} Normal <5.10 [facility] Comment on above: Order Comment: Speci men Type: BLOOD SPECIMEN Ordering Facility: [facility] Address: [address] [place] [address] [place] [address] Performed By: #### 3 016-3, 0, 3024-05 #### [facility] CLIA [id number] [address] [place] [address] [place] #### 64214-5 #### [facility] CLIA [id number] [address] [place] [address] [place] [facility] CLIA [id number] [address] [place] [address] [place] FASTING TIME 12 hrs Normal [facility] Comment on above: Order Comment: Speci men Type: BLOOD SPECIMEN Ordering Facility: [facility] Address: [address] [place], [place] [address]WHellen [place] A, [place] [address] Performed By: #### 3 016-3, 0, 3024-05 #### [facility] CLIA [id number] [address] [place] [address] [place] #### [id number] #### [facility] CLIA [id number] [address] [place] [address] [place] [facility] [id number] [address] [place] [address] [place] Triglyceride [Mass/Vol] 276 mg/dL High <150 [facility] Comment on above: Order Comment: Speci men Type: BLOOD SPECIMEN Ordering Facility: [facility] Address: [address] [place] [address] [address], [place] [address] Result Comment: <150 mg/dL, Normal 150-199 mg/dL, Borderline high 200-499 mg/dL, High >499 mg/dL, Very high Performed By: #### 3 016-3, 3050-0, 3024-05 #### [facility] CLIA [id number] [address] [place] [address] [place] #### 03679-7 #### [facility] CLIA [id number] [address] [place] [address] [place] [facility] CLIA [id number] [address] [place] [address] [place] T3Free SerPl-mCncon 04-04-20 24 Free T3 [Mass/Vol] 3.2 pg/mL Normal 2.3-4.1 [facility] Comment on above: Order Comment: Speci men Type: BLOOD SPECIMEN Ordering Facility: [facility] Address: [address] [place] [address] [place] A, [place] [address] Performed By: #### 3 016-3, 3050-0, 3024-05 #### [facility] CLIA [id number] [address] [place] [address] [place] #### [id number] #### [facility] CLIA [id number] [address] [place] [address] [place] [facility] [id number] [address] [place] [address] [place] T4 Free SerPl-mCncon 024 Free T4 [Mass/Vol] 1.0 ng/dL Normal 0.9-1.7 [facility] Comment on above: Order Comment: Speci men Type: BLOOD SPECIMEN Ordering Facility: [facility] Address: [address] [place], [place] [address]Hellen [place] A, [place] [address] Performed By: #### 3 016-3, 0, 3024-05 #### [facility] CLIA [id number] [facility] [place] [address] [place] #### 53210-6 #### [facility] CLIA [id number] [address] [place] [address] [place] [facility] CLIA [id number] [address] [place] [address] [place] TSH SerPl-aCncon 04-04-2024 TSH Qn 1.330 m[IU]/L Normal 0.270-4.20 0 [facility] Comment on above: Order Comment: Speci men Type: BLOOD SPECIMEN Ordering Facility: [facility] Address: [address] [place] [address] [place] Mccoy, [place] [address] Performed By: #### 3 016-3, 3051-0, 3024-7 #### [facility] CLIA [id number] [facility] [address] #### 36107-2 #### [facility] CLIA [id number] [address] [place] [address] CLIA [id number] [address] Absolute lymphocyte countOrd ered By: Charlotte Stevenson on 09-06-2023 Lymphocytes Auto (Unsp spec) [#/Vol] 2.19 10*3/uL 0.83-4.51 [facility] Basophil percentageOrdered B y: Charlotte Stevenson on 09-06-2023 Basophils/100 WBC (Bld) 0.4 % 0-1 [facility] Bilirubin [Mass/Vol] 0.40 mg/dL 0.20-1.00 [facility] Comment on above: For patients on eltr ombopag therapy, use of Dimension [place] TBIL is not recommended. Chloride [Moles/Vol] 106 mmol/L 98-107 [facility] Cholesterol [Mass/Vol] 157 mg/dL <200 [facility] Comment on above: <200 mg/dL Desirable 200-240 mg/dL Borderline >240 mg/dL High Risk Eosinophils/100 WBC (Bld) 4.4 % 0-5 [facility] Glucose [Mass/Vol] 106 mg/dL 74-106 [facility] Comment on above: Fasting Glucose resu lt from 100 to 125 mg/dL suggests IMPAIRED HOMEOSTASIS per A.D.A. criteria. Neutrophils (Bld) [#/Vol] 4.1 10*3/uL 2.0-7.7 [facility] Neutrophils/100 WBC (Bld) 56.6 % 47-70 [facility] Potassium [Moles/Vol] 4.2 mmol/L 3.5-5.1 [facility] Protein [Mass/Vol] 8.0 g/dL 6.4-8.2 [facility] Sodium [Moles/Vol] 139 mmol/L 136-145 [facility] Triglyceride [Mass/Vol] 251 mg/dL <199 [facility] Comment on above: The drugs N-Acetylcy steine and Metamizole may falsely depress this assay.Serum Triglycerides Reference Interval Normal <150 mg/dL Borderline high 150 - 199 mg/dL High 200 - 499 mg/dL Very High > or = 500 mg/dL WBC (Bld) [#/Vol] 7.2 10*3/uL 4.4-11.0 [facility] Blood erythrocytes count (nu mber/volume)Ordered By: Charlotte Stevenson on 09-06-2023 RBC (Bld) [#/Vol] 4.56 10*6/uL 4.2-5.4 [facility] Blood hemoglobin measurement (mass/volume)Ordered By: Charlotte Stevenson on 09-06-2023 Hemoglobin (Bld) [Mass/Vol] 13.3 g/dL 12.0-15.0 [facility] Blood lymphocytes/100 leukoc ytesOrdered By: Charlotte Stevenson on 09-06-2023 Lymphocytes/100 WBC (Bld) 30.4 % 19-41 [facility] Blood monocytes/100 leukocyt esOrdered By: Charlotte Stevenson on 09-06-2023 Monocytes/100 WBC (Bld) 7.9 % 0-10 [facility] Blood platelet mean volumeOr dered By: Charlotte Stevenson on 09-06-2023 Platelet mean volume (Bld) [Entitic vol] 10.0 fL 6.2-12.0 [facility] Determination of erythrocyte mean corpuscular volume (MCV)Ordered By: Charlotte Stevenson on 09-06-2023 MCV (RBC) [Entitic vol] 89.5 fL 81-99 [facility] Hematocrit Auto (Bld) [Volum e fraction]Ordered By: Charlotte Stevenson on 09-06-2023 Hematocrit (Bld) [Volume fraction] 40.8 % 37-47 [facility] - Chemistry and C hemistry - challengeOrdered By: Charlotte Stevenson on 09-06-2023 ALP [Catalytic activity/Vol] 99 U/L 45-117 [facility] ALT [Catalytic activity/Vol] 33 U/L 13-56 [facility] CO2 [Moles/Vol] 27.0 mmol/L 21.0-32.0 [facility] Free T4 [Mass/Vol] 0.86 ng/dL 0.76-1.46 [facility] Globulin (S) [Mass/Vol] 4.2 g/dL 2.2-4.2 [facility] Urea nitrogen/Creatinine [Mass ratio] 27.9 mg/mg 10-20 [facility] - Hematology and Cell countsOrdered By: Charlotte Stevenson on 09-06-2023 Erythrocyte distribution width (RBC) [Entitic vol] 39.1 fL 35.1-43.9 [facility] Erythrocyte distribution width (RBC) [Ratio] 12.0 % 11.6-14.6 [facility] Immature granulocytes/100 WBC (Bld) 0.300 % 0.0-0.9 [facility] Comment on above: IG% - Immature Granu locytes (promyelocytes, myelocytes and metamyelocytes) > 1% indicates that a LEFT SHIFT is Present. MCH (RBC) [Entitic mass] 29.2 pg 27.0-32.0 [facility] Nucleated RBC/100 WBC (Bld) [Ratio] 0 % 0-5 [facility] MCHC Auto (RBC) [Mass/Vol]Or dered By: Charlotte Stevenson on 09-06-2023 MCHC (RBC) [Mass/Vol] 32.6 g/dL 32-36 [facility] No Panel InformationOrdered By: Charlotte Stevenson on 09-06-2023 Estimated GFR (MDRD) Amer 102 mL/min >60 [facility] Comment on above: GFR Calc Estimated GFR (MDRD) Non-Af Amer 84 mL/min >60 [facility] Comment on above: Non- GFR Calc Free Triiodothyronine (T3) pg/dL 2.7 pg/mL 2.18-3.98 [facility] Thyroid Stimulating Hormone (TSH) 1.09 uIU/mL 0.358-3.74 [facility] Platelets bldOrdered By: Lary Stevenson on 09-06-2023 Platelets (Bld) [#/Vol] 290 10*3/uL 150-450 [facility] Serum or plasma albumin cheko urement (mass/volume)Ordered By: Charlotte Stevenson on 09-06-2023 Albumin [Mass/Vol] 3.8 g/dL 3.2-5.0 [facility] Serum or plasma albumin/glob ulin mass ratioOrdered By: Charlotte Stevenson on 09-06-2023 Albumin/Globulin [Mass ratio] 0.9 {ratio} 0.9-2.4 [facility] Serum or plasma calcium cheko urement (mass/volume)Ordered By: Charlotte Stevenson on 09-06-2023 Calcium [Mass/Vol] 9.1 mg/dL 8.5-10.1 [facility] Serum or plasma cholesterol in HDL measurement (mass/volume)Ordered By: Charlotte Stevenson on 09-06-2023 Cholesterol in HDL [Mass/Vol] 52 mg/dL >40 [facility] Comment on above: The drugs N-Acetylcy steine and Metamizole may falsely depress this assay. Reference Range HDL <40 mg/dL Low HDL Cholesterol HDL >or= 60 mg/dL High HDL Cholesterol Serum or plasma cholesterol in VLDL measurement (mass/volume)Ordered By: Charlotte Stevenson on 09-06-2023 Cholesterol in VLDL [Mass/Vol] 50 mg/dL 5-40 [facility] Serum or plasma creatinine m easurement (mass/volume)Ordered By: Charlotte Stevenson on 09-06-2023 Creatinine [Mass/Vol] 0.72 mg/dL 0.55-1.02 [facility] Comment on above: The validity of the calculated GFR & GFRAA in patients over 70 years has not been determined. Clinical correlation is essential. Serum or plasma low density lipoprotein (LDL) cholesterol measurement (mass/volume)Ordered By: Charlotte Stevenson on 09-06-2023 Cholesterol in LDL [Mass/Vol] 55 mg/dL 0-130 [facility] Serum or plasma urea nitroge n measurement (mass/volume)Ordered By: Charlotte Stevenson on 09-06-2023 Urea nitrogen [Mass/Vol] 20 mg/dL 7-18 [facility] Thin prep Papanicolaou smear with manual screeningOrdered By: Charlotte Stevenson on 09-06-2023 Thin prep Papanicolaou smear with manual screening 20 U/L 15-37 [facility] Thin prep Papanicolaou smear with manual screening 6 5-15 [facility] Whole blood hemoglobin A1c/t otal hemoglobin ratio (mass fraction)Ordered By: Charlotte Stevenson on 09-06-2023 HbA1c (Bld) [Mass fraction] 5.8 % 3.8-5.6 [facility] Comment on above: Normal < 5.7 % Predi abetic 5.7 - 6.4 % Diabetic >or= 6.5 % Please note range changes. Absolute lymphocyte countOrd ered By: Dr. Stevenson on 03-08-2023 Lymphocytes Auto (Unsp spec) [#/Vol] 1.94 10*3/uL 0.83-4.51 [facility] Basophil percentageOrdered B y: Dr. Stevenson on 03-08-2023 Basophils/100 WBC (Bld) 0.5 % 0-1 [facility] Bilirubin [Mass/Vol] 0.50 mg/dL 0.20-1.00 [facility] Comment on above: For patients on eltr ombopag therapy, use of Dimension [place] TBIL is not recommended. Chloride [Moles/Vol] 103 mmol/L 98-107 [facility] Cholesterol [Mass/Vol] 193 mg/dL <200 [facility] Comment on above: <200 mg/dL Desirable 200-240 mg/dL Borderline >240 mg/dL High Risk Eosinophils/100 WBC (Bld) 4.3 % 0-5 [facility] Glucose [Mass/Vol] 108 mg/dL 74-106 [facility] Comment on above: Fasting Glucose resu lt from 100 to 125 mg/dL suggests IMPAIRED HOMEOSTASIS per A.D.A. criteria. Neutrophils (Bld) [#/Vol] 3.5 10*3/uL 2.0-7.7 [facility] Neutrophils/100 WBC (Bld) 54.6 % 47-70 [facility] Potassium [Moles/Vol] 4.1 mmol/L 3.5-5.1 [facility] Protein [Mass/Vol] 7.9 g/dL 6.4-8.2 [facility] Sodium [Moles/Vol] 138 mmol/L 136-145 [facility] Triglyceride [Mass/Vol] 261 mg/dL <199 [facility] Comment on above: The drugs N-Acetylcy steine and Metamizole may falsely depress this assay.Serum Triglycerides Reference Interval Normal <150 mg/dL Borderline high 150 - 199 mg/dL High 200 - 499 mg/dL Very High > or = 500 mg/dL WBC (Bld) [#/Vol] 6.5 10*3/uL 4.4-11.0 [facility] Blood erythrocytes count (nu mber/volume)Ordered By: Dr. Stevenson on 03-08-2023 RBC (Bld) [#/Vol] 4.37 10*6/uL 4.2-5.4 [facility] Blood hemoglobin measurement (mass/volume)Ordered By: Dr. Stevenson on 03-08-2023 Hemoglobin (Bld) [Mass/Vol] 13.4 g/dL 12.0-15.0 [facility] Blood lymphocytes/100 leukoc ytesOrdered By: Dr. Stevenson on 03-08-2023 Lymphocytes/100 WBC (Bld) 29.9 % 19-41 [facility] Blood monocytes/100 leukocyt esOrdered By: Dr. Stevenson on 03-08-2023 Monocytes/100 WBC (Bld) 10.5 % 0-10 [facility] Blood platelet mean volumeOr dered By: Dr. Stevenson on 03-08-2023 Platelet mean volume (Bld) [Entitic vol] 9.9 fL 6.2-12.0 [facility] Determination of erythrocyte mean corpuscular volume (MCV)Ordered By: Dr. Stevenson on 03-08-2023 MCV (RBC) [Entitic vol] 89.9 fL 81-99 [facility] Hematocrit Auto (Bld) [Volum e fraction]Ordered By: Dr. Stevenson on 03-08-2023 Hematocrit (Bld) [Volume fraction] 39.3 % 37-47 [facility] - Chemistry and C hemistry - challengeOrdered By: Dr. Stevenson on 03-08-2023 ALP [Catalytic activity/Vol] 104 U/L 45-117 [facility] ALT [Catalytic activity/Vol] 29 U/L 13-56 [facility] CO2 [Moles/Vol] 26.0 mmol/L 21.0-32.0 [facility] Globulin (S) [Mass/Vol] 4.1 g/dL 2.2-4.2 [facility] Urea nitrogen/Creatinine [Mass ratio] 22.8 mg/mg 10-20 [facility] - Hematology and Cell countsOrdered By: Dr. Stevenson on 03-08-2023 Erythrocyte distribution width (RBC) [Entitic vol] 39.0 fL 35.1-43.9 [facility] Erythrocyte distribution width (RBC) [Ratio] 11.9 % 11.6-14.6 [facility] Immature granulocytes/100 WBC (Bld) 0.200 % 0.0-0.9 [facility] Comment on above: IG% - Immature Granu locytes (promyelocytes, myelocytes and metamyelocytes) > 1% indicates that a LEFT SHIFT is Present. MCH (RBC) [Entitic mass] 30.7 pg 27.0-32.0 [facility] Nucleated RBC/100 WBC (Bld) [Ratio] 0 % 0-5 [facility] MCHC Auto (RBC) [Mass/Vol]Or dered By: Dr. Stevenson on 03-08-2023 MCHC (RBC) [Mass/Vol] 34.1 g/dL 32-36 [facility] No Panel InformationOrdered By: Dr. Stevenson on 03-08-2023 Estimated GFR (MDRD) Amer 86 mL/min >60 [facility] Comment on above: GFR Calc Estimated GFR (MDRD) Non-Af Amer 71 mL/min >60 [facility] Comment on above: Non- GFR Calc Platelets bldOrdered By: Dr. Stevenson on 03-08-2023 Platelets (Bld) [#/Vol] 279 10*3/uL 150-450 [facility] Serum or plasma albumin cheko urement (mass/volume)Ordered By: Dr. Stevenson on 03-08-2023 Albumin [Mass/Vol] 3.8 g/dL 3.2-5.0 [facility] Serum or plasma albumin/glob ulin mass ratioOrdered By: Dr. Stevenson on 03-08-2023 Albumin/Globulin [Mass ratio] 0.9 {ratio} 0.9-2.4 [facility] Serum or plasma calcium cheko urement (mass/volume)Ordered By: Dr. Stevenson on 03-08-2023 Calcium [Mass/Vol] 9.5 mg/dL 8.5-10.1 [facility] Serum or plasma cholesterol in HDL measurement (mass/volume)Ordered By: Dr. Stevenson on 03-08-2023 Cholesterol in HDL [Mass/Vol] 48 mg/dL >40 [facility] Comment on above: The drugs N-Acetylcy steine and Metamizole may falsely depress this assay. Reference Range HDL <40 mg/dL Low HDL Cholesterol HDL >or= 60 mg/dL High HDL Cholesterol Serum or plasma cholesterol in VLDL measurement (mass/volume)Ordered By: Dr. Stevenson on 03-08-2023 Cholesterol in VLDL [Mass/Vol] 52 mg/dL 5-40 [facility] Serum or plasma creatinine m easurement (mass/volume)Ordered By: Dr. Stevenson on 03-08-2023 Creatinine [Mass/Vol] 0.83 mg/dL 0.55-1.02 [facility] Comment on above: The validity of the calculated GFR & GFRAA in patients over 70 years has not been determined. Clinical correlation is essential. Serum or plasma low density lipoprotein (LDL) cholesterol measurement (mass/volume)Ordered By: Dr. Stevenson on 03-08-2023 Cholesterol in LDL [Mass/Vol] 93 mg/dL 0-130 [facility] Serum or plasma urea nitroge n measurement (mass/volume)Ordered By: Dr. Stevenson on 03-08-2023 Urea nitrogen [Mass/Vol] 19 mg/dL 7-18 [facility] Thin prep Papanicolaou smear with manual screeningOrdered By: Dr. Stevenson on 03-08-2023 Thin prep Papanicolaou smear with manual screening 20 U/L 15-37 [facility] Thin prep Papanicolaou smear with manual screening 9 5-15 [facility] Whole blood hemoglobin A1c/t otal hemoglobin ratio (mass fraction)Ordered By: Dr. Stevenson on 03-08-2023 HbA1c (Bld) [Mass fraction] 5.9 % 3.8-5.6 [facility] Comment on above: Normal < 5.7 % Predi abetic 5.7 - 6.4 % Diabetic >or= 6.5 % Please note range changes. Laboratory - Chemistry and C hemistry - challengeOrdered By: Dr. Stevenson on 12-03-2022 Free T4 [Mass/Vol] 1.01 ng/dL 0.76-1.46 [facility] Magnesium [Mass/Vol] 2.0 mg/dL 1.6-2.6 [facility] No Panel InformationOrdered By: Dr. Stevenson on 12-03-2022 Free Triiodothyronine (T3) pg/dL 2.6 pg/mL 2.18-3.98 [facility] Thyroid Stimulating Hormone (TSH) 0.56 uIU/mL 0.358-3.74 [facility] Whole blood hemoglobin A1c/t otal hemoglobin ratio (mass fraction)Ordered By: Dr. Stevenson on 12-03-2022 HbA1c (Bld) [Mass fraction] 5.9 % 3.8-5.6 [facility] Comment on above: Normal < 5.7 % Predi abetic 5.7 - 6.4 % Diabetic >or= 6.5 % Please note range changes. Absolute lymphocyte countOrd ered By: Dr. Garcia on 11-29-2022 Lymphocytes Auto (Unsp spec) [#/Vol] 2.15 10*3/uL 0.83-4.51 [facility] Basophil percentageOrdered B y: Dr. Garcia on 11-29-2022 Basophils/100 WBC (Bld) 0.3 % 0-1 [facility] Chloride [Moles/Vol] 103 mmol/L 98-107 [facility] Eosinophils/100 WBC (Bld) 0.9 % 0-5 [facility] Glucose [Mass/Vol] 125 mg/dL 74-106 [facility] Comment on above: Fasting Glucose resu lt from 100 to 125 mg/dL suggests IMPAIRED HOMEOSTASIS per A.D.A. criteria. Neutrophils (Bld) [#/Vol] 6.5 10*3/uL 2.0-7.7 [facility] Neutrophils/100 WBC (Bld) 67.4 % 47-70 [facility] Potassium [Moles/Vol] 3.8 mmol/L 3.5-5.1 [facility] Sodium [Moles/Vol] 137 mmol/L 136-145 [facility] WBC (Bld) [#/Vol] 9.6 10*3/uL 4.4-11.0 [facility] Blood erythrocytes count (nu mber/volume)Ordered By: Dr. Garcia on 11-29-2022 RBC (Bld) [#/Vol] 4.93 10*6/uL 4.2-5.4 [facility] Blood hemoglobin measurement (mass/volume)Ordered By: Dr. Garcia on 11-29-2022 Hemoglobin (Bld) [Mass/Vol] 14.9 g/dL 12.0-15.0 [facility] Blood lymphocytes/100 leukoc ytesOrdered By: Dr. Garcia on 11-29-2022 Lymphocytes/100 WBC (Bld) 22.4 % 19-41 [facility] Blood monocytes/100 leukocyt esOrdered By: Dr. Gracia on 11-29-2022 Monocytes/100 WBC (Bld) 8.8 % 0-10 [facility] Blood platelet mean volumeOr dered By: Dr. Garcia on 11-29-2022 Platelet mean volume (Bld) [Entitic vol] 9.8 fL 6.2-12.0 [facility] Determination of erythrocyte mean corpuscular volume (MCV)Ordered By: Dr. Garcia on 11-29-2022 MCV (RBC) [Entitic vol] 86.6 fL 81-99 [facility] [facility] Hematocrit Auto (Bld) [Volum e fraction]Ordered By: Dr. Garcia on 11-29-2022 Hematocrit (Bld) [Volume fraction] 42.7 % 37-47 [facility] - Chemistry and C hemistry - challengeOrdered By: Dr. Garcia on 11-29-2022 CO2 [Moles/Vol] 25.0 mmol/L 21.0-32.0 [facility] Urea nitrogen/Creatinine [Mass ratio] 20.6 mg/mg 10-20 [facility] - Hematology and Cell countsOrdered By: Dr. Garcia on 01-22-2023 Erythrocyte distribution width (RBC) [Entitic vol] 37.2 fL 35.1-43.9 [facility] Erythrocyte distribution width (RBC) [Ratio] 11.8 % 11.6-14.6 [facility] Immature granulocytes/100 WBC (Bld) 0.200 % 0.0-0.9 [facility] Comment on above: IG% - Immature Granu locytes (promyelocytes, myelocytes and metamyelocytes) > 1% indicates that a LEFT SHIFT is Present. MCH (RBC) [Entitic mass] 30.2 pg 27.0-32.0 [facility] Nucleated RBC/100 WBC (Bld) [Ratio] 0 % 0-5 [facility] MCHC Auto (RBC) [Mass/Vol]Or dered By: Dr. Garcia on 11-29-2022 MCHC (RBC) [Mass/Vol] 34.9 g/dL 32-36 [facility] No Panel InformationOrdered By: Dr. Garcia on 11-29-2022 Troponin I High Sensitivity 19 pg/mL 3.0-54.0 [facility] Comment on above: Please Note: New Erika t Units and Gender Specific Reference Ranges. For more information see Policy Stat Procedure [place] High Sensitivity Troponin (TNIH) and attachments. Estimated Creatinine Clearance Calc 49.04 ml/min [facility] Estimated GFR (MDRD) Amer 87 mL/min >60 [facility] Comment on above: GFR Calc Estimated GFR (MDRD) Non-Af Amer 72 mL/min >60 [facility] Comment on above: Non- GFR Calc Platelets bldOrdered By: Dr. Garcia on 11-29-2022 Platelets (Bld) [#/Vol] 320 10*3/uL 150-450 [facility] Serum or plasma calcium cheko urement (mass/volume)Ordered By: Dr. Garcia on 11-29-2022 Calcium [Mass/Vol] 9.9 mg/dL 8.5-10.1 [facility] Serum or plasma creatinine m easurement (mass/volume)Ordered By: Dr. Garcia on 11-29-2022 Creatinine [Mass/Vol] 0.82 mg/dL 0.55-1.02 [facility] Comment on above: The validity of the calculated GFR & GFRAA in patients over 70 years has not been determined. Clinical correlation is essential. Serum or plasma urea nitroge n measurement (mass/volume)Ordered By: Dr. Garcia on 11-29-2022 Urea nitrogen [Mass/Vol] 17 mg/dL 7-18 [facility] Thin prep Papanicolaou smear with manual screeningOrdered By: Dr. 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 Normal [facility] ([place]) Comment on above: Performed By: #### A 1C, LIPID ####[id number] [place] [address]#### HCV1 ####[place] [address] A1Con 08-12-2017 Hemoglobin A1c/Hemoglobin.total mass fraction (Bld) 6.0 % High 4.8-5.9 [facility] ([place]) Comment on above: Performed By: #### A 1C, LIPID ####[place] [id number] [place] [address]#### HCV1 ####[place] [address] LIPIDon 08-12-2017 Cholesterol 163 mg/dL Normal 131-200 [facility] ([place]) Comment on above: Result Comment: Chol esterol Reference Interval:Less than 200 [id number] Borderline high [id number] and above High risk Performed By: #### A 1C, LIPID ####[id number] [place], [place] [address]#### HCV1 ####[address] [address] HDL Cholesterol 57 mg/dL Normal 35-90 [facility] ([place]) Comment on above: Result Comment: HDL Reference Interval:Less than 40 Low - high risk60 or above Optimal/lowers risk Performed By: #### A 1C, LIPID ####[place] [address]#### HCV1 ####[place] [address] LDL Cholesterol 72 mg/dL Normal 0-130 [facility] ([place]) Comment on above: Result Comment: LDL is a calculated result and requires a 12- hr fast.LDL Reference Interval:Less than 100 [id number] Near or above [id number] Borderline high [id number] High mrsn490 and above Very high risk Performed By: #### A 1C, LIPID ####[place] [address]#### HCV1 ####[place] [address] Triglyceride 172 mg/dL High 40-150 [facility] ([place]) Comment on above: Result Comment: Trig lyceride Reference Interval:Less than 150 [id number] Borderline high [id number] High pmjw312 or higher Very high risk Performed By: #### A 1C, LIPID ####[place] [address]#### HCV1 ####[place] [address] .Auto Diffon 08-04-2017 Basophils Auto #/vol (Bld) 0.00 10 3/mcL Normal 0.00-0.19 [facility] ([place]) Comment on above: Performed By: #### C BC, ADIFF, ANEU, TSH, CMP, GFR ####[place] [address]#### VIDH ####[place] [address] Basophils/100 WBC Auto (Bld) 0.4 % Normal 0.0-2.5 [facility] ([place]) Comment on above: Performed By: #### C BC, ADIFF, ANEU, TSH, CMP, GFR ####[place] [address]#### VIDH ####[address] [address] Eosinophils 0.30 10 3/mcL Normal 0.00-0.40 [facility] ([place]) Comment on above: Performed By: #### C BC, ADIFF, ANEU, TSH, CMP, GFR ####[place] [address]#### VIDH ####[place] [address] Eosinophils/100 leukocytes 3.8 % Normal 0.0-7.0 [facility] ([place]) Comment on above: Performed By: #### C BC, ADIFF, ANEU, TSH, CMP, GFR ####[place] [address]#### VIDH ####[place] [address] Lymphocytes 2.10 10 3/mcL Normal 0.77-3.85 [facility] ([place]) Comment on above: Performed By: #### C BC, ADIFF, ANEU, TSH, CMP, GFR ####[place] [address]#### VIDH ####[place] [address] Lymphocytes/100 leukocytes 31.8 % Normal 10.0-50.0 [facility] ([place]) Comment on above: Performed By: #### C BC, ADIFF, ANEU, TSH, CMP, GFR ####[place] [address]#### VIDH ####[address] [address] Monocytes 0.70 10 3/mcL Normal 0.15-1.00 [facility] ([place]) Comment on above: Performed By: #### C BC, ADIFF, ANEU, TSH, CMP, GFR ####[address] [address]#### VIDH ####[address] [address] Monocytes/100 leukocytes 10.7 % Normal 1.7-13.0 [facility] ([place]) Comment on above: Performed By: #### C BC, ADIFF, ANEU, TSH, CMP, GFR ####[address] [address]#### VIDH ####[address] [address] Neutrophils/100 WBC Auto (Bld) 53.3 % Normal 37.0-80.0 [facility] ([place]) Comment on above: Performed By: #### C BC, ADIFF, ANEU, TSH, CMP, GFR ####[address] [address]#### VIDH ####[address] [address] .GFRon 08-04-2017 eGFR (non-black) 102 ml/min/1.73sqm Normal [facility] ([place]) Comment on above: Result Comment: GFR Population mean for , Non- Americans Ages 20-29 = 116 mL/min/1.73 sq.m. Ages 30-39 = 107 mL/min/1.73 sq.m. Ages 40-49 = 99 mL/min/1.73 sq.m. Ages 50-59 = 93 mL/min/1.73 sq.m. Ages 60-69 = 85 mL/min/1.73 sq.m. Ages 70+ = 75 mL/min/1.73 sq.m.Chronic Kidney Disease: Less than 60 mL/min/1.73 square metersEnd Stage Renal Disease: Less than 15 mL/min/1.73 square meters Performed By: #### C BC, ADIFF, ANEU, TSH, CMP, GFR ####[facility] [place], [place] [address]#### VIDH ####[address] [address] eGFR (non-black) mL/min/{1.73_m2} Normal [facility] ([place]) Comment on above: Result Comment: GFR Population mean for , Non- Americans Ages 20-29 = 116 mL/min/1.73 sq.m. Ages 30-39 = 107 mL/min/1.73 sq.m. Ages 40-49 = 99 mL/min/1.73 sq.m. Ages 50-59 = 93 mL/min/1.73 sq.m. Ages 60-69 = 85 mL/min/1.73 sq.m. Ages 70+ = 75 mL/min/1.73 sq.m.Chronic Kidney Disease: Less than 60 mL/min/1.73 square metersEnd Stage Renal Disease: Less than 15 mL/min/1.73 square meters Performed By: #### C BC, ADIFF, ANEU, TSH, CMP, GFR ####[place] [address]#### VIDH ####[place] [address] .NEUABSon 08-04-2017 Neutrophils 3.60 10 3/mcL Normal 2.85-6.16 [facility] ([place]) Comment on above: Performed By: #### C BC, ADIFF, ANEU, TSH, CMP, GFR ####[place] [address]#### VIDH ####[place] [address] CBCon 08-04-2017 Erythrocyte distribution width Auto Ratio (RBC) 13.0 % Normal 11.5-14.5 [facility] ([place]) Comment on above: Performed By: #### C BC, ADIFF, ANEU, TSH, CMP, GFR ####[place] [address]#### VIDH ####[place] [address] Erythrocytes (RBC) 4.59 10 6/mcL Normal 4.20-5.40 [facility] ([place]) Comment on above: Performed By: #### C BC, ADIFF, ANEU, TSH, CMP, GFR ####[place] [address]#### VIDH ####[place] [address] Hematocrit (HCT) 39.5 % Normal 37.0-47.0 [facility] ([place]) Comment on above: Performed By: #### C BC, ADIFF, ANEU, TSH, CMP, GFR ####[place] [address]#### VIDH ####[place] [address] Hemoglobin mass conc (Bld) 13.4 G/dL Normal 12.0-16.0 [facility] ([place]) Comment on above: Performed By: #### C BC, ADIFF, ANEU, TSH, CMP, GFR ####[place] [address]#### VIDH ####[place] [address] MCH 29.1 pg Normal 27.0-31.2 [facility] ([place]) Comment on above: Performed By: #### C BC, ADIFF, ANEU, TSH, CMP, GFR ####[place] [address]#### VIDH ####[place] [address] MCHC mass conc (RBC) 33.8 G/dL Normal 33.0-37.0 [facility] ([place]) Comment on above: Performed By: #### C BC, ADIFF, ANEU, TSH, CMP, GFR ####[place] [address]#### VIDH ####[place] [address] MCV 86.1 fL Normal 80.0-94.0 [facility] ([place]) Comment on above: Performed By: #### C BC, ADIFF, ANEU, TSH, CMP, GFR ####[place] [id number]#### VIDH ####[address] [address] Platelet mean volume (PMV) 8.0 fL Normal 7.4-10.4 [facility] ([place]) Comment on above: Performed By: #### C BC, ADIFF, ANEU, TSH, CMP, GFR ####[place] [address]#### VIDH ####[place] [address] Platelets 274 10 3/mcL Normal 130-400 [facility] ([place]) Comment on above: Performed By: #### C BC, ADIFF, ANEU, TSH, CMP, GFR ####[place] [address]#### VIDH ####[place] [address] WBC (Leukocytes) 6.80 10 3/mcL Normal 4.60-10.80 [facility] ([place]) Comment on above: Performed By: #### C BC, ADIFF, ANEU, TSH, CMP, GFR ####[place] [address]#### VIDH ####[place] [address] CMPon 08-04-2017 Alanine aminotransferase (ALT) 26 U/L Normal 10-35 [facility] ([place]) Comment on above: Performed By: #### C BC, ADIFF, ANEU, TSH, CMP, GFR ####[place] [address]#### VIDH ####[place] [address] Albumin 4.5 G/dL Normal 3.4-4.8 [facility] ([place]) Comment on above: Performed By: #### C BC, ADIFF, ANEU, TSH, CMP, GFR ####[place] [id number] [place] [address]#### VIDH ####[place] [address] Albumin/Globulin Ratio 1.5 {ratio} Normal 1.1-2.5 [facility] ([place]) Comment on above: Performed By: #### C BC, ADIFF, ANEU, TSH, CMP, GFR ####[place] [address]#### VIDH ####[place] [address] Alk Phos 93 IU/L Normal 40-135 [facility] ([place]) Comment on above: Performed By: #### C BC, ADIFF, ANEU, TSH, CMP, GFR ####[place] [address]#### VIDH ####[place] [address] Aspartate aminotransferase (AST) 24 U/L Normal 10-40 [facility] ([place]) Comment on above: Performed By: #### C BC, ADIFF, ANEU, TSH, CMP, GFR ####[place] [address]#### VIDH ####[place] [address] Bili Total 0.6 mg/dL Normal 0.2-1.0 [facility] ([place]) Comment on above: Performed By: #### C BC, ADIFF, ANEU, TSH, CMP, GFR ####[place] [address]#### VIDH ####[place] [address] BUN/Creatinine Ratio 17 ratio Normal 7-27 [facility] ([place]) Comment on above: Performed By: #### C BC, ADIFF, ANEU, TSH, CMP, GFR ####[place] [address]#### VIDH ####[place] [address] Calcium 9.3 mg/dL Normal 8.4-10.2 [facility] ([place]) Comment on above: Performed By: #### C BC, ADIFF, ANEU, TSH, CMP, GFR ####[place] [id number]#### VIDH ####[place] [address] Chloride 102 mmol/L Normal 98-107 [facility] ([place]) Comment on above: Performed By: #### C BC, ADIFF, ANEU, TSH, CMP, GFR ####[place] [address]#### VIDH ####[place] [address] CO2 26 mmol/L Normal 23-31 [facility] ([place]) Comment on above: Performed By: #### C BC, ADIFF, ANEU, TSH, CMP, GFR ####[place] [address]#### VIDH ####[place] [address] Creatinine 0.7 mg/dL Normal 0.6-1.2 [facility] ([place]) Comment on above: Performed By: #### C BC, ADIFF, ANEU, TSH, CMP, GFR ####[place] [address]#### VIDH ####[place] [address] Electrolyte Balance 10.0 mEq/L Normal [facility] ([place]) Comment on above: Performed By: #### C BC, ADIFF, ANEU, TSH, CMP, GFR ####[place] [address]#### VIDH ####[place] [address] Globulin 3.0 G/dL Normal [facility] ([place]) Comment on above: Performed By: #### C BC, ADIFF, ANEU, TSH, CMP, GFR ####[place] [address]#### VIDH ####[place] [address] Glucose mass conc 93 mg/dL Normal 83-110 [facility] ([place]) Comment on above: Performed By: #### C BC, ADIFF, ANEU, TSH, CMP, GFR ####[place] [address]#### VIDH ####[place] [address] Potassium molar conc 4.2 mmol/L Normal 3.5-5.1 [facility] ([place]) Comment on above: Performed By: #### C BC, ADIFF, ANEU, TSH, CMP, GFR ####[place] [address]#### VIDH ####[place] [address] Protein 7.5 G/dL Normal 6.0-8.3 [facility] ([place]) Comment on above: Performed By: #### C BC, ADIFF, ANEU, TSH, CMP, GFR ####[place] [address]#### VIDH ####[place] [address] Sodium 138 mmol/L Normal 136-146 [facility] ([place]) Comment on above: Performed By: #### C BC, ADIFF, ANEU, TSH, CMP, GFR ####[place] [address]#### VIDH ####[place] [address] Urea nitrogen 12.2 mg/dL Normal 7.0-18.0 [facility] ([place]) Comment on above: Performed By: #### C BC, ADIFF, ANEU, TSH, CMP, GFR ####[place] [address]#### VIDH ####[place] [address] TSHon 08-04-2017 Thyroid stimulating hormone (TSH) 1.05 mcIU/mL Normal 0.27-4.20 [facility] ([place]) Comment on above: Performed By: #### C BC, ADIFF, ANEU, TSH, CMP, GFR ####[id number] [place] [id number]#### VIDH ####[address] [address] VIELZAon 08-04-2017 Vit. 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 Charlotte Stevenson DO Work Phone: [facility] 12-18-2024 11:24-0500 Body mass index (BMI) [Ratio] 32.4 kg/m2 Dr. Charlotte Stevenson DO Work Phone: [facility] 12-18-2024 11:24-0500 Body weight [address] Charlotte Stevenson DO Work Phone: [facility] 12-18-2024 11:24-0500 Diastolic blood pressure 80 mm[Hg] Dr. Charlotte Stevenson DO Work Phone: [facility] 12-18-2024 11:24-0500 Heart rate 68 /min Dr. Charlotte Stevenson DO Work Phone: [facility] 12-18-2024 11:24-0500 Respiratory rate 18 /min Dr. Charlotte Stevenson DO Work Phone: [facility] 12-18-2024 11:24-0500 Systolic blood pressure 174 mm[Hg] Dr. Charlotte Stevenson DO Work Phone: [facility] 09-26-2024 09:05-0500 Body mass index (BMI) [Ratio] 32.2 kg/m2 Dr. Charlotte Stevenson DO Work Phone: [facility] 09-26-2024 09:05-0500 Body weight 82.[address] Charlotte Stevenson DO Work Phone: [facility] 09-26-2024 09:05-0500 Diastolic blood pressure 68 mm[Hg] Dr. Charlotte Stevenson DO Work Phone: [facility] 09-26-2024 09:05-0500 Heart rate 51 /min Dr. Charlotte Stevenson DO Work Phone: [facility] 09-26-2024 09:05-0500 Respiratory rate 18 /min Dr. Charlotte Stevenson DO Work Phone: [facility] 09-26-2024 09:05-0500 Systolic blood pressure 129 mm[Hg] Dr. Charlotte Stevenson DO Work Phone: [facility] 09-23-2024 07:13-0500 Body temperature 98.2 [degF] Dr. Charlotte Stevenson DO Work Phone: [facility] 09-23-2024 07:13-0500 Diastolic blood pressure 62 mm[Hg] Dr. Charlotte Stevenson DO Work Phone: [facility] 09-23-2024 07:13-0500 Heart rate 62 /min Dr. Charlotte Stevenson DO Work Phone: [facility] 09-23-2024 07:13-0500 Respiratory rate 19 /min Dr. Charlotte Stevenson DO Work Phone: [facility] 09-23-2024 07:13-0500 SaO2% (BldA) [Mass fraction] 98 % Dr. Charlotte Stevenson DO Work Phone: [facility] 09-23-2024 07:13-0500 Systolic blood pressure 155 mm[Hg] Dr. Charlotte Stevenson DO Work Phone: [facility] 09-23-2024 06:05-0500 Body mass index (BMI) [Ratio] 32.2 kg/m2 Dr. Charlotte Stevenson DO Work Phone: [facility] 09-23-2024 06:05-0500 Body weight 82.[address] Charlotte Stevenson DO Work Phone: [facility] 09-14-2024 11:27-0500 Diastolic blood pressure 68 mm[Hg] Dr. Charlotte Stevenson DO Work Phone: [facility] 09-14-2024 11:27-0500 Systolic blood pressure 157 mm[Hg] Dr. Charlotte Stevenson DO Work Phone: [facility] 09-14-2024 08:59-0500 Body temperature 98.2 [degF] Dr. Charlotte Stevenson DO Work Phone: [facility] 09-14-2024 08:59-0500 Heart rate 59 /min Dr. Charlotte Stevenson DO Work Phone: [facility] 09-14-2024 08:59-0500 Respiratory rate 16 /min Dr. Charlotte Stevenson DO Work Phone: [facility] 09-14-2024 08:59-0500 SaO2% (BldA) [Mass fraction] 95 % Dr. Charlotte Stevenson DO Work Phone: [facility] 09-12-2024 12:00-0500 Inhaled oxygen flow rate 2 L/min Dr. Charlotte Stevenson DO Work Phone: [facility] 09-12-2024 09:49-0500 Body mass index (BMI) [Ratio] 32.5 kg/m2 Dr. Charlotte Stevenson DO Work Phone: [facility] 09-12-2024 09:49-0500 Body weight 83.[address] Charlotte Stevenson DO Work Phone: [facility] 07-20-2023 10:00-0400 Body height 160.[address] Charlotte Stevenson Work Phone: [facility] 07-20-2023 10:00-0400 Body mass index (BMI) [Ratio] 33.6 kg/m2 Dr. Charlotte Stevenson Work Phone: [facility] 07-20-2023 10:00-0400 Body weight 86.[address] Charlotte Stevenson Work Phone: [facility] 07-20-2023 10:00-0400 Diastolic blood pressure 81 mm[Hg] Dr. Charlotte Stevenson Work Phone: [facility] 07-20-2023 10:00-0400 Heart rate 72 /min Dr. Charlotte Stevenson Work Phone: [facility] 07-20-2023 10:00-0400 Respiratory rate 18 /min Dr. Charlotte Stevenson Work Phone: [facility] 07-20-2023 10:00-0400 SaO2% (BldA) [Mass fraction] 96 % Dr. Charlotte Stevenson Work Phone: [facility] 07-20-2023 10:00-0400 Systolic blood pressure 170 mm[Hg] Dr. Charlotte Stevenson Work Phone: [facility] 11-29-2022 14:24-0500 Diastolic blood pressure 85 mm[Hg] Dr. Charlotte Stevenson Work Phone: [facility] 11-29-2022 14:24-0500 Heart rate 73 /min Dr. Charlotte Stevenson Work Phone: [facility] 11-29-2022 14:24-0500 Respiratory rate 15 /min Dr. Charlotte Stevenson Work Phone: [facility] 11-29-2022 14:24-0500 SaO2% (BldA) [Mass fraction] 98 % Dr. Charlotte Stevenson Work Phone: [facility] 11-29-2022 14:24-0500 Systolic blood pressure 146 mm[Hg] Dr. Charlotte Stevenson Work Phone: [facility] 11-29-2022 10:24-0500 Body height 160.[address] Charlotte Stevenson Work Phone: [facility] 11-29-2022 10:24-0500 Body mass index (BMI) [Ratio] 32.8 kg/m2 Dr. Charlotte Stevenson Work Phone: [facility] 11-29-2022 10:24-0500 Body temperature 97.2 [degF] Dr. Charlotte Stevenson Work Phone: [facility] 11-29-2022 10:24-0500 Body weight 83.[address] Charlotte Stevenson Work Phone: [facility] 09-11-2022 10:52-0400 Body height 160.[address] Charlotte Stevenson Work Phone: [facility] Work Phone: 09-11-2022 10:52-0400 Body mass index (BMI) [Ratio] 33.1 kg/m2 Dr. Charlotte Stevenson Work Phone: [facility] 09-11-2022 10:52-0400 Body weight 84.[address] Charlotte Stevenson Work Phone: [facility] 09-11-2022 10:52-0400 Diastolic blood pressure 79 mm[Hg] Dr. Charlotte Stevenson Work Phone: [facility] 09-11-2022 10:52-0400 Heart rate 70 /min Dr. Charlotte Stevenson Work Phone: [facility] 09-11-2022 10:52-0400 Respiratory rate 18 /min Dr. Charlotte Stevenson Work Phone: [facility] 09-11-2022 10:52-0400 SaO2% (BldA) [Mass fraction] 98 % Dr. Charlotte Stevenson Work Phone: [facility] 09-11-2022 10:52-0400 Systolic blood pressure 147 mm[Hg] Dr. Charlotte Stevenson Work Phone: [facility] 03-16-2022 11:14-0400 Body height 160.[address] Charlotte Stevenson Work Phone: [facility] Work Phone: 03-16-2022 11:14-0400 Body mass index (BMI) [Ratio] 32.9 kg/m2 Dr. Charlotte Stevenson Work Phone: [facility] Work Phone: 03-16-2022 11:14-0400 Body weight 84.[address] Charlotte Stevenson Work Phone: [facility] Work Phone: 03-16-2022 11:14-0400 Diastolic blood pressure 82 mm[Hg] Dr. Charlotte Stevenson Work Phone: [facility] Work Phone: 03-16-2022 11:14-0400 Heart rate 86 /min Dr. Charlotte Stevenson Work Phone: [facility] Work Phone: 03-16-2022 11:14-0400 Respiratory rate 18 /min Dr. Charlotte Stevenson Work Phone: [facility] Work Phone: 03-16-2022 11:14-0400 SaO2% (BldA) [Mass fraction] 94 % Dr. Charlotte Stevenson Work Phone: [facility] Work Phone: 03-16-2022 11:14-0400 Systolic blood pressure 141 mm[Hg] Dr. Charlotte Stevenson Work Phone: [facility] Work Phone: Encounters Encounter Date Encounter Type Care Provider Facility Start: 05-03-2025 ambulatory Charlotte Stevenson Facility:[place] Start: 04-17-2025 End: 04-17-[address] Charlotte Stevenson DO Work Phone: [facility] Work Phone: Start: 04-17-2025 End: 04-17-[address] Charlotte Stevenson DO -[facility] [place] Work Phone: Start: 04-17-2025 End: 04-17-2025 ambulatory Charlotte Stevenson Facility:[facility] Start: 03-14-2025 Non-patient / Non-visit Dr. Yuri ortega MD -[facility] Start: 03-14-2025 Registered Referred Self Referred -[facility] Work Phone: Start: 03-14-2025 ambulatory Yuri Nicholas Facility:[facility] Start: 01-01-2025 End: 01-01-[address] Charlotte Stevenson DO Work Phone: [facility] Work Phone: Start: 01-01-2025 End: 01-01-[address] Charlotte Stevenson DO -[facility]patient [facility] Work Phone: Start: 01-01-2025 End: 01-01-2025 ambulatory Charlotte Stevenson Facility:[facility] Start: 12-18-2024 End: 12-18-2024 Patient encounter procedure Benoit Krishnamurthy [employer]ER-C -[facility] Work Phone: Start: 12-18-2024 End: 12-18-2024 ambulatory Benoit Krishnamurthy NP Facility:[facility] Start: 11-17-2024 End: 11-17-[address] Charlotte Stevenson DO -Laboratory, [place] Work Phone: Start: 11-17-2024 End: [facility] Start: 11-03-2024 End: 11-03-[address] Charlotte Stevenson DO -Laboratory, [facility] Work Phone: Start: 11-03-2024 End: 11-03-20[facility] Start: 09-26-2024 End: 09-26-[address] Mohamud Canela MD -[facility] Work Phone: Start: 09-26-2024 End: 09-26-20[facility] Start: 09-23-2024 End: 09-23-2024 Emergency department patient visit Dr. Billy Agudelo MD -Emergency Department Work Phone: Start: 09-20-2024 Non-patient / Non-visit Dr. Patricia Canela MD -[facility] Work Phone: Start: 09-20-2024 End: 09-20-[address] 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 Emilie Enriquez DO -[facility] Work Phone: Start: 09-14-2024 Non-patient / Non-visit Dr. Patricia Canela MD -[facility] Start: 09-13-2024 Non-patient / Non-visit Dr. Emilie Enriquez DO -[facility] Work Phone: Start: 09-13-2024 Non-patient / Non-visit Dr. Patricia Canela MD -[facility] Start: 09-12-2024 ambulatory Mohamud Canela Facility :[facility] Start: 09-12-2024 End: 09-14-2024 Evaluation and management of inpatient Dr. Emilie Enriquez DO -[facility] Work Phone: Start: 08-07-2024 ambulatory Lasha Be Facility:[facility] Start: 08-07-2024 End: 08-07-2024 ambulatory Benoit H Roof SEGMENTAL PAVER INSTALLER Facility:[facility] Start: 07-25-2024 ambulatory Benoit H Roof SEGMENTAL PAVER INSTALLER Facility :[facility] Start: 07-19-2024 ambulatory Erbacon Be Facility:[facility] Start: 07-12-2024 End: 07-12-2024 ambulatory Benoit H Roof SEGMENTAL PAVER INSTALLER Facility:[facility] Start: 07-12-2024 End: 07-12-2024 ambulatory Benoit H Roof SEGMENTAL PAVER INSTALLER Facility:[facility] Start: 04-04-2024 End: 04-05-2024 ambulatory GLENN ALAM Facility:[facility] Start: 12-29-2023 End: 12-29-[address] Charlotte Stevenson Work Phone: [facility] Work Phone: Start: 12-29-2023 End: 12-29-[address] Charlotte Stevenson Work Phone: [facility]-Outpatient Bone Densitometry Work Phone: Start: 10-28-2023 Non-patient / Non-visit Dr. Erika Stevenson Work Phone: [facility] Start: 10-28-2023 End: 10-28-[address] Charlotte Stevenson Work Phone: [facility] Work Phone: Start: 10-28-2023 End: 10-28-[address] Charlotte Stevenson Work Phone: [facility]-Cardiovascular Services Work Phone: Start: 09-06-2023 End: 09-06-[address] Charlotte Stevenson Work Phone: [facility] Work Phone: Start: 09-06-2023 End: 09-06-[address] [facility] Start: 07-20-2023 End: 07-20-[address] Charlotte Stevenson Work Phone: [facility] Work Phone: Start: 03-08-2023 End: 03-08-2023 ambulatory [facility] Work Phone: Start: 03-08-2023 End: 03-08-2023 Patient encounter procedure [facility] Start: 12-28-2022 End: 12-28-[address] Charlotte Stevenson Work Phone: [facility] Work Phone: Start: 12-28-2022 End: 12-28-[address] Charlotte Stevenson Work Phone: [facility]-Outpatient Breast Imaging Start: 12-03-2022 End: 12-03-[address] Charlotte Stevenson Work Phone: [facility] Work Phone: Start: 12-03-2022 End: 12-03-[address] [facility] Start: 11-29-2022 End: 11-29-2022 Emergency department patient visit Dr. Charlotte Stevenson Work Phone: [facility]-Emergency Department Start: 10-07-2022 End: 10-07-[address] Charlotte Stevenson Work Phone: [facility] Work Phone: Start: 10-07-2022 End: 10-07-[address] Charlotte Stevenson Work Phone: [facility]Cardiovascular Services Start: 10-07-2022 Non-patient / Non-visit Dr. Erika Stevenson Work Phone: [facility] Start: 10-02-2022 End: 10-02-[address] Charlotte Stevenson Work Phone: [facility] Work Phone: Start: 10-02-2022 End: 10-02-[address] Charlotte Stevenson Work Phone: [facility]-Outpatient Pavilion Ultrasound Start: 09-24-2022 End: 09-24-[address] Charlotte Stevenson Work Phone: [facility] Work Phone: Start: 09-24-2022 End: 09-24-[address] Charlotte Stevenson [facility] Start: 09-11-2022 End: 09-11-[address] Charlotte Stevenson Work Phone: [facility] Start: 09-09-2022 End: 09-09-[address] Charlotte Stevenson Work Phone: [facility] Work Phone: Start: 09-09-2022 End: 09-09-[address] Charlotte Stevenson Work Phone: [facility]-Laboratory, Specimen Start: 03-31-2022 End: 03-31-[address] Charlotte Stevenson Work Phone: [facility]-Radiology, [facility] Start: 03-16-2022 End: 03-16-[address] Charlotte Stevenson Work Phone: [facility] Start: 03-13-2022 Non-patient / Non-visit Dr. Erika Stevenson Work Phone: [facility] Start: 12-25-2021 End: 12-25-[address] Charlotte Stevenson Work Phone: [facility]-Outpatient Breast Imaging Start: 08-12-2017 End: 08-13-2017 Ambulatory CHARLOTTE STEVENSON Facility:[facility] Start: 08-04-2017 End: 08-05-2017 Ambulatory CHARLOTTE STEVENSON Facility:[facility] Procedures Date Procedure Procedure Detail Performing Clinician Start: 01-01-2025 Screening mammography D demetris Stevenson DO Work Phone: Start: 11-17-[address] Charlotte Stevenson DO Work Phone: Start: 11-03-[address] Charlotte Stevenson DO Work Phone: Start: 09-26-2024 Evaluation of diagno stic study results Dr. Charlotte Stevenson DO Work Phone: Start: 09-20-2024 Evaluation of diagno stic study results Dr. Charlotte Stevenson DO Work Phone: Start: 09-12-2024 Plain chest X-ray Dr. Shelby Stevenson DO Work Phone: Start: 12-29-2023 Dual energy X-ray absorptiometry Dr. Charlotte Stevenson Work Phone: Start: 12-29-2023 Screening mammography D demetris Stevenson Work Phone: Start: 12-28-2022 Screening mammography D dmeetris Stevenson Work Phone: Start: 11-29-2022 Plain chest X-ray Dr. Shelby Stevenson Work Phone: Start: 10-02-[address] Shelby Stevenson Work Phone: Start: 10-02-[address] Charlotte Stevenson Work Phone: Start: 09-24-[address] Charlotte Stevenson Work Phone: Start: 03-31-[address] Charlotte Stevenson Work Phone: Start: 12-25-2021 Screening mammography Nigel Stevenson Work Phone: Urine culture Dr. Charlotte Stevenson Work Phone: Urine culture Dr. Charlotte Stevenson Work Phone: Plan of Treatment Date Care Activity Detail Author Start: 09-23-2024 [facility] Start: 09-14-2024 Patient discharge [facility] Start: 09-14-2024 [facility] Start: 09-12-2024 Care planning and pr oblem solving actions [facility] Start: 09-12-2024 Care planning and pr oblem solving actions [facility] Start: 09-12-2024 Following clinical p athway protocol [facility] Start: 09-12-2024 Assessment of risk o f venous thromboembolism [facility] Start: 09-12-2024 Catheterization of vein [facility] Start: 09-12-2024 Insertion of cathete r into peripheral vein [facility] Start: 09-12-2024 Measuring intake and output [facility] Start: 09-12-2024 Providing care accor ding to standard [facility] Start: 09-12-2024 Provision of activity privileges [facility] Start: 09-12-2024 Referral to pharmacogeneticist [facility] Start: 09-12-2024 Referral to service [facility] Start: 09-12-2024 [facility] Start: 09-12-2024 End: 09-12-2024 Admission procedure [facility] Start: 09-12-2024 [facility] Start: 11-29-2022 [facility] Patient Education [facility] Work Phone: Patient referral [facility] Work Phone: Payers Date Payer Category Payer Self-pay [id number] 2013 Medicare [id number] Unknown [id number] 2.16.8 [id number] Unknown [id number] 2.16.8 [id number] Unknown [id number] 2.16.8 40.1.096519.3.579.2.462 Unknown [id number] 2.16.8 40.1.511431.3.579.2.462 Unknown [id number] 2.16.8 40.1.722686.3.579.2.462 Unknown [id number] 2.16.8 40.1.898896.3.579.2.462 Unknown [id number] 2.16.8 40.1.469305.3.579.2.462 Unknown [id number] 2.16.8 40.1.876517.3.579.2.462 Unknown [id number] 2.16.8 40.1.836681.3.579.2.462 Unknown [id number] 2.16.8 40.1.270314.3.579.2.462 Unknown [id number] 2.16.8 40.1.713235.3.579.2.462 Unknown [id number] 2.16.8 40.1.282383.3.579.2.462 Unknown [id number] 2.16.8 40.1.983006.3.579.2.462 Unknown [id number] 2.16.8 40.1.199055.3.579.2.462 Unknown [id number] 2.16.8 40.1.487082.3.579.2.462 Unknown [id number] 2.16.8 40.1.291016.3.579.2.462 Unknown [id number] 2.16.8 40.1.083120.3.579.2.462 Unknown [id number] 2.16.8 40.1.026567.3.579.2.462 Unknown [id number] 2.16.8 40.1.807888.3.579.2.462 Unknown [id number] 2.16.8 40.1.823585.3.579.2.462 Unknown [id number] 2.16.8 40.1.358872.3.579.2.462 Unknown [id number] 2.16.8 40.1.045355.3.579.2.462 Unknown [id number] 2.16.8 40.1.056471.3.579.2.462 Unknown [id number] 2.16.8 40.1.397980.3.579.2.462 Unknown [id number] 2.16.8 40.1.653440.3.579.2.462 Unknown [id number] 2.16.8 40.1.475886.3.579.2.462 Social History Date Type Detail Facility Start: 03-16-2022 End: 07-20-2023 Tobacco smoking status NHIS Unknown if ever smoked [facility] Start: 1945 Sex Assigned At Female [facility] Start: 09-23-2024 End: 09-23-2024 Tobacco smoking status NHIS Never smoked tobacco (finding) [facility] Start: 01-11-2025 Sex Female (finding) [facility] Goals Date Patient Goal Desired Activity /State Functional Status Date Assessment Result Facility 09-14-2024 Functional status Ambulates;Up ad isidro [facility] Work Phone: Mental Status Date Assessment Result Facility 09-23-2024 Cognitive function Voice/Name [facility] Work Phone: 09-14-2024 Cognitive function Voice/Name [facility] Work Phone: 11-29-2022 Cognitive function Level Of Cons ciousness Awake;Alert;Appropriate [facility] Work Phone: Discharge summary note 09-14-2024 Note Date & Type Note Facility 09-14-2024 Note [facility] Medical Records Department [address] [place] [address] Discharge Summary 09/14/24 1237 MR#: [id number] Acct: [id number] Name: BELEM ESTES Rep #: [id number] : 1945 79 From: Emilie Enriquez DO PCP: Dr. Charlotte Stevenson DO Status:ADM IN Location: [place] [address] Providers Date of Admission: 09/12/24 Date of Discharge: 09/14/24 Primary Care Physician: Dr. Charlotte Stevenson DO Consultations 09/12/24 09:45 Consult: Cardiology Routine Consulting Provider: Mohamud Canela Reason for Consult: Afib with RVR EMERGENT Consult: No MD Notified: Yes Date Notified: 09/12/24 Time Notified: 08:45 Method of Notification: Verbal Reason For Visit: AFIB WITH RVR Diagnosis Discharge Diagnosis (1) Paroxysmal atrial fibrillation: Status: Acute Code(s): I48.0 - Paroxysmal atrial fibrillation (2) Essential hypertension: Status: Acute Code(s): I10 - Essential (primary) hypertension Medications at Discharge Home Medications lisinopril 20 mg tablet 20 mg PO BID blood pressu 03/20/18 [id number]-noo-qkgxm acid 0.4 mg-lycopene 300 mcg-lutein 250 mcg tablet 1 ea PO DAILY suppliment 03/20/18 cranberry 500 mg capsule 2,000 mg PO DAILY suppliment 04/05/18 metronidazole 0.75 % topical gel 1 applic topical PRN rash 12/01/18 hydrochlorothiazide 12.5 mg tablet 12.5 mg PO DAILY bp #90 tabs 01/09/21 pantoprazole 40 mg tablet,delayed release 40 mg PO DAILY reflux 09/11/22 rosuvastatin 10 mg tablet 10 mg PO DAILY cholesterol 07/20/23 aspirin 81 mg tablet,delayed release (Adult Aspirin Regimen) 81 mg PO DAILY preventative 07/12/24 montelukast 10 mg tablet 10 mg PO QDAY PRN allergies 07/12/24 estriol micronized (bulk) 100 % powder 1 ea miscellaneous QWEEK infections 09/13/24 fluticasone furoate 27.5 mcg/actuation nasal spray,suspension 2 spray intranasal DAILY PRN allergies 09/13/24 amlodipine 5 mg tablet 5 mg PO DAILY #30 tabs 09/14/24 apixaban 5 mg tablet (Eliquis) 5 mg PO BID #60 tabs 09/14/24 flecainide 100 mg tablet 100 mg PO BID #60 tabs 09/14/24 Hospital Course Operations None Procedures 2-D Echocardiogram, EKG and - (Chest x-ray) Summary of Care Provided Minutes Spent on Discharge: 38 Hospital Course: BELEM ESTES, is a 79 F who presented to the emergency department [facility] on [place] 03/27/2024 in the morning due to palpitation she was having at home. She stated that she was awakened from sleep due to palpitations. She does have a known history of atrial fibrillation and takes metoprolol 25 mg daily at home for this. She had elected to not be on anticoagulation previously. Her [id number] score is 5. She also has a history of moderate carotid artery disease with 50 to 69% stenosis bilaterally. Patient reported that she woke up between 4 and 430 this morning at which time she had a sensation of anxiety and lightheadedness. She felt very anxious and felt palpitations so decided to come to the emergency department. Upon presentation she was found to be in A-fib with RVR and then spontaneously converted into normal sinus rhythm. She ultimately was treated with 3 doses of metoprolol to IV and 1 oral 50 mg dose and then was placed on a Cardizem drip due to persistent intermittent A-fib. Following the administration of beta-denisse and calcium channel denisse she had some sinus pauses due to likely related to her sinus node recovery time being prolonged which made her more anxious and jittery. Vital signs on presentation showed a temperature of 98, heart rate was 140, respiratory was 19, blood pressure was 176/105, and pulse ox was 100% on room air. CBC was unremarkable. Coags were unremarkable. Chemistry panel showed mild hypokalemia with potassium of 3.3 but was otherwise unremarkable other than a nonfasting glucose of 138. Initial troponin was 53 with a delta troponin of 66. EKG was consistent with A-fib with RVR. Chest x-ray was unremarkable. She did have a recent TSH on 07/12/2024 at which time was 1.04. Given her symptoms on presentation and intermittent sinus node pauses due to prolonged recovery time with medications and ongoing intermittent atrial fibrillation the case was discussed with cardiology and they did recommend admission for evaluation and consideration for pacemaker. With discontinuation of beta-blockade and calcium channel blockade and initiation of flecainide started by cardiology, her A-fib reverted to sinus rhythm and the sinus pauses resolved. Rhythm control was preferred as she had significant the symptomatic heart block on medications that affected rate. She did agree to start anticoagulation after risks and benefits were discussed and initially was on heparin as there was concern for possible pacemaker requirement and then transition to Eliquis once that concern resolved. She was monitored for 6 doses of her flecainide. QTc was monitored on daily basis via EK (more content not included)... [facility] Evaluation note 09-12-2024 Note Date & Type Note Facility 09-12-2024 Evaluation note Diagnosis Onset Date Resolution Atrial fibrillation with RVR resolved September 12 9:12am Chest pain resolved September 12, 2024 9:12am Hypokalemia resolved September 12, 2024 9:12am Sinus pause resolved September 12, 2024 9:12am Essential hypertension inactive No [id number] 9:12am Hyperlipidemia inactive September 122023 9:12am Paroxysmal atrial fibrillation inactive September 12 9:12am Paroxysmal atrial fibrillation chronic September 26, 2 024 8:45am Bilateral carotid artery stenosis chronic December 18, 2 025 11:21am Paroxysmal atrial fibrillation chronic December 18, 2 025 11:21am [facility] Work Phone: Evaluation note Note Date & Type Note Facility Evaluation note Diagnosis Onset Date Essential hypertension acute Paroxysmal atrial fibrillation acute Bilateral carotid artery stenosis chronic Hyperlipidemia chronic [facility] Work Phone: Evaluation note Note Date & Type Note Facility Evaluation note No assessment information availa ble [facility] Work Phone: Reason for referral (narrative) Note Date & Type Note Facility Reason for referral (narrative) No reason for referral information available [facility] Work Phone: Summary Purpose Family History No Family History Records Found Relationship Condition Age at Onset Recorded Date/T erika father Diabetes mellitus Unknown Hypertension Unknown brother Diabetes mellitus Unknown brother Cardiac disease Unknown Advance Directives No Advanced Directives Records Found Advance Directive Response Recorded Date/ Time Living Will Yes September 13 5:51pm Power of Lean Manufacturing Engineer Yes September 13, 2021 5:51pm Advance Directive Response Recorded Date/ Time Living Will Yes September 13 4:51pm Power of Lean Manufacturing Engineer Yes September 13, 2021 4:51pm Advance Directive Response Recorded Date/ Time Name of Medical Power of Lean Manufacturing Engineer November 29, 2022 10:46am Living Will Yes November 29 10:46am Power of Lean Manufacturing Engineer Yes November 29, 2022 10:46am Advance Directive Response Recorded Date/ Time Living Will Yes November 29 11:46am Power of Lean Manufacturing Engineer Yes November 29, 2022 11:46am Name of Medical Power of Lean Manufacturing Engineer November 29, 2022 11:46am Advance Directive Response Recorded Date/ Time Living Will Yes November 29 11:46am Power of Lean Manufacturing Engineer Yes November 29, 2022 11:46am Advance Directive Response Recorded Date/ Time Living Will Yes November 29 10:46am Power of Lean Manufacturing Engineer Yes November 29, 2022 10:46am Advance Directive Response Recorded Date/ Time Living Will Yes September 12 10:07am Power of Lean Manufacturing Engineer Yes September 12, 2024 10:07am Name of Medical Power of Lean Manufacturing Engineer September 12, 2024 10:07am Living Will Yes September 23, 024 6:07am Power of Lean Manufacturing Engineer Yes September 23, 2024 6:07am Name of Medical Power of Lean Manufacturing Engineer Kris September 23, 2024 6:07am Chief Complaint and Reason for Visit Chief Complaint SCREENING Amb Documentation 6 M FU DYSPHAGIA Reason for Visit Essential hypertensi on Paroxysmal atrial fibrillation Bilateral carotid artery stenosis Hyperlipidemia Chief Complaint 6 M FU Reason for Visit Essential hypertensi on Paroxysmal atrial fibrillation Bilateral carotid artery stenosis Hyperlipidemia Chief Complaint 6 M FU BLOATING,PELVIC PAIN, FREQUENT UTI BLOATING,PELVIC PAIN, FREQUENT UTI Reason for Visit Essential hypertensi on Paroxysmal atrial fibrillation Bilateral carotid artery stenosis Hyperlipidemia Chief Complaint 6 M FU BLOATING,PELVIC PAIN, FREQUENT UTI BLOATING,PELVIC PAIN, FREQUENT UTI CAROTID ARTERY STENOSIS Reason for Visit Essential hypertensi on Paroxysmal atrial fibrillation Bilateral carotid artery stenosis Hyperlipidemia Chief Complaint 6 M FU BLOATING,PELVIC PAIN, FREQUENT UTI BLOATING,PELVIC PAIN, FREQUENT UTI CAROTID ARTERY STENOSIS CP Reason for Visit Essential hypertensi on Paroxysmal atrial fibrillation Bilateral carotid artery stenosis Hyperlipidemia Chief Complaint 6 M FU BLOATING,PELVIC PAIN, FREQUENT UTI BLOATING,PELVIC PAIN, FREQUENT UTI CAROTID ARTERY STENOSIS CP SCREENING Reason for Visit Essential hypertensi on Paroxysmal atrial fibrillation Bilateral carotid artery stenosis Hyperlipidemia Chief Complaint CP SCREENING Chief Complaint 1 Y FU Reason for Visit Essential hypertensi on Paroxysmal atrial fibrillation Bilateral carotid artery stenosis Hyperlipidemia Chief Complaint 1 Y FU Occlusion and stenosis of bilateral carotid arteri Reason for Visit Essential hypertensi on Paroxysmal atrial fibrillation Bilateral carotid artery stenosis Hyperlipidemia Chief Complaint Occlusion and stenos is of bilateral carotid arteri Age-related osteoporosis without current pathologi Chief Complaint Admit Date AFIB WITH RVR September 12, 2024 9 :12am AFIB WITH RVR September 13, 2024 8 :30am AFIB WITH RVR September 13, 2024 4 :37pm AFIB WITH RVR September 14, 2024 8 :12am AFIB WITH RVR September 14, 2024 1 2:37pm EKG CHECK September 20, 2024 9:58am PALP September 20, 2024 10:45am AFIB/FLUTTER September 20, 2024 11:00am PALPITATIONS September 23, 2024 6:04am S/P [facility] 09/14September 26, 2024 8:45am ALL 3 ORDERS November 17, 2024 9 :32am 3 M FU December 18, 2024 11:21am SCREENING January 01, 2025 10:17am Reason for Visit Admit Date Atrial fibrillation with RVR September 9:12am Chest pain September 12, 2024 9 :12am Hypokalemia September 12, 2024 9 :12am Sinus pause September 12, 2024 9 :12am Essential hypertension September 12 9:12am Hyperlipidemia September 12, 2024 9 :12am Paroxysmal atrial fibrillation September 12, 2024 9:12am Paroxysmal atrial fibrillation September 26, 2024 8:45am Bilateral carotid artery stenosis Februa 2024 11:21am Paroxysmal atrial fibrillation December 18, 2024 11:21am Chief Complaint Admit Date SCREENING January 01, 2025 10:17am FRIENDS March 14, 2025 8:58am FASTING April 17, 2025 9:01 am Additional Source Comments INFORMATION SOURCE (unrecogn ized section and content) DATE CREATED AUTHOR 05/04/2018 [facility] ([place]) DATE CREATED AUTHOR AUTHOR'S ORGANIZ ATION 04/05/2024 [facility] DATE CREATED AUTHOR AUTHOR'S ORGANIZ ATION 04/26/2025 [facility] Goals (unrecognized section and content) Goals may be documented in a n alternate sectionGoals may be documented in an alternate sectionGoals may be documented in an alternate sectionGoals may be documented in an alternate sectionGoals may be documented in an alternate sectionGoals may be documented in an alternate sectionGoals may be documented in an alternate sectionGoals may be documented in an alternate sectionGoals may be documented in an alternate sectionGoals may be documented in an alternate sectionGoals may be documented in an alternate sectionGoals may be documented in an alternate sectionGoals may be documented in an alternate section Care Teams (unrecognized sec tion and content) Team Status: Active Member Role Status Dates Dr. Charlotte Stevenson DO Family Provider Active Dr. Charlotte Stevenson DO Primary Care Provider Active Team Status: Inactive Member Role Status Dates Dr. Charlotte Stevenson DO Primary Care Provider, Referring P rovider Active Lorena Jaime SEGMENTAL PAVER INSTALLER, SEGMENTAL PAVER INSTALLER-C Attending Provider Active Team Status: Active Member Role Status Dates Dr. Charlotte Stevenson DO Primary Care Provider, Referring P rovider Active Dr. Lucho Jackman MD Attending Provider Active Team Status: Inactive Member Role Status Dates Dr. Charlotte Stevenson DO Primary Care Provider, Attending P rovider Active Team Status: Inactive Member Role Status Dates Dr. Charlotte Stevenson DO Primary Care Provide r, Attending Provider, Referring Provider Active Team Status: Inactive Member Role Status Dates Dr. Charlotte Stevenson DO Primary Care Provider Active Dr. Yuri Garcia , DO Emergency Provider Active Team Status: Inactive Member Role Status Dates Dr. Charlotte Stevenson DO Primary Care Provider Active Dr. Yuri Garcia DO Attending Provider, Emergency P rovider Active Team Status: Active Member Role Status Dates Dr. Charlotte Stevenson DO Primary Care Provider Active Dr. Yuri Nicholas MD Attending Provider Active Team Status: Active Member Role Status Dates Dr. Charlotte Stevenson DO Primary Care Provider, Referring P rovider Active Dr. Yuri Nicholas MD Attending Provider Active Team Status: Active Member Role Status Dates Dr. Charlotte Stevenson DO Primary Care Provider Active Team Status: Inactive Member Role Status Dates Dr. Charlotte Stevenson DO Primary Care Provider Active Start: September 12, 2024 End: September 14, 2024 Dr. Misha Mchugh DO Emergency Provider Active Start : September 12, 2024 End: September 14, 2024 Dr. Emilie Enriquez DO Admit Provider Active Start : September 12, 2024 End: September 14, 2024 Dr. Emilie Enriquez DO Attending Provider Active S tart: September 12, 2024 End: September 14, 2024 Dr. Mohamud Canela MD Other Provider Active St art: September 12, 2024 End: September 14, 2024 Team Status: Active Member Role Status Dates Dr. Charlotte Stevenson DO Primary Care Provider Active Start: September 13, 2024 Dr. Misha Mchugh DO Emergency Provider Active Start : September 13, 2024 Dr. Emilie Enriquez DO Admit Provider Active Start : September 13, 2024 Dr. Emilie Enriquez DO Other Provider Active Start : September 13, 2024 Dr. Mohamud Canela MD Attending Provider Active Start: September 13, 2024 Dr. Mohamud Canela MD Other Provider Active St art: September 13, 2024 Team Status: Active Member Role Status Dates Dr. Charlotte Stevenson DO Primary Care Provider Active Start: September 13, 2024 Dr. Misha Mchugh DO Emergency Provider Active Start : September 13, 2024 Dr. Emilie Enriquez DO Admit Provider Active Start : September 13, 2024 Dr. Emilie Enriquez DO Attending Provider Active S tart: September 13, 2024 Dr. Emilie Enriquez DO Other Provider Active Start : September 13, 2024 Dr. Mohamud Canela MD Other Provider Active St art: September 13, 2024 Team Status: Active Member Role Status Dates Dr. Charlotte Stevenson DO Primary Care Provider Active Start: September 14, 2024 Dr. Misha Mchugh DO Emergency Provider Active Start : September 14, 2024 Dr. Emilie Enriquez DO Admit Provider Active Start : September 14, 2024 Dr. Emilie Enriquez DO Other Provider Active Start : September 14, 2024 Dr. Mohamud Canela MD Attending Provider Active Start: September 14, 2024 Dr. Mohamud Canela MD Other Provider Active St art: September 14, 2024 Team Status: Active Member Role Status Dates Dr. Charlotte Stevenson DO Primary Care Provider Active Start: September 14, 2024 Dr. Misha Mchugh DO Emergency Provider Active Start : September 14, 2024 Dr. Emilie Enriquez DO Admit Provider Active Start : September 14, 2024 Dr. Emilie Enriquez DO Attending Provider Active S tart: September 14, 2024 Dr. Emilie Enriquez DO Other Provider Active Start : September 14, 2024 Dr. Mohamud Canela MD Other Provider Active St art: September 14, 2024 Team Status: Inactive Member Role Status Dates Dr. Charlotte Stevenson DO Primary Care Provider Active Start: September 20, 2024 End: September 20, 2024 Dr. Charlotte Stevenson DO Referring Provider Active St art: September 20, 2024 End: September 20, 2024 Dr. Mohamud Canela MD Attending Provider Active Start: September 20, 2024 End: September 20, 2024 Team Status: Inactive Member Role Status Dates Dr. Charlotte Stevenson DO Primary Care Provider Active Start: September 20, 2024 End: September 20, 2024 Benoit Krishnamurthy SEGMENTAL PAVER INSTALLER, SEGMENTAL PAVER INSTALLER-C Attending Provider Active S tart: September 20, 2024 End: September 20, 2024 Benoit Krishnamurthy SEGMENTAL PAVER INSTALLER, SEGMENTAL PAVER INSTALLER-C Referring Provider Active S tart: September 20, 2024 End: September 20, 2024 Team Status: Active Member Role Status Dates Dr. Charlotte Stevenson DO Primary Care Provider Active Start: September 20, 2024 Dr. Mohamud Canela MD Attending Provider Active Start: September 20, 2024 Benoit Krishnamurthy SEGMENTAL PAVER INSTALLER, SEGMENTAL PAVER INSTALLER-C Referring Provider Active S tart: September 20, 2024 Team Status: Inactive Member Role Status Dates Dr. Charlotte Stevenson DO Primary Care Provider Active Start: September 23, 2024 End: September 23, 2024 Dr. Billy Agudelo MD Attending Provider Active Start: September 23, 2024 End: September 23, 2024 Dr. Billy Agudelo MD Emergency Provider Active Start: September 23, 2024 End: September 23, 2024 Team Status: Inactive Member Role Status Dates Dr. Charlotte Stevenson DO Primary Care Provider Active Start: September 26, 2024 End: September 26, 2024 Dr. Charlotte Stevenson DO Referring Provider Active St art: September 26, 2024 End: September 26, 2024 Dr. Mohamud Canela MD Attending Provider Active Start: September 26, 2024 End: September 26, 2024 Team Status: Inactive Member Role Status Dates Dr. Charlotte Stevenson DO Primary Care Provider Active Start: November 03, 2024 End: November 03, 2024 Dr. Charlotte Stevenson DO Attending Provider Active St art: November 03, 2024 End: November 03, 2024 Dr. Charlotte Stevenson DO Referring Provider Active St art: November 03, 2024 End: November 03, 2024 Team Status: Inactive Member Role Status Dates Dr. Charlotte Stevenson DO Primary Care Provider Active Start: November 17, 2024 End: November 17, 2024 Dr. Charlotte Stevenson DO Attending Provider Active St art: November 17, 2024 End: November 17, 2024 Dr. Charlotte Stevenson DO Referring Provider Active St art: November 17, 2024 End: November 17, 2024 Team Status: Inactive Member Role Status Dates Dr. Charlotte Stevenson DO Primary Care Provider Active Start: December 18, 2024 End: December 18, 2024 Dr. Charlotte Stevenson DO Referring Provider Active St art: December 18, 2024 End: December 18, 2024 Benoit Krishnamurthy SEGMENTAL PAVER INSTALLER, SEGMENTAL PAVER INSTALLER-C Attending Provider Active S tart: December 18, 2024 End: December 18, 2024 Team Status: Inactive Member Role Status Dates Dr. Charlotte Stevenson DO Primary Care Provider Active Start: January 01, 2025 End: January 01, 2025 Dr. Charlotte Stevenson DO Attending Provider Active St art: January 01, 2025 End: January 01, 2025 Dr. Charlotte Stevenson DO Referring Provider Active St art: January 01, 2025 End: January 01, 2025 Team Status: Active Member Role Status Dates Dr. Charlotte Stevenson DO Primary Care Provider Active Start: March 14, 2025 Self Referred Attending Provider Active Start: M ay 2024 Self Referred Referring Provider Active Start: M ay 2024 Team Status: Active Member Role Status Dates Dr. Charlotte Stevenson DO Primary Care Provider Active Start: March 14, 2025 Dr. Yuri Nicholas MD Attending Provider Active S tart: March 14, 2025 Team Status: Inactive Member Role Status Dates Dr. Charlotte Stevenson DO Primary Care Provider Active Start: April 17, 2025 End: April 17, 2025 Dr. Charlotte Stevenson DO Attending Provider Active St art: April 17, 2025 End: April 17, 2025 Dr. Charlotte Stevenson , Referring Provider Active St art: April 17, 2025 End: April 17, 2025 FOR RECORDS PERTAINING TO PATIENTS WHO ARE [...] BE BASED ON THE PRIMARY CLINICAL RECORDS. [facility] [employer] provides no warranty or guarantee of the accuracy or completeness of information in this document.
== END | disposition home or self-care (01) ==
LOC: CVS 10:50
PROVIDERS: PCP Family Medicine; Referring Provider Family Medicine; Visit Provider Family Medicine
DX: I65.23 Occlusion and stenosis of bilateral carotid arteries (principal)
CPT/HCPCS: 93880

== ENCOUNTER → 2025-08-06 | Outpatient (CLI) | payer MEDICARE, SELFPAY ==
--- NOTE | 2025-08-06 15:00 | CT_ITS ---
PROCEDURE: BRAIN/HEAD WITHOUT CONTRAST 08/06/2025 REASON FOR EXAM: FALL ON DOAC TECHNIQUE: Procedure Code: CTBR Modality: CT Procedure: BRAIN/HEAD WITHOUT CONTRAST Coronal and Sagittal reconstruction series were provided. One or more dose reduction techniques were used (e.g., Automated exposure control, adjustment of the mA and/or kV according to patient size, use of iterative reconstruction technique. RADIATION DOSE SUMMARY: DLP: 943 mGycm COMPARISON: MR from 07/12/2020 FINDINGS: There is no acute infarct, intracranial hemorrhage, or mass effect. There is no hydrocephalus or significant midline shift. There is mild chronic microvascular ischemic changes and mild parenchymal volume loss. No acute, depressed calvarial fractures. No large scalp hematomas. Mild fluid within the right maxillary sinus. Bilateral lens surgeries. CT/Brain/Head without Contrast IMPRESSION: No acute intracranial process. Reading Location: [id number]
== END | disposition home or self-care (01) ==
LOC: CT 14:50
PROVIDERS: PCP Family Medicine; Referring Provider Student in an Organized Health Care Education/Training Program; Visit Provider Student in an Organized Health Care Education/Training Program
DX: I67.82 Cerebral ischemia (principal); W19.XXXA Unspecified fall, initial encounter
CPT/HCPCS: 70450

== ENCOUNTER → 2025-08-14 | Outpatient (CLI) | payer MEDICARE, SELFPAY ==
[2025-08-14 12:02] LABS: Hematocrit 37.1 % (37-47); Hemoglobin 12.9 g/dL (12.0-15.0); Immature Granulocytes Count 0.020 X10^3/uL (0.0-0.0); Mean Corp Hgb Conc 34.8 g/dL (32-36); Mean Corpuscular Volume 86.7 fL (81-99); Mean Platelet Vol. 10.1 fl (6.2-12.0); NRBC Flagged by Analyzer 0 % (0-5); Platelet Count 294 K/mm3 (150-450); RBC Distribution Width CV 12.0 % (11.6-14.6); RBC Distribution Width SD 38.4 fl (35.1-43.9); Red Blood Count 4.28 M/mm3 (4.2-5.4); White Blood Count 8.0 K/mm3 (4.4-11.0)
[2025-08-14 12:37] LABS: AST(SGOT) 28 U/L (<=31); Alanine Aminotransfer ALT/SGPT 29 U/L (<=34); Albumin, Serum 4.3 g/dL (3.4-4.8); Alkaline Phosphatase 88 U/L (35-104); Anion Gap 12 (5-15); BUN 15 mg/dL (4-19); BUN/Creat Ratio 21.3 RATIO (10-20); Calcium,Total 9.5 mg/dL (7.6-11.0); Carbon Dioxide 24.9 mmol/L (21.0-32.0); Chloride 102 mmol/L (98-108); Cholesterol 138 mg/dL (<=200); Free T3 3.1 pg/mL (2.18-3.98); Globulin 3.2 g/dL (2.2-4.2); Glucose 111 mg/dL (70-99); Low Density Lipoprotein Calc. 53 mg/dL; Potassium 4.1 mmol/L (3.3-5.1); Triglycerides 162 mg/dL; Very Low Density Lipoprotein 32 mg/dL (5-40); cholesterol:hdl ratio screen 2.62
== END | disposition home or self-care (01) ==
LOC: MTLAB 09:58
PROVIDERS: PCP Family Medicine; Referring Provider Family Medicine; Visit Provider Family Medicine
DX: E78.5 Hyperlipidemia, unspecified (principal); R73.03 Prediabetes; R73.02 Impaired glucose tolerance (oral); E78.1 Pure hyperglyceridemia
CPT/HCPCS: 36415; 80053; 80061; 83036; 84439; 84443; 84481; 85025

== ENCOUNTER → 2025-08-27 | Outpatient (CLI) | payer MEDICARE, SELFPAY | END | disposition home or self-care (01) | LOC: PSN 08:47 | PROVIDERS: PCP Family Medicine; Referring Provider Student in an Organized Health Care Education/Training Program; Visit Provider Student in an Organized Health Care Education/Training Program | DX: I48.91 Unspecified atrial fibrillation (principal); R55 Syncope and collapse | CPT/HCPCS: 93225; 93226 ==

== ENCOUNTER → 2025-09-27 | Outpatient (CLI) | payer MEDICARE, SELFPAY ==
--- NOTE | 2025-09-27 14:12 | ECHOCS_ITS ---
Reason For Study Reason For Study: syncope and collapse Procedure This was a 2D Doppler, Color Flow transthoracic echocardiogram. The study was technically difficult. Due to body habitus. Contrast injection was performed. Exam performed in department. Left Ventricle Normal LV size. Left ventricular systolic function is normal. The left ventricular ejection fraction is 65 %. Stage 1 diastolic dysfunction. No regional wall motion abnormalities noted. Right Ventricle Normal RV size. Normal systolic function. Atria Normal left atrium. Normal right atrium. Mitral Valve Normal mitral valve. Tricuspid Valve Normal tricuspid valve. Mild (1+) tricuspid valve insufficiency. Pulmonary artery systolic pressure is 30 mmHg. Aortic Valve Trisinus/trileaflet aortic valve. Mild focal aortic valve thickening. Pulmonic Valve Normal pulmonic valve. Great Vessels Normal aortic root. The pulmonary artery is normal size. Inferior vena cava collapse with respiration. Pericardium/Pleural No pericardial effusion. Medication 22 gauge I.V. with prn adaptor inserted into right arm. Diluted definity 2.0ml given slow IV push to enhance endocardial definition. MMode/2D Measurements & Calculations LVIDd: 4.4 cm IVSd: 0.86 cm Ao root diam: 3.2 cm LVIDs: 3.0 cm LVPWd: 0.88 cm FS: 32.1 % asc Aorta Diam: 3.7 cm LAV(MOD-bp): 49.2 ml LVAd ap4: 27.1 cm2 LAV(MOD-bp) Indexed: 26.3 ml/m2 LVLd ap4: 8.5 cm LAV(MOD-sp2): 48.4 ml EDV(MOD-sp4): 71.8 ml LAV(MOD-sp4): 48.3 ml EDV(sp4-el): 73.2 ml LVAs ap4: 15.1 cm2 LVLs ap4: 6.9 cm ESV(MOD-sp4): 29.2 ml ESV(sp4-el): 27.9 ml EF(MOD-sp4): 59.3 % EF(sp4-el): 61.8 % SV(MOD-sp4): 42.6 ml SV(sp4-el): 45.3 ml LA A4 area: 18.6 cm2 SI(MOD-sp4): 22.8 ml/m2 LA dimension(2D): 3.9 cm RA A4 area: 11.6 cm2 TAPSE: 2.3 cm Time Measurements MV dec time: 0.27 sec Doppler Measurements & Calculations MV E max morgan: 93.0 cm/sec Lat Peak E' Morgan: 9.9 cm/sec Med Peak E' Mogran: 6.4 cm/sec MV A max morgan: 108.2 cm/sec E/E' lat: 9.4 E/E' med: 14.5 MV E/A: 0.86 MV V2 max: 113.2 cm/sec MV P1/2t max morgan: 102.2 cm/sec Ao V2 max: 229.3 cm/sec MV max P.1 mmHg MV P1/2t: 75.5 msec Ao max P.1 mmHg MV V2 mean: 60.3 cm/sec MV dec slope: 396.8 cm/sec2 Ao V2 mean: 162.2 cm/sec MV mean P.7 mmHg MVA(P1/2t): 2.9 cm2 Ao mean P.8 mmHg MV V2 VTI: 32.4 cm Ao V2 VTI: 56.2 cm AV (velocity ratio): 0.63 LV V1 max: 138.8 cm/sec PA V2 max: 113.7 cm/sec PI dec slope: 117.8 cm/sec2 LV V1 max P.7 mmHg LV V1 mean P.4 mmHg LV V1 mean: 99.3 cm/sec LV V1 VTI: 35.2 cm TR max morgan: 255.1 cm/sec TR max P.0 mmHg ECHO/Echo Complete W/ Contrast Interpretation Summary Normal LV size. Left ventricular systolic function is normal. The left ventricular ejection fraction is 65 %. Stage 1 diastolic dysfunction. Contrast injection was performed. Structurally normal valves. Ordering Physician: Mohamud Canela Referring Physician: Charlotte Stevenson Performed By: Krystal Pereira RDCS, RVT
== END | disposition home or self-care (01) ==
PROVIDERS: PCP Family Medicine; Referring Provider Internal Medicine Cardiovascular Disease; Visit Provider Internal Medicine Cardiovascular Disease
DX: R55 Syncope and collapse (principal)
CPT/HCPCS: 93306; Q9957; A4216; C8929

== ENCOUNTER → 2025-10-19 | Outpatient (CLI) | payer MEDICARE, SELFPAY ==
--- OUTSIDE RECORDS SUMMARY | 2025-10-19 08:30 | XMS RPT_ITS | CCD ---
Author Organization [facility] Care Team Providers Care Bale Sewer Name Role Phone CHARLOTTE STEVENSON Unavailable Unavailable CHARLOTTE STEVENSON Unavailable Unavailable CHARLOTTE STEVENSON Unavailable Unavailable CHARLOTTE STEVENSON Unavailable Unavailable Dr. Charlotte Stevenson Primary Care Provider Addison WOLF HUNTER, WOLF HUNTER-C [place] Attending Provider Dr. Charlotte Stevenson Referring Provider [phone] Charlotte Stevenson Primary Care Provider Dr. Charlotte Stevenson Referring Provider Addison TORO, WOLF HUNTER-C [place] Attending Provider Dr. Lucho Jackman Attending Provider Dr. Charlotte Stevenson Primary Care Provider Dr. Charlotte Stevenson Referring Provider Addison TORO, WOLF HUNTER-C [place] Attending Provider Dr. Charlotte Stevenson Primary Care Provider Dr. Charlotte Stevenson Referring Provider [phone] Addison WOLF HUNTER, WOLF HUNTER-C [place] Attending Provider Dr. Yuri Nicholas Attending Provider Dr. Charlotte Stevenson Primary Care Provider Dr. Charlotte Stevenson Referring Provider GLENN RASMUSSEN Primary Care Unavailable Dr. Charlotte Stevenson DO Primary Care Provider [phone] Dr. Misha Mchugh DO Emergency Provider Dr. Emilie Enriquez DO Admit Provider Mina BELL, Dr. Phan Attending Provider Rola DANIELS, Dr. Mallory Other Provider Mina DO, Dr. Phan Other Provider Rola DANIELS, Dr. Mallory Attending Provider Elva BELL, Dr. Porter Referring Provider Roof WOLF HUNTER-C, Benoit Attending Provider [facility] WOLF HUNTER-C, Benoit Referring Provider Magnus DANIELS, Dr. Cervantes Attending Provider Magnus DANIELS, Dr. Cervantes Emergency Provider Elva BELL, Dr. Porter Attending Provider [phone] Elva BELL, Dr. Porter Primary Care Provider [phone] Elva BELL, Dr. Porter Attending Provider 1([facility])[phone] Elva BELL, Dr. Porter Referring Provider 1([facility])[phone] Referred, Self Attending Provider Unavailable Referred, Self Referring Provider Unavailable Cristopher DANIELS, Dr. Welch Attending Provider [phone] Elva BELL, Dr. Porter Primary Care Provider 1([facility])[phone] Elva BELL, Dr. Porter Attending Provider [phone] Elva BELL, Dr. Porter Referring Provider [phone] Elva BELL, Dr. Porter Primary Care Physician Elva BELL, Dr. Porter Attending Physician [phone] Cristopher DANIELS, Dr. Welch Attending Physician [place] DANIELS, Dr. Morin Attending Physician Quinn Jacobsen Attending Physician [phone] Quinn Jacobsen Referring Provider [phone] Elva BELL, Dr. Porter Primary Care Physician Elva BELL, Dr. Porter Referring Provider [phone] Elva BELL, Dr. Porter Attending Physician 1([facility])[phone] Mohamud Canela MD Attending Physician Yuri Nicholas Attending Unavailable Malys, Charlotte Primary Care Unavailable Roof WOLF HUNTER, Benoit De Souza Attending Unavailable Malys, Charlotte Referring Unavailable Malys, Charlotte Primary Care Unavailable Mohamud Canela Attending Unavailable Malys, Charlotte Referring Unavailable Malys, Charlotte Primary Care Unavailable Malys, Charlotte Attending Unavailable Malys, Charlotte Referring Unavailable Malys, Charlotte Primary Care Unavailable Malys, Charlotte Attending Unavailable Malys, Charlotte Referring Unavailable Malys, Charlotte Primary Care Unavailable Mohamud Canela Attending Unavailable Mohamud Canela Referring Unavailable Malys, Charlotte Primary Care Unavailable Emilie Enriquez Admitting Unavailable Mohamud Canela Attending Unavailable Malys, Charlotte Primary Care Unavailable Emilie Enriquez Consulting Unavailable Yuri Nicholas Attending Unavailable Malys, Charlotte Primary Care Unavailable Malys, Charlotte Referring Unavailable Malys, Charlotte Primary Care Unavailable Mohamud Canela Attending Unavailable Roof WOLF HUNTER, Benoit De Souza Referring Unavailable Malys, Charlotte Attending Unavailable Malys, Charlotte Referring Unavailable Malys, Charlotte Primary Care Unavailable Malys, Charlotte Attending Unavailable Malys, Charlotte Referring Unavailable Malys, Charlotte Primary Care Unavailable Malys, Charlotte Attending Unavailable Malys, Charlotte Referring Unavailable Malys, Charlotte Primary Care Unavailable Malys, Charlotte Primary Care Unavailable Emilie Enriquez Admitting Unavailable Emilie Enriquez Attending Unavailable Mohamud Canela Consulting Unavailable Referred, Self Attending Unavailable Referred, Self Referring Unavailable Malys, Charlotte Primary Care Unavailable Malys, Charlotte Primary Care Unavailable Billy Agudelo Attending Unavailable Malys, Charlotte Attending Unavailable Malys, Charlotte Referring Unavailable Malys, Charlotte Primary Care Unavailable Quinn Mendez Attending Unavailable Malys, Charlotte Referring Unavailable Malys, Charlotte Primary Care Unavailable Mohamud Canela Attending Unavailable Malys, Charlotte Referring Unavailable Malys, Charlotte Primary Care Unavailable Roof WOLF HUNTER, Benoit De Souza Attending Unavailable Roof WOLF HUNTER, Benoit De Souza Referring Unavailable Malys, Charlotte Primary Care Unavailable DemiterQuinn Attending Unavailable Demiter, Quinn Referring Unavailable Malys, Charlotte Primary Care Unavailable DemiterQuinn Attending Unavailable Demiter, Quinn Referring Unavailable Malys, Charlotte Primary Care Unavailable Mohamud Canela Attending Unavailable Malys, Charlotte Referring Unavailable Malys, Charlotte Primary Care Unavailable Emilie Enriquez Attending Unavailable Mohamud Canela Consulting Unavailable Allergies Allergy Classification Reported Allergen(s) Allergy Type Date of Onset Reaction(s) Facility Fluorescein (1 source) Fluorescein; Translations: [FLUORESCEIN] Drug Allergy 6 [facility] Repository Penicillins (antibiotic) (1 source) Penicillins; Translations: [PENICILLINS] Drug Allergy 6 [facility] Rep[facility] Quinolones (antibiotic) (1 source) Ciprofloxacin; Translations: [CIPROFLOXACIN] Drug Allergy 6 [facility] Repository Sulfonamides (antibiotic) (1 source) Sulfonamides (Antibiotic); Translations: [SULFA (SULFONAMIDE ANTIBIOTICS)] Drug Allergy 6 [facility] Repository (17 sources) Ciprofloxacin Drug Allergy 2 Other [facility] (17 sources) Fluorescein Drug Allergy 2 Anaphylaxis [facility] (17 sources) Lactose Drug Allergy 2 Upset Stomach [facility] (17 sources) Nitrofurantoin Drug Allergy 2 Other [facility] (18 sources) Sulfonamides (Antibiotic); Translations: [Sulfa (Sulfonamide Antibiotics)] Allergy to substance 2 Rash [facility] (12 sources) Aspirin Drug Allergy 3 Other [facility] (5 sources) amLODIPine Drug Allergy 5 Feel weak and tired [facility] (1 source) amLODIPine Drug Allergy 5 [facility] Repository (1 source) Aspirin Drug Allergy 5 [facility] Rep[facility] (1 source) Ciprofloxacin Drug Allergy 5 [facility] (1 source) Fluorescein Drug Allergy 5 [facility] Rep[facility] (1 source) Lactose Drug Allergy 5 [facility] (1 source) Nitrofurantoin Drug Allergy 5 [facility] Repository Medications Current Medications Medication Drug Class(es) Dates Sig (Normalized) Sig (Original) azelastine hydrochloride 0.137 mg/actuat / fluticasone propionate 0.05 mg/actuat metered dose nasal spray (1 source) Corticosteroid, Histamine-1 Receptor Antagonist Start: 09-03-2025 Azelastine-Flutic asone 137-50 mcg/spray spray,non-aerosol Active 1 NMA INTRANASAL TWICE A DAY September 03, 2025 12:00am administer into each nostril Complies with drug therapy Start: 09-03-2025 Azelastine-Flu ticasone 137-50 mcg/spray spray,non-aerosol Active 1 NMA INTRANASAL TWICE A DAY September 03, 2025 12:00am administer into each nostril Complies with drug therapy C-Estriol (1 source) Start: 09-03-2025 Cranberry (20 sources) Non-Standardized Food Allergenic Extract, Non-Standardized Plant Allergenic Extract Start: 04-05-2018 take 1 capsule by mouth once daily Cranberry 500 mg capsule Active 2000 mg PO DAILY April 05, 2018 11:45am supplement Complies with drug therapy Start: 04-05-2018 take 1 capsule by mo uth once daily Start: 04-05-2018 take 1 capsule by mo uth once daily Cranberry 500 mg capsule Active 2000 mg PO DAILY April 05, 2018 11:45am supplement Start: 04-05-2018 take 1 capsule by mo [...] Estriol Micronized (Bulk) 10 0 % powder (5 sources) Start: 09-13-2024 End: 09-03-2025 Estriol Micronized (Bulk) 10 0 % powder Discontinued 1 NMA MC EVERY WEEK September 13, 2024 1:00am September 03, 2025 9:35am infections Start: 09-13-2024 Start: 09-13-2024 Estriol Micron ized (Bulk) 100 % powder Active 1 NMA MC EVERY WEEK September 13, 2024 1:00am infections Start: 09-13-2024 Estriol Micron ized (Bulk) 100 % powder Active 1 NMA MC EVERY WEEK September 13, 2024 1:00am Start: 09-13-2024 Estriol Micron ized (Bulk) 100 % powder Active 1 NMA MC EVERY WEEK September 13, 2024 12:00am flecainide acetate 50 mg oral tablet (20 sources) Antiarrhythmic Start: 09-26-2024 End: 12-18-2024 take 1 tablet by mouth every twelve hours Flecainide 50 mg tablet Active 50 mg PO Q12H 180 3 December 18, 2024 12:48pm Complies with drug therapy Start: 09-23-2024 End: 09-26-2024 Flecainide 100 mg Tablet Discontinued 150 mg PO TWICE A DAY 60 0 September 23, 2024 8:26am September 26, 2024 10:12am Start: 09-14-2024 End: 09-23-2024 take 1 tablet by mouth twice daily Flecainide 100 mg Tablet Discontinued 100 mg PO TWICE A DAY 60 0 September 14, 2024 1:00am September 23, 2024 8:26am lisinopril 20 mg oral tablet (17 sources) Angiotensin Converting Enzyme Inhibitor Start: 03-20-2018 take 1 tablet by mouth twice daily Lisinopril 20 MG tablet Active 20 mg PO TWICE A DAY March 20, 2018 12:00am blood pressure Complies with drug therapy metroNIDAZOLE 0.0075 mg/mg topical gel (17 sources) Nitroimidazole Antimicrobial Start: 12-01-2018 Metronidazole 0.75 % gel Active 1 NMA TOPICAL NEEDED December 01, 2018 1:00am rash 1 applic TOPICAL as directed; Complies with drug therapy Start: 12-01-2018 Metronidazole Active 1 APPLIC TOPICAL .COMPLEX December 01, 2018 12:00am 1 applic TOPICAL as directed; montelukast 10 mg oral tablet (20 sources) Leukotriene Receptor Antagonist Start: 07-12-2024 take 1 tablet by mouth once daily as needed Montelukast 10 mg tablet Active 10 mg PO daily as needed for allergies July 12, 2024 12:00am Complies with drug therapy Start: 12-01-2018 End: 07-20-2023 take 1 tablet by mouth once daily in the evening Montelukast 10 mg tablet Discontinued 10 mg PO EVERY EVENING December 01, 2018 1:00am July 20, 2023 10:05am Tvavanvr-Qam-Ik-Lycopen-Lute in (12 sources) Start: 03-20-2018 Etvwbehl-Jct-Ba-Lycopen-Lute in Active 1 EACH PO DAILY March 20, 2018 6:51pm Start: 03-20-2018 Lcbbbaus-Auf-H j-Insyoki-Piizbt Active 1 EACH PO DAILY March 20, 2018 12:00am Start: 03-20-2018 Tgddxkis-Lpf-C q-Ipgrtxa-Xwxrws Active 1 EACH PO DAILY March 19, 2018 11:00pm Lnimmorw-Der-Me-Lycopen-Lute in 1 EACH tablet (5 sources) Start: 03-20-2018 Svmooiqx-Hiy-Py-Lycopen-Lute in 1 EACH tablet Active 1 NMA PO DAILY March 20, 2018 12:00am supplement Complies with drug therapy Start: 03-20-2018 Start: 03-20-2018 Hwpckcte-Fnb-R c-Xqnpsze-Avyoqi 1 EACH tablet Active 1 NMA PO DAILY March 20, 2018 12:00am supplement Start: 03-20-2018 Gqlodbrw-Yhw-H u-Ayuimfh-Roeapz 1 EACH tablet Active 1 NMA PO DAILY March 20, 2018 12:00am Start: 03-20-2018 Ipjpjtni-Vui-X d-Axwedvt-Kyexzf 1 EACH tablet Active 1 NMA PO DAILY March 19, 2018 11:00pm pantoprazole 40 mg delayed release oral tablet (16 sources) Proton Pump Inhibitor Start: 09-11-2022 take 1 tablet by mouth once daily Pantoprazole 40 mg tablet,delayed release (DR/EC) Active 40 mg PO DAILY September 11, 2022 12:00am reflux Complies with drug therapy rosuvastatin calcium 10 mg oral tablet (20 sources) HMG-CoA Reductase Inhibitor Start: 07-20-2023 take 1 tablet by mouth once daily Rosuvastatin 10 mg tablet Active 10 mg PO DAILY July 20, 2023 10:05am cholesterol Complies with drug therapy Start: 03-16-2022 End: 07-20-2023 take 1 tablet [...] times weekly Rosuvastatin Discontinued 5 MG PO .[facility] August 13, 2021 12:47pm March 16, 2022 [...] Drug Class(es) Dates Sig (Normalized) Sig (Original) [id number] actuat albuterol 0.09 mg/actuat metered dose inhaler (17 sources) beta2-Adrenergic Agonist Start: 03-20-2018 End: 03-31-2018 [...] 2018 1:28pm amLODIPine 5 mg oral tablet (20 sources) Dihydropyridine Calcium Channel Denisse Start: 09-14-2024 End: 10-03-2024 take 1 tablet by mouth once daily Amlodipine 5 mg tablet Discontinued 5 mg PO DAILY 90 September 27, 2024 11:35am October 03, 2024 1:16pm Start: 09-11-2021 End: 10-15-2021 take 1 tablet by mouth once daily Amlodipine 5 mg tablet Discontinued 5 mg PO DAILY 30 September 11, 2021 12:00am October 15, 2021 12:24pm apixaban 5 mg oral tablet (15 sources) Factor Xa Inhibitor Start: 09-14-2024 End: [...] 12, 2024 10:46am September 26, 2024 10:11am heart health Start: 07-20-2023 End: 07-12-2024 take 1 tablet by mouth every other day Aspirin (Adult Aspirin Regimen) 81 mg tablet,delayed release (DR/EC) Discontinued 81 mg PO .QOD 30 0 July 20, 2023 12:00am July 12, 2024 10:48am Start: 03-20-2018 End: 01-03-2021 take 1 tablet by mouth once daily Aspirin 81 MG tablet,chewable Discontinued 81 mg PO DAILY@0800 March 20, 2018 12:00am January 03, 2021 10:56am cephalexin 500 mg oral capsule (16 sources) Cephalosporin Antibacterial Start: 09-11-2022 End: 07-20-2023 take 1 capsule by mouth twice daily Cephalexin 500 mg capsule Discontinued 500 mg PO TWICE A DAY September 11, 2022 12:00am July 20, 2023 10:05am Cholecalciferol (Vitamin D3) (Vitamin D3) 5,000 UNIT capsule (17 sources) Start: 12-12-2019 End: 01-03-2021 take 1 [...] furoate 0.0275 mg/actuat metered dose nasal spray (20 sources) Corticosteroid Start: 09-13-2024 End: 12-18-2024 Fluticasone [...] mg tablet Discontinued 12.5 mg PO DAILY 07 10July 23, 2020 2:10pm January 03, 2021 10:56am Start: 12-25-2019 End: 01-15-2020 take 1 tablet by mouth once daily Hydrochlorothiazide 12.5 mg tablet Discontinued 12.5 mg PO DAILY 07 10December 25, 2019 1:00am January 15, 2020 6:50pm [...] 2018 10:46am L.Acidoph,Paracasei,B.Animal is 1 EACH capsule (5 sources) Start: 03-20-2018 End: 04-05-2018 take 1 capsule by mouth once daily L.Acidoph,Paracasei,B.Animalis 1 EACH capsule Discontinued 1 NMA PO DAILY March 20, 2018 12:00am April 05, 2018 11:46am Start: 03-20-2018 End: 04-05-2018 take 1 capsule by mouth once daily L.Acidoph,Paracasei,B.Animalis 1 EACH ca psule Discontinued 1 NMA PO DAILY March 19, 2018 11:00pm April 05, 2018 10:46am lactobacillus rhamnosus gg [id number] unt chewable tablet (17 sources) Start: 12-01-2018 End: 07-12-2024 take 5 tablets by mouth once daily Lactobacillus Rhamnosus Gg ([facility] [employer]) 5 billion cell tablet,chewable Discontinued 1 {tbl} PO DAILY 0 December 01, 2018 1:00am July 12, 2024 10:47am 24 hr metoprolol succinate 25 mg extended release oral tablet (15 sources) beta-Adrenergi c Denisse Start: 09-12-2024 End: 09-14-2024 take 1 tablet by mouth every twenty-four hours at bedtime Metoprolol Succinate 25 mg tablet extended release 24 hr Discontinued 25 mg PO AT BEDTIME 90 September 12, 2024 11:57am September 14, 2024 1:38pm heart Start: 08-07-2024 End: 09-12-2024 take 1 tablet by mouth once daily Metoprolol Succinate 25 mg tablet extended release 24 hr Discontinued 25 mg PO DAILY 07 10August 07, 2024 12:00am September 12, 2024 11:15am Problems Active Problems Problem Classification Problem Date Documented Da te Episodic/Chronic Asthma (17 sources) Reactive airway disease; Translations: [Unspecified asthma, uncomplicated] 12-01-2018 Chronic Cardiac dysrhythmias (20 sources) Paroxysmal atrial fibrillation; Translations: [Paroxysmal atrial fibrillation] Onset: 03-21-2018 Chronic Conduction disorders (8 sources) Sinus node dysfunction; Translations: [Other specified [...] tolerance associated with drugs] Onset: 04-04-2024 Episodic E Codes: Fall (1 source) Unspecified fall, initial encounter; Translations: [Unspecified fall, initial encounter] Onset: 08-06-2025 Episodic Essential hypertension (20 sources) Essential hypertension; Translations: [Essential (primary) hypertension] Onset: 10-17-2024 Chronic Headache; including migraine (5 sources) Frequent headache; Translations: [Frequent headaches] 12-18-2024 Episodic Occlusion or stenosis of precerebral arteries (20 sources) Bilateral stenosis of carotid arteries; Translations: [Occlusion and stenosis of bilateral carotid arteries] Onset: 09-03-2025 Chronic Other and ill-defined cerebrovascular disease (1 source) Cerebral ischemia; Translations: [Cerebral ischemia] Onset: 08-18-2025 Chronic Syncope (5 sources) Syncope; Translations: [Syncope and collapse] Onset: 09-03-2025 08-12-2025 Episodic Unclassified (1 source) This appt is for an EKG Unclassified (1 source) This is the only appt available until the end october please be sure to keep this appt. Past or Other Problems Problem Classification Problem Date Documented Da te Episodic/Chronic Cardiac dysrhythmias (1 source) Palpitations; Translations: [Palpitations] Onset: 10-23-2024 Episodic Fluid and electrolyte disorders (7 sources) Hypokalemia; Translations: [Hypokalemia] Onset: 09-26-2024 09-22-2024 Episodic Genitourinary symptoms and ill-defined conditions (1 source) Dysuria; Translations: [Dysuria] Onset: 12-14-2024 Episodic Nonspecific chest pain (19 sources) Chest pain; Translations: [Chest pain, unspecified] Onset: 09-20-2024 11-29-2022 Episodic Other screening for suspected conditions (not mental disorders or infectious disease) (1 source) Encounter for screening mammogram for malignant neoplasm of breast; Translations: [Encounter for screening mammogram for malignant neoplasm of breast] Onset: 01-11-2025 Episodic Results Test Name Value Interpretation Reference Range Facility Cardiology Visit Reporton Cardiology Visit Report [facility] [address] [place] [address] OFFICE VISIT Date of Service: 09/03/25 MR#: [id number] Acct: [id number] Name: ROCIO PICKETT Rep #: [id number] : 1945 Provider: Dr. Mohamud toribio MD Age/Sex: 80/F Location: [facility] [place] Status: Signed HPI HPI History of Present Illness Details: Patient is a very pleasant 80-year-old white female who comes in with her today for monitoring of her cardiovascular status. Patient had an episode of syncope about a month ago. This occurred when she got up out of the bed and was bent over looking under the bed at something and then woke up on the carpeted floor. She apparently did strike her head she did not go to be evaluated. On August 06 she was seen in our office and sent for a CT of the head which did not show any acute changes. She did have an air- fluid level in her right maxillary sinus. 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 The patient's had no recurrence. She had a Holter monitor done which was benign. There was no evidence of tacky or bradycardia arrhythmias she only had 15 PACs during the whole recording. There were no PVCs. There was no atrial fibs or flutter. Patient did have 1 episode of dizziness which was with sinus rhythm and a normal rate. 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 The patient had a remote echocardiogram done in July 2024 which showed normal LV size and function with a EF of 65% with mild concentric LVH. Back in July 2024 she had an event monitor that showed paroxysmal atrial fibs. She does have a wearable that has not documented atrial fibrillation. The patient remains on Eliquis 5 mg twice daily. She is also on flecainide 50 mg every 12 hours. Heart rate is 70 bpm with normal QT interval on her ECG today. ECG has an incomplete right bundle branch block pattern. [id number] score is 3. Patient denies any chest discomfort denies any PND orthopnea denies any lower extremity edema and she is aerobically active doing her actives of daily living without any restrictions she going downstairs with no restrictions. Intake Vital Signs 12/18/24 11:24 08/06/25 10:50 09/03/25 09:29 09/03/25 09:45 Height 5 ft 3 in 5 ft 3 in 5 ft 3 in Weight: 188 lb BMI 33.3 BP 168/79 H 162/82 H Blood Pressure Location Lt brachial Lt brachial Position Sitting Respiration 18 Pulse 70 73 Pulse Source Monitor Monitor Intake Visit Reasons: 8 M [employer]ile [employer] Marble Setter Required: No Accompanied by: Is patient in pain?: No Allergies ciprofloxacin (From Cipro) Allergy (Verified 09/03/25 09:30) Other fluorescein Allergy (Verified 09/03/25 09:30) Anaphylaxis lactose Allergy (Verified 09/03/25 09:30) Upset Stomach nitrofurantoin Allergy (Verified 09/03/25 09:30) Other Sulfa (Sulfonamide Antibiotics) Allergy (Verified 09/03/25 09:30) Rash amlodipine Adverse Reaction (Intermediate, Verified 09/03/25 09:30) Feel weak and tired aspirin Adverse Reaction (Verified 09/03/25 09:30) Other Medications ???Medication ???Instructions ???Recorded ???Confirmed ???Type lisinopril 20 mg tablet 20 mg PO BID blood pressure 09/03/25 History ndspwzth-kpn-enzta acid 0.4 1 ea PO DAILY supplement 03/20/18 09/03/25 History mg-lycopene 300 mcg-lutein 250 mcg tablet cranberry 500 mg capsule 2,000 mg PO DAILY supplement 04/0509/03/25 History metronidazole 0.75 % topical gel 1 applic topical PRN rash 12/01/18 09/03/25 History hydrochlorothiazide 12.5 mg tablet 12.5 mg PO DAILY bp #90 tabs 02/2609/03/25 Rx pantoprazole 40 mg tablet,delayed 40 mg PO DAILY reflux 09/11/22 History release rosuvastatin 10 mg tablet 10 mg PO DAILY cholesterol 3 09/03/25 History montelukast 10 mg tablet 10 mg PO QDAY PRN allergies 09/03/25 History apixaban 5 mg tablet (Eliquis) 5 mg PO BID #180 tabs 12/18/24 Rx flecainide 50 mg tablet 50 mg PO Q12H #180 tabs 12/18/24 1 Rx C-Estriol vaginal .three times a week History azelastine 137 mcg-fluticasone 50 1 spray intranasal BID 09/03/25 1 History mcg/spray nasal spray Ejection fraction %: 65 Have you fallen in the past year?: Yes (1-passed out) [facility] Medical History (Updated 09/03/25 @ 10:[address] Mohamud Canela MD) Essential hypertension Paroxysmal atrial fibrillation Reactive airway disease Osteopenia Bilateral carotid artery stenosis Hyperlipidemia Atrial fibrillation with rapid ventricular response (03/21/18) Surgical History H/O breast biopsy H/O hemorrhoidectomy History of partial hy (more content not included)... Normal [facility] T4 Free Directon 08-15-2025 T4 FREE DIRECT 1.20 ng/dL Normal 0.76-1.46 [facility] Comment on above: Order Comment: ADD O N T4F FROM 08/14/25 N Performed By: #### L 501.9985, L501.28108, L500.4100, L500.4050, L501.9520, L100.0100, L506.0400 #### [facility] [address] [place], [place], [id number] Absolute lymphocyte countOrd ered By: Charlotte Stevenson on 08-14-2025 Lymphocytes Auto (Unsp spec) [#/Vol] 2.10 10*3/uL 0.83-4.51 [facility] Absolute neutrophil countOrd ered By: Charlotte Stevenson on 08-14-2025 Neutrophils (Bld) [#/Vol] 5.0 10*3/uL 2.0-7.7 [facility] Anion gap in Serum or Plasma Ordered By: Charlotte Stevenson on 08-14-2025 Anion gap [Moles/Vol] 12 mmol/L 5-15 [facility] Automated lymphocyte count a s percentage of total leukocytesOrdered By: Charlotte Stevenson on 08-14-2025 Lymphocytes/100 WBC Auto (Unsp spec) 26.3 % 19-41 [facility] BUN/creatinine ratioOrdered By: Charlotte Stevenson on 08-14-2025 Urea nitrogen/Creatinine [Mass ratio] 21.3 mg/mg High 10- [facility] Basophil percentageOrdered B y: Charlotte Stevenson on 08-14-2025 Basophils/100 WBC (Bld) 0.6 % 0-1 [facility] Bilirubin, totalOrdered By: Charlotte Stevenson on 08-14-2025 Bilirubin [Mass/Vol] 0.45 mg/dL 0.00-1.30 [facility] CBC W/Diff, Automatedon Absolute Lymph 2.10 X10 3/uL Normal 0.83-4.51 [facility] Comment on above: Performed By: #### L 501.9985, L501.31900, L500.4100, L500.4050, L501.9520, L100.0100, L506.0400 #### [facility] [address] [place], [address] Absolute Neut 5.0 X10 3/uL Normal 2.0-7.7 [facility] Comment on above: Performed By: #### L 501.9985, L501.27260, L500.4100, L500.4050, L501.9520, L100.0100, L506.0400 #### [facility] [address] [place], [address] Basophils/100 WBC (Bld) 0.6 % Normal 0-1 [facility] Comment on above: Performed By: #### L 501.9985, L501.39264, L500.4100, L500.4050, L501.9520, L100.0100, L506.0400 #### [facility] [address] [place], [address] Eosinophils/100 WBC (Bld) 2.0 % Normal 0-5 [facility] Comment on above: Performed By: #### L 501.9985, L501.76676, L500.4100, L500.4050, L501.9520, L100.0100, L506.0400 #### [facility] [address] [place], [address] Erythrocyte distribution width (RBC) [Ratio] 12.0 % Normal 11.6-14.6 [facility] Comment on above: Performed By: #### L 501.9985, L501.81597, L500.4100, L500.4050, L501.9520, L100.0100, L506.0400 #### [facility] [address] [place], [address] Hematocrit (Bld) [Volume fraction] 37.1 % Normal 37-47 [facility] Comment on above: Performed By: #### L 501.9985, L501.42982, L500.4100, L500.4050, L501.9520, L100.0100, L506.0400 #### [facility] [address] [place], [address] Hemoglobin (Bld) [Mass/Vol] 12.9 g/dL Normal 12.0-15.0 [facility] Comment on above: Performed By: #### L 501.9985, L501.27843, L500.4100, L500.4050, L501.9520, L100.0100, L506.0400 #### [facility] [address] [place], [address] IG% 0.300 Normal 0.0-0.9 [facility] Comment on above: Result Comment: IG% - Immature Granulocytes (promyelocytes, myelocytes and metamyelocytes) > 1% indicates that a LEFT SHIFT is Present. Performed By: #### L 501.9985, L501.46423, L500.4100, L500.4050, L501.9520, L100.0100, L506.0400 #### [facility] [address] [place], [address] Lymphocytes/100 WBC (Bld) 26.3 % Normal 19-41 [facility] Comment on above: Performed By: #### L 501.9985, L501.66385, L500.4100, L500.4050, L501.9520, L100.0100, L506.0400 #### [facility] [address] [place], [address] MCH (RBC) [Entitic mass] 30.1 pg Normal 27.0-32.0 [facility] Comment on above: Performed By: #### L 501.9985, L501.38175, L500.4100, L500.4050, L501.9520, L100.0100, L506.0400 #### [facility] [address] [place], [address] MCHC (RBC) [Mass/Vol] 34.8 g/dL Normal 32-36 [facility] Comment on above: Performed By: #### L 501.9985, L501.64302, L500.4100, L500.4050, L501.9520, L100.0100, L506.0400 #### [facility] [address] [place], [address] MCV (RBC) [Entitic vol] 86.7 fL Normal 81-99 [facility] Comment on above: Performed By: #### L 501.9985, L501.20777, L500.4100, L500.4050, L501.9520, L100.0100, L506.0400 #### [facility] [address] [place], [address] Monocytes/100 WBC (Bld) 8.6 % Normal 0-10 [facility] Comment on above: Performed By: #### L 501.9985, L501.83952, L500.4100, L500.4050, L501.9520, L100.0100, L506.0400 #### [facility] [address] [place], [address] Neutrophils/100 WBC (Bld) 62.2 % Normal 47-70 [facility] Comment on above: Performed By: #### L 501.9985, L501.25493, L500.4100, L500.4050, L501.9520, L100.0100, L506.0400 #### [facility] [address] [place], [address] Nucleated RBC (Bld) [#/Vol] 0 10*3/uL Normal 0-5 [facility] Comment on above: Performed By: #### L 501.9985, L501.29636, L500.4100, L500.4050, L501.9520, L100.0100, L506.0400 #### [facility] [address] [place], [address] Platelet mean volume (Bld) [Entitic vol] 10.1 fL Normal 6.2-12.0 [facility] Comment on above: Performed By: #### L 501.9985, L501.99169, L500.4100, L500.4050, L501.9520, L100.0100, L506.0400 #### [facility] [address] [place], [address] Platelets (Bld) [#/Vol] 294 10*3/uL Normal 150-450 [facility] Comment on above: Performed By: #### L 501.9985, L501.97723, L500.4100, L500.4050, L501.9520, L100.0100, L506.0400 #### [facility] [address] [place], [address] RBC (Bld) [#/Vol] 4.28 10*6/uL Normal 4.2-5.4 [facility] Comment on above: Performed By: #### L 501.9985, L501.23432, L500.4100, L500.4050, L501.9520, L100.0100, L506.0400 #### [facility] [address] [place], [place], [id number] RDW SD 38.4 fl Normal 35.1-43.9 [facility] Comment on above: Performed By: #### L 501.9985, L501.65244, L500.4100, L500.4050, L501.9520, L100.0100, L506.0400 #### [facility] [address] [place], [address] WBC (Bld) [#/Vol] 8.0 10*3/uL Normal 4.4-11.0 [facility] Comment on above: Performed By: #### L 501.9985, L501.65733, L500.4100, L500.4050, L501.9520, L100.0100, L506.0400 #### [facility] [address] [facility] [place], [address] Calculated very low density lipoprotein (VLDL) cholesterol measurementOrdered By: Charlotte Stevenson on 08-14-2025 Calculated very low density lipoprotein (VLDL) cholesterol measurement 32 mg/dL 5-40 [facility] Carbon dioxide, total [Moles /volume] in Central venous bloodOrdered By: Charlotte Stevenson on 08-14-2025 CO2 [Moles/Vol] 24.9 mmol/L 21.0-32.0 [facility] Chloride assayOrdered By: Erika Stevenson on 08-14-2025 Chloride [Moles/Vol] 102 mmol/L 98-108 [facility] Comprehensive Metabolic Prof ilon 08-14-2025 Albumin [Mass/Vol] 4.3 g/dL Normal 3.4-4.8 [facility] Comment on above: Performed By: #### L 501.9985, L501.89896, L500.4100, L500.4050, L501.9520, L100.0100, L506.0400 #### [facility] [address] [place], [address] Albumin/Globulin [Mass ratio] 1.4 {ratio} Normal 0.9-2.4 [facility] Comment on above: Performed By: #### L 501.9985, L501.06294, L500.4100, L500.4050, L501.9520, L100.0100, L506.0400 #### [facility] [address] [place], [address] ALK PHOS 88 U/L Normal 35-104 [facility] Comment on above: Performed By: #### L 501.9985, L501.94768, L500.4100, L500.4050, L501.9520, L100.0100, L506.0400 #### [facility] [address] [place], [address] ALT [Catalytic activity/Vol] 29 U/L Normal <=34 [facility] Comment on above: Performed By: #### L 501.9985, L501.16604, L500.4100, L500.4050, L501.9520, L100.0100, L506.0400 #### [facility] [address] [place], [address] AST [Catalytic activity/Vol] 28 U/L Normal <=31 [facility] Comment on above: Performed By: #### L 501.9985, L501.99299, L500.4100, L500.4050, L501.9520, L100.0100, L506.0400 #### [facility] [address] [place], [address] Bilirubin [Mass/Vol] 0.45 mg/dL Normal 0.00-1.30 [facility] Comment on above: Performed By: #### L 501.9985, L501.63640, L500.4100, L500.4050, L501.9520, L100.0100, L506.0400 #### [facility] [address] [place], [address] BUN/CRE 21.3 RATIO High 10-20 [facility] Comment on above: Performed By: #### L 501.9985, L501.71296, L500.4100, L500.4050, L501.9520, L100.0100, L506.0400 #### [facility] [address] [place], [address] Calcium [Mass/Vol] 9.5 mg/dL Normal 7.6-11.0 [facility] Comment on above: Performed By: #### L 501.9985, L501.04981, L500.4100, L500.4050, L501.9520, L100.0100, L506.0400 #### [facility] [address] [place], [address] Chloride [Moles/Vol] 102 mmol/L Normal 98-108 [facility] Comment on above: Performed By: #### L 501.9985, L501.21722, L500.4100, L500.4050, L501.9520, L100.0100, L506.0400 #### [facility] [address] [place], [address] CO2 [Moles/Vol] 24.9 mmol/L Normal 21.0-32.0 [facility] Comment on above: Performed By: #### L 501.9985, L501.73527, L500.4100, L500.4050, L501.9520, L100.0100, L506.0400 #### [facility] [address] [place], [address] Creatinine [Mass/Vol] 0.70 mg/dL Normal 0.70-1.20 [facility] Comment on above: Performed By: #### L 501.9985, L501.34560, L500.4100, L500.4050, L501.9520, L100.0100, L506.0400 #### [facility] [address] [place], [address] GAP 12 Normal 5-15 [facility] Comment on above: Performed By: #### L 501.9985, L501.93325, L500.4100, L500.4050, L501.9520, L100.0100, L506.0400 #### [facility] [address] [place], [address] GFR/1.73 sq M.predicted among non-blacks MDRD (S/P/Bld) [Vol rate/Area] 88 mL/min/{1.73_m2} Normal >60 [facility] Comment on above: Result Comment: mL/m in/1.73m2 CKD-EPI Creatinine Equation (2020) Performed By: #### L 501.9985, L501.60123, L500.4100, L500.4050, L501.9520, L100.0100, L506.0400 #### [facility] [address] [place], [place], [id number] Globulin (S) [Mass/Vol] 3.2 g/dL Normal 2.2-4.2 [facility] Comment on above: Performed By: #### L 501.9985, L501.12691, L500.4100, L500.4050, L501.9520, L100.0100, L506.0400 #### [facility] [address] [place], [address] Glucose [Mass/Vol] 111 mg/dL High 70-99 [facility] Comment on above: Performed By: #### L 501.9985, L501.88126, L500.4100, L500.4050, L501.9520, L100.0100, L506.0400 #### [facility] [address] [place], [address] Potassium [Moles/Vol] 4.1 mmol/L Normal 3.3-5.1 [facility] Comment on above: Performed By: #### L 501.9985, L501.54034, L500.4100, L500.4050, L501.9520, L100.0100, L506.0400 #### [facility] [address] [place], [address] Sodium [Moles/Vol] 139 mmol/L Normal 133-145 [facility] Comment on above: Performed By: #### L 501.9985, L501.12745, L500.4100, L500.4050, L501.9520, L100.0100, L506.0400 #### [facility] [address] [place], [address] T PROT 7.4 g/dL Normal 5.9-8.4 [facility] Comment on above: Performed By: #### L 501.9985, L501.23837, L500.4100, L500.4050, L501.9520, L100.0100, L506.0400 #### [facility] [address] [place], [address] Urea nitrogen [Mass/Vol] 15 mg/dL Normal 4-19 [facility] Comment on above: Performed By: #### L 501.9985, L501.48807, L500.4100, L500.4050, L501.9520, L100.0100, L506.0400 #### [facility] [address] [place], [address] Eosinophil percentageOrdered By: Charlotte Stevenson on 08-14-2025 Eosinophils/100 WBC (Bld) 2.0 % 0-5 [facility] Erythrocyte distribution wid th ratioOrdered By: Charlotte Stevenson on 08-14-2025 Erythrocyte distribution width (RBC) [Ratio] 12.0 % 11.6-14.6 [facility] Erythrocyte distribution wid th standard deviationOrdered By: Charlotte Stevenson on 08-14-2025 Erythrocyte distribution width (RBC) [Ratio] 38.4 fl 35.1-43.9 [facility] Free T3on 08-14-2025 Free T3 [Mass/Vol] 3.1 pg/mL Normal 2.18-3.98 [facility] Comment on above: Order Comment: N Performed By: #### L 501.9985, L501.35133, L500.4100, L500.4050, L501.9520, L100.0100, L506.0400 #### [facility] [address] [place], [place], [address] Free N8Ihbmrgh By: Charlotte slater on 08-14-2025 Free T3 [Mass/Vol] 3.1 pg/mL 2.18-3.98 [facility] Glomerular filtration rate ( GFR) estimation/1.73 sq m using serum, plasma, or whole bOrdered By: Charlotte Stevenson on 08-14-2025 GFR/1.73 sq M.predicted among non-blacks MDRD (S/P/Bld) [Vol rate/Area] 88 mL/min/{1.73_m2} >60 [facility] Comment on above: mL/min/1.73m2 CKD-EP I Creatinine Equation (2020) Hematocrit Auto (Bld) [Volum e fraction]Ordered By: Charlotte Stevenson on 08-14-2025 Hematocrit (Bld) [Volume fraction] 37.1 % 37-47 [facility] Hemoglobin A1con 08-14-2025 HbA1c (Bld) [Mass fraction] 6.3 % High <=5.6 [facility] Comment on above: Result Comment: Norm al < 5.7 % Prediabetic 5.7 - 6.4 % Diabetic >or= 6.5 % Please note range changes. Performed By: #### L 501.9985, L501.60726, L500.4100, L500.4050, L501.9520, L100.0100, L506.0400 #### [facility] [address] [place], [place], [id number] Hemoglobin A1c percentageOrd ered By: Charlotte Stevenson on 08-14-2025 HbA1c (Bld) [Mass fraction] 6.3 % High <5.7 [facility] Comment on above: Normal < 5.7 % Predi abetic 5.7 - 6.4 % Diabetic >or= 6.5 % Please note range changes. Hemoglobin measurementOrdere d By: Charlotte Stevenson on 08-14-2025 Hemoglobin (Bld) [Mass/Vol] 12.9 g/dL 12.0-15.0 [facility] Immature granulocytes/100 WB C Auto (Bld)Ordered By: Charlotte Stevenson on 08-14-2025 Immature granulocytes/100 WBC (Bld) 0.300 % 0.0-0.9 [facility] Comment on above: IG% - Immature Granu locytes (promyelocytes, myelocytes and metamyelocytes) > 1% indicates that a LEFT SHIFT is Present. LDL calc ser/plasOrdered By: Charlotte Stevenson on 08-14-2025 Cholesterol in LDL [Mass/Vol] 53 mg/dL [facility] Comment on above: Beiloupftj=533-479 m g/dL & Higher Akaa=250 mg/dL or greaterFriedwald Equation for LDL-C Laboratory - Chemistry and C hemistry - challengeOrdered By: Charlotte Stevenson on 08-14-2025 AST [Catalytic activity/Vol] 28 U/L <32 [facility] Lipid Profileon 08-14-2025 CHOL:HDL 2.62 Normal [facility] Comment on above: Performed By: #### L 501.9985, L501.80970, L500.4100, L500.4050, L501.9520, L100.0100, L506.0400 #### [facility] [address] [place], [address] Cholesterol [Mass/Vol] 138 mg/dL Normal <=200 [facility] Comment on above: Result Comment: Chol esterol level, Desirable <200 mg/dL Borderline high cholesterol 200-239 mg/dL High cholesterol >=240 mg/dL Recommendations of the NCEP Adult Treatment Panel for the following risk-cutoff thresholds for the [place] population. Performed By: #### L 501.9985, L501.87238, L500.4100, L500.4050, L501.9520, L100.0100, L506.0400 #### [facility] [address] [place], [address] Cholesterol in HDL [Mass/Vol] 53 mg/dL Normal [facility] Comment on above: Result Comment: Dee onal Cholesterol Education Program (NCEP) guidelines: <40 mg/dL: Low HDL-cholesterol (major risk factor for CHD) >= 60 mg/dL: High HDL-cholesterol (negative risk factor for CHD) HDL-cholesterol is affected by a number of factors, e.g. smoking, exercise, hormones, sex and age. Performed By: #### L 501.9985, L501.05856, L500.4100, L500.4050, L501.9520, L100.0100, L506.0400 #### [facility] [address] [place], [address] Cholesterol in LDL [Mass/Vol] 53 mg/dL Normal [facility] Comment on above: Result Comment: Bord ekzqfl=374-872 mg/dL Higher Gkjm=270 mg/dL or greater Friedwald Equation for LDL-C Performed By: #### L 501.9985, L501.87050, L500.4100, L500.4050, L501.9520, L100.0100, L506.0400 #### [facility] [address] [place], [address] Cholesterol in VLDL [Mass/Vol] 32 mg/dL Normal 5-40 [facility] Comment on above: Performed By: #### L 501.9985, L501.50751, L500.4100, L500.4050, L501.9520, L100.0100, L506.0400 #### [facility] [address] [place], [address] Triglyceride [Mass/Vol] 162 mg/dL Normal [facility] Comment on above: Result Comment: The drugs N-Acetylcysteine and Metamizole may falsely depress this assay. Normal range: <150 mg/dL Borderline High: 150-199 mg/dL High: 200-499 mg/dL Very High: >500 mg/dL Performed By: #### L 501.9985, L501.30173, L500.4100, L500.4050, L501.9520, L100.0100, L506.0400 #### [facility] [address] [facility] [place], [address] MCV (mean corpuscular volume ) determinationOrdered By: Charlotte Stevenson on 08-14-2025 MCV (RBC) [Entitic vol] 86.7 fL 81-99 [facility] Mean corpuscular hemoglobin (MCH) determinationOrdered By: Charlotte Stevenson on 08-14-2025 MCH (RBC) [Entitic mass] 30.1 pg 27.0-32.0 [facility] Mean corpuscular hemoglobin concentration (MCHC) determinationOrdered By: Charlotte Stevenson on 08-14-2025 MCHC (RBC) [Mass/Vol] 34.8 g/dL 32-36 [facility] Mean platelet volume determi nationOrdered By: Charlotte Stevenson on 08-14-2025 Platelet mean volume (Bld) [Entitic vol] 10.1 fL 6.2-12.0 [facility] Monocyte percentageOrdered B y: Charlotte Stevenson on 08-14-2025 Monocytes/100 WBC (Bld) 8.6 % 0-10 [facility] Neutrophil percentageOrdered By: Charlotte Stevenson on 08-14-2025 Neutrophils/100 WBC (Bld) 62.2 % 47-70 [facility] Nucleated red blood cell per centageOrdered By: Charlotte Stevenson on 08-14-2025 Nucleated RBC/100 WBC (Bld) [Ratio] 0 % 0-5 [facility] Platelet countOrdered By: Erika Stevenson on 08-14-2025 Platelets (Bld) [#/Vol] 294 10*3/uL 150-450 [facility] Potassium measurement (mass/ volume)Ordered By: Charlotte Stevenson on 08-14-2025 Potassium (Unsp spec) [Mass/Vol] 4.1 mmol/L 3.3-5.1 [facility] RBC Auto (Bld) [#/Vol]Ordere d By: Charlotte Stevenson on 08-14-2025 RBC (Bld) [#/Vol] 4.28 10*6/uL 4.2-5.4 [facility] Screening total cholesterol/ high density lipoprotein (HDL) cholesterol ratioOrdered By: Charlotte Stevenson on 08-14-2025 Cholesterol.total/Chol esterol in HDL [Mass ratio] 2.62 {ratio} [facility] Serum creatinine measurement (mass/volume)Ordered By: Charlotte Stevenson on 08-14-2025 Creatinine [Mass/Vol] 0.70 mg/dL 0.70-1.20 [facility] Serum globulin measurementOr dered By: Charlotte Stevenson on 08-14-2025 Globulin (S) [Mass/Vol] 3.2 g/dL 2.2-4.2 [facility] Serum glucose measurement (m ass/volume)Ordered By: Charlotte Stevenson on 08-14-2025 Glucose [Mass/Vol] 111 mg/dL High 70-99 [facility] Serum or plasma alanine yip otransferase (ALT) measurementOrdered By: Charlotte Stevenson on 08-14-2025 ALT [Catalytic activity/Vol] 29 U/L <35 [facility] Serum or plasma albumin cheko urement (mass/volume)Ordered By: Charlotte Stevenson on 08-14-2025 Albumin [Mass/Vol] 4.3 g/dL 3.4-4.8 [facility] Serum or plasma albumin/glob ulin mass ratioOrdered By: Charlotte Stevenson on 08-14-2025 Albumin/Globulin [Mass ratio] 1.4 {ratio} 0.9-2.4 [facility] Serum or plasma alkaline ed sphatase measurementOrdered By: Charlotte Stevenson on 08-14-2025 ALP [Catalytic activity/Vol] 88 U/L 35-104 [facility] Serum or plasma calcium cheko urement (mass/volume)Ordered By: Charlotte Stevenson on 08-14-2025 Calcium [Mass/Vol] 9.5 mg/dL 7.6-11.0 [facility] Serum or plasma cholesterol in HDL measurement (mass/volume)Ordered By: Charlotte Stevenson on 08-14-2025 Cholesterol in HDL [Mass/Vol] 53 mg/dL >40 [facility] Comment on above: National Cholesterol Education Program (NCEP) guidelines:<40 mg/dL: Low HDL-cholesterol (major risk factor for CHD)>= 60 mg/dL: High HDL-cholesterol (negative risk factor for CHD)HDL-cholesterol is affected by a number of factors, e.g. smoking, exercise, hormones, sex and age. Serum or plasma cholesterol measurement (mass/volume)Ordered By: Charlotte Stevenson on 08-14-2025 Cholesterol [Mass/Vol] 138 mg/dL <201 [facility] Comment on above: Cholesterol level, D esirable <200 mg/dLBorderline high cholesterol 200-239 mg/dLHigh cholesterol >=240 mg/dLRecommendations of the NCEP Adult Treatment Panel for the following risk-cutoff thresholds for the [place] population. Serum or plasma urea nitroge n measurement (mass/volume)Ordered By: Charlotte Stevenson on 08-14-2025 Urea nitrogen [Mass/Vol] 15 mg/dL 4-19 [facility] Sodium levelOrdered By: Charlotte Stevenson on 08-14-2025 Sodium [Moles/Vol] 139 mmol/L 133-145 [facility] T4 freeOrdered By: Charlotte Vora s on 08-14-2025 Free T4 [Mass/Vol] 1.20 ng/dL 0.76-1.46 [facility] TSH DL <= 0.005 mIU/L QnOrde red By: Charlotte Stevenson on 08-14-2025 TSH Qn 1.010 uIU/mL 0.300-4.20 0 [facility] Thyroid Stim Hormone (TSH)on 08-14-2025 TSH 1.010 uIU/mL Normal 0.300-4.20 0 [facility] Comment on above: Performed By: #### L 501.9985, L501.06356, L500.4100, L500.4050, L501.9520, L100.0100, L506.0400 #### [facility] [address] [place], [place], [address] Total proteinOrdered By: Lary Stevenson on 08-14-2025 Protein [Mass/Vol] 7.4 g/dL 5.9-8.4 [facility] Triglycerides measurementOrd ered By: Charlotte Stevenson on 08-14-2025 Triglyceride [Mass/Vol] 162 mg/dL <199 [facility] Comment on above: The drugs N-Acetylcy steine and Metamizole may falsely depress this assay. Normal range: <150 mg/dLBorderline High: 150-199 mg/dLHigh: 200-499 mg/dLVery High: >500 mg/dL White blood cell (WBC) count Ordered By: Charlotte Stevenson on 08-14-2025 WBC (Bld) [#/Vol] 8.0 10*3/uL 4.4-11.0 [facility] Brain/Head without Contrasto n 08-06-2025 Brain/Head without Contrast [facility] Imaging Services [address] [place], [place] [address] Brain/Head without Contrast MR#: [id number] Acct: [id number] Name: ROCIO PICKETT ANN Rep #: [id number] : 1945 F 80 From: Bethany Manning PCP: Dr. Charlotte Stevenson, DO Status: REG CLI Study: Brain/Head without Contrast Date of Exam: 07/10 08/02 Exam# [id number] Ordering Dr: Quinn Mendez PROCEDURE: BRAIN/HEAD WITHOUT CONTRAST 08/06/2025 REASON FOR EXAM: FALL ON DOAC TECHNIQUE: Procedure Code: CTBR Modality: CT Procedure: BRAIN/HEAD WITHOUT CONTRAST Coronal and Sagittal reconstruction series were provided. One or more dose reduction techniques were used (e.g., Automated exposure control, adjustment of the mA and/or kV according to patient size, use of iterative reconstruction technique. RADIATION DOSE SUMMARY: DLP: 943 mGycm COMPARISON: MR from 07/12/2020 FINDINGS: There is no acute infarct, intracranial hemorrhage, or mass effect. There is no hydrocephalus or significant midline shift. There is mild chronic microvascular ischemic changes and mild parenchymal volume loss. No acute, depressed calvarial fractures. No large scalp hematomas. Mild fluid within the right maxillary sinus. Bilateral lens surgeries. CT/Brain/Head without Contrast IMPRESSION: No acute intracranial process. Reading Location: [id number] CC: Dr. Charlotte Stevenson DO; TOBIAS Staley Lcac Operator: Signed Normal [facility] Cardiology Visit Reporton Cardiology Visit Report [facility] [address] [place] [address] OFFICE VISIT Date of Service: 08/06/25 MR#: [id number] Acct: [id number] Name: ROCIO PICKETT Rep #: [id number] : 1945 Provider: TOBIAS Staley Age/Sex: 80/F Location: [facility] [place] Status: Signed Agree with assessment and plan. HPI HPI History of Present Illness Details: Rocio Pickett is a 80-year-old female who presents to office today for acute concerns of syncopal event that happened on Wednesday, 3 days ago. She has a history of atrial fibrillation and right bundle branch block. She presented to the emergency department 09/23/2020 with concerns of palpitations. After she was loaded on flecainide, she was discharged from the hospital. She then later presented with near syncope and had a prolonged sinus node recovery time of 3 to 6 seconds while she was converting randomly [id number] from atrial fibrillation to sinus bradycardia. Her beta-denisse was discontinued and she was managed with flecainide. She was noted to have an intermittent right bundle branch block that was dependent on rate. Her flecainide ended up being increased during an emergency visit; however, this was decreased 09/2024 after experiencing bradycardia. Upon presentation today, patient reports headache since she fell that has been slowly improving. She was getting out of bed and thought she saw something under her bed and upon looking under her bed, she experienced syncope, falling and hitting her head. She denies any dizziness or lightheadedness around the time of the syncopal episode. She reports nausea associated with the headache. Further ROS below. Intake Vital Signs 12/18/24 11:24 08/06/25 10:50 Height 5 ft 3 in 5 ft 3 in Weight: 186 lb BMI 32.9 BP 158/83 H Blood Pressure Location Lt brachial Position Sitting Respiration 18 Pulse 73 Pulse Source Monitor Pulse Oximetry (%) 94 Intake Visit Reasons: Passed out Wednesday am; see clinicals [employer] Required: No Is patient in pain?: No Allergies ciprofloxacin (From Cipro) Allergy (Verified 08/06/25 13:19) Other fluorescein Allergy (Verified 08/06/25 13:19) Anaphylaxis lactose Allergy (Verified 08/06/25 13:19) Upset Stomach nitrofurantoin Allergy (Verified 08/06/25 13:19) Other Sulfa (Sulfonamide Antibiotics) Allergy (Verified 08/06/25 13:19) Rash amlodipine Adverse Reaction (Intermediate, Verified 08/06/25 13:19) Feel weak and tired aspirin Adverse Reaction (Verified 08/06/25 13:19) Other Medications ???Medication ???Instructions ???Recorded ???Confirmed ???Type lisinopril 20 mg tablet 20 mg PO BID blood pressure 08/06/25 History nvlvzemv-qrv-ytaha acid 0.4 1 ea PO DAILY supplement 03/20/18 08/06/25 History mg-lycopene 300 mcg-lutein 250 mcg tablet cranberry 500 mg capsule 2,000 mg PO DAILY supplement 04/0508/06/25 History metronidazole 0.75 % topical gel 1 applic topical PRN rash 12/01/18 08/06/25 History hydrochlorothiazide 12.5 mg tablet 12.5 mg PO DAILY bp #90 tabs 02/2608/06/25 Rx pantoprazole 40 mg tablet,delayed 40 mg PO DAILY reflux 09/11/22 History release rosuvastatin 10 mg tablet 10 mg PO DAILY cholesterol 3 08/06/25 History montelukast 10 mg tablet 10 mg PO QDAY PRN allergies 08/06/25 History estriol micronized (bulk) 100 % 1 ea miscellaneous QWEEK infection s 09/13/24 08/06/25 History powder apixaban 5 mg tablet (Eliquis) 5 mg PO BID #180 tabs 12/18/24 Rx flecainide 50 mg tablet 50 mg PO Q12H #180 tabs 12/18/24 0 08/06/25 Rx Ejection fraction %: 65 Have you fallen in the past year?: Yes (passed out) PFSH Medical History Paroxysmal atrial fibrillation Essential hypertension Reactive airway disease Osteopenia Bilateral carotid artery stenosis Hyperlipidemia Atrial fibrillation with rapid ventricular response (03/21/18) Surgical History H/O breast biopsy H/O hemorrhoidectomy History of partial hysterectomy Hx of cholecystectomy History of tonsillectomy History of cataract surgery Family History Father Diabetes Hypertension Brother Diabetes Hypertension Brother Heart disease irregular heart beat w/ PPM Social History household members: spouse Smoking Status: Never smoker alcohol intake: never substance use type: does not use caffeine: No ROS Const Const: Positive for headache(s); Negative for fatigue, weakness or frequent falls Eyes Eyes: Negative for blurry vision ENT ENT: Positive for headache(s); Negative for d (more content not included)... Normal [facility] Carotid Duplex Ultrasoundon 05-03-2025 Carotid Duplex Ultrasound [facility] [address] [place] [address] Carotid Duplex Ultrasound 05/03/25 1101 MR#: [id number] Acct: [id number] Name: ROCIO PICKETT ANN Rep #: [id number] : 1945 79 From: Yuri Nicholas MD Attending Dr: Dr. Charlotte Stevenson DO Status: REG CL I Ordering Dr: Charlotte Stevenson DO Date: 05/03/25 Location: [facility] Sex: F C Admitted: Reason For Study Reason For Study: CAROTID STENOSIS Rt. Velocities/BP Lt. Velocities/BP Prox CCA 134.2/15.1 cm/sec. Prox CCA 145.4/28.5 cm/sec. Mid CCA 107.6/17.9 cm/sec. Mid CCA 113.1/18.1 cm/sec. Dist CCA 103.9/24.1 cm/sec. Dist CCA 94.8/16.3 cm/sec. Prox ICA 125.3/23.0 cm/sec. Prox ICA 153.4/37.1 cm/sec. Mid ICA 138.1/26.7 cm/sec. Mid ICA 131.5/26.1 cm/sec. Dist ICA 103.4/26.7 cm/sec. Dist ICA 111.7/28.3 cm/sec. Rt. ICA/CCA = 138.1/107.6=1.3. Lt. ICA/CCA = 153.4/113.1=1.4. Prox ECA 116.2/9.3 cm/sec. Prox ECA 172.8/15.7 cm/sec. Rt. Vert. 74.3/13.8 cm/sec. Lt. Vert. 56.3/0.0 cm/sec. Right Extracranial There is intimal thickening but no significant atherosclerotic plaque noted in the right common carotid artery. There is heterogeneous, irregular atherosclerotic plaque noted in the right internal carotid artery. The atherosclerotic plaque causes acoustic shadowing. Antegrade flow is noted in the right vertebral artery. There is heterogeneous, irregular atherosclerotic plaque noted in the right bulb. Left Extracranial There is homogeneous, smooth atherosclerotic plaque noted in the left common carotid artery. There is heterogeneous, irregular atherosclerotic plaque noted in the left internal carotid artery. The atherosclerotic plaque causes acoustic shadowing. The left external carotid artery is not well visualized. There is heterogeneous, irregular atherosclerotic plaque noted in the left bulb. Procedure Carotid Duplex 53883. This is a Carotid Duplex examination using B-mode, color flow and specral Doppler. The study was technically difficult. Exam performed in department. VL/Carotid Duplex Ultrasound Interpretation Summary Moderate (50-69%) stenosis right extracranial internal carotid. Moderate (50-69%) stenosis left extracranial internal carotid. Patent and antegrade vertebrals bilaterally. Ordering Physician: Charlotte Stevenson Referring Physician: Charlotte Stevenson Performed By: Krystal Pereira, RDCS, RVT 05/03/25 1452 Date Yuri Nicholas MD CC: Dr. Charlotte Stevenson DO Date Dictated: 05/03/25 1101 Date Transcribed: 05/03/251451 Lcac Operator: Signed Normal [facility] Duplex ultrasound of carotid artery reportOrdered By: Yuri Nicholas on 05-03-2025 Study report [facility] [address] [place] [address] Carotid Duplex Ultrasound 05/03/25 1101 MR#: [id number] Acct: [id number] Name: ROCIO PICKETT ANN Rep #:[id number] : 1945 79 From: Yuri Manning Attending Dr: Dr. Charlotte Stevenson DO atus: REG CLI Ordering Dr: Charlotte Stevenson DO Date: 04/09 05/02 Location: [facility] Sex: F C Admitted: Reason For Study Reason For Study: CAROTID STENOSIS Rt. Velocities/BP Lt. Velocities/BP Prox CCA 134.2/15.1 cm/sec. Prox CCA 145.4/28.5 cm/sec. Mid CCA 107.6/17.9 cm/sec. Mid CCA 113.1/18.1 cm/sec. Dist CCA 103.9/24.1 cm/sec. Dist CCA 94.8/16.3 cm/sec. Prox ICA 125.3/23.0 cm/sec. Prox ICA 153.4/37.1 cm/sec. Mid ICA 138.1/26.7 cm/sec. Mid ICA 131.5/26.1 cm/sec. Dist ICA 103.4/26.7 cm/sec. Dist ICA 111.7/28.3 cm/sec. Rt. ICA/CCA = 138.1/107.6=1.3. Lt. ICA/CCA = 153.4/113.1=1.4. Prox ECA 116.2/9.3 cm/sec. Prox ECA 172.8/15.7 cm/sec. Rt. Vert. 74.3/13.8 cm/sec. Lt. Vert. 56.3/0.0 cm/sec. Right Extracranial There is intimal thickening but no significant atherosclerotic plaque noted in the right common carotid artery. There is heterogeneous, irregular atherosclerotic plaque noted in the right internal carotid artery. The atherosclerotic plaque causes acoustic shadowing. Antegrade flow is noted in the right vertebral artery. There is heterogeneous, irregular atherosclerotic plaque noted in the right bulb. Left Extracranial There is homogeneous, smooth atherosclerotic plaque noted in the left common carotid artery. There is heterogeneous, irregular atherosclerotic plaque noted in the left internal carotid artery. The atherosclerotic plaque causes acoustic shadowing. The left external carotid artery is not well visualized. There is heterogeneous, irregular atherosclerotic plaque noted in the left bulb. Procedure Carotid Duplex 44987. This is a Carotid Duplex examination using B-mode, color flow and specral Doppler. The study was technically difficult. Exam performed in department. VL/Carotid Duplex Ultrasound Interpretation Summary Moderate (50-69%) stenosis right extracranial internal carotid. Moderate (50-69%) stenosis left extracranial internal carotid. Patent and antegrade vertebrals bilaterally. Ordering Physician: Charlotte Stevenson Referring Physician: Charlotte Stevenson Performed By: Krystal Pereira, RDCS, RVT 05/03/25 1450 Date _ Yuri Nicholas MD CC: Dr. Charlotte Stevenson, DO ~ Date Dictated: 05/03/25 1101 Date Transcribed: 05/03/25 1452 Lcac Operator: Signed [facility] Work Phone: Absolute lymphocyte countOrd ered By: Charlotte Stevenson on 04-17-2025 Lymphocytes Auto (Unsp spec) [#/Vol] 1.85 10*3/uL 0.83-4.51 [facility] Absolute neutrophil countOrd ered By: Charlotte Stevenson on 04-17-2025 Neutrophils (Bld) [#/Vol] 3.7 10*3/uL 2.0-7.7 [facility] Anion gap in Serum or Plasma Ordered By: Charlotte Stevenson on 04-17-2025 Anion gap [Moles/Vol] 11 mmol/L 5-15 [facility] Automated lymphocyte count a s percentage of total leukocytesOrdered By: Charlotte Stevenson on 04-17-2025 Lymphocytes/100 WBC Auto (Unsp spec) 29.0 % - [facility] BUN/creatinine ratioOrdered By: Charlotte Stevenson on 04-17-2025 Urea nitrogen/Creatinine [Mass ratio] 20.0 mg/mg 10- [facility] Basophil percentageOrdered B y: Chralotte Stevenson on 04-17-2025 Basophils/100 WBC (Bld) 0.8 % 0- [facility] Bilirubin, totalOrdered By: Charlotte Stevenson on 04-17-2025 Bilirubin [Mass/Vol] 0.41 mg/dL 0.00-1.30 [facility] CBC W/Diff, Automatedon 04-08 Absolute Lymph 1.85 X10 3/uL Normal 0.83-4.51 [facility] Comment on above: Performed By: #### L 500.2500, L501.5486, L100.0100 #### [facility] [address] [facility] [place], [place], [id number] Absolute Neut 3.7 X10 3/uL Normal 2.0-7.7 [facility] Comment on above: Performed By: #### L 500.2500, L501.5425, L100.0100 #### [facility] [address] [place], [address] Basophils/100 WBC (Bld) 0.8 % Normal 0-1 [facility] Comment on above: Performed By: #### L 500.2500, L501.5425, L100.0100 #### [facility] [address] [place], [address] Eosinophils/100 WBC (Bld) 2.4 % Normal 0-5 [facility] Comment on above: Performed By: #### L 500.2500, L501.5425, L100.0100 #### [facility] [address] [place], [address] Erythrocyte distribution width (RBC) [Ratio] 12.3 % Normal 11.6-14.6 [facility] Comment on above: Performed By: #### L 500.2500, L501.5425, L100.0100 #### [facility] [address] [place], [address] Hematocrit (Bld) [Volume fraction] 37.9 % Normal 37-47 [facility] Comment on above: Performed By: #### L 500.2500, L501.5425, L100.0100 #### [facility] [address] [place], [address] Hemoglobin (Bld) [Mass/Vol] 12.8 g/dL Normal 12.0-15.0 [facility] Comment on above: Performed By: #### L 500.2500, L501.5425, L100.0100 #### [facility] [address] [place], [address] IG% 0.300 Normal 0.0-0.9 [facility] Comment on above: Result Comment: IG% - Immature Granulocytes (promyelocytes, myelocytes and metamyelocytes) > 1% indicates that a LEFT SHIFT is Present. Performed By: #### L 500.2500, L501.5425, L100.0100 #### [facility] [address] [place], [address] Lymphocytes/100 WBC (Bld) 29.0 % Normal 19-41 [facility] Comment on above: Performed By: #### L 500.2500, L501.5425, L100.0100 #### [facility] [address] [place], [address] MCH (RBC) [Entitic mass] 30.0 pg Normal 27.0-32.0 [facility] Comment on above: Performed By: #### L 500.2500, L501.5425, L100.0100 #### [facility] [address] [place], [address] MCHC (RBC) [Mass/Vol] 33.8 g/dL Normal 32-36 [facility] Comment on above: Performed By: #### L 500.2500, L501.5425, L100.0100 #### [facility] [address] [place], [address] MCV (RBC) [Entitic vol] 88.8 fL Normal 81-99 [facility] Comment on above: Performed By: #### L 500.2500, L501.5425, L100.0100 #### [facility] [address] [place], [address] Monocytes/100 WBC (Bld) 10.2 % High 0-10 [facility] Comment on above: Performed By: #### L 500.2500, L501.5425, L100.0100 #### [facility] [address] [place], [address] Neutrophils/100 WBC (Bld) 57.3 % Normal 47-70 [facility] Comment on above: Performed By: #### L 500.2500, L501.5425, L100.0100 #### [facility] [address] [place], [address] Nucleated RBC (Bld) [#/Vol] 0 10*3/uL Normal 0-5 [facility] Comment on above: Performed By: #### L 500.2500, L501.5425, L100.0100 #### [facility] [address] [place], [address] Platelet mean volume (Bld) [Entitic vol] 9.9 fL Normal 6.2-12.0 [facility] Comment on above: Performed By: #### L 500.2500, L501.5425, L100.0100 #### [facility] [address] [place], [address] Platelets (Bld) [#/Vol] 280 10*3/uL Normal 150-450 [facility] Comment on above: Performed By: #### L 500.2500, L501.5425, L100.0100 #### [facility] [address] [place], [address] RBC (Bld) [#/Vol] 4.27 10*6/uL Normal 4.2-5.4 [facility] Comment on above: Performed By: #### L 500.2500, L501.5425, L100.0100 #### [facility] [address] [place], [address] RDW SD 39.6 fl Normal 35.1-43.9 [facility] Comment on above: Performed By: #### L 500.2500, L501.5425, L100.0100 #### [facility] [address] [place], [address] WBC (Bld) [#/Vol] 6.4 10*3/uL Normal 4.4-11.0 [facility] Comment on above: Performed By: #### L 500.2500, L501.5425, L100.0100 #### [facility] [address] [place], [address] Carbon dioxide, total [Moles /volume] in Central venous bloodOrdered By: Charlotte Stevenson on 04-17-2025 CO2 [Moles/Vol] 24.7 mmol/L 21.0-32.0 [facility] Chloride assayOrdered By: Erika Stevenson on 04-17-2025 Chloride [Moles/Vol] 103 mmol/L 98-108 [facility] Comprehensive Metabolic Prof ilon 04-17-2025 Albumin [Mass/Vol] 4.3 g/dL Normal 3.4-4.8 [facility] Comment on above: Performed By: #### L 500.2500, L501.5425, L100.0100 #### [facility] [address] [place], [address] Albumin/Globulin [Mass ratio] 1.4 {ratio} Normal 0.9-2.4 [facility] Comment on above: Performed By: #### L 500.2500, L501.5425, L100.0100 #### [facility] [address] [place], [address] ALK PHOS 98 U/L Normal 35-104 [facility] Comment on above: Performed By: #### L 500.2500, L501.5425, L100.0100 #### [facility] [address] [place], [address] ALT [Catalytic activity/Vol] 22 U/L Normal <=34 [facility] Comment on above: Performed By: #### L 500.2500, L501.5425, L100.0100 #### [facility] [address] [place], [address] AST [Catalytic activity/Vol] 25 U/L Normal <=31 [facility] Comment on above: Performed By: #### L 500.2500, L501.5425, L100.0100 #### [facility] [address] [place], [address] Bilirubin [Mass/Vol] 0.41 mg/dL Normal 0.00-1.30 [facility] Comment on above: Performed By: #### L 500.2500, L501.5425, L100.0100 #### [facility] [address] [place], [address] BUN/CRE 20.0 RATIO Normal 10-20 [facility] Comment on above: Performed By: #### L 500.2500, L501.5425, L100.0100 #### [facility] [address] [place], [address] Calcium [Mass/Vol] 9.5 mg/dL Normal 7.6-11.0 [facility] Comment on above: Performed By: #### L 500.2500, L501.5425, L100.0100 #### [facility] [address] [place], [address] Chloride [Moles/Vol] 103 mmol/L Normal 98-108 [facility] Comment on above: Performed By: #### L 500.2500, L501.5425, L100.0100 #### [facility] [address] [place], [address] CO2 [Moles/Vol] 24.7 mmol/L Normal 21.0-32.0 [facility] Comment on above: Performed By: #### L 500.2500, L501.5425, L100.0100 #### [facility] [address] [place], [address] Creatinine [Mass/Vol] 0.71 mg/dL Normal 0.70-1.20 [facility] Comment on above: Performed By: #### L 500.2500, L501.5425, L100.0100 #### [facility] [address] [place], [address] GAP 11 Normal 5-15 [facility] Comment on above: Performed By: #### L 500.2500, L501.5425, L100.0100 #### [facility] [address] [place], [address] GFR/1.73 sq M.predicted among non-blacks MDRD (S/P/Bld) [Vol rate/Area] 88 mL/min/{1.73_m2} Normal >60 [facility] Comment on above: Result Comment: mL/m in/1.73m2 CKD-EPI Creatinine Equation (2020) Performed By: #### L 500.2500, L501.5425, L100.0100 #### [facility] [address] [place], [address] Globulin (S) [Mass/Vol] 3.1 g/dL Normal 2.2-4.2 [facility] Comment on above: Performed By: #### L 500.2500, L501.5425, L100.0100 #### [facility] [address] [place], [address] Glucose [Mass/Vol] 114 mg/dL High 70-99 [facility] Comment on above: Performed By: #### L 500.2500, L501.5425, L100.0100 #### [facility] [address] [place], [address] Potassium [Moles/Vol] 4.3 mmol/L Normal 3.3-5.1 [facility] Comment on above: Performed By: #### L 500.2500, L501.5425, L100.0100 #### [facility] [address] [place], [address] Sodium [Moles/Vol] 139 mmol/L Normal 133-145 [facility] Comment on above: Performed By: #### L 500.2500, L501.5425, L100.0100 #### [facility] [address] [place], [address] T PROT 7.4 g/dL Normal 5.9-8.4 [facility] Comment on above: Performed By: #### L 500.2500, L501.5425, L100.0100 #### [facility] [address] [place], [address] Urea nitrogen [Mass/Vol] 14 mg/dL Normal 4-19 [facility] Comment on above: Performed By: #### L 500.2500, L501.5425, L100.0100 #### [facility] [address] [place], [address] Eosinophil percentageOrdered By: Charlotte Stevenson on 04-17-2025 Eosinophils/100 WBC (Bld) 2.4 % 0-5 [facility] Erythrocyte distribution wid th ratioOrdered By: Charlotte Stevenson on 04-17-2025 Erythrocyte distribution width (RBC) [Ratio] 12.3 % 11.6-14.6 [facility] Erythrocyte distribution wid th standard deviationOrdered By: Charlotte Stevenson on 04-17-2025 Erythrocyte distribution width (RBC) [Ratio] 39.6 fl 35.1-43.9 [facility] Glomerular filtration rate ( GFR) estimation/1.73 sq m using serum, plasma, or whole bOrdered By: Charlotte Stevenson on 04-17-2025 GFR/1.73 sq M.predicted among non-blacks MDRD (S/P/Bld) [Vol rate/Area] 88 mL/min/{1.73_m2} >60 [facility] Comment on above: mL/min/1.73m2 CKD-EP I Creatinine Equation (2020) Hematocrit Auto (Bld) [Volum e fraction]Ordered By: Charlotte Stevenson on 04-17-2025 Hematocrit (Bld) [Volume fraction] 37.9 % 37-47 [facility] Hemoglobin A1con 04-17-2025 HbA1c (Bld) [Mass fraction] 6.2 % High <=5.6 [facility] Comment on above: Result Comment: Norm al < 5.7 % Prediabetic 5.7 - 6.4 % Diabetic >or= 6.5 % Please note range changes. Performed By: #### L 500.2500, L501.5425, L100.0100 #### [facility] [address] [place], [place], [id number] Hemoglobin A1c percentageOrd ered By: Charlotte Stevenson on 04-17-2025 HbA1c (Bld) [Mass fraction] 6.2 % High <5.7 [facility] Comment on above: Normal < 5.7 % Predi abetic 5.7 - 6.4 % Diabetic >or= 6.5 % Please note range changes. Hemoglobin measurementOrdere d By: Charlotte Stevenson on 04-17-2025 Hemoglobin (Bld) [Mass/Vol] 12.8 g/dL 12.0-15.0 [facility] Immature granulocytes/100 WB C Auto (Bld)Ordered By: Charlotte Stevenson on 04-17-2025 Immature granulocytes/100 WBC (Bld) 0.300 % 0.0-0.9 [facility] Comment on above: IG% - Immature Granu locytes (promyelocytes, myelocytes and metamyelocytes) > 1% indicates that a LEFT SHIFT is Present. Laboratory - Chemistry and C hemistry - challengeOrdered By: Charlotte Stevenson on 04-17-2025 AST [Catalytic activity/Vol] 25 U/L <32 [facility] MCV (mean corpuscular volume ) determinationOrdered By: Charlotte Stevenson on 04-17-2025 MCV (RBC) [Entitic vol] 88.8 fL 81-99 [facility] Mean corpuscular hemoglobin (MCH) determinationOrdered By: Charlotte Stevenson on 04-17-2025 MCH (RBC) [Entitic mass] 30.0 pg 27.0-32.0 [facility] Mean corpuscular hemoglobin concentration (MCHC) determinationOrdered By: Charlotte Stevenson on 04-17-2025 MCHC (RBC) [Mass/Vol] 33.8 g/dL 32-36 [facility] Mean platelet volume determi nationOrdered By: Charlotte Stevenson on 04-17-2025 Platelet mean volume (Bld) [Entitic vol] 9.9 fL 6.2-12.0 [facility] Monocyte percentageOrdered B y: Charlotte Stevenson on 04-17-2025 Monocytes/100 WBC (Bld) 10.2 % High 0-10 [facility] Neutrophil percentageOrdered By: Charlotte Stevenson on 04-17-2025 Neutrophils/100 WBC (Bld) 57.3 % 47-70 [facility] Nucleated red blood cell per centageOrdered By: Charlotte Stevenson on 04-17-2025 Nucleated RBC/100 WBC (Bld) [Ratio] 0 % 0-5 [facility] Platelet countOrdered By: Erika Stevenson on 04-17-2025 Platelets (Bld) [#/Vol] 280 10*3/uL 150-450 [facility] Potassium measurement (mass/ volume)Ordered By: Charlotte Stevenson on 04-17-2025 Potassium (Unsp spec) [Mass/Vol] 4.3 mmol/L 3.3-5.1 [facility] RBC Auto (Bld) [#/Vol]Ordere d By: Charlotte Stevenson on 04-17-2025 RBC (Bld) [#/Vol] 4.27 10*6/uL 4.2-5.4 [facility] Serum creatinine measurement (mass/volume)Ordered By: Charlotte Stevenson on 04-17-2025 Creatinine [Mass/Vol] 0.71 mg/dL 0.70-1.20 [facility] Serum globulin measurementOr dered By: Charlotte Stevenson on 04-17-2025 Globulin (S) [Mass/Vol] 3.1 g/dL 2.2-4.2 [facility] Serum glucose measurement (m ass/volume)Ordered By: Charlotte Stevenson on 04-17-2025 Glucose [Mass/Vol] 114 mg/dL High 70-99 [facility] Serum or plasma alanine yip otransferase (ALT) measurementOrdered By: Charlotte Stevenson on 04-17-2025 ALT [Catalytic activity/Vol] 22 U/L <35 [facility] Serum or plasma albumin cheko urement (mass/volume)Ordered By: Charlotte Stevenson on 04-17-2025 Albumin [Mass/Vol] 4.3 g/dL 3.4-4.8 [facility] Serum or plasma albumin/glob ulin mass ratioOrdered By: Charlotte Stevenson on 04-17-2025 Albumin/Globulin [Mass ratio] 1.4 {ratio} 0.9-2.4 [facility] Serum or plasma alkaline ed sphatase measurementOrdered By: Charlotte Stevenson on 04-17-2025 ALP [Catalytic activity/Vol] 98 U/L 35-104 [facility] Serum or plasma calcium cheko urement (mass/volume)Ordered By: Charlotte Stevenson on 04-17-2025 Calcium [Mass/Vol] 9.5 mg/dL 7.6-11.0 [facility] Serum or plasma urea nitroge n measurement (mass/volume)Ordered By: Charlotte Stevenson on 04-17-2025 Urea nitrogen [Mass/Vol] 14 mg/dL 4-19 [facility] Sodium levelOrdered By: Charlotte Stevenson on 04-17-2025 Sodium [Moles/Vol] 139 mmol/L 133-145 [facility] Total proteinOrdered By: Lary Stevenson on 04-17-2025 Protein [Mass/Vol] 7.4 g/dL 5.9-8.4 [facility] White blood cell (WBC) count Ordered By: Charlotte Stevenson on 04-17-2025 WBC (Bld) [#/Vol] 6.4 10*3/uL 4.4-11.0 [facility] Breast imaging reportOrdered By: Ash Wang on 01-01-2025 Study report [facility] Imaging Services [address] [place] [address] SCRN MAMM (CAD)W/ALAYNA BILAT MR#: [id number] Acct: [id number] Name: ROCIO PICKETT ANN Rep #: [id number] : 1945 F 79 From: Hans Wang MD PCP: Dr. Charlotte Stevenson, DO Status: REG CLI Study:SCRN MAMM (CAD)W/ALAYNA BILAT Date of Exa m: 01/01/25 Exam# [id number] Ordering Dr: Erika Stevenson sa, DO PROCEDURE: [...] of the results by letter. Reading Location: [id number] CC: Dr. Charlotte Stevesnon DO ~ Lcac Operator: Signed [facility] SCRN MAMM (CAD)W/ALAYNA BILATo n 01-01-2025 SCRN MAMM (CAD)W/ALAYNA BILAT [facility] Imaging Services [address] [place] [address] SCRN MAMM (CAD)W/ALAYNA BILAT MR#: [id number] Acct: [id number] Name: ROCIO PICKETT ANN Rep #: [id number] : 1945 F 79 From: Ash garcía MD PCP: Dr. Charlotte Stevenson DO Status: REG CLI Study: SCRN MAMM (CAD)W/ALAYNA BILAT Date of Exam: 12/10 03/02 Exam# [id number] Ordering Dr: Charlotte Stevenson DO PROCEDURE: SCRN [...] of the results by letter. Reading Location: [id number] CC: Dr. Charlotte Stevenson DO Lcac Operator: Signed Normal [facility] Cardiology Visit Reporton Cardiology Visit Report [facility] [address] [place] [address] OFFICE VISIT Date of Service: 12/18/24 MR#: [id number] Acct: [id number] Name: ROCIO PICKETT ANN Rep #: [id number] : 1945 Provider: JUANY esquivel Age/Sex: 79/F Location: [facility] Status: Signed HPI HPI History of Present [...] 6 seconds while she was converting randomly [id number] from atrial fibrillation to sinus bradycardia. 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 Is patient in pain?: No Allergies ciprofloxacin (From Cipro) Allergy (Verified 12/18/24 11:28) Other fluorescein Allergy (Verified 12/18/24 11:28) Anaphylaxis lactose Allergy (Verified 12/18/24 11:28) Upset Stomach nitrofurantoin Allergy (Verified 12/18/24 11:28) Other Sulfa (Sulfonamide Antibiotics) Allergy (Verified 12/18/24 11:28) Rash amlodipine Adverse Reaction (Intermediate, Verified 12/18/24 11:28) Feel weak and tired aspirin Adverse Reaction (Verified 12/18/24 11:28) Other Medications ???Medication ???Instructions ???Recorded ???Confirmed ???Type lisinopril 20 mg tablet 20 mg PO BID blood pressure 12/18/24 History gzjqdipl-mdm-mcnti acid 0.4 1 ea PO DAILY supplement [...] H/O b (more content not included)... Normal [facility] L3410.9999on 11-24-2024 [facility] [place]. COMMENT Normal . [facility] Comment on above: Order Comment: 1 Y Result Comment: Test Ordered: [id number] Hered.Hemochromatosis, DNA Hereditary Hemochromatosis Comment TG Reference Range: . Result: c.845G>A (p.Fyu693Rdf) - Not Detected c.187C>G (p.Rps34Yqu) - Not Detected c.193A>T (p.Ycg90Pqk) - Not Detected Not associated with increased [...] for patients who are homozygous for c.845G>A (p.Sul249Tyd) and have yet to experience clinical symptoms. Comments: The most common HFE variants associated with hereditary hemochromatosis are c.845G>A (p.Hod165Ztf), c.187C>G (p.Ucg70Wjg), c.193A>T (p.Juw54Vca). While patients homozygous for c.845G>A (p.Ggz907Aew) are the most likely to present clinical symptoms, less than 10% develop clinically significant iron overload with tissue and organ damage. Genetic counseling is recommended to discuss the potential clinical implications of positive results, as well as recommendations for testing family members. Genetic Coordinators are available for health care providers to discuss results at [phone] Test Details: Three variants analyzed: c.845G>A (p.Jbv985Uzq), commonly referred to as C282Y c.187C>G (p.Ztz18Dow), commonly referred to as H63D c.193A>T (p.Pbm97Zgy), commonly referred to as S65C Methods/Limitations: DNA [...] developed and its performance characteristics determined by [employer]. It has not been cleared or approved by the Food and Drug Administration. References: Ortiz BR, Jimmy PC, Dagoberto KV, Horace LW, Robert ; [employer] for the [employer] Liver Diseases. Diagnosis and management of hemochromatosis: 2011 practice guideline by the [employer] the [employer] Liver Diseases. Hepatology. 2010;54(1):328-43. doi: 10.1002/hep.05491. PMID: 59609308; PMCID: YKZ1557843. Kavita G, Christiano P, Freddie DW, Devika H, Christiano O, Prieto S, Ben I, Justo M, Milly S. QN best practice guidelines for the molecular genetic diagnosis of hereditary hemochromatosis (HH). Eur J Hum Renee. 2016 Feb;24(4):479-95. doi: 10.1038/ejhg.2015.128. Epub 2014May 15. PMID: 98140138; PMCID: YES8785891. Reviewed by: Comment TG Reference Range: . Technical Component performed at [facility] Professional Component performed by: Emma Tracy, Ph.D., [facility] Director, Molecular Genetics [address] [place] [address] Performed at: - [facility] [place], [place] [id number] Top Coater: Heidy Rivas [facility], Phone: [phone] Performed at: - [facility] [id number] Top Coater: Koffi Verdugo PhD, Phone: [phone] Performed By: #### L 500.2500, L551.2439, L100.0100 #### [facility] [address] [place] [address] [place], [place], [id number] Urine Cultureon 11-18-2024 [facility] Culture exhibits no growth. Normal [facility] Comment on above: Performed By: #### L 500.2500, L501.4525, L100.0100 #### [facility] [address] [place] [address] [place], [place], [id number] Absolute neutrophil countOrd ered By: Charlotte Stevenson on 11-17-2024 Neutrophils (Bld) [#/Vol] 7.7 10*3/uL 2.0-7.7 [facility] Albumin to globulin ratioOrd ered By: Charlotte Stevenson on 11-17-2024 Albumin/Globulin [Mass ratio] 0.8 {ratio} Low 0.9-2.4 [facility] Bacteria LM.HPF (Urine sed) [#/Area]Ordered By: Charlotte Stevenson on 11-17-2024 Urine Bacteria RARE /hpf None Seen [facility] Basophil percentageOrdered B y: Charlotte Stevenson on 11-17-2024 Basophils/100 WBC (Bld) 0.5 % 0-1 [facility] Bilirubin Test strip Ql (U)O rdered By: Charlotte Stevenson on 11-17-2024 Bilirubin Ql (U) Negative Negative [facility] Bilirubin, totalOrdered By: Charlotte Stevenson on 11-17-2024 Bilirubin [Mass/Vol] 0.40 mg/dL 0.20-1.00 [facility] Comment on above: For patients on eltr ombopag therapy, use of Dimension [place] TBIL is not recommended. Blood urea nitrogen (BUN)/cr eatinine ratioOrdered By: Charlotte Stevenson on 11-17-2024 Urea nitrogen/Creatinine [Mass ratio] 17.3 mg/mg 10-20 [facility] CBC W/Diff, Automatedon 11-08 Absolute Lymph 2.18 X10 3/uL Normal 0.83-4.51 [facility] Comment on above: Performed By: #### L 500.2500, L501.5425, L100.0100 #### [facility] [address] [place], [address] Absolute Neut 7.7 X10 3/uL Normal 2.0-7.7 [facility] Comment on above: Performed By: #### L 500.2500, L501.5425, L100.0100 #### [facility] [address] [place], [address] Basophils/100 WBC (Bld) 0.5 % Normal 0-1 [facility] Comment on above: Performed By: #### L 500.2500, L501.5425, L100.0100 #### [facility] [address] [place], [address] Eosinophils/100 WBC (Bld) 2.3 % Normal 0-5 [facility] Comment on above: Performed By: #### L 500.2500, L501.5425, L100.0100 #### [facility] [address] [place], [address] Erythrocyte distribution width (RBC) [Ratio] 12.1 % Normal 11.6-14.6 [facility] Comment on above: Performed By: #### L 500.2500, L501.5425, L100.0100 #### [facility] [address] [place], [address] Hematocrit (Bld) [Volume fraction] 36.8 % Low 37-47 [facility] Comment on above: Performed By: #### L 500.2500, L501.5425, L100.0100 #### [facility] [address] [place], [address] Hemoglobin (Bld) [Mass/Vol] 12.7 g/dL Normal 12.0-15.0 [facility] Comment on above: Performed By: #### L 500.2500, L501.5425, L100.0100 #### [facility] [address] [place], [address] IG% 0.500 Normal 0.0-0.9 [facility] Comment on above: Result Comment: IG% - Immature Granulocytes (promyelocytes, myelocytes and metamyelocytes) > 1% indicates that a LEFT SHIFT is Present. Performed By: #### L 500.2500, L501.5425, L100.0100 #### [facility] [address] [place], [address] Lymphocytes/100 WBC (Bld) 19.8 % Normal 19-41 [facility] Comment on above: Performed By: #### L 500.2500, L501.5425, L100.0100 #### [facility] [address] [place], [address] MCH (RBC) [Entitic mass] 29.7 pg Normal 27.0-32.0 [facility] Comment on above: Performed By: #### L 500.2500, L501.5425, L100.0100 #### [facility] [address] [place], [address] MCHC (RBC) [Mass/Vol] 34.5 g/dL Normal 32-36 [facility] Comment on above: Performed By: #### L 500.2500, L501.5425, L100.0100 #### [facility] [address] [place], [address] MCV (RBC) [Entitic vol] 86.0 fL Normal 81-99 [facility] Comment on above: Performed By: #### L 500.2500, L501.5425, L100.0100 #### [facility] [address] [place], [address] Monocytes/100 WBC (Bld) 7.0 % Normal 0-10 [facility] Comment on above: Performed By: #### L 500.2500, L501.5425, L100.0100 #### [facility] [address] [place], [address] Neutrophils/100 WBC (Bld) 69.9 % Normal 47-70 [facility] Comment on above: Performed By: #### L 500.2500, L501.5425, L100.0100 #### [facility] [address] [place], [address] Nucleated RBC (Bld) [#/Vol] 0 10*3/uL Normal 0-5 [facility] Comment on above: Performed By: #### L 500.2500, L501.5425, L100.0100 #### [facility] [address] [place], [address] Platelet mean volume (Bld) [Entitic vol] 9.5 fL Normal 6.2-12.0 [facility] Comment on above: Performed By: #### L 500.2500, L501.5425, L100.0100 #### [facility] [address] [place], [address] Platelets (Bld) [#/Vol] 347 10*3/uL Normal 150-450 [facility] Comment on above: Performed By: #### L 500.2500, L501.5425, L100.0100 #### [facility] [address] [place], [address] RBC (Bld) [#/Vol] 4.28 10*6/uL Normal 4.2-5.4 [facility] Comment on above: Performed By: #### L 500.2500, L501.5425, L100.0100 #### [facility] [address] [place], [address] RDW SD 38.1 fl Normal 35.1-43.9 [facility] Comment on above: Performed By: #### L 500.2500, L501.5425, L100.0100 #### [facility] [address] [place], [address] WBC (Bld) [#/Vol] 11.0 10*3/uL Normal 4.4-11.0 [facility] Comment on above: Performed By: #### L 500.2500, L501.5425, L100.0100 #### [facility] [address] [place], [address] Carbon dioxide measurementOr dered By: Charlotte Stevenson on 11-17-2024 CO2 [Moles/Vol] 27.0 mmol/L 21.0-32.0 [facility] Chloride measurementOrdered By: Charlotte Stevenson on 11-17-2024 Chloride [Moles/Vol] 102 mmol/L 98-107 [facility] Comprehensive Metabolic Prof ilon 11-17-2024 Albumin [Mass/Vol] 3.4 g/dL Normal 3.2-5.0 [facility] Comment on above: Performed By: #### L 500.2500, L501.5425, L100.0100 #### [facility] [address] [place], [address] Albumin/Globulin [Mass ratio] 0.8 {ratio} Low 0.9-2.4 [facility] Comment on above: Performed By: #### L 500.2500, L501.5425, L100.0100 #### [facility] [address] [place], [address] ALK P 95 U/L Normal 45-117 [facility] Comment on above: Performed By: #### L 500.2500, L501.5425, L100.0100 #### [facility] [address] [place], [address] ALT [Catalytic activity/Vol] 24 U/L Normal 13-56 [facility] Comment on above: Performed By: #### L 500.2500, L501.5425, L100.0100 #### [facility] [address] [place], [address] AST [Catalytic activity/Vol] 18 U/L Normal 15-37 [facility] Comment on above: Performed By: #### L 500.2500, L501.5425, L100.0100 #### [facility] [address] [place], [address] Bilirubin [Mass/Vol] 0.40 mg/dL Normal 0.20-1.00 [facility] Comment on above: Result Comment: For patients on eltrombopag therapy, use of Dimension [place] TBIL is not recommended. Performed By: #### L 500.2500, L501.5425, L100.0100 #### [facility] [address] [place], [address] BUN/CRE 17.3 RATIO Normal 10-20 [facility] Comment on above: Performed By: #### L 500.2500, L501.5425, L100.0100 #### [facility] [address] [place], [address] CA,Total 8.9 mg/dL Normal 8.5-10.1 [facility] Comment on above: Performed By: #### L 500.2500, L501.5425, L100.0100 #### [facility] [address] [place], [address] Chloride [Moles/Vol] 102 mmol/L Normal 98-107 [facility] Comment on above: Performed By: #### L 500.2500, L501.5425, L100.0100 #### [facility] [address] [place], [address] CO2 [Moles/Vol] 27.0 mmol/L Normal 21.0-32.0 [facility] Comment on above: Performed By: #### L 500.2500, L501.5425, L100.0100 #### [facility] [address] [place], [address] Creatinine [Mass/Vol] 0.81 mg/dL Normal 0.55-1.02 [facility] Comment on above: Result Comment: The validity of the calculated GFR GFRAA in patients over 70 years has not been determined. Clinical correlation is essential. Performed By: #### L 500.2500, L501.5425, L100.0100 #### [facility] [address] [place], [address] EST GFR - AA 89 mL/min Normal >60 [facility] Comment on above: Result Comment: Afri can Vincentian GFR Calc Performed By: #### L 500.2500, L501.5425, L100.0100 #### [facility] [address] [place], [address] GAP 7 Normal 5-15 [facility] Comment on above: Performed By: #### L 500.2500, L501.5425, L100.0100 #### [facility] [address] [place], [address] GFR/1.73 sq M.predicted among non-blacks MDRD (S/P/Bld) [Vol rate/Area] 73 mL/min/{1.73_m2} Normal >60 [facility] Comment on above: Result Comment: Non- GFR Calc Performed By: #### L 500.2500, L501.5425, L100.0100 #### [facility] [address] [place], [address] Globulin (S) [Mass/Vol] 4.3 g/dL High 2.2-4.2 [facility] Comment on above: Performed By: #### L 500.2500, L501.5425, L100.0100 #### [facility] [address] [place], [address] Glucose [Mass/Vol] 106 mg/dL Normal 74-106 [facility] Comment on above: Result Comment: Fast ing Glucose result from 100 to 125 mg/dL suggests IMPAIRED HOMEOSTASIS per A.D.A. criteria. Performed By: #### L 500.2500, L501.5425, L100.0100 #### [facility] [address] [place], [address] Potassium [Moles/Vol] 3.2 mmol/L Low 3.5-5.1 [facility] Comment on above: Performed By: #### L 500.2500, L501.5425, L100.0100 #### [facility] [address] [place], [address] Sodium [Moles/Vol] 136 mmol/L Normal 136-145 [facility] Comment on above: Performed By: #### L 500.2500, L501.5425, L100.0100 #### [facility] [address] [place], [address] T PROT 7.7 g/dL Normal 6.4-8.2 [facility] Comment on above: Performed By: #### L 500.2500, L501.5425, L100.0100 #### [facility] [address] [place], [address] Urea nitrogen [Mass/Vol] 14 mg/dL Normal 7-18 [facility] Comment on above: Performed By: #### L 500.2500, L501.5425, L100.0100 #### [facility] [address] [place], [address] Eosinophil percentageOrdered By: Charlotte Stevenson on 11-17-2024 Eosinophils/100 WBC (Bld) 2.3 % 0-5 [facility] Epithelial cells.squamous LM Ql (Urine sed)Ordered By: Charlotte Stevenson on 11-17-2024 Epithelial cells.squamous LM.HPF (Urine sed) [#/Area] 5 /[HPF] 5-10 [facility] Erythrocyte distribution wid th ratioOrdered By: Charlotte Stevenson on 11-17-2024 Erythrocyte distribution width (RBC) [Ratio] 12.1 % 11.6-14.6 [facility] Erythrocyte distribution wid th standard deviationOrdered By: Charlotte Stevenson on 11-17-2024 Erythrocyte distribution width (RBC) [Entitic vol] 38.1 fL 35.1-43.9 [facility] Estimated glomerular filtrat ion rate (GFR) AmericanOrdered By: Charlotte Stevenson on 11-17-2024 Estimated GFR (MDRD) Amer 89 mL/min >60 [facility] Comment on above: GFR Calc Ferritinon 11-17-2024 Ferritin [Mass/Vol] 184 ng/mL Normal 8-252 [facility] Comment on above: Performed By: #### L 500.2500, L501.5425, L100.0100 #### [facility] [address] [place], [place], [id number] Ferritin measurementOrdered By: Charlotte Stevenson on 11-17-2024 Ferritin [Mass/Vol] 184 ng/mL 8-252 [facility] Glomerular filtration rate ( GFR) estimationOrdered By: Charlotte Stevenson on 11-17-2024 Estimated GFR (MDRD) Non-Af Amer 73 mL/min >60 [facility] Comment on above: Non- GFR Calc Glucose Ql (U)Ordered By: Erika Stevenson on 11-17-2024 Urine Glucose (UA) Normal mg/dl Normal [facility] Glucose measurementOrdered B y: Charlotte Stevenson on 11-17-2024 Glucose [Mass/Vol] 106 mg/dL 74-106 [facility] Comment on above: Fasting Glucose resu lt from 100 to 125 mg/dL suggests IMPAIRED HOMEOSTASIS per A.D.A. criteria. Hematocrit Auto (Bld) [Volum e fraction]Ordered By: Charlotte Stevenson on 11-17-2024 Hematocrit (Bld) [Volume fraction] 36.8 % Low 37-47 [facility] Hemoglobin A1con 11-17-2024 HbA1c (Bld) [Mass fraction] 6.1 % High 3.8-5.6 [facility] Comment on above: Result Comment: Norm al < 5.7 % Prediabetic 5.7 - 6.4 % Diabetic >or= 6.5 % Please note range changes. Performed By: #### L 500.2500, L501.5425, L100.0100 #### [facility] [address] [place], [place], [id number] Hemoglobin A1c percentageOrd ered By: Charlotte Stevenson on 11-17-2024 HbA1c (Bld) [Mass fraction] 6.1 % High 3.8-5.6 [facility] Comment on above: Normal < 5.7 % Predi abetic 5.7 - 6.4 % Diabetic >or= 6.5 % Please note range changes. Hemoglobin measurementOrdere d By: Charlotte Stevenson on 11-17-2024 Hemoglobin (Bld) [Mass/Vol] 12.7 g/dL 12.0-15.0 [facility] Immature granulocytes/100 WB C Auto (Bld)Ordered By: Charlotte Stevenson on 11-17-2024 Immature granulocytes/100 WBC (Bld) 0.500 % 0.0-0.9 [facility] Comment on above: IG% - Immature Granu locytes (promyelocytes, myelocytes and metamyelocytes) > 1% indicates that a LEFT SHIFT is Present. Ironon 11-17-2024 Iron [Mass/Vol] 59 ug/dL Normal 50-170 [facility] Comment on above: Performed By: #### L 500.2500, L501.5425, L100.0100 #### [facility] [address] [place] [address], [address] Iron (Unsp spec) [Mass/Mass] Ordered By: Charlotte Stevenson on 11-17-2024 Iron [Mass/Vol] 59 ug/dL 50-170 [facility] Ketones Test strip Ql (U)Ord ered By: Charlotte Stevenson on 11-17-2024 Ketones Ql (U) Negative Negative [facility] - Chemistry and C hemistry - challengeOrdered By: Charlotte Stevenson on 11-17-2024 AST [Catalytic activity/Vol] 18 U/L 15-37 [facility] Lymphocytes Auto (Unsp spec) [#/Vol]Ordered By: Charlotte Stevenson on 11-17-2024 Lymphocytes (Bld) [#/Vol] 2.18 10*3/uL 0.83-4.51 [facility] Lymphocytes/100 WBC Auto (Un sp spec)Ordered By: Charlotte Stevenson on 11-17-2024 Lymphocytes/100 WBC (Bld) 19.8 % 19-41 [facility] MCV (mean corpuscular volume ) determinationOrdered By: Charlotte Stevenson on 11-17-2024 MCV (RBC) [Entitic vol] 86.0 fL 81-99 [facility] Mean corpuscular hemoglobin (MCH) determinationOrdered By: Charlotte Stevenson on 11-17-2024 MCH (RBC) [Entitic mass] 29.7 pg 27.0-32.0 [facility] Mean corpuscular hemoglobin concentration (MCHC) determinationOrdered By: Charlotte Stevenson on 11-17-2024 MCHC (RBC) [Mass/Vol] 34.5 g/dL 32-36 [facility] Mean platelet volume determi nationOrdered By: Charlotte Spaindylan on 11-17-2024 Platelet mean volume (Bld) [Entitic vol] 9.5 fL 6.2-12.0 [facility] Microscopic analysis of urin e for red blood cells (RBC)Ordered By: Charlotte Stevenson on 11-17-2024 Urine RBC 0 SEEN /hpf 0-5 [facility] Monocyte percentageOrdered B y: Charlotte Stevenson on 11-17-2024 Monocytes/100 WBC (Bld) 7.0 % 0-10 [facility] Mucus LM Ql (Urine sed)Order ed By: Charlotte Grabieldylan on 11-17-2024 Mucus Ql (Urine sed) 0 SEEN /hpf [facility] Neutrophil percentageOrdered By: Charlotte Grabieldylan on 11-17-2024 Neutrophils/100 WBC (Bld) 69.9 % 47-70 [facility] Nitrite Test strip Ql (U)Ord ered By: Charlotte Spaindylan on 11-17-2024 Nitrite Ql (U) Negative Negative [facility] No Panel InformationOrdered By: Charlotte Spaindylan on 11-17-2024 Miscellaneous Test COMMENT . [facility] Comment on above: Test Ordered: [id number] Hered.Hemochromatosis, DNAHereditary Hemochromatosis Comment TG Reference Range: .Result:c.845G>A (p.Xif479Kxr) - Not Detectedc.187C>G (p.Gxx05Ogm) - Not Detectedc.193A>T (p.Fbr11Xqp) - Not DetectedNot associated with increased risk [...] recommended for patientswho are homozygous for c.845G>A (p.Wob976Zyk) and have yetto experience clinical symptoms.Comments:The most common HFE variants associated with hereditaryhemochromatosis are c.845G>A (p.Cgj886Iih), c.187C>G(p.Ilg18Srd), c.193A>T (p.Bhq41Kwc). While patientshomozygous for c.845G>A (p.Oyo818Gmu) are the most likelyto present clinical symptoms, less than 10% developclinically significant iron overload with tissue and organdamage.Genetic counseling is recommended to discuss the potentialclinical implications of positive results, as well asrecommendations for testing family members.Genetic Coordinators are available for health careproviders to discuss results at [phone]).Test Details:Three variants analyzed:c.845G>A (p.Nuo553Fza), commonly referred to as C282Yc.187C>G (p.Yef32Tmj), commonly referred to as H63Dc.193A>T (p.Mxx25Kvu), commonly referred to as Q15YQjipoxd/Limitations:DNA Analysis of the HFE gene (NM_000410.4) was [...] was developed and its performancecharacteristics determined by [employer]. It has not beencleared or approved by the Food and Drug Administration.References:Ortiz BR, Jimmy PC, Dagoberto KV, Horace LW, Robert ;[employer] for the [employer] Liver Diseases.Diagnosis and management of hemochromatosis: 2011 practiceguideline by the [employer] Association for the Study ofLiver Diseases. Hepatology. 2010;54(1):328-43. doi:10.1002/hep.91735. PMID: 26548791; PMCID: ZWG8730592.Kavita G, Christiano P, Freddie DW, Devika H, Christiano O,Prieto S, Ben I, Justo M, Milly S. EMQN best practiceguidelines for the molecular genetic diagnosis ofhereditary hemochromatosis (HH). Eur J Hum Renee. 2016Apr;24(4):479-95. doi: 10.1038/ejhg.2015.128. Epub 2014. PMID: 70605851; PMCID: SMP8278666.Reviewed by: Sona TG Reference Range: .Technical Component performed at [facility] RTPProfessional Component performed by:Emma Tracy, Ph.D., FACMGDirector, Molecular S[address] [place] [id number] at: - [facility] [id number] [place], [place] [id number] Director: Heidy Rivas [facility], Phone: [phone] at: [address] [id number] Director: Koffi Verdugo PhD, Phone: [phone] Nucleated red blood cell per centageOrdered By: Charlotte Stevenson on 11-17-2024 Nucleated RBC/100 WBC (Bld) [Ratio] 0 % 0-5 [facility] Platelet countOrdered By: Erika Stevenson on 11-17-2024 Platelets (Bld) [#/Vol] 347 10*3/uL 150-450 [facility] Potassium measurementOrdered By: Charlotte Stevenson on 11-17-2024 Potassium [Moles/Vol] 3.2 mmol/L Low 3.5-5.1 [facility] Protein Test strip Ql (U)Ord ered By: Charlotte Stevenson on 11-17-2024 Protein Ql (U) Negative Negative [facility] RBC Auto (Bld) [#/Vol]Ordere d By: Charlotte Stevenson on 11-17-2024 RBC (Bld) [#/Vol] 4.28 10*6/uL 4.2-5.4 [facility] Serum anion gap measurementO rdered By: Charlotte Stevenson on 11-17-2024 Anion gap [Moles/Vol] 7 mmol/L 5-15 [facility] Serum globulin measurementOr dered By: Charlotte Stevenson on 11-17-2024 Globulin (S) [Mass/Vol] 4.3 g/dL High 2.2-4.2 [facility] Serum or plasma alanine yip otransferase (ALT) measurementOrdered By: Charlotte Stevenson on 11-17-2024 ALT [Catalytic activity/Vol] 24 U/L 13-56 [facility] Serum or plasma albumin cheko urement (mass/volume)Ordered By: Charlotte Stevenson on 11-17-2024 Albumin [Mass/Vol] 3.4 g/dL 3.2-5.0 [facility] Serum or plasma alkaline ed sphatase measurementOrdered By: Charlotte Stevenson on 11-17-2024 ALP [Catalytic activity/Vol] 95 U/L 45-117 [facility] Serum or plasma calcium cheko urement (mass/volume)Ordered By: Charlotte Stevenson on 11-17-2024 Calcium [Mass/Vol] 8.9 mg/dL 8.5-10.1 [facility] Serum or plasma creatinine m easurement (mass/volume)Ordered By: Charlotte Stevenson on 11-17-2024 Creatinine [Mass/Vol] 0.81 mg/dL 0.55-1.02 [facility] Comment on above: The validity of the calculated GFR & GFRAA in patients over 70 years has not been determined. Clinical correlation is essential. Serum or plasma urea nitroge n measurement (mass/volume)Ordered By: Charlotte Stevenson on 11-17-2024 Urea nitrogen [Mass/Vol] 14 mg/dL 7-18 [facility] Sodium levelOrdered By: Charlotte Stevenson on 11-17-2024 Sodium [Moles/Vol] 136 mmol/L 136-145 [facility] Total proteinOrdered By: Lary Stevenson on 11-17-2024 Protein [Mass/Vol] 7.7 g/dL 6.4-8.2 [facility] Urinalysis, Completeon 11-17 BACTERIA RARE Normal None Seen [facility] Comment on above: Order Comment: 1 Y Performed By: #### L 500.2500, L501.5425, L100.0100 #### [facility] [address] [place], [address] EPI,SQUAMOUS 5-10 SEEN Normal 5-10 [facility] Comment on above: Order Comment: 1 Y Performed By: #### L 500.2500, L501.5425, L100.0100 #### [facility] [address] [place], [address] WBC 0-5 SEEN Normal 0-5 [facility] Comment on above: Order Comment: 1 Y Performed By: #### L 500.2500, L501.5425, L100.0100 #### [facility] [address] [place], [address] Mucus Ql (Urine sed) [address] [facility] Comment on above: Order Comment: 1 Y Performed By: #### L 500.2500, L501.5425, L100.0100 #### [facility] [address] [place], [address] RBC 0 SEEN Normal 0-5 [facility] Comment on above: Order Comment: 1 Y Performed By: #### L 500.2500, L501.5425, L100.0100 #### [facility] [address] [place], [address] Urine blood detectionOrdered By: Charlotte Stevenson on 11-17-2024 Urine Occult Blood Negative Negative [facility] Urine clarityOrdered By: Lary Stevenson on 11-17-2024 Clarity (U) Clear Clear [facility] Urine color determinationOrd ered By: Charlotte Stevenson on 11-17-2024 Color (U) Yellow Yellow [facility] Urine cultureOrdered By: Lary Stevenson on 11-17-2024 Bacteria identified Cx Nom (U) Culture exhibits no growth. [facility] Urine leukocyte esterase det ection by dipstickOrdered By: Charlotte Stevenson on 11-17-2024 Leukocyte esterase Test strip Ql (U) 25 /ul High Negative [facility] Urine pHOrdered By: Charlotte richardson on 11-17-2024 pH (U) 6.0 [pH] 5.0 - 8.0 [facility] Urine specific gravity measu rementOrdered By: Charlotte Stevenson on 11-17-2024 Specific gravity (U) [Rel density] 1.010 1.002-1.03 0 [facility] Urobilinogen Ql (U)Ordered B y: Charlotte Stevenson on 11-17-2024 Urine Urobilinogen Normal mg/dl Normal [facility] White blood cell (WBC) count Ordered By: Charlotte Stevenson on 11-17-2024 WBC (Bld) [#/Vol] 11.0 10*3/uL 4.4-11.0 [facility] White blood cell countOrdere d By: Charlotte Stevenson on 11-17-2024 Urine WBC 0-5 SEEN /hpf 0-5 [facility] Urine Cultureon 11-04-2024 URC Culture exhibits no growth. Normal [facility] Comment on above: Performed By: #### L 501.9985, L501.27308, L500.4100, L500.4050, L501.9520, L100.0100, L506.0400 #### [facility] [address] [place], [address] Urine cultureOrdered By: Lary Stevenson on 11-03-2024 Bacteria identified Cx Nom (U) Culture exhibits no growth. [facility] 12 Lead EKG performed by [facility] on 09-26-2024 12 Lead EKG performed by [facility] [address] [place] [address] 12 Lead EKG performed by [facility] 09/26/24904 MR#: [id number] Acct: [id number] Name: ROCIO PICKETT ANN Rep #: [id number] : 1945 79 From: Mohamud Canela MD Attending Dr: Dr. Mohamud Canela MD Status: DE P AMB Ordering Dr: Mohamud Canela MD Date: 09/26/24 Location: [facility] Sex: F C Admitted: BMS/12 Lead EKG performed by [facility] ECG Report Interpretation S inus Bradycardia with occasional junctional rhythmLow voltage -possible pulmonary disease. ABNORMALCompared to 09/25/2024 RBBB no lomger present Electronically signed on 09/26/2024 at 11:[address] Mohamud Canela [employer] Software Version 8610 09/26/24 1137 Date Mohamud Canela MD CC: Dr. Charlotte Stevenson DO Date Dictated: 09/26/24904 Date Transcribed: 09/26/24904 Lcac Operator: Signed Normal [facility] Cardiology Visit Reporton Cardiology Visit Report [facility] [address] [place] [address] OFFICE VISIT Date of Service: 09/26/24 MR#: [id number] Acct: [id number] Name: ROCIO PICKETT ANN Rep #: [id number] : 1945 Provider: Dr. Mohamud toribio MD Age/Sex: 79/F Location: [facility] Status: Signed HPI HPI [...] 6 seconds while she was converting randomly ipkp-jhj-tlche from atrial fibrillation to sinus bradycardia. She [...] or near syncope. She does have a [employer] mobile device in her home environment and [...] Pulse Source NIBP Intake Visit Reasons: S/P [facility] 09/14 [employer] Required: No Accompanied by: Is patient in [...] PO BID blood pressure 03/20/18 09/26/24 History loyazogn-dan-nnxrm acid 0.4 1 ea PO DAILY supplement [...] Osteopenia Bilatera (more content not included)... Normal [facility] 12 Lead EKGon 09-23-2024 12 Lead EKG [facility] [address] [place] [address] 12 Lead EKG 09/23/24 0635 MR#: [id number] Acct: [id number] Name: ROCIO PICKETT Rep #: [id number] : 1945 79 From: Lasha Lr MD [...] A-V block Otherwise normal ECG Confirmed by IBIS DANIELS, LASHA ([id number]), assignment desk editor DIVINE DENIS ([id number]) on 09/25/2024 9:40:42 AM Referred By: Confirmed By: LASHA LR MD 09/25/24 0940 Date Lasha Lr MD CC: Dr. Billy Agudelo MD; Dr. Charlotte Stevenson DO Signed Normal [facility] Absolute neutrophil countOrd ered By: Billy Agudelo on 09-23-2024 Neutrophils (Bld) [#/Vol] 6.1 10*3/uL 2.0-7.7 [facility] Basic Metabolic Profile (BMP )on 09-23-2024 BUN/CRE 19.3 RATIO Normal 10-20 [facility] Comment on above: Order Comment: 1 Y Performed By: #### L 500.2500, L501.5459, L100.0100 #### [facility] [address] [place], [address] CA,Total 9.7 mg/dL Normal 8.5-10.1 [facility] Comment on above: Order Comment: 1 Y Performed By: #### L 500.2500, L501.5425, L100.0100 #### [facility] [address] [place], [address] Chloride [Moles/Vol] 104 mmol/L Normal 98-107 [facility] Comment on above: Order Comment: 1 Y Performed By: #### L 500.2500, L501.5425, L100.0100 #### [facility] [address] [place], [address] CO2 [Moles/Vol] 23.0 mmol/L Normal 21.0-32.0 [facility] Comment on above: Order Comment: 1 Y Performed By: #### L 500.2500, L501.5425, L100.0100 #### [facility] [address] [place], [address] Creatinine [Mass/Vol] 0.88 mg/dL Normal 0.55-1.02 [facility] Comment on above: Order Comment: 1 Y Result Comment: The validity of the calculated GFR GFRAA in patients over 70 years has not been determined. Clinical correlation is essential. Performed By: #### L 500.2500, L501.5425, L100.0100 #### [facility] [address] [place], [address] ECRCL 54.46 ml/min Normal [facility] Comment on above: Order Comment: 1 Y Performed By: #### L 500.2500, L501.5425, L100.0100 #### [facility] [address] [place], [address] EST GFR - AA 80 mL/min Normal >60 [facility] Comment on above: Order Comment: 1 Y Result Comment: Afri can Vincentian GFR Calc Performed By: #### L 500.2500, L501.5425, L100.0100 #### [facility] [address] [place], [address] GAP 10 Normal 5-15 [facility] Comment on above: Order Comment: 1 Y Performed By: #### L 500.2500, L501.5425, L100.0100 #### [facility] [address] [place], [address] GFR/1.73 sq M.predicted among non-blacks MDRD (S/P/Bld) [Vol rate/Area] 66 mL/min/{1.73_m2} Normal >60 [facility] Comment on above: Order Comment: 1 Y Result Comment: Non- GFR Calc Performed By: #### L 500.2500, L501.5425, L100.0100 #### [facility] [address] [place], [address] Glucose [Mass/Vol] 142 mg/dL High 74-106 [facility] Comment on above: Order Comment: 1 Y Result Comment: Fast ing Glucose result greater than or equal to 126 mg/dL suggests DIABETES MELLITUS per A.D.A. criteria. Performed By: #### L 500.2500, L501.5425, L100.0100 #### [facility] [address] [place], [address] Potassium [Moles/Vol] 3.7 mmol/L Normal 3.5-5.1 [facility] Comment on above: Order Comment: 1 Y Performed By: #### L 500.2500, L501.5425, L100.0100 #### [facility] [address] [place], [address] Sodium [Moles/Vol] 137 mmol/L Normal 136-145 [facility] Comment on above: Order Comment: 1 Y Performed By: #### L 500.2500, L501.5425, L100.0100 #### [facility] [address] [place], [address] Urea nitrogen [Mass/Vol] 17 mg/dL Normal 7-18 [facility] Comment on above: Order Comment: 1 Y Performed By: #### L 500.2500, L501.5425, L100.0100 #### [facility] [address] [place], [address] Basophil percentageOrdered B y: Billy Agudelo on 09-23-2024 Basophils/100 WBC (Bld) 0.4 % 0-1 [facility] Blood urea nitrogen (BUN)/cr eatinine ratioOrdered By: Billy Agudelo on 09-23-2024 Urea nitrogen/Creatinine [Mass ratio] 19.3 mg/mg - [facility] CBC W/Diff, Automatedon 09-08 Absolute Lymph 2.67 X10 3/uL Normal 0.83-4.51 [facility] Comment on above: Performed By: #### L 500.2500, L501.5425, L100.0100 #### [facility] [address] [place], [address] Absolute Neut 6.1 X10 3/uL Normal 2.0-7.7 [facility] Comment on above: Performed By: #### L 500.2500, L501.5425, L100.0100 #### [facility] [address] [place], [address] Basophils/100 WBC (Bld) 0.4 % Normal 0-1 [facility] Comment on above: Performed By: #### L 500.2500, L501.5425, L100.0100 #### [facility] [address] [place], [address] Eosinophils/100 WBC (Bld) 0.9 % Normal 0-5 [facility] Comment on above: Performed By: #### L 500.2500, L501.5425, L100.0100 #### [facility] [address] [place], [address] Erythrocyte distribution width (RBC) [Ratio] 11.9 % Normal 11.6-14.6 [facility] Comment on above: Performed By: #### L 500.2500, L501.5425, L100.0100 #### [facility] [address] [place], [address] Hematocrit (Bld) [Volume fraction] 40.6 % Normal 37-47 [facility] Comment on above: Performed By: #### L 500.2500, L501.5425, L100.0100 #### [facility] [address] [place], [address] Hemoglobin (Bld) [Mass/Vol] 14.1 g/dL Normal 12.0-15.0 [facility] Comment on above: Performed By: #### L 500.2500, L501.5425, L100.0100 #### [facility] [address] [place], [address] IG% 0.400 Normal 0.0-0.9 [facility] Comment on above: Result Comment: IG% - Immature Granulocytes (promyelocytes, myelocytes and metamyelocytes) > 1% indicates that a LEFT SHIFT is Present. Performed By: #### L 500.2500, L501.5425, L100.0100 #### [facility] [address] [place], [address] Lymphocytes/100 WBC (Bld) 27.1 % Normal 19-41 [facility] Comment on above: Performed By: #### L 500.2500, L501.5425, L100.0100 #### [facility] [address] [place], [address] MCH (RBC) [Entitic mass] 29.8 pg Normal 27.0-32.0 [facility] Comment on above: Performed By: #### L 500.2500, L501.5425, L100.0100 #### [facility] [address] [place], [address] MCHC (RBC) [Mass/Vol] 34.7 g/dL Normal 32-36 [facility] Comment on above: Performed By: #### L 500.2500, L501.5425, L100.0100 #### [facility] [address] [place], [address] MCV (RBC) [Entitic vol] 85.8 fL Normal 81-99 [facility] Comment on above: Performed By: #### L 500.2500, L501.5425, L100.0100 #### [facility] [address] [place], [address] Monocytes/100 WBC (Bld) 9.7 % Normal 0-10 [facility] Comment on above: Performed By: #### L 500.2500, L501.5425, L100.0100 #### [facility] [address] [place], [address] Neutrophils/100 WBC (Bld) 61.5 % Normal 47-70 [facility] Comment on above: Performed By: #### L 500.2500, L501.5425, L100.0100 #### [facility] [address] [place], [address] Nucleated RBC (Bld) [#/Vol] 0 10*3/uL Normal 0-5 [facility] Comment on above: Performed By: #### L 500.2500, L501.5425, L100.0100 #### [facility] [address] [place], [address] Platelet mean volume (Bld) [Entitic vol] 9.7 fL Normal 6.2-12.0 [facility] Comment on above: Performed By: #### L 500.2500, L501.5425, L100.0100 #### [facility] [address] [place], [address] Platelets (Bld) [#/Vol] 323 10*3/uL Normal 150-450 [facility] Comment on above: Performed By: #### L 500.2500, L501.5425, L100.0100 #### [facility] [address] [place], [address] RBC (Bld) [#/Vol] 4.73 10*6/uL Normal 4.2-5.4 [facility] Comment on above: Performed By: #### L 500.2500, L501.5425, L100.0100 #### [facility] [address] [place], [address] RDW SD 37.3 fl Normal 35.1-43.9 [facility] Comment on above: Performed By: #### L 500.2500, L501.5425, L100.0100 #### [facility] [address] [place], [address] WBC (Bld) [#/Vol] 9.8 10*3/uL Normal 4.4-11.0 [facility] Comment on above: Performed By: #### L 500.2500, L501.5425, L100.0100 #### [facility] [address] [place], [address] Carbon dioxide measurementOr dered By: Billy Agudelo on 09-23-2024 CO2 [Moles/Vol] 23.0 mmol/L 21.0-32.0 [facility] Chloride measurementOrdered By: Billy Agudelo on 09-23-2024 Chloride [Moles/Vol] 104 mmol/L 98-107 [facility] Emergency Department Summary on 09-23-2024 Emergency Department Summary [facility] Medical Records Department [address] [place] [address] Emergency Department Summary 09/23/24 MR#: [id number] Acct: [id number] Name: ROCIO PICKETT ANN Rep #: [id number] : 1945 79 From: Billy Agudelo MD [...] She has been compliant with the medications. [facility] Medical History Paroxysmal atrial fibrillation Essential hypertension Reactive airway disease Osteopenia Bilateral carotid artery stenosis Hyperlipidemia Atrial fibrillation with rapid ventricular response (03/21/18) Home Medications ???Medication ???Instructions ???Recorded ???Last Taken ???Type lisinopril 20 mg tablet 20 mg PO BID blood pressure 03/20/18 Unknown History ykszicon-wth-hgdjf acid 0.4 1 ea PO DAILY supplement [...] headache(s), paresth (more content not included)... Normal [facility] Eosinophil percentageOrdered By: Billy Agudelo on 09-23-2024 Eosinophils/100 WBC (Bld) 0.9 % 0-5 [facility] Erythrocyte distribution wid th ratioOrdered By: Billy Agudelo on 09-23-2024 Erythrocyte distribution width (RBC) [Ratio] 11.9 % 11.6-14.6 [facility] Erythrocyte distribution wid th standard deviationOrdered By: Billy Agudelo on 09-23-2024 Erythrocyte distribution width (RBC) [Entitic vol] 37.3 fL 35.1-43.9 [facility] Estimated glomerular filtrat ion rate (GFR) AmericanOrdered By: Billy Agudelo on 09-23-2024 Estimated GFR (MDRD) Amer 80 mL/min >60 [facility] Comment on above: GFR Calc Estimation of creatinine dona aranceOrdered By: Billy Agudelo on 09-23-2024 Estimated Creatinine Clearance Calc 54.46 ml/min [facility] Glomerular filtration rate ( GFR) estimationOrdered By: Billy Agudelo on 09-23-2024 Estimated GFR (MDRD) Non-Af Amer 66 mL/min >60 [facility] Comment on above: Non- GFR Calc Glucose measurementOrdered B y: Billy Agudelo on 09-23-2024 Glucose [Mass/Vol] 142 mg/dL High 74-106 [facility] Comment on above: Fasting Glucose resu lt greater than or equal to 126 mg/dL suggests DIABETES MELLITUS per A.D.A. criteria. Hematocrit Auto (Bld) [Volum e fraction]Ordered By: Billy Agudelo on 09-23-2024 Hematocrit (Bld) [Volume fraction] 40.6 % 37-47 [facility] Hemoglobin measurementOrdere d By: Billy Agudelo on 09-23-2024 Hemoglobin (Bld) [Mass/Vol] 14.1 g/dL 12.0-15.0 [facility] Immature granulocytes/100 WB C Auto (Bld)Ordered By: Billy Agudelo on 09-23-2024 Immature granulocytes/100 WBC (Bld) 0.400 % 0.0-0.9 [facility] Comment on above: IG% - Immature Granu locytes (promyelocytes, myelocytes and metamyelocytes) > 1% indicates that a LEFT SHIFT is Present. L501.4020on 09-23-2024 TROPONIN-I HS 29 pg/mL Normal 3.0-54.0 [facility] Comment on above: Order Comment: 1 Y Result Comment: [employer] o[employer] Note: New Test Units and Gender Specific Reference Ranges. For more information see Policy Stat Procedure [place] High Sensitivity Troponin (TNIH) and attachments. Performed By: #### L 500.2500, L501.5425, L100.0100 #### [facility] [address] [place], [address] Lymphocytes Auto (Unsp spec) [#/Vol]Ordered By: Billy Agudelo on 09-23-2024 Lymphocytes (Bld) [#/Vol] 2.67 10*3/uL 0.83-4.51 [facility] Lymphocytes/100 WBC Auto (Un sp spec)Ordered By: Billy Agudelo on 09-23-2024 Lymphocytes/100 WBC (Bld) 27.1 % 19-41 [facility] MCV (mean corpuscular volume ) determinationOrdered By: Billy Agudelo on 09-23-2024 MCV (RBC) [Entitic vol] 85.8 fL 81-99 [facility] Mean corpuscular hemoglobin (MCH) determinationOrdered By: Billy Agudelo on 09-23-2024 MCH (RBC) [Entitic mass] 29.8 pg 27.0-32.0 [facility] Mean corpuscular hemoglobin concentration (MCHC) determinationOrdered By: Billy Agudelo on 09-23-2024 MCHC (RBC) [Mass/Vol] 34.7 g/dL 32-36 [facility] Mean platelet volume determi nationOrdered By: Billy Agudelo on 09-23-2024 Platelet mean volume (Bld) [Entitic vol] 9.7 fL 6.2-12.0 [facility] Monocyte percentageOrdered B y: Billy Agudelo on 09-23-2024 Monocytes/100 WBC (Bld) 9.7 % 0-10 [facility] Neutrophil percentageOrdered By: Billy Agudelo on 09-23-2024 Neutrophils/100 WBC (Bld) 61.5 % 47-70 [facility] Nucleated red blood cell per centageOrdered By: Billy Agudelo on 09-23-2024 Nucleated RBC/100 WBC (Bld) [Ratio] 0 % 0-5 [facility] Platelet countOrdered By: Brent Agudelo on 09-23-2024 Platelets (Bld) [#/Vol] 323 10*3/uL 150-450 [facility] Potassium measurementOrdered By: Billy Agudelo on 09-23-2024 Potassium [Moles/Vol] 3.7 mmol/L 3.5-5.1 [facility] RBC Auto (Bld) [#/Vol]Ordere d By: Billy Agudelo on 09-23-2024 RBC (Bld) [#/Vol] 4.73 10*6/uL 4.2-5.4 [facility] Serum anion gap measurementO rdered By: Billy Agudelo on 09-23-2024 Anion gap [Moles/Vol] 10 mmol/L 5-15 [facility] Serum or plasma calcium cheko urement (mass/volume)Ordered By: Billy Agudelo on 09-23-2024 Calcium [Mass/Vol] 9.7 mg/dL 8.5-10.1 [facility] Serum or plasma creatinine m easurement (mass/volume)Ordered By: Billy Agudelo on 09-23-2024 Creatinine [Mass/Vol] 0.88 mg/dL 0.55-1.02 [facility] Comment on above: The validity of the calculated GFR & GFRAA in patients over 70 years has not been determined. Clinical correlation is essential. Serum or plasma urea nitroge n measurement (mass/volume)Ordered By: Billy Agudelo on 09-23-2024 Urea nitrogen [Mass/Vol] 17 mg/dL 7-18 [facility] Sodium levelOrdered By: Josesito Agudelo on 09-23-2024 Sodium [Moles/Vol] 137 mmol/L 136-145 [facility] Troponin IOrdered By: Jessie Agudelo on 09-23-2024 Troponin I High Sensitivity 29 pg/mL 3.0-54.0 [facility] Comment on above: Please Note: New Erika t Units and Gender Specific Reference Ranges. For more information see Policy Stat Procedure [place] High Sensitivity Troponin (TNIH) and attachments. White blood cell (WBC) count Ordered By: Billy Agudelo on 09-23-2024 WBC (Bld) [#/Vol] 9.8 10*3/uL 4.4-11.0 [facility] 12 Lead EKG performed by [facility] on 09-20-2024 12 Lead EKG performed by [facility] [address] [place] [address] 12 Lead EKG performed by [facility] 09/20/24 1000 MR#: [id number] Acct: [id number] Name: ROCIO PICKETT Rep #: [id number] : 1945 79 From: Mohamud Canela MD Attending Dr: Dr. Mohamud Canela MD Status: DE P AMB Ordering Dr: Mohamud Canela MD Date: 09/20/24 Location: [facility] Sex: F C Admitted: [facility]/12 Lead EKG performed by [facility] ECG Report Interpretation S inus Rhythm -Right bundle branch block. ABNORMAL Electronically signed on 09/25/2024 at 11:[address] Mohamud Canela [employer] Software Version [id number] 09/25/24 1156 Date Mohamud Canela MD CC: Dr. Charlotte Stevenson, Date Dictated: 09/20/24 1000 Date Transcribed: 09/20/24 1000 Lcac Operator: Signed Normal [facility] Absolute neutrophil countOrd ered By: Benoit Krishnamurthy on 09-20-2024 Neutrophils (Bld) [#/Vol] 6.9 10*3/uL 2.0-7.7 [facility] Basic Metabolic Profile (BMP )on 09-20-2024 BUN/CRE 22.3 RATIO High 10-20 [facility] Comment on above: Performed By: #### L 501.9985, L501.67562, L500.4100, L500.4050, L501.9520, L100.0100, L506.0400 #### [facility] [address] [place], [address] CA,Total 9.7 mg/dL Normal 8.5-10.1 [facility] Comment on above: Performed By: #### L 501.9985, L501.95926, L500.4100, L500.4050, L501.9520, L100.0100, L506.0400 #### [facility] [address] [place], [address] Chloride [Moles/Vol] 103 mmol/L Normal 98-107 [facility] Comment on above: Performed By: #### L 501.9985, L501.97521, L500.4100, L500.4050, L501.9520, L100.0100, L506.0400 #### [facility] [address] [place], [address] CO2 [Moles/Vol] 25.0 mmol/L Normal 21.0-32.0 [facility] Comment on above: Performed By: #### L 501.9985, L501.49207, L500.4100, L500.4050, L501.9520, L100.0100, L506.0400 #### [facility] [address] [place], [address] Creatinine [Mass/Vol] 0.76 mg/dL Normal 0.55-1.02 [facility] Comment on above: Result Comment: The validity of the calculated GFR GFRAA in patients over 70 years has not been determined. Clinical correlation is essential. Performed By: #### L 501.9985, L501.41084, L500.4100, L500.4050, L501.9520, L100.0100, L506.0400 #### [facility] [address] [place], [address] EST GFR - AA 95 mL/min Normal >60 [facility] Comment on above: Result Comment: Afri can Vincentian GFR Calc Performed By: #### L 501.9985, L501.71045, L500.4100, L500.4050, L501.9520, L100.0100, L506.0400 #### [facility] [address] [place], [address] GAP 7 Normal 5-15 [facility] Comment on above: Performed By: #### L 501.9985, L501.80921, L500.4100, L500.4050, L501.9520, L100.0100, L506.0400 #### [facility] [address] [place], [address] GFR/1.73 sq M.predicted among non-blacks MDRD (S/P/Bld) [Vol rate/Area] 78 mL/min/{1.73_m2} Normal >60 [facility] Comment on above: Result Comment: Non- GFR Calc Performed By: #### L 501.9985, L501.86567, L500.4100, L500.4050, L501.9520, L100.0100, L506.0400 #### [facility] [address] [place], [address] Glucose [Mass/Vol] 120 mg/dL High 74-106 [facility] Comment on above: Result Comment: Fast ing Glucose result from 100 to 125 mg/dL suggests IMPAIRED HOMEOSTASIS per A.D.A. criteria. Performed By: #### L 501.9985, L501.55695, L500.4100, L500.4050, L501.9520, L100.0100, L506.0400 #### [facility] [address] [place], [address] Potassium [Moles/Vol] 3.8 mmol/L Normal 3.5-5.1 [facility] Comment on above: Performed By: #### L 501.9985, L501.28522, L500.4100, L500.4050, L501.9520, L100.0100, L506.0400 #### [facility] [address] [place], [address] Sodium [Moles/Vol] 135 mmol/L Low 136-145 [facility] Comment on above: Performed By: #### L 501.9985, L501.57120, L500.4100, L500.4050, L501.9520, L100.0100, L506.0400 #### [facility] [address] [place], [place], [id number] [phone] Urea nitrogen [Mass/Vol] 17 mg/dL Normal 7-18 [facility] Comment on above: Performed By: #### L 501.9985, L501.64492, L500.4100, L500.4050, L501.9520, L100.0100, L506.0400 #### [facility] [address] [place], [place], [phone] [phone] Basophil percentageOrdered B y: Benoit Krishnamurthy on 09-20-2024 Basophils/100 WBC (Bld) 0.4 % 0-1 [facility] Blood urea nitrogen (BUN)/cr eatinine ratioOrdered By: Benoit Krishnamurthy on 09-20-2024 Urea nitrogen/Creatinine [Mass ratio] 22.3 mg/mg High 10-20 [facility] CBC W/Diff, Automatedon 09-08 Absolute Lymph 2.73 X10 3/uL Normal 0.83-4.51 [facility] Comment on above: Performed By: #### L 501.9985, L501.79938, L500.4100, L500.4050, L501.9520, L100.0100, L506.0400 #### [facility] [address] [place], [address] Absolute Neut 6.9 X10 3/uL Normal 2.0-7.7 [facility] Comment on above: Performed By: #### L 501.9985, L501.20724, L500.4100, L500.4050, L501.9520, L100.0100, L506.0400 #### [facility] [address] [place], [address] Basophils/100 WBC (Bld) 0.4 % Normal 0-1 [facility] Comment on above: Performed By: #### L 501.9985, L501.91614, L500.4100, L500.4050, L501.9520, L100.0100, L506.0400 #### [facility] [address] [place], [address] Eosinophils/100 WBC (Bld) 1.4 % Normal 0-5 [facility] Comment on above: Performed By: #### L 501.9985, L501.44561, L500.4100, L500.4050, L501.9520, L100.0100, L506.0400 #### [facility] [address] [facility] [place], [address] Erythrocyte distribution width (RBC) [Ratio] 12.2 % Normal 11.6-14.6 [facility] Comment on above: Performed By: #### L 501.9985, L501.48438, L500.4100, L500.4050, L501.9520, L100.0100, L506.0400 #### [facility] [address] [place], [address] Hematocrit (Bld) [Volume fraction] 39.9 % Normal 37-47 [facility] Comment on above: Performed By: #### L 501.9985, L501.45928, L500.4100, L500.4050, L501.9520, L100.0100, L506.0400 #### [facility] [address] [place], [address] Hemoglobin (Bld) [Mass/Vol] 13.8 g/dL Normal 12.0-15.0 [facility] Comment on above: Performed By: #### L 501.9985, L501.24865, L500.4100, L500.4050, L501.9520, L100.0100, L506.0400 #### [facility] [address] [place], [address] IG% 0.500 Normal 0.0-0.9 [facility] Comment on above: Result Comment: IG% - Immature Granulocytes (promyelocytes, myelocytes and metamyelocytes) > 1% indicates that a LEFT SHIFT is Present. Performed By: #### L 501.9985, L501.13554, L500.4100, L500.4050, L501.9520, L100.0100, L506.0400 #### [facility] [address] [place], [address] Lymphocytes/100 WBC (Bld) 25.0 % Normal 19-41 [facility] Comment on above: Performed By: #### L 501.9985, L501.41134, L500.4100, L500.4050, L501.9520, L100.0100, L506.0400 #### [facility] [address] [place], [address] MCH (RBC) [Entitic mass] 29.9 pg Normal 27.0-32.0 [facility] Comment on above: Performed By: #### L 501.9985, L501.00948, L500.4100, L500.4050, L501.9520, L100.0100, L506.0400 #### [facility] [address] [place], [address] MCHC (RBC) [Mass/Vol] 34.6 g/dL Normal 32-36 [facility] Comment on above: Performed By: #### L 501.9985, L501.73640, L500.4100, L500.4050, L501.9520, L100.0100, L506.0400 #### [facility] [address] [place], [address] MCV (RBC) [Entitic vol] 86.6 fL Normal 81-99 [facility] Comment on above: Performed By: #### L 501.9985, L501.85992, L500.4100, L500.4050, L501.9520, L100.0100, L506.0400 #### [facility] [address] [place], [address] Monocytes/100 WBC (Bld) 9.6 % Normal 0-10 [facility] Comment on above: Performed By: #### L 501.9985, L501.19802, L500.4100, L500.4050, L501.9520, L100.0100, L506.0400 #### [facility] [address] [place], [address] Neutrophils/100 WBC (Bld) 63.1 % Normal 47-70 [facility] Comment on above: Performed By: #### L 501.9985, L501.23801, L500.4100, L500.4050, L501.9520, L100.0100, L506.0400 #### [facility] [address] [place], [address] Nucleated RBC (Bld) [#/Vol] 0 10*3/uL Normal 0-5 [facility] Comment on above: Performed By: #### L 501.9985, L501.35832, L500.4100, L500.4050, L501.9520, L100.0100, L506.0400 #### [facility] [address] [place], [address] Platelet mean volume (Bld) [Entitic vol] 10.0 fL Normal 6.2-12.0 [facility] Comment on above: Performed By: #### L 501.9985, L501.43054, L500.4100, L500.4050, L501.9520, L100.0100, L506.0400 #### [facility] [address] [place], [address] Platelets (Bld) [#/Vol] 323 10*3/uL Normal 150-450 [facility] Comment on above: Performed By: #### L 501.9985, L501.32448, L500.4100, L500.4050, L501.9520, L100.0100, L506.0400 #### [facility] [address] [place], [address] RBC (Bld) [#/Vol] 4.61 10*6/uL Normal 4.2-5.4 [facility] Comment on above: Performed By: #### L 501.9985, L501.50707, L500.4100, L500.4050, L501.9520, L100.0100, L506.0400 #### [facility] [address] [place], [address] RDW SD 38.5 fl Normal 35.1-43.9 [facility] Comment on above: Performed By: #### L 501.9985, L501.25465, L500.4100, L500.4050, L501.9520, L100.0100, L506.0400 #### [facility] [address] [place], [address] WBC (Bld) [#/Vol] 10.9 10*3/uL Normal 4.4-11.0 [facility] Comment on above: Performed By: #### L 501.9985, L501.01281, L500.4100, L500.4050, L501.9520, L100.0100, L506.0400 #### [facility] [place], [address] Carbon dioxide measurementOr dered By: Benoit Krishnamurthy on 09-20-2024 CO2 [Moles/Vol] 25.0 mmol/L 21.0-32.0 [facility] Chloride measurementOrdered By: Benoit Krishnamurthy on 09-20-2024 Chloride [Moles/Vol] 103 mmol/L 98-107 [facility] Eosinophil percentageOrdered By: Benoit Krishnamurthy on 09-20-2024 Eosinophils/100 WBC (Bld) 1.4 % 0-5 [facility] Erythrocyte distribution wid th ratioOrdered By: Benoit Krishnamurthy on 09-20-2024 Erythrocyte distribution width (RBC) [Ratio] 12.2 % 11.6-14.6 [facility] Erythrocyte distribution wid th standard deviationOrdered By: Benoit Krishnamurthy on 09-20-2024 Erythrocyte distribution width (RBC) [Entitic vol] 38.5 fL 35.1-43.9 [facility] Estimated glomerular filtrat ion rate (GFR) AmericanOrdered By: Benoit Krishnamurthy on 09-20-2024 Estimated GFR (MDRD) Amer 95 mL/min >60 [facility] Comment on above: GFR Calc Glomerular filtration rate ( GFR) estimationOrdered By: Benoit Krishnamurthy on 09-20-2024 Estimated GFR (MDRD) Non-Af Amer 78 mL/min >60 [facility] Comment on above: Non- GFR Calc Glucose measurementOrdered B y: Benoit Krishnamurthy on 09-20-2024 Glucose [Mass/Vol] 120 mg/dL High 74-106 [facility] Comment on above: Fasting Glucose resu lt from 100 to 125 mg/dL suggests IMPAIRED HOMEOSTASIS per A.D.A. criteria. Hematocrit Auto (Bld) [Volum e fraction]Ordered By: Benoit Krishnamurthy on 09-20-2024 Hematocrit (Bld) [Volume fraction] 39.9 % 37-47 [facility] Hemoglobin measurementOrdere d By: Benoit Krishnamurthy on 09-20-2024 Hemoglobin (Bld) [Mass/Vol] 13.8 g/dL 12.0-15.0 [facility] Immature granulocytes/100 WB C Auto (Bld)Ordered By: Benoit Krishnamurthy on 09-20-2024 Immature granulocytes/100 WBC (Bld) 0.500 % 0.0-0.9 [facility] Comment on above: IG% - Immature Granu locytes (promyelocytes, myelocytes and metamyelocytes) > 1% indicates that a LEFT SHIFT is Present. Lymphocytes Auto (Unsp spec) [#/Vol]Ordered By: Benoit Krishnamurthy on 09-20-2024 Lymphocytes (Bld) [#/Vol] 2.73 10*3/uL 0.83-4.51 [facility] Lymphocytes/100 WBC Auto (Un sp spec)Ordered By: Benoit Krishnamurthy on 09-20-2024 Lymphocytes/100 WBC (Bld) 25.0 % 19-41 [facility] MCV (mean corpuscular volume ) determinationOrdered By: Benoit Krishnamurthy on 09-20-2024 MCV (RBC) [Entitic vol] 86.6 fL 81-99 [facility] Magnesiumon 09-20-2024 Magnesium [Mass/Vol] 2.2 mg/dL Normal 1.6-2.6 [facility] Comment on above: Performed By: #### L 501.9985, L501.03831, L500.4100, L500.4050, L501.9520, L100.0100, L506.0400 #### [facility] [address] [place] [address], [address] Magnesium measurementOrdered By: Benoit Krishnamurthy on 09-20-2024 Magnesium [Mass/Vol] 2.2 mg/dL 1.6-2.6 [facility] Mean corpuscular hemoglobin (MCH) determinationOrdered By: Benoit Krishnamurthy on 09-20-2024 MCH (RBC) [Entitic mass] 29.9 pg 27.0-32.0 [facility] Mean corpuscular hemoglobin concentration (MCHC) determinationOrdered By: Benoit Krishnamurthy on 09-20-2024 MCHC (RBC) [Mass/Vol] 34.6 g/dL 32-36 [facility] Mean platelet volume determi nationOrdered By: Benoit Krishnamurthy on 09-20-2024 Platelet mean volume (Bld) [Entitic vol] 10.0 fL 6.2-12.0 [facility] Monocyte percentageOrdered B y: Benoit Krishnamurthy on 09-20-2024 Monocytes/100 WBC (Bld) 9.6 % 0-10 [facility] Neutrophil percentageOrdered By: Benoit Krishnamurthy on 09-20-2024 Neutrophils/100 WBC (Bld) 63.1 % 47-70 [facility] Nucleated red blood cell per centageOrdered By: Benoit Krishnamurthy on 09-20-2024 Nucleated RBC/100 WBC (Bld) [Ratio] 0 % 0-5 [facility] Platelet countOrdered By: Erika Krishnamurthy on 09-20-2024 Platelets (Bld) [#/Vol] 323 10*3/uL 150-450 [facility] Potassium measurementOrdered By: Benoit Krishnamurthy on 09-20-2024 Potassium [Moles/Vol] 3.8 mmol/L 3.5-5.1 [facility] RBC Auto (Bld) [#/Vol]Ordere d By: Benoit Krishnamurthy on 09-20-2024 RBC (Bld) [#/Vol] 4.61 10*6/uL 4.2-5.4 [facility] Serum anion gap measurementO rdered By: Benoit Krishnamurthy on 09-20-2024 Anion gap [Moles/Vol] 7 mmol/L 5-15 [facility] Serum or plasma calcium cheko urement (mass/volume)Ordered By: Beonit Krishnamurthy on 09-20-2024 Calcium [Mass/Vol] 9.7 mg/dL 8.5-10.1 [facility] Serum or plasma creatinine m easurement (mass/volume)Ordered By: Benoit Krishnamurthy on 09-20-2024 Creatinine [Mass/Vol] 0.76 mg/dL 0.55-1.02 [facility] Comment on above: The validity of the calculated GFR & GFRAA in patients over 70 years has not been determined. Clinical correlation is essential. Serum or plasma urea nitroge n measurement (mass/volume)Ordered By: Benoit Krishnamurthy on 09-20-2024 Urea nitrogen [Mass/Vol] 17 mg/dL 7-18 [facility] Sodium levelOrdered By: Benoit Krishnamurthy on 09-20-2024 Sodium [Moles/Vol] 135 mmol/L Low 136-145 [facility] White blood cell (WBC) count Ordered By: Benoit Krishnamurthy on 09-20-2024 WBC (Bld) [#/Vol] 10.9 10*3/uL 4.4-11.0 [facility] 12 Lead EKGon 09-14-2024 12 Lead EKG [facility] [address] [place] [address] 12 Lead EKG 09/14/24 0551 MR#: [id number] Acct: [id number] Name: ROCIO PICKETT Rep #: [id number] : 1945 79 From: Mohamud Canela MD Attending Dr: Dr. Emilie Enriquez DO Status: DIS I N Ordering Dr: Mohamud Canela MD Date: 09/14/24 Location: [facility] Sex: F C Admitted: 09/12/24 Test Reason [...] change was found Confirmed by Mohamud Canela ([id number]), assignment desk editor DIVINE DENIS ([id number]) on 09/15/2024 8:21:31 AM Referred By: Confirmed By: Mohamud Canela 09/15/24820 Date Mohamud Canela MD CC: Dr. Emilie Enriquez DO; Dr. Charlotte Stevenson DO; Dr. Mohamud Canela MD Signed Normal [facility] Partial Thromboplast Timeon 09-14-2024 aPTT Coag (Bld) [Time] 38.8 s High 24.1-36.2 [facility] Comment on above: Performed By: #### L 501.9985, L501.55042, L500.4100, L500.4050, L501.9520, L100.0100, L506.0400 #### [facility] [address] [place], [address] aPTT Coag (PPP) [Time]Ordere d By: Emilie Enriquez on 09-14-2024 aPTT Coag (Bld) [Time] 38.8 s High 24.1-36.2 [facility] 12 Lead EKGon 09-13-2024 12 Lead EKG [facility] [address] [place] [address] 12 Lead EKG 09/12/24 1207 MR#: [id number] Acct: [id number] Name: ROCIO PICKETT Rep #: [id number] : 1945 79 From: Mohamud Canela MD Attending Dr: Dr. Emilie Enriquez DO Status: ADM I N Ordering Dr: Mohamud Canela MD Date: 09/13/24 Location: [facility] Sex: F C Admitted: 09/12/24 Test Reason [...] DATA IS UNCONFIRMED Confirmed by Mohamud Canela ([id number]), assignment desk editor REY WEATHERS ([id number]) on 09/13/2024 1:11:11 PM Referred By: Confirmed By: Mohamud Canela 09/13/24 1311 Date Mohamud Canela MD CC: Dr. Emilie Enriquez DO; Dr. Charlotte Stevenson DO; Dr. Mohamud Canela MD Signed Normal [facility] Basic Metabolic Profile (BMP )on 09-13-2024 BUN/CRE 28.2 RATIO High 10-20 [facility] Comment on above: Performed By: #### L 500.2500, L501.5425, L100.0100 #### [facility] [address] [place], [address] CA,Total 9.6 mg/dL Normal 8.5-10.1 [facility] Comment on above: Performed By: #### L 500.2500, L501.5425, L100.0100 #### [facility] [address] [place], [address] Chloride [Moles/Vol] 107 mmol/L Normal 98-107 [facility] Comment on above: Performed By: #### L 500.2500, L501.5425, L100.0100 #### [facility] [address] [place], [address] CO2 [Moles/Vol] 22.0 mmol/L Normal 21.0-32.0 [facility] Comment on above: Performed By: #### L 500.2500, L501.5425, L100.0100 #### [facility] [address] [place], [address] Creatinine [Mass/Vol] 0.89 mg/dL Normal 0.55-1.02 [facility] Comment on above: Result Comment: The validity of the calculated GFR GFRAA in patients over 70 years has not been determined. Clinical correlation is essential. Performed By: #### L 500.2500, L501.5425, L100.0100 #### [facility] [address] [place], [address] ECRCL 54.12 ml/min Normal [facility] Comment on above: Performed By: #### L 500.2500, L501.5425, L100.0100 #### [facility] [address] [place], [address] EST GFR - AA 80 mL/min Normal >60 [facility] Comment on above: Result Comment: Afri can Vincentian GFR Calc Performed By: #### L 500.2500, L501.5425, L100.0100 #### [facility] [address] [place], [address] GAP 8 Normal 5-15 [facility] Comment on above: Performed By: #### L 500.2500, L501.5425, L100.0100 #### [facility] [address] [place], [address] GFR/1.73 sq M.predicted among non-blacks MDRD (S/P/Bld) [Vol rate/Area] 66 mL/min/{1.73_m2} Normal >60 [facility] Comment on above: Result Comment: Non- GFR Calc Performed By: #### L 500.2500, L501.5425, L100.0100 #### [facility] [address] [place], [address] Glucose [Mass/Vol] 119 mg/dL High 74-106 [facility] Comment on above: Result Comment: Fast ing Glucose result from 100 to 125 mg/dL suggests IMPAIRED HOMEOSTASIS per A.D.A. criteria. Performed By: #### L 500.2500, L501.5425, L100.0100 #### [facility] [address] [place], [address] Potassium [Moles/Vol] 3.7 mmol/L Normal 3.5-5.1 [facility] Comment on above: Performed By: #### L 500.2500, L501.5425, L100.0100 #### [facility] [address] [place], [address] Sodium [Moles/Vol] 137 mmol/L Normal 136-145 [facility] Comment on above: Performed By: #### L 500.2500, L501.5425, L100.0100 #### [facility] [address] [place], [address] Urea nitrogen [Mass/Vol] 25 mg/dL High 7-18 [facility] Comment on above: Performed By: #### L 500.2500, L501.5425, L100.0100 #### [facility] [address] [place], [address] Blood urea nitrogen (BUN)/cr eatinine ratioOrdered By: Emilie Enriquez on 09-13-2024 Urea nitrogen/Creatinine [Mass ratio] 28.2 mg/mg High 10-20 [facility] Carbon dioxide measurementOr dered By: Emilie Enriquez on 09-13-2024 CO2 [Moles/Vol] 22.0 mmol/L 21.0-32.0 [facility] Chloride measurementOrdered By: Emilie Enriquez on 09-13-2024 Chloride [Moles/Vol] 107 mmol/L 98-107 [facility] Estimated glomerular filtrat ion rate (GFR) AmericanOrdered By: Emilie Enriquez on 09-13-2024 Estimated GFR (MDRD) Amer 80 mL/min >60 [facility] Comment on above: GFR Calc Estimation of creatinine dona aranceOrdered By: Emilie Enriquez on 09-13-2024 Estimated Creatinine Clearance Calc 54.12 ml/min [facility] Glomerular filtration rate ( GFR) estimationOrdered By: Emilie Enriquez on 09-13-2024 Estimated GFR (MDRD) Non-Af Amer 66 mL/min >60 [facility] Comment on above: Non- GFR Calc Glucose measurementOrdered B y: Emilie Enriquez on 09-13-2024 Glucose [Mass/Vol] 119 mg/dL High 74-106 [facility] Comment on above: Fasting Glucose resu lt from 100 to 125 mg/dL suggests IMPAIRED HOMEOSTASIS per A.D.A. criteria. Magnesiumon 09-13-2024 Magnesium [Mass/Vol] 2.0 mg/dL Normal 1.6-2.6 [facility] Comment on above: Performed By: #### L 500.2500, L501.5425, L100.0100 #### [facility] [address] [place], [address] Magnesium measurementOrdered By: Emilie Enriquez on 09-13-2024 Magnesium [Mass/Vol] 2.0 mg/dL 1.6-2.6 [facility] Partial Thromboplast Timeon 09-13-2024 aPTT Coag (Bld) [Time] 64.8 s High 24.1-36.2 [facility] Comment on above: Performed By: #### L 500.2500, L501.5425, L100.0100 #### [facility] [address] [place], [address] Phosphoruson 09-13-2024 Phosphate [Mass/Vol] 4.2 mg/dL Normal 2.5-4.9 [facility] Comment on above: Performed By: #### L 500.2500, L501.5425, L100.0100 #### [facility] [address] [place], [address] Phosphorus measurementOrdere d By: Emilie Enriquez on 09-13-2024 Phosphorus Level 4.2 mg/dL 2.5-4.9 [facility] Potassium measurementOrdered By: Emiile Enriquez on 09-13-2024 Potassium [Moles/Vol] 3.7 mmol/L 3.5-5.1 [facility] Serum anion gap measurementO rdered By: Emilie Enriquez on 09-13-2024 Anion gap [Moles/Vol] 8 mmol/L 5-15 [facility] Serum or plasma calcium cheko urement (mass/volume)Ordered By: Emilie Enriquez on 09-13-2024 Calcium [Mass/Vol] 9.6 mg/dL 8.5-10.1 [facility] Serum or plasma creatinine m easurement (mass/volume)Ordered By: Emilie Enriquez on 09-13-2024 Creatinine [Mass/Vol] 0.89 mg/dL 0.55-1.02 [facility] Comment on above: The validity of the calculated GFR & GFRAA in patients over 70 years has not been determined. Clinical correlation is essential. Serum or plasma urea nitroge n measurement (mass/volume)Ordered By: Emilie Enriquez on 09-13-2024 Urea nitrogen [Mass/Vol] 25 mg/dL High 7-18 [facility] Sodium levelOrdered By: Mary Enriquez on 09-13-2024 Sodium [Moles/Vol] 137 mmol/L 136-145 [facility] 12 Lead EKGon 09-12-2024 12 Lead EKG [facility] [address] [place] [address] 12 Lead EKG 09/12/24 0537 MR#: [id number] Acct: [id number] Name: ROCIO PICKETT Rep #: [id number] : 1945 79 From: Mohamud Canela MD Attending Dr: Dr. Emilie Enriquez DO Status: ADM I N Ordering Dr: Misha Mchugh DO Date: 09/12/24 Location: [facility] Sex: F C Admitted: 09/12/24 Test Reason [...] injury Abnormal ECG Confirmed by Mohamud Canela ([id number]), assignment desk editor REY WEATHERS ([id number]) on 09/13/2024 11:38:53 AM Referred By: TL Confirmed By: Mohamud Canela 09/13/24 1138 Date Mohamud aCnela MD CC: Dr. Emilie Enriquez DO; Dr. Charlotte Stevenson DO; Dr. Misha Mchugh DO Signed Normal [facility] Absolute neutrophil countOrd ered By: Misha Mchugh on 09-12-2024 Neutrophils (Bld) [#/Vol] 5.6 10*3/uL 2.0-7.7 [facility] Basic Metabolic Profile (BMP )on 09-12-2024 BUN/CRE 19.7 RATIO Normal 10-20 [facility] Comment on above: Order Comment: 1 Y Performed By: #### L 500.2500, L501.5425, L100.0100 #### [facility] [address] [place], [address] CA,Total 9.7 mg/dL Normal 8.5-10.1 [facility] Comment on above: Order Comment: 1 Y Performed By: #### L 500.2500, L501.5425, L100.0100 #### [facility] [address] [place], [address] Chloride [Moles/Vol] 105 mmol/L Normal 98-107 [facility] Comment on above: Order Comment: 1 Y Performed By: #### L 500.2500, L501.5425, L100.0100 #### [facility] [address] [place], [address] CO2 [Moles/Vol] 24.0 mmol/L Normal 21.0-32.0 [facility] Comment on above: Order Comment: 1 Y Performed By: #### L 500.2500, L501.5425, L100.0100 #### [facility] [address] [place], [address] Creatinine [Mass/Vol] 0.86 mg/dL Normal 0.55-1.02 [facility] Comment on above: Order Comment: 1 Y Result Comment: The validity of the calculated GFR GFRAA in patients over 70 years has not been determined. Clinical correlation is essential. Performed By: #### L 500.2500, L501.5425, L100.0100 #### [facility] [address] [place], [address] ECRCL 57.08 ml/min Normal [facility] Comment on above: Order Comment: 1 Y Performed By: #### L 500.2500, L501.5425, L100.0100 #### [facility] [address] [place], [address] EST GFR - AA 82 mL/min Normal >60 [facility] Comment on above: Order Comment: 1 Y Result Comment: Afri can Vincentian GFR Calc Performed By: #### L 500.2500, L501.5425, L100.0100 #### [facility] [address] [place], [address] GAP 9 Normal 5-15 [facility] Comment on above: Order Comment: 1 Y Performed By: #### L 500.2500, L501.5425, L100.0100 #### [facility] [address] [place], [address] GFR/1.73 sq M.predicted among non-blacks MDRD (S/P/Bld) [Vol rate/Area] 68 mL/min/{1.73_m2} Normal >60 [facility] Comment on above: Order Comment: 1 Y Result Comment: Non- GFR Calc Performed By: #### L 500.2500, L501.5425, L100.0100 #### [facility] [address] [place], [address] Glucose [Mass/Vol] 138 mg/dL High 74-106 [facility] Comment on above: Order Comment: 1 Y Result Comment: Fast ing Glucose result greater than or equal to 126 mg/dL suggests DIABETES MELLITUS per A.D.A. criteria. Performed By: #### L 500.2500, L501.5425, L100.0100 #### [facility] [address] [place], [address] Potassium [Moles/Vol] 3.3 mmol/L Low 3.5-5.1 [facility] Comment on above: Order Comment: 1 Y Performed By: #### L 500.2500, L501.5425, L100.0100 #### [facility] [address] [place], [address] Sodium [Moles/Vol] 139 mmol/L Normal 136-145 [facility] Comment on above: Order Comment: 1 Y Performed By: #### L 500.2500, L501.5425, L100.0100 #### [facility] [address] [place], [address] Urea nitrogen [Mass/Vol] 17 mg/dL Normal 7-18 [facility] Comment on above: Order Comment: 1 Y Performed By: #### L 500.2500, L501.5425, L100.0100 #### [facility] [address] [place], [address] Basophil percentageOrdered B y: Misha Moura 09-12-2023 Basophils/100 WBC (Bld) 0.4 % 0-1 [facility] CBC W/Diff, Automatedon Absolute Lymph 3.21 X10 3/uL Normal 0.83-4.51 [facility] Comment on above: Performed By: #### L 500.2500, L501.5425, L100.0100 #### [facility] [address] [place], [address] Absolute Neut 5.6 X10 3/uL Normal 2.0-7.7 [facility] Comment on above: Performed By: #### L 500.2500, L501.5425, L100.0100 #### [facility] [address] [place], [address] Basophils/100 WBC (Bld) 0.4 % Normal 0-1 [facility] Comment on above: Performed By: #### L 500.2500, L501.5425, L100.0100 #### [facility] [address] [place], [address] Eosinophils/100 WBC (Bld) 2.8 % Normal 0-5 [facility] Comment on above: Performed By: #### L 500.2500, L501.5425, L100.0100 #### [facility] [address] [place], [address] Erythrocyte distribution width (RBC) [Ratio] 12.4 % Normal 11.6-14.6 [facility] Comment on above: Performed By: #### L 500.2500, L501.5425, L100.0100 #### [facility] [address] [place], [address] Hematocrit (Bld) [Volume fraction] 41.2 % Normal 37-47 [facility] Comment on above: Performed By: #### L 500.2500, L501.5425, L100.0100 #### [facility] [address] [place], [address] Hemoglobin (Bld) [Mass/Vol] 14.4 g/dL Normal 12.0-15.0 [facility] Comment on above: Performed By: #### L 500.2500, L501.5425, L100.0100 #### [facility] [address] [place], [address] IG% 0.400 Normal 0.0-0.9 [facility] Comment on above: Result Comment: IG% - Immature Granulocytes (promyelocytes, myelocytes and metamyelocytes) > 1% indicates that a LEFT SHIFT is Present. Performed By: #### L 500.2500, L501.5425, L100.0100 #### [facility] [address] [place], [address] Lymphocytes/100 WBC (Bld) 31.8 % Normal 19-41 [facility] Comment on above: Performed By: #### L 500.2500, L501.5425, L100.0100 #### [facility] [address] [place], [address] MCH (RBC) [Entitic mass] 30.1 pg Normal 27.0-32.0 [facility] Comment on above: Performed By: #### L 500.2500, L501.5425, L100.0100 #### [facility] [address] [place], [address] MCHC (RBC) [Mass/Vol] 35.0 g/dL Normal 32-36 [facility] Comment on above: Performed By: #### L 500.2500, L501.5425, L100.0100 #### [facility] [address] [place], [address] MCV (RBC) [Entitic vol] 86.0 fL Normal 81-99 [facility] Comment on above: Performed By: #### L 500.2500, L501.5425, L100.0100 #### [facility] [address] [place], [address] Monocytes/100 WBC (Bld) 9.3 % Normal 0-10 [facility] Comment on above: Performed By: #### L 500.2500, L501.5425, L100.0100 #### [facility] [address] [place], [address] Neutrophils/100 WBC (Bld) 55.3 % Normal 47-70 [facility] Comment on above: Performed By: #### L 500.2500, L501.5425, L100.0100 #### [facility] [address] [place], [address] Nucleated RBC (Bld) [#/Vol] 0 10*3/uL Normal 0-5 [facility] Comment on above: Performed By: #### L 500.2500, L501.5425, L100.0100 #### [facility] [address] [place], [address] Platelet mean volume (Bld) [Entitic vol] 9.9 fL Normal 6.2-12.0 [facility] Comment on above: Performed By: #### L 500.2500, L501.5425, L100.0100 #### [facility] [address] [place], [address] Platelets (Bld) [#/Vol] 298 10*3/uL Normal 150-450 [facility] Comment on above: Performed By: #### L 500.2500, L501.5425, L100.0100 #### [facility] [address] [place], [address] RBC (Bld) [#/Vol] 4.79 10*6/uL Normal 4.2-5.4 [facility] Comment on above: Performed By: #### L 500.2500, L501.5425, L100.0100 #### [facility] [address] [place], [address] RDW SD 38.4 fl Normal 35.1-43.9 [facility] Comment on above: Performed By: #### L 500.2500, L501.5425, L100.0100 #### [facility] [address] [place], [address] WBC (Bld) [#/Vol] 10.1 10*3/uL Normal 4.4-11.0 [facility] Comment on above: Performed By: #### L 500.2500, L501.5425, L100.0100 #### [facility] [address] [place], [address] Chest 1 View (Portable)on Chest 1 View (Portable) [facility] Imaging Services [address] [place] [address] Chest 1 View (Portable) MR#: [id number] Acct: [id number] Name: ROCIO PICKETT ANN Rep #: [id number] : 1945 F 79 From: Mohamud Manning PCP: Dr. Charlotte Stevenson, DO Status: REG ER Study: Chest 1 View (Portable) Date of Exam: 09/12/24 Exam# [id number] Ordering Dr: Misha Mchugh DO 0:[id number] EXAM: XR CHEST, 1 VIEW CLINICAL INDICATION: [...] Charlotte Stevenson DO; Dr. Misha Mchugh DO Lcac Operator: Signed Normal [facility] Consultation - Cardiologyon 09-12-2024 Consultation - Cardiology [facility] Medical Records Department [address] [place] [address] Consultation - Cardiology 09/12/24928 MR#: [id number] Acct: [id number] Name: ROCIO PICKETT Rep #: [id number] : 1945 79 From: Mohamud Canela MD PCP: Dr. Charlotte Stevenson DO Status:ADM IN Location: [facility] [id number] Assessment Plan Assessment/Plan (1) Sinus pause: PLAN: [...] of paroxysmal atrial fibrillation dating back to 2017. It has been very infrequent. She had 5 episodes in the month of July that prompted a reevaluation in the [place] [facility] office. An echocardiogram was done [...] Admit to progressive coronary care unit. 2. Calhan flecainide 100 mg twice daily. Monitor closely [...] Consultation: PAF with sinus pauses HPI Narrative: ROCIO PICKETT, is a 79 F who presents patient has a history of documented paroxysmal atrial fibrillation that occurred on a Holter monitor in July 2024. She has a STE4FQ9-MZPd score of 5 but had opted not [...] 55 bpm. (more content not included)... Normal [facility] Emergency Department Summary on 09-12-2024 Emergency Department Summary [facility] Medical Records Department [address] [place] [address] Emergency Department Summary 09/12/24 MR#: [id number] Acct: [id number] Name: ROCIO PICKETT ANN Rep #: [id number] : 1945 79 From: Misha Hall PCP: Dr. Charlotte Stevenson, DO Status:REG ER Location: ED ADDENDUM by [...] both her and her at bedside. 09/12/24 0841 Cosigner Signature (if applicable): cc: Dr. Charlotte [...] metoprolol last night. Prior similar symptoms: [facility] Medical History Paroxysmal atrial fibrillation Essential hypertension Reactive airway disease Osteopenia Bilateral carotid artery stenosis Hyperlipidemia Atrial fibrillation with rapid ventricular response (03/21/18) Home Medications ???Medication ???Instructions ???Recorded ???Last Taken ???Type lisinopril 20 mg tablet 20 mg PO BID 03/20/18 Unknown History jjayfrkk-aqw-aovyy acid 0.4 1 ea PO DAILY 03/20/18 [...] EXAM Physical (more content not included)... Normal [facility] Eosinophil percentageOrdered By: Misha Mchugh on 09-12-2024 Eosinophils/100 WBC (Bld) 2.8 % 0-5 [facility] Erythrocyte distribution wid th ratioOrdered By: Misha Mchugh on 09-12-2024 Erythrocyte distribution width (RBC) [Ratio] 12.4 % 11.6-14.6 [facility] Erythrocyte distribution wid th standard deviationOrdered By: Misha Mchugh on 09-12-2024 Erythrocyte distribution width (RBC) [Entitic vol] 38.4 fL 35.1-43.9 [facility] H AND P Exam - Hospitaliston 09-12-2024 H&P Exam - Hospitalist [facility] Medical Records Department [address] [place] [address] H P Exam - Hospitalist 09/12/24 0838 MR#: [id number] Acct: [id number] Name: ROCIO PICKETT Rep #: [id number] : 1945 79 From: Emilie Enriquez DO PCP: Dr. Charlotte Stevenson DO Status:ADM IN Location: [facility] [id number] HPI - General General Date of Admission: 09/12/24 Date of Service: 09/12/24 Chief Complaint: Palpitations HPI Narrative ROCIO PICKETT, is a 79 F who presented to the emergency department [facility] on 03/27/2024 in the morning due to palpitation she was having at home. She stated that she was awakened from sleep due to palpitations. She does have a known history of atrial fibrillation and takes metoprolol 25 mg daily at home for this. She had elected to not be on anticoagulation previously. Her [id number]-SPHn score is 5. She also has a [...] blockade pacemaker will need to be considered. [facility] Medical History Paroxysmal atrial fibrillation Essential hypertension Reactive airway disease Osteopenia Bilateral carotid artery stenosis Hyperlipidemia Atrial fibrillation with rapid ventricular response (03/21/18) Home Medications ???Medication ???Instructions ???Recorded ???Last Taken ???Type lisinopril 20 mg tablet 20 mg PO BID blood pressu 03/20/18 Unknown History qohvptcp-yyn-tdyoa acid 0.4 1 ea PO DAILY suppliment [...] of cataract surgery Social History ... Normal [facility] Hematocrit Auto (Bld) [Volum e fraction]Ordered By: Misha Mchugh on 09-12-2024 Hematocrit (Bld) [Volume fraction] 41.2 % 37-47 [facility] Hemoglobin measurementOrdere d By: Misha Mchugh on 09-12-2024 Hemoglobin (Bld) [Mass/Vol] 14.4 g/dL 12.0-15.0 [facility] Immature granulocytes/100 WB C Auto (Bld)Ordered By: Misha Mchugh on 09-12-2024 Immature granulocytes/100 WBC (Bld) 0.400 % 0.0-0.9 [facility] Comment on above: IG% - Immature Granu locytes (promyelocytes, myelocytes and metamyelocytes) > 1% indicates that a LEFT SHIFT is Present. International normalized rat io (INR) calculationOrdered By: Emilie Enriquez on 09-12-2024 INR Coag (Bld) [Relative time] 1.1 {INR} [facility] L501.4020on 09-12-2024 TROPONIN-I HS 64 pg/mL High 3.0-54.0 [facility] Comment on above: Order Comment: 1 Y Result Comment: Plea se Note: New Test Units and Gender Specific Reference Ranges. For more information see Policy Stat Procedure [place] High Sensitivity Troponin (TNIH) and attachments. Performed By: #### L 500.2500, L501.5425, L100.0100 #### [facility] [address] [place], [address] TROPONIN-I HS 66 pg/mL High 3.0-54.0 [facility] Comment on above: Result Comment: Plea se Note: New Test Units and Gender Specific Reference Ranges. For more information see Policy Stat Procedure [place] High Sensitivity Troponin (TNIH) and attachments. Performed By: #### L 501.9985, L501.46879, L500.4100, L500.4050, L501.9520, L100.0100, L506.0400 #### [facility] [address] [place], [address] L501.5425on 09-12-2024 TROPONIN-I HS 53 pg/mL Normal 3.0-54.0 [facility] Comment on above: Order Comment: 1 Y Result Comment: Plea se Note: New Test Units and Gender Specific Reference Ranges. For more information see Policy Stat Procedure [place] High Sensitivity Troponin (TNIH) and attachments. Performed By: #### L 500.2500, L501.5425, L100.0100 #### [facility] [address] [place], [address] Lymphocytes Auto (Unsp spec) [#/Vol]Ordered By: Misha Mchugh on 09-12-2024 Lymphocytes (Bld) [#/Vol] 3.21 10*3/uL 0.83-4.51 [facility] Lymphocytes/100 WBC Auto (Un sp spec)Ordered By: Misha Mchugh on 09-12-2024 Lymphocytes/100 WBC (Bld) 31.8 % 19-41 [facility] MCV (mean corpuscular volume ) determinationOrdered By: Misha Mchugh on 09-12-2024 MCV (RBC) [Entitic vol] 86.0 fL 81-99 [facility] Mean corpuscular hemoglobin (MCH) determinationOrdered By: Misha Mchugh on 09-12-2024 MCH (RBC) [Entitic mass] 30.1 pg 27.0-32.0 [facility] Mean corpuscular hemoglobin concentration (MCHC) determinationOrdered By: Misha Mchugh on 09-12-2024 MCHC (RBC) [Mass/Vol] 35.0 g/dL 32-36 [facility] Mean platelet volume determi nationOrdered By: Misha Mchugh on 09-12-2024 Platelet mean volume (Bld) [Entitic vol] 9.9 fL 6.2-12.0 [facility] Monocyte percentageOrdered B y: Misha Mchugh on 09-12-2024 Monocytes/100 WBC (Bld) 9.3 % 0-10 [facility] Neutrophil percentageOrdered By: Misha Mchugh on 09-12-2024 Neutrophils/100 WBC (Bld) 55.3 % 47-70 [facility] Nucleated red blood cell per centageOrdered By: Misha Mchugh on 09-12-2024 Nucleated RBC/100 WBC (Bld) [Ratio] 0 % 0-5 [facility] Partial Thromboplast Timeon 09-12-2024 aPTT Coag (Bld) [Time] 64.1 s High 24.1-36.2 [facility] Comment on above: Performed By: #### L 500.2500, L501.5425, L100.0100 #### [facility] [address] [place], [address] aPTT Coag (Bld) [Time] 54.9 s High 24.1-36.2 [facility] Comment on above: Performed By: #### L 501.9985, L501.72649, L500.4100, L500.4050, L501.9520, L100.0100, L506.0400 #### [facility] [address] [place], [address] aPTT Coag (Bld) [Time] 32.0 s Normal 24.1-36.2 [facility] Comment on above: Performed By: #### L 501.9985, L501.19319, L500.4100, L500.4050, L501.9520, L100.0100, L506.0400 #### [facility] [address] [place], [place], [address] (467) Platelet countOrdered By: Shade Mchugh on 09-12-2024 Platelets (Bld) [#/Vol] 298 10*3/uL 150-450 [facility] Prothrombin Time w/INRon INR Coag (PPP) [Relative time] 1.1 {INR} Normal [facility] Comment on above: Performed By: #### L 501.9985, L501.06782, L500.4100, L500.4050, L501.9520, L100.0100, L506.0400 #### [facility] [address] [place], [address] PT Coag (PPP) [Time] 13.8 s Normal 11.7-14.9 [facility] Comment on above: Performed By: #### L 501.9985, L501.75172, L500.4100, L500.4050, L501.9520, L100.0100, L506.0400 #### [facility] [address] [place], [address] Prothrombin timeOrdered By: Emilie Enriquez on 09-12-2024 PT Coag (PPP) [Time] 13.8 s 11.7-14.9 [facility] RBC Auto (Bld) [#/Vol]Ordere d By: Misha Mchugh on 09-12-2024 RBC (Bld) [#/Vol] 4.79 10*6/uL 4.2-5.4 [facility] Troponin IOrdered By: Perfecto Enriquez on 09-12-2024 Troponin I High Sensitivity 64 pg/mL High 3.0-54.0 [facility] Comment on above: Please Note: New Erika t Units and Gender Specific Reference Ranges. For more information see Policy Stat Procedure [place] High Sensitivity Troponin (TNIH) and attachments. White blood cell (WBC) count Ordered By: Misha Mchugh on 09-12-2024 WBC (Bld) [#/Vol] 10.1 10*3/uL 4.4-11.0 [facility] CBC W Auto Differential pane l (Bld)on 04-04-2024 Basophils (Bld) [#/Vol] 0.04 10*3/uL Normal <0.11 [facility] Comment on above: Order Comment: Speci men Type: BLOOD SPECIMEN Ordering Facility: [facility] Address: [address] [place], [place] [address] [address] Performed By: #### 5 7021-8 #### [facility] CLIA [id number] [address] [place] [address] [place] Basophils/100 WBC (Bld) 0.6 % Normal [facility] Comment on above: Order Comment: Speci men Type: BLOOD SPECIMEN Ordering Facility: [facility] Address: [address] [place], [place] [address] [address] Performed By: #### 5 7021-8 #### [facility] CLIA [id number] [address] [place] [address] [place] Differential cell count method Nom (Bld) Auto Normal [facility] Comment on above: Order Comment: Speci men Type: BLOOD SPECIMEN Ordering Facility: [facility] Address: [address] [place] [address] [place] [address] Performed By: #### 5 7021-8 #### [facility] CLIA [id number] [address] [place] [address] [place] Eosinophils (Bld) [#/Vol] 0.28 10*3/uL Normal <0.46 [facility] Comment on above: Order Comment: Speci men Type: BLOOD SPECIMEN Ordering Facility: [facility] Address: [address] [place] [address] [place] [address] Performed By: #### 5 7021-8 #### [facility] CLIA [id number] [address] [place], [place] [address] [place] Eosinophils/100 WBC (Bld) 4.1 % Normal [facility] Comment on above: Order Comment: Speci men Type: BLOOD SPECIMEN Ordering Facility: [facility] Address: [address] [place] [address] [place] [address] Performed By: #### 5 7021-8 #### [facility] CLIA [id number] [address] [place] [address] [place] Erythrocyte distribution width (RBC) [Ratio] 12.3 % Normal 11.5-15.0 [facility] Comment on above: Order Comment: Speci men Type: BLOOD SPECIMEN Ordering Facility: [facility] Address: [address] [place] [address] [place] [address] Performed By: #### 5 7021-8 #### [facility] CLIA [id number] [address] [place] [address] [place] Hematocrit (Bld) [Volume fraction] 37.0 % Normal 36.0-46.0 [facility] Comment on above: Order Comment: Speci men Type: BLOOD SPECIMEN Ordering Facility: [facility] Address: [address] [place] [address] [place] [address] Performed By: #### 5 7021-8 #### [facility] CLIA [id number] [address] [place], [place] [address] [place] Hemoglobin (Bld) [Mass/Vol] 12.8 g/dL Normal 11.5-15.5 [facility] Comment on above: Order Comment: Speci men Type: BLOOD SPECIMEN Ordering Facility: [facility] Address: [address] [place] [address] [place] [address] Performed By: #### 5 7021-8 #### [facility] CLIA [id number] [address] [place] [address] [place] Immature granulocytes (Bld) [#/Vol] 10*3/uL Normal <0.10 [facility] Comment on above: Order Comment: Speci men Type: BLOOD SPECIMEN Ordering Facility: [facility] Address: [address] [place] [address] [place] [address] Performed By: #### 5 7021-8 #### [facility] CLIA [id number] [address] [place] [address] [place] Immature granulocytes/100 WBC (Bld) 0.1 % Normal [facility] Comment on above: Order Comment: Speci men Type: BLOOD SPECIMEN Ordering Facility: [facility] Address: [address] [place] [address] [place] [address] Performed By: #### 5 7021-8 #### [facility] CLIA [id number] [address] [place] [address] [place] Lymphocytes (Bld) [#/Vol] 2.24 10*3/uL Normal 1.00-4.00 [facility] Comment on above: Order Comment: Speci men Type: BLOOD SPECIMEN Ordering Facility: [facility] Address: [address] [place] [address] [place] [address] Performed By: #### 5 7021-8 #### [facility] CLIA [id number] [address] [place] [address] [place] Lymphocytes/100 WBC (Bld) 32.9 % Normal [facility] Comment on above: Order Comment: Speci men Type: BLOOD SPECIMEN Ordering Facility: [facility] Address: [address] [place], [place] [address] [address] Performed By: #### 5 7021-8 #### [facility] CLIA [id number] [address] [place] [address] [place] MCH (RBC) [Entitic mass] 29.9 pg Normal 26.0-34.0 [facility] Comment on above: Order Comment: Speci men Type: BLOOD SPECIMEN Ordering Facility: [facility] Address: [address] [place] [address] [place] [address] Performed By: #### 5 7021-8 #### [facility] CLIA [id number] [address] [place] [address] [place] MCHC (RBC) [Mass/Vol] 34.6 g/dL Normal 30.5-36.0 [facility] Comment on above: Order Comment: Speci men Type: BLOOD SPECIMEN Ordering Facility: [facility] Address: [address] [place] [address] [place] [address] Performed By: #### 5 7021-8 #### [facility] CLIA [id number] [address] [place] [address] [place] MCV (RBC) [Entitic vol] 86.4 fL Normal 80.0-100.0 [facility] Comment on above: Order Comment: Speci men Type: BLOOD SPECIMEN Ordering Facility: [facility] Address: [address] [place] [address] [place] [address] Performed By: #### 5 7021-8 #### [facility] CLIA [id number] [address] [place] [address] [place] Monocytes (Bld) [#/Vol] 0.71 10*3/uL Normal <0.87 [facility] Comment on above: Order Comment: Speci men Type: BLOOD SPECIMEN Ordering Facility: [facility] Address: [address] [place] [address] [place] [address] Performed By: #### 5 7021-8 #### [facility] CLIA [id number] [address] [place] [address] [place] Monocytes/100 WBC (Bld) 10.4 % Normal [facility] Comment on above: Order Comment: Speci men Type: BLOOD SPECIMEN Ordering Facility: [facility] Address: [address] [place] [address] [place] [address] Performed By: #### 5 7021-8 #### [facility] CLIA [id number] [address] [place] [address] [place] Neutrophils (Bld) [#/Vol] 3.53 10*3/uL Normal 1.45-7.50 [facility] Comment on above: Order Comment: Speci men Type: BLOOD SPECIMEN Ordering Facility: [facility] Address: [address] [place] [address] [place] [address] Performed By: #### 5 7021-8 #### [facility] CLIA [id number] [address] [place] [address] [place] Neutrophils/100 WBC (Bld) 51.9 % Normal [facility] Comment on above: Order Comment: Speci men Type: BLOOD SPECIMEN Ordering Facility: [facility] Address: [address] [place] [address] [place] [address] Performed By: #### 5 7021-8 #### [facility] CLIA [id number] [address] [place] [address] [place] Nucleated RBC (Bld) [#/Vol] 10*3/uL Normal <0.01 [facility] Comment on above: Order Comment: Speci men Type: BLOOD SPECIMEN Ordering Facility: [facility] Address: [address] [place] [address] [place] [address] Performed By: #### 5 7021-8 #### [facility] CLIA [id number] [address] [place] [address] [place] Nucleated RBC/100 WBC (Bld) [Ratio] 0.0 /100 WBC Normal [facility] Comment on above: Order Comment: Speci men Type: BLOOD SPECIMEN Ordering Facility: [facility] Address: [address] [place] [address] [place] [address] Performed By: #### 5 7021-8 #### [facility] CLIA [id number] [address] [place] [address] [place] Platelet mean volume (Bld) [Entitic vol] 9.2 fL Normal 9.0-12.7 [facility] Comment on above: Order Comment: Speci men Type: BLOOD SPECIMEN Ordering Facility: [facility] Address: [address] [place] [address] [place] [address] Performed By: #### 5 7021-8 #### [facility] CLIA [id number] [address] [place] [address] [place] Platelets (Bld) [#/Vol] 259 10*3/uL Normal 150-400 [facility] Comment on above: Order Comment: Speci men Type: BLOOD SPECIMEN Ordering Facility: [facility] Address: [address] [place] [address] [place] [address] Performed By: #### 5 7021-8 #### [facility] CLIA [id number] [address] [place] [address] [place] RBC (Bld) [#/Vol] 4.28 10*6/uL Normal 3.90-5.20 [facility] Comment on above: Order Comment: Speci men Type: BLOOD SPECIMEN Ordering Facility: [facility] Address: [address] [place] [address] [place] [address] Performed By: #### 5 7021-8 #### [facility] CLIA [id number] [address] [place] [address] [place] WBC (Bld) [#/Vol] 6.81 10*3/uL Normal 3.70-11.00 [facility] Comment on above: Order Comment: Speci men Type: BLOOD SPECIMEN Ordering Facility: [facility] Address: [address] [place], [place] [address] [address] Performed By: #### 5 7021-8 #### [facility] CLIA [id number] [address] [place] [address] [place] Comprehensive metabolic 2000 panelon 04-04-2024 Albumin [Mass/Vol] 4.2 g/dL Normal 3.9-4.9 [facility] Comment on above: Order Comment: Speci men Type: BLOOD SPECIMEN Ordering Facility: [facility] Address: [address] [place], [place] [address]Lisa GALAN A, [place] [address] Performed By: #### 2 4323-8 #### [facility] CLIA [id number] [address] [place] [address] [place] ALP [Catalytic activity/Vol] 85 U/L Normal 34-123 [facility] Comment on above: Order Comment: Speci men Type: BLOOD SPECIMEN Ordering Facility: [facility] Address: [address] [place] [address] [address]ER[address] GALAN A, [place] [address] Performed By: #### 2 4323-8 #### [facility] CLIA [id number] [address] [place] [address] [place] ALT [Catalytic activity/Vol] 20 U/L Normal 7-38 [facility] Comment on above: Order Comment: Speci men Type: BLOOD SPECIMEN Ordering Facility: [facility] Address: [address] [place] [address] [address]ER[address] GALAN A, [place] [address] Performed By: #### 2 4323-8 #### [facility] CLIA [id number] [address] [place] [address] [place] Anion gap [Moles/Vol] 11 mmol/L Normal 9-18 [facility] Comment on above: Order Comment: Speci men Type: BLOOD SPECIMEN Ordering Facility: [facility] Address: [address] [place] [address] [address] A, [place] [address] Performed By: #### 2 4323-8 #### [facility] CLIA [id number] [address] [place] [address] [place] AST [Catalytic activity/Vol] 22 U/L Normal 13-35 [facility] Comment on above: Order Comment: Speci men Type: BLOOD SPECIMEN Ordering Facility: [facility] Address: [address] [place] [address] [address]WY [address] A, [place] [address] Performed By: #### 2 4323-8 #### [facility] CLIA [id number] [address] [place] [address] [place] Bilirubin [Mass/Vol] 0.3 mg/dL Normal 0.2-1.3 [facility] Comment on above: Order Comment: Speci men Type: BLOOD SPECIMEN Ordering Facility: [facility] Address: [address] [place] [address] [address]ER[address] GALAN A, [place] [address] Performed By: #### 2 4323-8 #### [facility] CLIA [id number] [address] [place] [address] [place] Calcium [Mass/Vol] 9.7 mg/dL Normal 8.5-10.2 [facility] Comment on above: Order Comment: Speci men Type: BLOOD SPECIMEN Ordering Facility: [facility] Address: [address] [place] [address] [address]ERON[address] GALAN A, [place] [address] Performed By: #### 2 4323-8 #### [facility] CLIA [id number] [address] [place] [address] [place] Chloride [Moles/Vol] 102 mmol/L Normal 97-105 [facility] Comment on above: Order Comment: Speci men Type: BLOOD SPECIMEN Ordering Facility: [facility] Address: [address] [place] [address] [address]ERON[address] GALAN A, [place] [address] Performed By: #### 2 4323-8 #### [facility] CLIA [id number] [address] [place] [id number] [place] CO2 [Moles/Vol] 25 mmol/L Normal 22-30 [facility] Comment on above: Order Comment: Speci men Type: BLOOD SPECIMEN Ordering Facility: [facility] Address: [address] [place] [address] [address]OS[address]Y AD[address] A, [place] [address] Performed By: #### 2 4323-8 #### [facility] CLIA [id number] [address] [place] [address] [place] Creatinine [Mass/Vol] 0.70 mg/dL Normal 0.58-0.96 [facility] Comment on above: Order Comment: Alfie hunt Type: BLOOD SPECIMEN Ordering Facility: [facility] Address: [address] [place] [address] Performed By: #### 2 4323-8 #### [facility] [id number] [address] [place] [address] [place] Creatinine and Glomerular filtration rate.predicted panel (S/P/Bld) 90 mL/min/1.73m??? Normal >=60 [facility] Comment on above: Order Comment: Alfie hunt Type: BLOOD SPECIMEN Ordering Facility: [facility] Address: [address] [place] [address] Result Comment: Homa mated Glomerular Filtration Rate [...] GFR. Performed By: #### 2 4323-8 #### [facility] [id number] [address] [place] [address] [place] Glucose [Mass/Vol] 116 mg/dL High 74-99 [facility] Comment on above: Order Comment: Alfie hunt Type: BLOOD SPECIMEN Ordering Facility: [facility] Address: [address] [place] [address] [place] [address] Result Comment: The [place] Diabetes Association (ADA) provides guidance for cutoff [...] Standards of Medical Care in Diabetes 2016, [place] Diabetes Association. Diabetes Care. 2016.39(Suppl 1). Performed By: #### 2 4323-8 #### [facility] CLIA [id number] [address] [place] [address] [place] Potassium [Moles/Vol] 3.9 mmol/L Normal 3.7-5.1 [facility] Comment on above: Order Comment: Speci men Type: BLOOD SPECIMEN Ordering Facility: [facility] Address: [address] [place], [place] [address] [address] Performed By: #### 2 4323-8 #### [facility] CLIA [id number] [address] [place] [address] [place] Protein [Mass/Vol] 7.1 g/dL Normal 6.3-8.0 [facility] Comment on above: Order Comment: Speci men Type: BLOOD SPECIMEN Ordering Facility: [facility] Address: [address] [place] [address] [place] [address] Performed By: #### 2 4323-8 #### [facility] [id number] [address] [place] [address] [place] Sodium [Moles/Vol] 138 mmol/L Normal 136-144 [facility] Comment on above: Order Comment: Speci men Type: BLOOD SPECIMEN Ordering Facility: [facility] Address: [address] [place] [address] [place] [address] Performed By: #### 2 4323-8 #### [facility] CLIA [id number] [address] [place] [address] [place] Urea nitrogen [Mass/Vol] 21 mg/dL Normal 7-21 [facility] Comment on above: Order Comment: Speci men Type: BLOOD SPECIMEN Ordering Facility: [facility] Address: [address] [place] [address] ANNJeffrey [facility] [place] [address] Performed By: #### 2 4323-8 #### [facility] CLIA [id number] [address] [place] [address] [place] HbA1c (Bld)on 04-04-2024 Average glucose Estimated from glycated hemoglobin (Bld) [Mass/Vol] 137 mg/dL Normal [facility] Comment on above: Order Comment: Alfie hunt Type: BLOOD SPECIMEN Ordering Facility: [facility] Address: [address] [place] [address] [place] [address] Result Comment: eAG: (Estimated average glucose) is a calculated value from HgbA1c and is software support representative of the average blood glucose level in the last 2-3 month period. Performed By: #### 5 5454-3 #### [facility] CLIA [id number] [address] [place] [address] [place] HbA1c (Bld) [Mass fraction] 6.4 % High 4.3-5.6 [facility] Comment on above: Order Comment: Alfie gilbert Type: BLOOD SPECIMEN Ordering Facility: [facility] Address: [address] [place] [address] [place] [address] Result Comment: Amer ican Diabetes Association guidelines indicate that patients with HgbA1c in the range 5.7-6.4% are at increased risk for development of diabetes, and intervention by lifestyle modification may be beneficial. HgbA1c greater or equal to 6.5% is considered diagnostic of diabetes. Performed By: #### 5 5454-3 #### [facility] CLIA [id number] [facility] [place] [address] [place] Lipid 1996 panelon 4 Cholesterol [Mass/Vol] 157 mg/dL Normal <200 Cl [facility] Comment on above: Order Comment: Alfie hunt Type: BLOOD SPECIMEN Ordering Facility: [facility] Address: [address] [place] [address] [place] [address] Result Comment: <200 mg/dL, Desirable 200-239 mg/dL, Borderline high >239 mg/dL, High Performed By: #### 3 016-3, 3051-0, 3024-7 #### [facility] CLIA [id number] [address] [place] [address] [place] #### 96498-6 #### [facility] CLIA [id number] [address] [place] [address] [place] [facility] CLIA [id number] [address] [place] [address] [place] Cholesterol in HDL [Mass/Vol] 47 mg/dL Normal >39 [facility] Comment on above: Order Comment: Speci men Type: BLOOD SPECIMEN Ordering Facility: [facility] Address: [address] [place] [address] [employer] [address] A, [place] [address] Result Comment: 40-5 9 mg/dL, Acceptable >59 mg/dL, High: Negative risk factor for coronary heart disease <40 mg/dL, Low: Positive risk factor for coronary heart disease Performed By: #### 3 016-3, 3051-0, 3024-7 #### [facility] CLIA [id number] [facility] [place] [address] [place] #### 69064-0 #### [facility] CLIA [id number] [facility] [place] [address] [place] [facility] CLIA [id number] [address] [place] [address] [place] Cholesterol in LDL [Mass/Vol] 55 mg/dL Normal <100 [facility] Comment on above: Order Comment: Speci men Type: BLOOD SPECIMEN Ordering Facility: [facility] Address: [address] [place] [address] [address] A, [place] [address] Result Comment: <100 mg/dL, Optimal 100-129 mg/dL, Near optimal/above optimal 130-159 mg/dL, Borderline high 160-189 mg/dL, High >189 mg/dL, Very high Secondary prevention optimal LDL Cholesterol levels are recommended to be < 70 mg/dL Performed By: #### 3 016-3, 3051-0, 3023-7 #### [facility] CLIA [id number] [address] [place] [address] [place] #### 29115-5 #### [facility] CLIA [id number] [address] [place] [address] [place] [facility] CLIA [id number] [address] [place] [address] [place] Cholesterol in LDL/Cholesterol in HDL [Mass ratio] 1.17 {ratio} Normal <2.54 [facility] Comment on above: Order Comment: Speci men Type: BLOOD SPECIMEN Ordering Facility: [facility] Address: [address] [place] [address] Result Comment: Refe jerome: 1. National Cholesterol Education Program ATP III Guideline At-A-Glance Quick Desk Reference: National Heart, Lung, and Blood Calhan. National Institutes of Health. 2001: NIH Publication No. 01-3305. 2. An International Atherosclerosis Society position paper: global recommendations for the management of dyslipidemia: executive summary, Atherosclerosis. 2014: 232(2):410-413. Performed By: #### 3 016-3, 305-0, 7 #### [facility] CLIA [id number] [address] [place] [address] [place] #### 08042-9 #### [facility] CLIA [id number] [address] [place] [address] [place] [facility] CLIA [id number] [address] [place] [address] [place] Cholesterol in VLDL [Mass/Vol] 55 mg/dL High <30 [facility] Comment on above: Order Comment: Speci men Type: BLOOD SPECIMEN Ordering Facility: [facility] Address: [address] [place] [address] [address] GALAN A, [place] [address] Performed By: #### 3 016-3, 3050-0, 3024-05 #### [facility] CLIA [id number] [address] [place] [address] [place] #### 29652-4 #### [facility] CLIA [id number] [address] [place] [address] [place] [facility] CLIA [id number] [address] [place] [address] [place] Cholesterol non HDL [Mass/Vol] 110 mg/dL Normal <130 [facility] Comment on above: Order Comment: Speci men Type: BLOOD SPECIMEN Ordering Facility: [facility] Address: [address] [place] [address] [address]ER[address] GALAN A, [place] [address] Result Comment: <130 mg/dL, Optimal 130-159 mg/dL, Near optimal/above optimal 160-189 mg/dL, Borderline high 190-219 mg/dL, High >219 mg/dL, Very high Secondary prevention optimal non HDL Cholesterol levels are recommended to be <100 mg/dL Performed By: #### 3 016-3, 3050-0, 3024-05 #### [facility] CLIA [id number] [facility] [place] [address] [place] #### 16798-5 #### [facility] CLIA [id number] [address] [place] [address] [place] [facility] CLIA [id number] [address] [place] [address] [place] Cholesterol.total/Chol esterol in HDL [Mass ratio] 3.34 {ratio} Normal <5.10 [facility] Comment on above: Order Comment: Speci men Type: BLOOD SPECIMEN Ordering Facility: [facility] Address: [address] [place] [address] [address] A, [place] [address] Performed By: #### 3 016-3, 0, 3024-05 #### [facility] CLIA [id number] [address] [place] [address] [place] #### 61208-1 #### [facility] CLIA [id number] [address] [place] [address] [place] [facility] [id number] [address] [place] [address] [place] FASTING TIME 12 hrs Normal [facility] Comment on above: Order Comment: Speci men Type: BLOOD SPECIMEN Ordering Facility: [facility] Address: [address] [place] [address] [place] [address] Performed By: #### 3 016-3, 0, 3024-05 #### [facility] CLIA [id number] [address] [place] [address] [place] #### 96735-1 #### [facility] CLIA [id number] [address] [place] [address] [place] [id number] [place] [address] [place] Triglyceride [Mass/Vol] 276 mg/dL High <150 [facility] Comment on above: Order Comment: Speci men Type: BLOOD SPECIMEN Ordering Facility: [facility] Address: [address] [place], [place] [address]Jeffrey ADAMA A, [place] [address] Result Comment: <150 mg/dL, Normal 150-199 mg/dL, Borderline high 200-499 mg/dL, High >499 mg/dL, Very high Performed By: #### 3 016-3, 0, 3024-05 #### [facility] CLIA [id number] [address] [place] [address] [place] #### 72492-5 #### [facility] CLIA [id number] [address] [place] [address] [place] [facility] CLIA [id number] [address] [place] [address] [place] T3Free SerPl-mCncon 20 24 Free T3 [Mass/Vol] 3.2 pg/mL Normal 2.3-4.1 [facility] Comment on above: Order Comment: Speci men Type: BLOOD SPECIMEN Ordering Facility: [facility] Address: [address] [place], [place] [address]WY [place]AMA A, [place] [address] Performed By: #### 3 016-3, 3050-0, 3024-05 #### [facility] CLIA [id number] [address] [place] [address] [place] #### 70727-4 #### [facility] CLIA [id number] [address] [place] [address] [place] [facility] CLIA [id number] [address] [place] [address] [place] T4 Free SerPl-mCncon 024 Free T4 [Mass/Vol] 1.0 ng/dL Normal 0.9-1.7 [facility] Comment on above: Order Comment: Speci men Type: BLOOD SPECIMEN Ordering Facility: [facility] Address: [address] [place] [address] [address], [place] [address] Performed By: #### 3 016-3, 305-0, 3024-05 #### [facility] CLIA [id number] [address] [place] [address] [place] [place] #### [address]15-0 #### [facility] CLIA [id number] [address] [place] [address] [place] [facility] CLIA [id number] [address] [place] [address] [place] TSH SerPl-aCncon 04-04-2024 TSH Qn 1.330 m[IU]/L Normal 0.270-4.20 0 [facility] Comment on above: Order Comment: Speci men Type: BLOOD SPECIMEN Ordering Facility: [facility] Address: [address] [place] [address] [place] [address] Performed By: #### 3 016-3, 3051-0, 3024-7 #### [facility] CLIA [id number] [address] [place] #### [id number] #### [facility] CLIA [id number] [address] [place] [address] [place] [facility] CLIA [id number] [address] Absolute lymphocyte countOrd ered By: Charlottedarius Stevenson on 09-06-2023 Lymphocytes Auto (Unsp spec) [#/Vol] 2.19 10*3/uL 0.83-4.51 [facility] Basophil percentageOrdered B y: Charlotte Stevenson on 09-06-2023 Basophils/100 WBC (Bld) 0.4 % 0-1 [facility] Bilirubin [Mass/Vol] 0.40 mg/dL 0.20-1.00 [facility] Comment on above: For patients on eltr ombopag therapy, use of Dimension [place] TBIL is not recommended. Chloride [Moles/Vol] 106 mmol/L 98-107 [facility] Cholesterol [Mass/Vol] 157 mg/dL <200 [facility] Comment on above: <200 mg/dL Desirable 200-240 mg/dL Borderline >240 mg/dL High Risk Eosinophils/100 WBC (Bld) 4.4 % 0-5 [facility] Glucose [Mass/Vol] 106 mg/dL 74-106 [facility] Comment on above: Fasting Glucose resu lt from 100 to 125 mg/dL suggests IMPAIRED HOMEOSTASIS per A.D.A. criteria. Neutrophils (Bld) [#/Vol] 4.1 10*3/uL 2.0-7.7 [facility] Neutrophils/100 WBC (Bld) 56.6 % 47-70 [facility] Potassium [Moles/Vol] 4.2 mmol/L 3.5-5.1 [facility] Protein [Mass/Vol] 8.0 g/dL 6.4-8.2 [facility] Sodium [Moles/Vol] 139 mmol/L 136-145 [facility] Triglyceride [Mass/Vol] 251 mg/dL <199 [facility] Comment on above: The drugs N-Acetylcy steine and Metamizole may falsely depress this assay.Serum Triglycerides Reference Interval Normal <150 mg/dL Borderline high 150 - 199 mg/dL High 200 - 499 mg/dL Very High > or = 500 mg/dL WBC (Bld) [#/Vol] 7.2 10*3/uL 4.4-11.0 [facility] Blood erythrocytes count (nu mber/volume)Ordered By: Charlotte Stevenson on 09-06-2023 RBC (Bld) [#/Vol] 4.56 10*6/uL 4.2-5.4 [facility] Blood hemoglobin measurement (mass/volume)Ordered By: Charlotte Stevenson on 09-06-2023 Hemoglobin (Bld) [Mass/Vol] 13.3 g/dL 12.0-15.0 [facility] Blood lymphocytes/100 leukoc ytesOrdered By: Charlotte Stevenson on 09-06-2023 Lymphocytes/100 WBC (Bld) 30.4 % 19-41 [facility] Blood monocytes/100 leukocyt esOrdered By: Charlotte Stevenson on 09-06-2023 Monocytes/100 WBC (Bld) 7.9 % 0-10 [facility] Blood platelet mean volumeOr dered By: Charlotte Stevenson on 09-06-2023 Platelet mean volume (Bld) [Entitic vol] 10.0 fL 6.2-12.0 [facility] Determination of erythrocyte mean corpuscular volume (MCV)Ordered By: Charlotte Stevenson on 09-06-2023 MCV (RBC) [Entitic vol] 89.5 fL 81-99 [facility] Hematocrit Auto (Bld) [Volum e fraction]Ordered By: Charlotte Stevenson on 09-06-2023 Hematocrit (Bld) [Volume fraction] 40.8 % 37-47 [facility] - Chemistry and C hemistry - challengeOrdered By: Charlotte Stevenson on 09-06-2023 ALP [Catalytic activity/Vol] 99 U/L 45-117 [facility] ALT [Catalytic activity/Vol] 33 U/L 13-56 [facility] CO2 [Moles/Vol] 27.0 mmol/L 21.0-32.0 [facility] Free T4 [Mass/Vol] 0.86 ng/dL 0.76-1.46 [facility] Globulin (S) [Mass/Vol] 4.2 g/dL 2.2-4.2 [facility] Urea nitrogen/Creatinine [Mass ratio] 27.9 mg/mg 10-20 [facility] - Hematology and Cell countsOrdered By: Charlotte Stevenson on 09-06-2023 Erythrocyte distribution width (RBC) [Entitic vol] 39.1 fL 35.1-43.9 [facility] Erythrocyte distribution width (RBC) [Ratio] 12.0 % 11.6-14.6 [facility] Immature granulocytes/100 WBC (Bld) 0.300 % 0.0-0.9 [facility] Comment on above: IG% - Immature Granu locytes (promyelocytes, myelocytes and metamyelocytes) > 1% indicates that a LEFT SHIFT is Present. MCH (RBC) [Entitic mass] 29.2 pg 27.0-32.0 [facility] Nucleated RBC/100 WBC (Bld) [Ratio] 0 % 0-5 [facility] MCHC Auto (RBC) [Mass/Vol]Or dered By: Charlotte Stevenson on 09-06-2023 MCHC (RBC) [Mass/Vol] 32.6 g/dL 32-36 [facility] No Panel InformationOrdered By: Charlotte Stevenson on 09-06-2023 Estimated GFR (MDRD) Amer 102 mL/min >60 [facility] Comment on above: GFR Calc Estimated GFR (MDRD) Non-Af Amer 84 mL/min >60 [facility] Comment on above: Non- GFR Calc Free Triiodothyronine (T3) pg/dL 2.7 pg/mL 2.18-3.98 [facility] Thyroid Stimulating Hormone (TSH) 1.09 uIU/mL 0.358-3.74 [facility] Platelets bldOrdered By: Lary Stevenson on 09-06-2023 Platelets (Bld) [#/Vol] 290 10*3/uL 150-450 [facility] Serum or plasma albumin cheko urement (mass/volume)Ordered By: Charlotte Stevenson on 09-06-2023 Albumin [Mass/Vol] 3.8 g/dL 3.2-5.0 [facility] Serum or plasma albumin/glob ulin mass ratioOrdered By: Charlotte Stevenson on 09-06-2023 Albumin/Globulin [Mass ratio] 0.9 {ratio} 0.9-2.4 [facility] Serum or plasma calcium cheko urement (mass/volume)Ordered By: Charlotte Stevenson on 09-06-2023 Calcium [Mass/Vol] 9.1 mg/dL 8.5-10.1 [facility] Serum or plasma cholesterol in HDL measurement (mass/volume)Ordered By: Charlotte Stevenson on 09-06-2023 Cholesterol in HDL [Mass/Vol] 52 mg/dL >40 [facility] Comment on above: The drugs N-Acetylcy steine and Metamizole may falsely depress this assay. Reference Range HDL <40 mg/dL Low HDL Cholesterol HDL >or= 60 mg/dL High HDL Cholesterol Serum or plasma cholesterol in VLDL measurement (mass/volume)Ordered By: Charlotte Stevenson on 09-06-2023 Cholesterol in VLDL [Mass/Vol] 50 mg/dL 5-40 [facility] Serum or plasma creatinine m easurement (mass/volume)Ordered By: Charlotte Stevenson on 09-06-2023 Creatinine [Mass/Vol] 0.72 mg/dL 0.55-1.02 [facility] Comment on above: The validity of the calculated GFR & GFRAA in patients over 70 years has not been determined. Clinical correlation is essential. Serum or plasma low density lipoprotein (LDL) cholesterol measurement (mass/volume)Ordered By: Charlotte Stevenson on 09-06-2023 Cholesterol in LDL [Mass/Vol] 55 mg/dL 0-130 [facility] Serum or plasma urea nitroge n measurement (mass/volume)Ordered By: Charlotte Stevenson on 09-06-2023 Urea nitrogen [Mass/Vol] 20 mg/dL 7-18 [facility] Thin prep Papanicolaou smear with manual screeningOrdered By: Charlotte Stevenson on 09-06-2023 Thin prep Papanicolaou smear with manual screening 20 U/L 15-37 [facility] Thin prep Papanicolaou smear with manual screening 6 5-15 [facility] Whole blood hemoglobin A1c/t otal hemoglobin ratio (mass fraction)Ordered By: Charlotte Stevenson on 09-06-2023 HbA1c (Bld) [Mass fraction] 5.8 % 3.8-5.6 [facility] Comment on above: Normal < 5.7 % Predi abetic 5.7 - 6.4 % Diabetic >or= 6.5 % Please note range changes. Absolute lymphocyte countOrd ered By: Dr. Stevenson on 03-08-2023 Lymphocytes Auto (Unsp spec) [#/Vol] 1.94 10*3/uL 0.83-4.51 [facility] Basophil percentageOrdered B y: Dr. Stevenson on 03-08-2023 Basophils/100 WBC (Bld) 0.5 % 0-1 [facility] Bilirubin [Mass/Vol] 0.50 mg/dL 0.20-1.00 [facility] Comment on above: For patients on eltr ombopag therapy, use of Dimension [place] TBIL is not recommended. Chloride [Moles/Vol] 103 mmol/L 98-107 [facility] Cholesterol [Mass/Vol] 193 mg/dL <200 [facility] Comment on above: <200 mg/dL Desirable 200-240 mg/dL Borderline >240 mg/dL High Risk Eosinophils/100 WBC (Bld) 4.3 % 0-5 [facility] Glucose [Mass/Vol] 108 mg/dL 74-106 [facility] Comment on above: Fasting Glucose resu lt from 100 to 125 mg/dL suggests IMPAIRED HOMEOSTASIS per A.D.A. criteria. Neutrophils (Bld) [#/Vol] 3.5 10*3/uL 2.0-7.7 [facility] Neutrophils/100 WBC (Bld) 54.6 % 47-70 [facility] Potassium [Moles/Vol] 4.1 mmol/L 3.5-5.1 [facility] Protein [Mass/Vol] 7.9 g/dL 6.4-8.2 [facility] Sodium [Moles/Vol] 138 mmol/L 136-145 [facility] Triglyceride [Mass/Vol] 261 mg/dL <199 [facility] Comment on above: The drugs N-Acetylcy steine and Metamizole may falsely depress this assay.Serum Triglycerides Reference Interval Normal <150 mg/dL Borderline high 150 - 199 mg/dL High 200 - 499 mg/dL Very High > or = 500 mg/dL WBC (Bld) [#/Vol] 6.5 10*3/uL 4.4-11.0 [facility] Blood erythrocytes count (nu mber/volume)Ordered By: Dr. Stevenson on 03-08-2023 RBC (Bld) [#/Vol] 4.37 10*6/uL 4.2-5.4 [facility] Blood hemoglobin measurement (mass/volume)Ordered By: Dr. Stevenson on 03-08-2023 Hemoglobin (Bld) [Mass/Vol] 13.4 g/dL 12.0-15.0 [facility] Blood lymphocytes/100 leukoc ytesOrdered By: Dr. Stevenson on 03-08-2023 Lymphocytes/100 WBC (Bld) 29.9 % 19-41 [facility] Blood monocytes/100 leukocyt esOrdered By: Dr. Stevenson on 03-08-2023 Monocytes/100 WBC (Bld) 10.5 % 0-10 [facility] Blood platelet mean volumeOr dered By: Dr. Stevenson on 03-08-2023 Platelet mean volume (Bld) [Entitic vol] 9.9 fL 6.2-12.0 [facility] Determination of erythrocyte mean corpuscular volume (MCV)Ordered By: Dr. Stevenson on 03-08-2023 MCV (RBC) [Entitic vol] 89.9 fL 81-99 [facility] Hematocrit Auto (Bld) [Volum e fraction]Ordered By: Dr. Stevenson on 03-08-2023 Hematocrit (Bld) [Volume fraction] 39.3 % 37-47 [facility] - Chemistry and C hemistry - challengeOrdered By: Dr. Stevenson on 03-08-2023 ALP [Catalytic activity/Vol] 104 U/L 45-117 [facility] ALT [Catalytic activity/Vol] 29 U/L 13-56 [facility] CO2 [Moles/Vol] 26.0 mmol/L 21.0-32.0 [facility] Globulin (S) [Mass/Vol] 4.1 g/dL 2.2-4.2 [facility] Urea nitrogen/Creatinine [Mass ratio] 22.8 mg/mg 10-20 [facility] - Hematology and Cell countsOrdered By: Dr. Stevenson on 03-08-2023 Erythrocyte distribution width (RBC) [Entitic vol] 39.0 fL 35.1-43.9 [facility] Erythrocyte distribution width (RBC) [Ratio] 11.9 % 11.6-14.6 [facility] Immature granulocytes/100 WBC (Bld) 0.200 % 0.0-0.9 [facility] Comment on above: IG% - Immature Granu locytes (promyelocytes, myelocytes and metamyelocytes) > 1% indicates that a LEFT SHIFT is Present. MCH (RBC) [Entitic mass] 30.7 pg 27.0-32.0 [facility] Nucleated RBC/100 WBC (Bld) [Ratio] 0 % 0-5 [facility] MCHC Auto (RBC) [Mass/Vol]Or dered By: Dr. Stevenson on 03-08-2023 MCHC (RBC) [Mass/Vol] 34.1 g/dL 32-36 [facility] No Panel InformationOrdered By: Dr. Stevenson on 03-08-2023 Estimated GFR (MDRD) Amer 86 mL/min >60 [facility] Comment on above: GFR Calc Estimated GFR (MDRD) Non-Af Amer 71 mL/min >60 [facility] Comment on above: Non- GFR Calc Platelets bldOrdered By: Dr. Stevenson on 03-08-2023 Platelets (Bld) [#/Vol] 279 10*3/uL 150-450 [facility] Serum or plasma albumin cheko urement (mass/volume)Ordered By: Dr. Stevenson on 03-08-2023 Albumin [Mass/Vol] 3.8 g/dL 3.2-5.0 [facility] Serum or plasma albumin/glob ulin mass ratioOrdered By: Dr. Stevenson on 03-08-2023 Albumin/Globulin [Mass ratio] 0.9 {ratio} 0.9-2.4 [facility] Serum or plasma calcium cheko urement (mass/volume)Ordered By: Dr. Stevenson on 03-08-2023 Calcium [Mass/Vol] 9.5 mg/dL 8.5-10.1 [facility] Serum or plasma cholesterol in HDL measurement (mass/volume)Ordered By: Dr. Stevenson on 03-08-2023 Cholesterol in HDL [Mass/Vol] 48 mg/dL >40 [facility] Comment on above: The drugs N-Acetylcy steine and Metamizole may falsely depress this assay. Reference Range HDL <40 mg/dL Low HDL Cholesterol HDL >or= 60 mg/dL High HDL Cholesterol Serum or plasma cholesterol in VLDL measurement (mass/volume)Ordered By: Dr. Stevenson on 03-08-2023 Cholesterol in VLDL [Mass/Vol] 52 mg/dL 5-40 [facility] Serum or plasma creatinine m easurement (mass/volume)Ordered By: Dr. Stevenson on 03-08-2023 Creatinine [Mass/Vol] 0.83 mg/dL 0.55-1.02 [facility] Comment on above: The validity of the calculated GFR & GFRAA in patients over 70 years has not been determined. Clinical correlation is essential. Serum or plasma low density lipoprotein (LDL) cholesterol measurement (mass/volume)Ordered By: Dr. Stevenson on 03-08-2023 Cholesterol in LDL [Mass/Vol] 93 mg/dL 0-130 [facility] Serum or plasma urea nitroge n measurement (mass/volume)Ordered By: Dr. Stevenson on 03-08-2023 Urea nitrogen [Mass/Vol] 19 mg/dL 7-18 [facility] Thin prep Papanicolaou smear with manual screeningOrdered By: Dr. Stevenson on 03-08-2023 Thin prep Papanicolaou smear with manual screening 20 U/L 15-37 [facility] Thin prep Papanicolaou smear with manual screening 9 5-15 [facility] Whole blood hemoglobin A1c/t otal hemoglobin ratio (mass fraction)Ordered By: Dr. Stevenson on 03-08-2023 HbA1c (Bld) [Mass fraction] 5.9 % 3.8-5.6 [facility] Comment on above: Normal < 5.7 % Predi abetic 5.7 - 6.4 % Diabetic >or= 6.5 % Please note range changes. Laboratory - Chemistry and C hemistry - challengeOrdered By: Dr. Stevenson on 12-03-2022 Free T4 [Mass/Vol] 1.01 ng/dL 0.76-1.46 [facility] Magnesium [Mass/Vol] 2.0 mg/dL 1.6-2.6 [facility] No Panel InformationOrdered By: Dr. Stevenson on 12-03-2022 Free Triiodothyronine (T3) pg/dL 2.6 pg/mL 2.18-3.98 [facility] Thyroid Stimulating Hormone (TSH) 0.56 uIU/mL 0.358-3.74 [facility] Whole blood hemoglobin A1c/t otal hemoglobin ratio (mass fraction)Ordered By: Dr. Stevenson on 12-03-2022 HbA1c (Bld) [Mass fraction] 5.9 % 3.8-5.6 [facility] Comment on above: Normal < 5.7 % Predi abetic 5.7 - 6.4 % Diabetic >or= 6.5 % Please note range changes. Absolute lymphocyte countOrd ered By: Dr. Garcia on 11-29-2022 Lymphocytes Auto (Unsp spec) [#/Vol] 2.15 10*3/uL 0.83-4.51 [facility] Basophil percentageOrdered B y: Dr. Garcia on 11-29-2022 Basophils/100 WBC (Bld) 0.3 % 0-1 [facility] Chloride [Moles/Vol] 103 mmol/L 98-107 [facility] Eosinophils/100 WBC (Bld) 0.9 % 0-5 [facility] Glucose [Mass/Vol] 125 mg/dL 74-106 [facility] Comment on above: Fasting Glucose resu lt from 100 to 125 mg/dL suggests IMPAIRED HOMEOSTASIS per A.D.A. criteria. Neutrophils (Bld) [#/Vol] 6.5 10*3/uL 2.0-7.7 [facility] Neutrophils/100 WBC (Bld) 67.4 % 47-70 [facility] Potassium [Moles/Vol] 3.8 mmol/L 3.5-5.1 [facility] Sodium [Moles/Vol] 137 mmol/L 136-145 [facility] WBC (Bld) [#/Vol] 9.6 10*3/uL 4.4-11.0 [facility] Blood erythrocytes count (nu mber/volume)Ordered By: Dr. Garcia on 11-29-2022 RBC (Bld) [#/Vol] 4.93 10*6/uL 4.2-5.4 [facility] Blood hemoglobin measurement (mass/volume)Ordered By: Dr. Garcia on 11-29-2022 Hemoglobin (Bld) [Mass/Vol] 14.9 g/dL 12.0-15.0 [facility] Blood lymphocytes/100 leukoc ytesOrdered By: Dr. Garcia on 11-29-2022 Lymphocytes/100 WBC (Bld) 22.4 % 19-41 [facility] Blood monocytes/100 leukocyt esOrdered By: Dr. Garcia on 11-29-2022 Monocytes/100 WBC (Bld) 8.8 % 0-10 [facility] Blood platelet mean volumeOr dered By: Dr. Garcia on 11-29-2022 Platelet mean volume (Bld) [Entitic vol] 9.8 fL 6.2-12.0 [facility] Determination of erythrocyte mean corpuscular volume (MCV)Ordered By: Dr. Garcia on 11-29-2022 MCV (RBC) [Entitic vol] 86.6 fL 81-99 [facility] Hematocrit Auto (Bld) [Volum e fraction]Ordered By: Dr. Garcia on 11-29-2022 Hematocrit (Bld) [Volume fraction] 42.7 % 37-47 [facility] - Chemistry and C hemistry - challengeOrdered By: Dr. Garcia on 11-29-2022 CO2 [Moles/Vol] 25.0 mmol/L 21.0-32.0 [facility] Urea nitrogen/Creatinine [Mass ratio] 20.6 mg/mg 10-20 [facility] - Hematology and Cell countsOrdered By: Dr. Garcia on 11-29-2022 Erythrocyte distribution width (RBC) [Entitic vol] 37.2 fL 35.1-43.9 [facility] Erythrocyte distribution width (RBC) [Ratio] 11.8 % 11.6-14.6 [facility] Immature granulocytes/100 WBC (Bld) 0.200 % 0.0-0.9 [facility] Comment on above: IG% - Immature Granu locytes (promyelocytes, myelocytes and metamyelocytes) > 1% indicates that a LEFT SHIFT is Present. MCH (RBC) [Entitic mass] 30.2 pg 27.0-32.0 [facility] Nucleated RBC/100 WBC (Bld) [Ratio] 0 % 0-5 [facility] MCHC Auto (RBC) [Mass/Vol]Or dered By: Dr. Garcia on 11-29-2022 MCHC (RBC) [Mass/Vol] 34.9 g/dL 32-36 [facility] No Panel InformationOrdered By: Dr. Garcia on 11-29-2022 Troponin I High Sensitivity 19 pg/mL 3.0-54.0 [facility] Comment on above: Please Note: New Erika t Units and Gender Specific Reference Ranges. For more information see Policy Stat Procedure [place] High Sensitivity Troponin (TNIH) and attachments. Estimated Creatinine Clearance Calc 49.04 ml/min [facility] Estimated GFR (MDRD) Amer 87 mL/min >60 [facility] Comment on above: GFR Calc Estimated GFR (MDRD) Non-Af Amer 72 mL/min >60 [facility] Comment on above: Non- GFR Calc Platelets bldOrdered By: Dr. Garcia on 11-29-2022 Platelets (Bld) [#/Vol] 320 10*3/uL 150-450 [facility] Serum or plasma calcium cheko urement (mass/volume)Ordered By: Dr. Garcia on 11-29-2022 Calcium [Mass/Vol] 9.9 mg/dL 8.5-10.1 [facility] Serum or plasma creatinine m easurement (mass/volume)Ordered By: Dr. Garcia on 11-29-2022 Creatinine [Mass/Vol] 0.82 mg/dL 0.55-1.02 [facility] Comment on above: The validity of the calculated GFR & GFRAA in patients over 70 years has not been determined. Clinical correlation is essential. Serum or plasma urea nitroge n measurement (mass/volume)Ordered By: Dr. Garcia on 11-29-2022 Urea nitrogen [Mass/Vol] 17 mg/dL 7-18 [facility] Thin prep Papanicolaou smear with manual screeningOrdered By: Dr. 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 Normal [facility] ([place] Comment on above: Performed By: #### A 1C, LIPID ####[place] [address] [place] [id number]#### HCV1 ####[place] [address] A1Con 08-12-2017 Hemoglobin A1c/Hemoglobin.total mass fraction (Bld) 6.0 % High 4.8-5.9 [facility] ([place] Comment on above: Performed By: #### A 1C, LIPID ####[place] [address] [place] [address]#### HCV1 ####[address] [address] LIPIDon 08-12-2017 Cholesterol 163 mg/dL Normal 131-200 [facility] ([place] Comment on above: Result Comment: Chol esterol Reference Interval:Less than 200 [id number] Borderline high [id number] and above High risk Performed By: #### A 1C, LIPID ####[place] [address] [place] [address]#### HCV1 ####[place] [address] HDL Cholesterol 57 mg/dL Normal 35-90 [facility] ([place] Comment on above: Result Comment: HDL Reference Interval:Less than 40 Low - high risk60 or above Optimal/lowers risk Performed By: #### A 1C, LIPID ####[place] [address]#### HCV1 ####[place] [address] LDL Cholesterol 72 mg/dL Normal 0-130 [facility] ([place] Comment on above: Result Comment: LDL is a calculated result and requires a 12- hr fast.LDL Reference Interval:Less than 100 [id number] Near or above [id number] Borderline high [id number] High [id number] and above Very high risk Performed By: #### A 1C, LIPID ####[place] [address]#### HCV1 ####[place] [address] Triglyceride 172 mg/dL High 40-150 [facility] [place] Comment on above: Result Comment: Trig lyceride Reference Interval:Less than 150 [id number] Borderline high [id number] High [id number] or higher Very high risk Performed By: #### A 1C, LIPID ####[place] [address] [place] [address]#### HCV1 ####[place] [address] .Auto Diffon 08-04-2017 Basophils Auto #/vol (Bld) 0.00 10 3/mcL Normal 0.00-0.19 [facility] ([place] Comment on above: Performed By: #### C BC, ADIFF, ANEU, TSH, CMP, GFR ####[facility] [place] [address]#### VIDH ####[address] [address] Basophils/100 WBC Auto (Bld) 0.4 % Normal 0.0-2.5 [facility] ([place] Comment on above: Performed By: #### C BC, ADIFF, ANEU, TSH, CMP, GFR ####[place] [address]#### VIDH ####[address] [address] Eosinophils 0.30 10 3/mcL Normal 0.00-0.40 [facility] ([place]) Comment on above: Performed By: #### C BC, ADIFF, ANEU, TSH, CMP, GFR ####[place] [address]#### VIDH ####[address] [address] Eosinophils/100 leukocytes 3.8 % Normal 0.0-7.0 [facility] ([place] Comment on above: Performed By: #### C BC, ADIFF, ANEU, TSH, CMP, GFR ####[place] [address]#### VIDH ####[place] [address] Lymphocytes 2.10 10 3/mcL Normal 0.77-3.85 [facility] ([place] Comment on above: Performed By: #### C BC, ADIFF, ANEU, TSH, CMP, GFR ####[place] [address]#### VIDH ####[address] [address] Lymphocytes/100 leukocytes 31.8 % Normal 10.0-50.0 [facility] ([place] Comment on above: Performed By: #### C BC, ADIFF, ANEU, TSH, CMP, GFR ####[address] [place] [address]#### VIDH ####[place] [address] Monocytes 0.70 10 3/mcL Normal 0.15-1.00 [facility] ([place] Comment on above: Performed By: #### C BC, ADIFF, ANEU, TSH, CMP, GFR ####[place] [id number] [place], [place] [address]#### VIDH ####[address] [address] Monocytes/100 leukocytes 10.7 % Normal 1.7-13.0 [facility] ([place] Comment on above: Performed By: #### C BC, ADIFF, ANEU, TSH, CMP, GFR ####[address] [address]#### VIDH ####[address] [address] Neutrophils/100 WBC Auto (Bld) 53.3 % Normal 37.0-80.0 [facility] ([place] Comment on above: Performed By: #### C BC, ADIFF, ANEU, TSH, CMP, GFR ####[place] [address]#### VIDH ####[address] [address] .GFRon 08-04-2017 eGFR (non-black) 102 ml/min/1.73sqm Normal [facility] ([place] Comment on above: Result Comment: GFR Population [...] C BC, ADIFF, ANEU, TSH, CMP, GFR ####[place] [address] [place], [place] [address]#### VIDH ####[address] [address] eGFR (non-black) mL/min/{1.73_m2} Normal [facility] ([place]) Comment on above: Result Comment: GFR Population [...] C BC, ADIFF, ANEU, TSH, CMP, GFR ####[place] [address]#### VIDH ####[place] [id number] .NEUABSon 08-04-2017 Neutrophils 3.60 10 3/mcL Normal 2.85-6.16 [facility] ([place]) Comment on above: Performed By: #### C BC, ADIFF, ANEU, TSH, CMP, GFR ####[place] [address] [place] [address]#### VIDH ####[place] [address] CBCon 08-04-2017 Erythrocyte distribution width Auto Ratio (RBC) 13.0 % Normal 11.5-14.5 [facility] ([place]) Comment on above: Performed By: #### C BC, ADIFF, ANEU, TSH, CMP, GFR ####[facility] [place] [address]#### VIDH ####[place] [address] Erythrocytes (RBC) 4.59 10 6/mcL Normal 4.20-5.40 [facility] ([place]) Comment on above: Performed By: #### C BC, ADIFF, ANEU, TSH, CMP, GFR ####[place] [address]#### VIDH ####[place] [address] Hematocrit (HCT) 39.5 % Normal 37.0-47.0 [facility] ([place] Comment on above: Performed By: #### C BC, ADIFF, ANEU, TSH, CMP, GFR ####[place] [address]#### VIDH ####[place] [address] Hemoglobin mass conc (Bld) 13.4 G/dL Normal 12.0-16.0 [facility] ([place]) Comment on above: Performed By: #### C BC, ADIFF, ANEU, TSH, CMP, GFR ####[place] [address]#### VIDH ####[place] [address] MCH 29.1 pg Normal 27.0-31.2 [facility] ([place] Comment on above: Performed By: #### C BC, ADIFF, ANEU, TSH, CMP, GFR ####[place] [address]#### VIDH ####[place] [address] MCHC mass conc (RBC) 33.8 G/dL Normal 33.0-37.0 [facility] ([place]) Comment on above: Performed By: #### C BC, ADIFF, ANEU, TSH, CMP, GFR ####[place] [address]#### VIDH ####[place] [address] MCV 86.1 fL Normal 80.0-94.0 [facility] ([place] Comment on above: Performed By: #### C BC, ADIFF, ANEU, TSH, CMP, GFR ####[place] [address]#### VIDH ####[address] [address] Platelet mean volume (PMV) 8.0 fL Normal 7.4-10.4 [facility] ([place] Comment on above: Performed By: #### C BC, ADIFF, ANEU, TSH, CMP, GFR ####[place] [address]#### VIDH ####[address] [address] Platelets 274 10 3/mcL Normal 130-400 [facility] ([place] Comment on above: Performed By: #### C BC, ADIFF, ANEU, TSH, CMP, GFR ####[place] [address]#### VIDH ####[place] [address] WBC (Leukocytes) 6.80 10 3/mcL Normal 4.60-10.80 [facility] ([place]) Comment on above: Performed By: #### C BC, ADIFF, ANEU, TSH, CMP, GFR ####[place] [address]#### VIDH ####[place] [address] CMPon 08-04-2017 Alanine aminotransferase (ALT) 26 U/L Normal 10-35 [facility] ([place] Comment on above: Performed By: #### C BC, ADIFF, ANEU, TSH, CMP, GFR ####[place] [address]#### VIDH ####[place] [address] Albumin 4.5 G/dL Normal 3.4-4.8 [facility] ([place] Comment on above: Performed By: #### C BC, ADIFF, ANEU, TSH, CMP, GFR ####[place] [address]#### VIDH ####[address] [address] Albumin/Globulin Ratio 1.5 {ratio} Normal 1.1-2.5 A [facility] ([place]) Comment on above: Performed By: #### C BC, ADIFF, ANEU, TSH, CMP, GFR ####[place] [address]#### VIDH ####[place] [address] Alk Phos 93 IU/L Normal 40-135 [facility] ([place] Comment on above: Performed By: #### C BC, ADIFF, ANEU, TSH, CMP, GFR ####[place] [address]#### VIDH ####[address] [address] Aspartate aminotransferase (AST) 24 U/L Normal 10-40 [facility] ([place] Comment on above: Performed By: #### C BC, ADIFF, ANEU, TSH, CMP, GFR ####[place] [address]#### VIDH ####[place] [address] Bili Total 0.6 mg/dL Normal 0.2-1.0 [facility] ([place] Comment on above: Performed By: #### C BC, ADIFF, ANEU, TSH, CMP, GFR ####[place] [address]#### VIDH ####[place] [address] BUN/Creatinine Ratio 17 ratio Normal 7-27 [facility] ([place]) Comment on above: Performed By: #### C BC, ADIFF, ANEU, TSH, CMP, GFR ####[place] [address] [place] [address]#### VIDH ####[place] [address] Calcium 9.3 mg/dL Normal 8.4-10.2 [facility] ([place] Comment on above: Performed By: #### C BC, ADIFF, ANEU, TSH, CMP, GFR ####[place] [address]#### VIDH ####[place] [address] Chloride 102 mmol/L Normal 98-107 [facility] ([place] Comment on above: Performed By: #### C BC, ADIFF, ANEU, TSH, CMP, GFR ####[place] [address]#### VIDH ####[place] [address] CO2 26 mmol/L Normal 23-31 [facility] ([place] Comment on above: Performed By: #### C BC, ADIFF, ANEU, TSH, CMP, GFR ####[place] [address]#### VIDH ####[place] [address] Creatinine 0.7 mg/dL Normal 0.6-1.2 [facility] ([place] Comment on above: Performed By: #### C BC, ADIFF, ANEU, TSH, CMP, GFR ####[place] [address]#### VIDH ####[place] [address] Electrolyte Balance 10.0 mEq/L Normal [facility] ([place]) Comment on above: Performed By: #### C BC, ADIFF, ANEU, TSH, CMP, GFR ####[place] [address]#### VIDH ####[place] [address] Globulin 3.0 G/dL Normal [facility] ([place] Comment on above: Performed By: #### C BC, ADIFF, ANEU, TSH, CMP, GFR ####[place] [address]#### VIDH ####[place] [address] Glucose mass conc 93 mg/dL Normal 83-110 [facility] ([place] Comment on above: Performed By: #### C BC, ADIFF, ANEU, TSH, CMP, GFR ####[place] [address]#### VIDH ####[place] [address] Potassium molar conc 4.2 mmol/L Normal 3.5-5.1 [facility] ([place] Comment on above: Performed By: #### C BC, ADIFF, ANEU, TSH, CMP, GFR ####[place] [address]#### VIDH ####[place] [address] Protein 7.5 G/dL Normal 6.0-8.3 [facility] ([place] Comment on above: Performed By: #### C BC, ADIFF, ANEU, TSH, CMP, GFR ####[place] [address]#### VIDH ####[place] [address] Sodium 138 mmol/L Normal 136-146 [facility] ([place] Comment on above: Performed By: #### C BC, ADIFF, ANEU, TSH, CMP, GFR ####[place] [address]#### VIDH ####[place] [address] Urea nitrogen 12.2 mg/dL Normal 7.0-18.0 [facility] ([place] Comment on above: Performed By: #### C BC, ADIFF, ANEU, TSH, CMP, GFR ####[place] [address]#### VIDH ####[place] [address] TSHon 08-04-2017 Thyroid stimulating hormone (TSH) 1.05 mcIU/mL Normal 0.27-4.20 [facility] ([place] Comment on above: Performed By: #### C BC, ADIFF, ANEU, TSH, CMP, GFR ####[place] [place], [place] [address]#### VIDH ####[address] [address] VIDHon 08-04-2017 Vit. 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 Charlotte Stevenson DO Work Phone: [facility] 09-03-2025 09:45-0400 Heart rate 73 /min Dr. Charlotte Stevenson DO Work Phone: [facility] 09-03-2025 09:45-0400 Systolic blood pressure 162 mm[Hg] Dr. Charlotte Stevenson DO Work Phone: [facility] 09-03-2025 09:29-0400 Body height 160.[address] Charlotte Stevenson DO Work Phone: [facility] 09-03-2025 09:29-0400 Body mass index (BMI) [Ratio] 33.3 kg/m2 Dr. Charlotte Stevenson DO Work Phone: [facility] 09-03-2025 09:29-0400 Body weight 85.[address] Charlotte Stevenson DO Work Phone: [facility] 09-03-2025 09:29-0400 Respiratory rate 18 /min Dr. Charlotte Stevenson DO Work Phone: [facility] 08-06-2025 10:50-0400 Body mass index (BMI) [Ratio] 32.9 kg/m2 Dr. Charlotte Stevenson DO Work Phone: [facility] 08-06-2025 10:50-0400 Body weight 84.[address] Charlotte Stevenson DO Work Phone: [facility] 08-06-2025 10:50-0400 Diastolic blood pressure 83 mm[Hg] Dr. Charlotte Stevenson DO Work Phone: [facility] 08-06-2025 10:50-0400 Heart rate 73 /min Dr. Charlotte Stevenson DO Work Phone: [facility] 08-06-2025 10:50-0400 Respiratory rate 18 /min Dr. Charlotte Stevenson DO Work Phone: [facility] 08-06-2025 10:50-0400 SaO2% (BldA) [Mass fraction] 94 % Dr. Charlotte Stevenson DO Work Phone: [facility] 08-06-2025 10:50-0400 Systolic blood pressure 158 mm[Hg] Dr. Charlotte Stevenson DO Work Phone: [facility] 12-18-2024 11:24-0500 Body height 160.[address] Charlotte Stevenson DO Work Phone: [facility] 12-18-2024 11:24-0500 Body mass index (BMI) [Ratio] 32.4 kg/m2 Dr. Charlotte Stevenson DO Work Phone: [facility] 12-18-2024 11:24-0500 Body weight [address] Charlotte Stevenson DO Work Phone: [facility] 12-18-2024 11:24-0500 Diastolic blood pressure 80 mm[Hg] Dr. Charlotte Stevenson DO Work Phone: [facility] 12-18-2024 11:24-0500 Heart rate 68 /min Dr. Charlotte Stevenson DO Work Phone: [facility] 12-18-2024 11:24-0500 Respiratory rate 18 /min Dr. Charlotte Stevenson DO Work Phone: [facility] 12-18-2024 11:24-0500 Systolic blood pressure 174 mm[Hg] Dr. Charlotte Stevenson DO Work Phone: [facility] 09-26-2024 09:05-0500 Body mass index (BMI) [Ratio] 32.2 kg/m2 Dr. Charlotte Stevenson DO Work Phone: [facility] 09-26-2024 09:05-0500 Body weight 82.[address] Charlotte Stevenson DO Work Phone: [facility] 09-26-2024 09:05-0500 Diastolic blood pressure 68 mm[Hg] Dr. Charlotte Stevenson DO Work Phone: [facility] 09-26-2024 09:05-0500 Heart rate 51 /min Dr. Charlotte Stevenson DO Work Phone: [facility] 09-26-2024 09:05-0500 Respiratory rate 18 /min Dr. Charlotte Stevenson DO Work Phone: [facility] 09-26-2024 09:05-0500 Systolic blood pressure 129 mm[Hg] Dr. Charlotte Stevenson DO Work Phone: [facility] 09-23-2024 07:13-0500 Body temperature 98.2 [degF] Dr. Charlotte Stevenson DO Work Phone: [facility] 09-23-2024 07:13-0500 Diastolic blood pressure 62 mm[Hg] Dr. Charlotte Stevenson DO Work Phone: [facility] 09-23-2024 07:13-0500 Heart rate 62 /min Dr. Charlotte Stevenson DO Work Phone: [facility] 09-23-2024 07:13-0500 Respiratory rate 19 /min Dr. Charlotte Stevenson DO Work Phone: [facility] 09-23-2024 07:13-0500 SaO2% (BldA) [Mass fraction] 98 % Dr. Charlotte Stevenson DO Work Phone: [facility] 09-23-2024 07:13-0500 Systolic blood pressure 155 mm[Hg] Dr. Charlotte Stevenson DO Work Phone: [facility] 09-23-2024 06:05-0500 Body mass index (BMI) [Ratio] 32.2 kg/m2 Dr. Charlotte Stevenson DO Work Phone: [facility] 09-23-2024 06:05-0500 Body weight 82.[address] Charlotte Stevenson DO Work Phone: [facility] 09-14-2024 11:27-0500 Diastolic blood pressure 68 mm[Hg] Dr. Charlotte Stevenson DO Work Phone: [facility] 09-14-2024 11:27-0500 Systolic blood pressure 157 mm[Hg] Dr. Charlotte Stevenson DO Work Phone: [facility] 09-14-2024 08:59-0500 Body temperature 98.2 [degF] Dr. Charlotte Stevenson DO Work Phone: [facility] 09-14-2024 08:59-0500 Heart rate 59 /min Dr. Charlotte Stevenson DO Work Phone: [facility] 09-14-2024 08:59-0500 Respiratory rate 16 /min Dr. Charlotte Setvenson DO Work Phone: [facility] 09-14-2024 08:59-0500 SaO2% (BldA) [Mass fraction] 95 % Dr. Charlotte Stevenson DO Work Phone: [facility] 09-12-2024 12:00-0500 Inhaled oxygen flow rate 2 L/min Dr. Charlotte Stevenson DO Work Phone: [facility] 09-12-2024 09:49-0500 Body mass index (BMI) [Ratio] 32.5 kg/m2 Dr. Charlotte Stevenson DO Work Phone: [facility] 09-12-2024 09:49-0500 Body weight 83.[address] Charlotte Stevenson DO Work Phone: [facility] 07-20-2023 10:00-0400 Body height 160.[address] Charlotte Stevenson Work Phone: [facility] 07-20-2023 10:00-0400 Body mass index (BMI) [Ratio] 33.6 kg/m2 Dr. Charlotte Stevenson Work Phone: [facility] 07-20-2023 10:00-0400 Body weight 86.[address] Charlotte Stevenson Work Phone: [facility] 07-20-2023 10:00-0400 Diastolic blood pressure 81 mm[Hg] Dr. Charlotte Stevenson Work Phone: [facility] 07-20-2023 10:00-0400 Heart rate 72 /min Dr. Charlotte Stevenson Work Phone: [facility] 07-20-2023 10:00-0400 Respiratory rate 18 /min Dr. Charlotte Stevenson Work Phone: [facility] 07-20-2023 10:00-0400 SaO2% (BldA) [Mass fraction] 96 % Dr. Charlotte Stevenson Work Phone: [facility] 07-20-2023 10:00-0400 Systolic blood pressure 170 mm[Hg] Dr. Charlotte Stevenson Work Phone: [facility] 11-29-2022 14:24-0500 Diastolic blood pressure 85 mm[Hg] Dr. Charlotte Stevenosn Work Phone: [facility] 11-29-2022 14:24-0500 Heart rate 73 /min Dr. Charlotte Stevenson Work Phone: [facility] 11-29-2022 14:24-0500 Respiratory rate 15 /min Dr. Charlotte Stevenson Work Phone: [facility] 11-29-2022 14:24-0500 SaO2% (BldA) [Mass fraction] 98 % Dr. Charlotte Stevenson Work Phone: [facility] 11-29-2022 14:24-0500 Systolic blood pressure 146 mm[Hg] Dr. Charlotte Stevenson Work Phone: [facility] 11-29-2022 10:24-0500 Body height 160.[address] Charlotte Stevenson Work Phone: [facility] 11-29-2022 10:24-0500 Body mass index (BMI) [Ratio] 32.8 kg/m2 Dr. Charlotte Stevenson Work Phone: [facility] 11-29-2022 10:24-0500 Body temperature 97.2 [degF] Dr. Charlotte Stevenson Work Phone: [facility] 11-29-2022 10:24-0500 Body weight 83.[address] Charlotte Stevenson Work Phone: [facility] 09-11-2022 10:52-0400 Body height 160.[address] Charlotte Stevenson Work Phone: [facility] Work Phone: 09-11-2022 10:52-0400 Body mass index (BMI) [Ratio] 33.1 kg/m2 Dr. Charlotte Stevenson Work Phone: [facility] 09-11-2022 10:52-0400 Body weight 84.[address] Charlotte Stevenson Work Phone: [facility] 09-11-2022 10:52-0400 Diastolic blood pressure 79 mm[Hg] Dr. Charlotte Stevenson Work Phone: [facility] 09-11-2022 10:52-0400 Heart rate 70 /min Dr. Charlotte Stevenson Work Phone: [facility] 09-11-2022 10:52-0400 Respiratory rate 18 /min Dr. Charlotte Stevenson Work Phone: [facility] 09-11-2022 10:52-0400 SaO2% (BldA) [Mass fraction] 98 % Dr. Charlotte Stevenson Work Phone: [facility] 09-11-2022 10:52-0400 Systolic blood pressure 147 mm[Hg] Dr. Charlotte Stevenson Work Phone: [facility] 03-16-2022 11:14-0400 Body height 160.[address] Charlotte Stevenson Work Phone: [facility] Work Phone: 03-16-2022 11:14-0400 Body mass index (BMI) [Ratio] 32.9 kg/m2 Dr. Charlotte Stevenson Work Phone: [facility] Work Phone: 03-16-2022 11:14-0400 Body weight 84.[address] Charlotte Stevenson Work Phone: [facility] Work Phone: 03-16-2022 11:14-0400 Diastolic blood pressure 82 mm[Hg] Dr. Charlotte Stevenson Work Phone: [facility] Work Phone: 03-16-2022 11:14-0400 Heart rate 86 /min Dr. Charlotte Stevenson Work Phone: [facility] Work Phone: 03-16-2022 11:14-0400 Respiratory rate 18 /min Dr. Charlotte Stevenson Work Phone: [facility] Work Phone: 03-16-2022 11:14-0400 SaO2% (BldA) [Mass fraction] 94 % Dr. Charlotte Stevenson Work Phone: [facility] Work Phone: 03-16-2022 11:14-0400 Systolic blood pressure 141 mm[Hg] Dr. Charlotte Stevenson Work Phone: [facility] Work Phone: Encounters Encounter Date Encounter Type Care Provider Facility Start: 09-27-[address] [facility] Facility :[facility] Start: 09-03-2025 End: 09-03-[address] [facility] Facility:[facility] Start: 08-27-2025 End: 08-27-2025 ambulatory [facility] Facility:[facility] Start: 08-14-[address] Charlotte Stevenson DO -[facility] [place] Work Phone: Start: 08-14-2025 End: 08-14-2025 ambulatory Charlotte Stevneson Facility:[facility] Start: 08-06-2025 End: 08-06-[address] Charlotte Stevenson DO Work Phone: -[facility] Start: 08-06-2025 End: 08-06-2025 Patient encounter procedure Quinn Demiter PA -[facility] Work Phone: Start: 08-06-2025 End: 08-06-2025 Patient encounter procedure Quinn Demiter PA -[facility] Work Phone: Start: 08-06-2025 End: 08-06-[address] Charlotte Stevenson DO Work Phone: -[facility] Start: 08-06-2025 End: 08-06-2025 ambulatory Quinn Mendez Facility:[facility] Start: 05-08-2025 Non-patient / Non-visit Dr. Patience mohan MD -[facility] Work Phone: Start: 05-03-2025 Non-patient / Non-visit Dr. Yuri ortega MD -[facility] Start: 05-03-2025 End: 05-03-[address] Charlotte Stevenson DO Work Phone: -Cardiovascular Services Start: 05-03-2025 End: 05-03-[address] Charlotte Stevenson DO -Cardiovascular Services Work Phone: Start: 05-03-2025 End: 05-03-2025 ambulatory Charlotte Stevenson Facility:[facility] Start: 04-17-2025 End: 04-17-[address] Charlotte Stevenson DO Work Phone: [facility] Work Phone: Start: 04-17-2025 End: 04-17-[address] Charlotte Stevenson DO -[facility] [place] Work Phone: Start: 04-17-2025 End: 04-17-2025 ambulatory Charlotte Stevenson Facility:[facility] Start: 03-14-2025 Non-patient / Non-visit Dr. Yuri ortega MD -[facility] Start: 03-14-2025 Registered Referred Self Referred -[facility] Work Phone: Start: 03-14-2025 ambulatory Yuri Nicholas Facility:[facility] Start: 01-01-2025 End: 01-01-[address] Charlotte Stevenson DO Work Phone: [facility] Work Phone: Start: 01-01-2025 End: 01-01-[address] Charlotte Stevenson DO -Outpatient Breast Imaging Work Phone: Start: 01-01-2025 End: 01-01-2025 ambulatory Charlotte Maldylan Facility:[facility] Start: 12-18-2024 End: 12-18-2024 Patient encounter procedure Benoit Krishnamurthy [facility]- -[facility] Work Phone: Start: 12-18-2024 End: 12-18-2024 ambulatory Benoit Krishnamurthy [facility] Facility:[facility] Start: 11-17-2024 End: 11-17-[address] Charlotte Jones, [place] Work Phone: Start: 11-17-2024 End: 11-17-2024 ambulatory Charlotte Elva Facility:[facility] Start: 11-03-2024 End: 11-03-[address] Charlotte Jones, Spec[facility] Work Phone: Start: 11-03-2024 End: 11-03-2024 ambulatory [facility] Facility:[facility] Start: 09-26-2024 End: 09-26-[address] Mohamud Canela MD -[facility] Work Phone: Start: 09-26-2024 End: 09-26-2024 ambulatory Mohamud Canela Facility:[facility] Start: 09-23-2024 End: 09-23-2024 Emergency department patient visit Dr. Billy Agudelo MD -Emergency Department Work Phone: Start: 09-20-2024 Non-patient / Non-visit Dr. Patricia Canela MD -[facility] Work Phone: Start: 09-20-2024 End: 09-20-[address] Mohamud Canela MD -[facility] Work Phone: Start: 09-20-2024 End: 09-20-2024 ambulatory Charlottedarius Stevenson Facility:[facility] Start: 09-20-2024 End: 09-20-2024 ambulatory Benoit Krishnamurthy [facility] Facility:[facility] Start: 09-14-2024 Non-patient / Non-visit Dr. Emilie Enriquez DO -[facility] Work Phone: Start: 09-14-2024 Non-patient / Non-visit Dr. Patricia Canela MD -[facility] Start: 09-13-2024 Non-patient / Non-visit Dr. Emilie Enriquez DO -[facility] Work Phone: Start: 09-13-2024 Non-patient / Non-visit Dr. Patricia Canela MD -[facility] Start: 09-12-2024 ambulatory Emilie Enriquez Facility:[facility] Start: 09-12-2024 End: 09-14-2024 Evaluation and management of inpatient Dr. Emilie Enriquez DO -[facility] Work Phone: Start: 04-04-2024 End: 04-05-2024 ambulatory [facility] Facility:[facility] Start: 12-29-2023 End: 12-29-[address] Charlotte Stevenson Work Phone: [facility] Work Phone: Start: 12-29-2023 End: 12-29-[address] Charlotte Stevenson Work Phone: [facility]-Outpatient Bone Densitometry Work Phone: Start: 10-28-2023 Non-patient / Non-visit Dr. Erika Stevenson Work Phone: [facility] Start: 10-28-2023 End: 10-28-[address] Charlotte Stevenson Work Phone: [facility] Work Phone: Start: 10-28-2023 End: 10-28-[address] Charlotte Stevenson Work Phone: [facility]-Cardiovascular Services Work Phone: Start: 09-06-2023 End: 09-06-[address] Charlotte Stevenson Work Phone: [facility] Work Phone: Start: 09-06-2023 End: 09-06-[address] [facility] Start: 07-20-2023 End: 07-20-[address] Charlotte Stevenson Work Phone: [facility] Work Phone: Start: 03-08-2023 End: 03-08-2023 ambulatory [facility] Work Phone: Start: 03-08-2023 End: 03-08-2023 Patient encounter procedure [facility] Start: 12-28-2022 End: 12-28-[address] Charlotte Stevenson Work Phone: [facility] Work Phone: Start: 12-28-2022 End: 12-28-[address] Charlotte Stevenson Work Phone: [facility]-Outpatient Breast Imaging Start: 12-03-2022 End: 12-03-[address] Charlotte Stevenson Work Phone: [facility] Work Phone: Start: 12-03-2022 End: 12-03-[address] [facility] Start: 11-29-2022 End: 11-29-2022 Emergency department patient visit Dr. Charlotte Stevenson Work Phone: [facility]-Emergency Department Start: 10-07-2022 End: 10-07-[address] Charlotte Stevenson Work Phone: [facility] Work Phone: Start: 10-07-2022 End: 10-07-[address] Charlotte Stevenson Work Phone: [facility]-Cardiovascular Services Start: 10-07-2022 Non-patient / Non-visit Dr. Erika Stevenson Work Phone: [facility] Start: 10-02-2022 End: 10-02-[address] Charlotte Stevenson Work Phone: [facility] Work Phone: Start: 10-02-2022 End: 10-02-[address] Charlotte Stevenson Work Phone: [facility]-Outpatient Pavilion Ultrasound Start: 09-24-2022 End: 09-24-[address] Charlotte Stevenson Work Phone: [facility] Work Phone: Start: 09-24-2022 End: 09-24-[address] Charlotte Stevenson Work Phone[facility] Start: 09-11-2022 End: 09-11-[address] Charlotte Stevenson Work Phone: [facility] Start: 09-09-2022 End: 09-09-[address] Charlotte Stevenson Work Phone: [facility] Work Phone: Start: 09-09-2022 End: 09-09-[address] Charlotet Stevenson Work Phone: [facility]-Laboratory, Specimen Start: 03-31-2022 End: 03-31-[address] Charlotte Stevenson Work Phone: [facility]-Radiology, [facility] Start: 03-16-2022 End: 03-16-[address] Charlotte Stevenson Work Phone: [facility] Start: 03-13-2022 Non-patient / Non-visit Dr. Erika Stevenson Work Phone: [facility] Start: 12-25-2021 End: 12-25-[address] Charlotte Stevenson Work Phone: [facility]-Outpatient Breast Imaging Start: 08-12-2017 End: 08-13-2017 Ambulatory CHARLOTTE STEVENSON Facility:[facility] Start: 08-04-2017 End: 08-05-2017 Ambulatory CHARLOTTE STEVENSON Facility:[facility] Procedures Date Procedure Procedure Detail Performing Clinician Start: 08-06-2025 CT of head without contrast Dr. Charlotte Stevenson DO Work Phone: Start: 01-01-2025 Screening mammography D demetris Stevenson [...] Work Phone: Start: 12-28-2022 Screening mammography D demetris Stevenson Work Phone: Start: 11-29-2022 Plain chest [...] Treatment Date Care Activity Detail Author Start: 09-03-2025 End: 09-03-2025 Patient encounter procedure Essential hypertension -[facility] Work Phone: Start: 09-03-2025 End: 09-03-2025 Evaluation of diagnostic study results [facility] Start: 08-27-2025 End: 08-27-2025 Patient encounter procedure Departed [facility] -Pulmonary Services/Neurology Work Phone: Start: 08-06-2025 Ambulatory ECG [facility] Start: 08-06-2025 End: 08-06-2025 Evaluation of diagnostic study results [facility] Start: 09-23-2024 [facility] Start: 09-14-2024 Patient discharge [facility] Start: 09-14-2024 [facility] Start: 09-12-2024 Care planning and problem solving actions [facility] Start: 09-12-2024 Care planning and problem solving actions [facility] Start: 09-12-2024 Following clinical pathway protocol [facility] Start: 09-12-2024 Assessment of risk of venous thromboembolism [facility] Start: 09-12-2024 Catheterization of vein [facility] Start: 09-12-2024 Insertion of catheter into peripheral vein [facility] Start: 09-12-2024 Measuring intake and output [facility] Start: 09-12-2024 Providing care according to standard [facility] Start: 09-12-2024 Provision of activity privileges [facility] Start: 09-12-2024 Referral to 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 ship [facility] Start: 09-12-2024 Referral to service [facility] Start: 09-12-2024 [facility] Start: 09-12-2024 End: 09-12-2024 Admission procedure [facility] Start: 09-12-2024 [facility] Start: 11-29-2022 [facility] Patient Education [facility] Work Phone: Patient referral [facility] Work Phone: [facility] Payers Date Payer Category Payer Self-pay [id number] 2013 Medicare [id number] Unknown [id number] 2.16.8 [id number] Unknown [id number] 2.16.8 40.1.608937.3.579.2.462 Unknown [id number] 2.16.8 40.1.863869.3.579.2.462 Unknown [id number] 2.16.8 40.1.402359.3.579.2.462 Unknown [id number] 2.16.8 40.1.304145.3.579.2.462 Unknown [id number] 2.16.8 40.1.657151.3.579.2.462 Unknown [id number] 2.16.8 40.1.430540.3.579.2.462 Unknown [id number] 2.16.8 40.1.676690.3.579.2.462 Unknown [id number] 2.16.8 40.1.934413.3.579.2.462 Unknown [id number] 2.16.8 40.1.128745.3.579.2.462 Unknown [id number] 2.16.8 40.1.314655.3.579.2.462 Unknown [id number] 2.16.8 40.1.689075.3.579.2.462 Unknown [id number] 2.16.8 40.1.046913.3.579.2.462 Unknown [id number] 2.16.8 40.1.624493.3.579.2.462 Unknown [id number] 2.16.8 40.1.105774.3.579.2.462 Unknown [id number] 2.16.8 40.1.170358.3.579.2.462 Unknown [id number] 2.16.8 40.1.706139.3.579.2.462 Unknown [id number] 2.16.8 40.1.681998.3.579.2.462 Unknown [id number] 2.16.8 40.1.722100.3.579.2.462 Unknown [id number] 2.16.8 40.1.388969.3.579.2.462 Unknown [id number] 2.16.8 40.1.325568.3.579.2.462 Unknown [id number] 2.16.8 40.1.076526.3.579.2.462 Unknown [id number] 2.16.8 40.1.346429.3.579.2.462 Unknown [id number] 2.16.8 40.1.492435.3.579.2.462 Unknown [id number] 2.16.8 40.1.823809.3.579.2.462 Unknown [id number] 2.16.8 40.1.812708.3.579.2.462 Unknown [id number] 2.16.8 40.1.132606.3.579.2.462 Social History Date Type Detail Facility Start: 03-16-2022 End: 07-20-2023 Tobacco smoking status NHIS Unknown if ever smoked [facility] Start: 1945 Sex Assigned At Female [facility] Start: 09-23-2024 End: 09-23-2024 Tobacco smoking status NHIS Never smoked tobacco (finding) [facility] Start: 01-11-2025 Sex Female (finding) [facility] Sex Female [facility] Goals Date Patient Goal Desired Activity /State Functional Status Date Assessment Result Facility 09-14-2024 Functional status Ambulates;Up ad isidro [facility] Work Phone: Mental Status Date Assessment Result Facility 09-23-2024 Cognitive function Voice/Name [facility] Work Phone: 09-14-2024 Cognitive function Voice/Name [facility] Work Phone: 11-29-2022 Cognitive function Level Of Cons ciousness Awake;Alert;Appropriate [facility] Work Phone: Radiology Diagnostic study note 08-06-2025 Note Date & Type Note Facility 08-06-2025 Radiology Diagnostic study note [facility] Imaging Services [address] [place], [place] [address] Brain/Head without Contrast MR#: [id number] Acct: [id number] Name: ROCIO PICKETT ANN Rep #: [id number] : 1945 F 80 From: Merlyn Garza MD PCP: Dr. Charlotte Stevenson, DO Status: REG CLI Study:Brain/Head without Contrast Date of Exa m: 08/06/25 Exam# [id number] Ordering Dr: Quinn Mendez PROCEDURE: BRAIN/HEAD WITHOUT CONTRAST 08/06/2025 REASON FOR EXAM: FALL ON DOAC TECHNIQUE: Procedure Code: CTBR Modality: CT Procedure: BRAIN/HEAD WITHOUT CONTRAST Coronal and Sagittal reconstruction series were provided. One or more dose reduction techniques were used (e.g., Automated exposure control, adjustment of the mA and/or kV according to patient size, use of iterative reconstruction technique. RADIATION DOSE SUMMARY: DLP: 943 mGycm COMPARISON: MR from 07/12/2020 FINDINGS: There is no acute infarct, intracranial hemorrhage, or mass effect. There is no hydrocephalus or significant midline shift. There is mild chronic microvascular ischemic changes and mild parenchymal volumeloss. No acute, depressed calvarial fractures. No large scalp hematomas. Mild fluid within the right maxillary sinus. Bilateral lens surgeries. CT/Brain/Head without Contrast IMPRESSION: No acute intracranial process. Reading Location: [facility] CC: Dr. Charlotte Stevenson DO; TOBIAS Staley ~ Lcac Operator: Signed [facility] Evaluation note 08-06-2025 Note Date & Type Note Facility 08-06-2025 Evaluation note Diagnosis Onset Date Resolution Syncope acute July 1:06pm Paroxysmal atrial fibrillation chronic August 06, 2025 1:06pm Essential hypertension acute Oc tob2024 9:24am Syncope acute September 03, 2025 9:24am Paroxysmal atrial fibrillation chronic September 03 9:24am [facility] Work Phone: Discharge summary note 09-14-2024 Note Date & Type Note Facility 09-14-2024 Note [facility] Medical Records Department [address] [place] [address] Discharge Summary 09/14/24 1237 MR#: [id number] Acct: [id number] Name: ROCIO PICKETT Rep #: [id number] : 1945 79 From: Emilie Enriquez DO PCP: Dr. Charlotte Stevenson DO Status:ADM IN Location: [place] [id number] Providers Date of Admission: 09/12/24 Date of [...] 20 mg PO BID blood pressu 03/20/18 notltaye-wry-dljma acid 0.4 mg-lycopene 300 mcg-lutein 250 mcg [...] Minutes Spent on Discharge: 38 Hospital Course: ROCIO PICKETT, is a 79 F who presented to the emergency department [facility] on 03/27/2024 in the morning due to palpitation she was having at home. She stated that she was awakened from sleep due to palpitations. She does have a known history of atrial fibrillation and takes metoprolol 25 mg daily at home for this. She had elected to not be on anticoagulation previously. Her [id number] score is 5. She also has a [...] basis via EK (more content not included)... [facility] Evaluation note 09-12-2024 Note Date & Type Note Facility 09-12-2024 Evaluation note Diagnosis Onset Date Resolution Atrial fibrillation with RVR resolved September 12 9:12am Chest pain resolved September 12, 2024 9:12am Hypokalemia resolved September 12, 2024 9:12am Sinus pause resolved September 12, 2024 9:12am Essential hypertension inactive No vember 2023 9:12am Hyperlipidemia inactive September 122023 9:12am Paroxysmal atrial fibrillation inactive September 12 9:12am Paroxysmal atrial fibrillation chronic September 26, 2 024 8:45am Bilateral carotid artery stenosis chronic December 18, 2 025 11:21am Paroxysmal atrial fibrillation chronic December 18, 2 025 11:21am [facility] Work Phone: Evaluation note Note Date & Type Note Facility Evaluation note Diagnosis Onset Date Essential hypertension acute Paroxysmal atrial fibrillation acute Bilateral carotid artery stenosis chronic Hyperlipidemia chronic [facility] Work Phone: Evaluation note Note Date & Type Note Facility Evaluation note No assessment information availa ble [facility] Work Phone: Reason for referral (narrative) Note Date & Type Note Facility Reason for referral (narrative) No reason for referral information available [facility] Work Phone: Summary Purpose Family History No Family History Records Found Relationship Condition Age at Onset Recorded Date/T erika father Diabetes mellitus Unknown Hypertension Unknown brother Diabetes mellitus Unknown brother Cardiac disease Unknown Advance Directives No Advanced Directives Records Found Advance Directive Response Recorded Date/ Time Living Will Yes September 13 5:51pm Power of Insurance Legal Assistant Yes September 13, 2021 5:51pm Advance Directive Response Recorded Date/ Time Living Will Yes September 13 4:51pm Power of Insurance Legal Assistant Yes September 13, 2021 4:51pm Advance Directive Response Recorded Date/ Time Name of Medical Power of Insurance Legal Assistant November 29, 2022 10:46am Living Will Yes November 29 10:46am Power of Insurance Legal Assistant Yes November 29, 2022 10:46am Advance Directive Response Recorded Date/ Time Living Will Yes November 29 11:46am Power of Insurance Legal Assistant Yes November 29, 2022 11:46am Name of Medical Power of Insurance Legal Assistant November 29, 2022 11:46am Advance Directive Response Recorded Date/ Time Living Will Yes November 29 11:46am Power of Insurance Legal Assistant Yes November 29, 2022 11:46am Advance Directive Response Recorded Date/ Time Living Will Yes November 29 10:46am Power of Insurance Legal Assistant Yes November 29, 2022 10:46am Advance Directive Response Recorded Date/ Time Living Will Yes September 12 10:07am Power of Insurance Legal Assistant Yes September 12, 2024 10:07am Name of Medical Power of Insurance Legal Assistant September 12, 2024 10:07am Living Will Yes September 23, 024 6:07am Power of Insurance Legal Assistant Yes September 23, 2024 6:07am Name of Medical Power of Insurance Legal Assistant Kris September 23, 2024 6:07am Chief Complaint [...] 8:58am FASTING April 17, 2025 9:01 am Chief Complaint Admit Date FRIENDS March 14, 2025 8:58am FASTING April 17, 2025 9:01 am CAROTID STENOSIS YEARLY CHECK May 03, 2025 10:49am Chief Complaint Admit Date FASTING April 17, 2025 9:01 am CAROTID STENOSIS YEARLY CHECK May 03, 2025 10:49am Passed out Wednesday am; see clinicals [facility] 2024 1:06pm fall on eliquis August 06, 2025 2:49pm Chief Complaint Admit Date Passed out Wednesday am; see clinicals [facility] 2024 1:06pm fall on eliquis August 06, 2025 2:49pm E ORDER August 14, 2025 9: 56am A-FIB August 27, 2025 8 :44am 8 M FU September 03, 2025 9 :24am Reason for Visit Admit Date Syncope August 06, 2025 1:06pm Paroxysmal atrial fibrillation August 06, 2025 1:06pm Essential hypertension September 03 9:24am Syncope September 03, 2025 9 :24am Paroxysmal atrial fibrillation August 092024 9:24am Additional Source Comments INFORMATION SOURCE (unrecogn ized section and content) DATE CREATED AUTHOR 05/04/2018 [facility] ([place]) DATE CREATED AUTHOR AUTHOR'S ORGANIZ ATION 04/05/2024 [facility] DATE CREATED AUTHOR AUTHOR'S ORGANIZ ATION [facility]11/20[facility] Goals (unrecognized section and content) Goals may [...] Provider, Referring P rovider Active Lorena Jaime WOLF HUNTER, WOLF HUNTER-C Attending Provider Active Team Status: Active Member [...] Care Provider Active Dr. Yuri Garcia DO Emergency Provider Active Team Status: Inactive [...] End: September 14, 2024 Dr. Misha Mchugh , DO Emergency Provider Active Start : September 12, 2024 End: September 14, 2024 Dr. Emilie Enriquez , DO Admit Provider Active Start : September [...] : September 13, 2024 Dr. Emilie Enriquez , DO Admit Provider Active Start : September [...] : September 13, 2024 Dr. Emilie Enriquez , DO Admit Provider Active Start : September [...] : September 14, 2024 Dr. Emilie Enriquez , Admit Provider Active Start : September 14, [...] : September 14, 2024 Dr. Emilie Enriquez , DO Admit Provider Active Start : September [...] 2024 End: September 20, 2024 Benoit Krishnamurthy WOLF HUNTER, WOLF HUNTER-C Attending Provider Active S tart: September 20, 2024 End: September 20, 2024 Benoit Krishnamurthy WOLF HUNTER, WOLF HUNTER-C Referring Provider Active S tart: September 20, 2024 End: September 20, 2024 Team Status: Active Member Role Status Dates Dr. Charlotte Stevenson DO Primary Care Provider Active Start: September 20, 2024 Dr. Mohamud Canela MD Attending Provider Active Start: September 20, 2024 Benoit Krishnamurthy WOLF HUNTER, WOLF HUNTER-C Referring Provider Active S tart: September 20, [...] 2024 End: December 18, 2024 Benoit Krishnamurthy WOLF HUNTER, WOLF HUNTER-C Attending Provider Active S tart: December 18, [...] April 17, 2025 Dr. Charlotte Stevenson DO Referring Provider Active St art: April 17, 2025 End: April 17, 2025 Team Status: Active Member Role/Relationship Status Dates Dr. Charlotte Stevenson DO Primary Care Provider Active Team Status: Active Member Role/Relationship Status Dates Dr. Charlotte Stevenson DO Primary Care Provider Active Start: March 14, 2025 Self Referred Attending Provider Active Start: 2024 Self Referred Referring Provider Active Start: ay 2024 Team Status: Active Member Role/Relationship Status Dates Dr. Charlotte Stevenson DO Primary Care Provider Active Start: March 14, 2025 Dr. Yuri Nicholas MD Attending Provider Active S tart: March 14, 2025 Team Status: Inactive Member Role/Relationship Status Dates Dr. Charlotte Stevenson DO Primary Care Provider Active Start: April 17, 2025 End: April 17, 2025 Dr. Charlotte Stevenson DO Attending Provider Active St art: April 17, 2025 End: April 17, 2025 Dr. Charlotte Stevenson DO Referring Provider Active St art: April 17, 2025 End: April 17, 2025 Team Status: Inactive Member Role/Relationship Status Dates Dr. Charlotte Stevenson DO Primary Care Provider Active Start: May 03, 2025 End: May 03, 2025 Dr. Charlotte Stevenson DO Attending Provider Active St art: May 03, 2025 End: May 03, 2025 Dr. Charlotte Stevenson DO Referring Provider Active St art: May 03, 2025 End: May 03, 2025 Team Status: Active Member Role/Relationship Status Dates Dr. Charlotte Stevenson DO Primary Care Provider Active Start: May 03, 2025 Dr. Yuri Nicholas MD Attending Provider Active S tart: May 03, 2025 Team Status: Active Member Role/Relationship Status Dates Dr. Charlotte Stevenson DO Primary care physician Active Team Status: Inactive Member Role/Relationship Status Dates Dr. Charlotte Stevenson DO Primary care physician Active Start: April 17, 2025 End: April 17, 2025 Dr. Charlotte Stevenson DO Attending physician Active S tart: April 17, 2025 End: April 17, 2025 Dr. Charlotte Stevenson DO Referring Provider Active St art: April 17, 2025 End: April 17, 2025 Team Status: Inactive Member Role/Relationship Status Dates Dr. Charlotte Stevenson DO Primary care physician Active Start: May 03, 2025 End: May 03, 2025 Dr. Charlotte Stevenson DO Attending physician Active S tart: May 03, 2025 End: May 03, 2025 Dr. Charlotte Stevenson DO Referring Provider Active St art: May 03, 2025 End: May 03, 2025 Team Status: Active Member Role/Relationship Status Dates Dr. Charlotte Stevenson DO Primary care physician Active Start: May 03, 2025 Dr. Charlotte Stevenson DO Referring Provider Active St art: May 03, 2025 Dr. Yuri Nicholas MD Attending physician Active Start: May 03, 2025 Team Status: Inactive Member Role/Relationship Status Dates Dr. Charlotte Stevenson DO Primary care physician Active Start: May 08, 2025 Dr. Patience Golden MD Attending physician Active Start: May 08, 2025 Team Status: Inactive Member Role/Relationship Status Dates Dr. Charlotte Stevenson DO Primary care physician Active Start: August 06, 2025 End: August 06, 2025 Dr. Charlotte Stevenson DO Referring Provider Active St art: August 06, 2025 End: August 06, 2025 TOBIAS Staley Attending physician Active S tart: August 06, 2025 End: August 06, 2025 Team Status: Active Member Role/Relationship Status Dates Dr. Charlotte Stevenson DO Primary care physician Active Start: August 06, 2025 TOBIAS Staley Attending physician Active S tart: August 06, 2025 TOBIAS Staley Referring Provider Active St art: August 06, 2025 Team Status: Inactive Member Role/Relationship Status Dates Dr. Charlotte Stevenson DO Primary care physician Active Start: May 08, 2025 Dr. Patience Golden MD Attending physician Active Start: May 08, 2025 Team Status: Inactive Member Role/Relationship Status Dates Dr. Charlotte Stevenson DO Primary care physician Active Start: August 06, 2025 End: August 06, 2025 Dr. Charlotte Stevenson DO Referring Provider Active St art: August 06, 2025 End: August 06, 2025 TOBIAS Staley Attending physician Active S tart: August 06, 2025 End: August 06, 2025 Team Status: Inactive Member Role/Relationship Status Dates Dr. Charlotte Stevenson DO Primary care physician Active Start: August 06, 2025 End: August 06, 2025 TOBIAS Staley Attending physician Active S tart: August 06, 2025 End: August 06, 2025 TOBIAS Staley Referring Provider Active St art: August 06, 2025 End: August 06, 2025 Team Status: Active Member Role/Relationship Status Dates Dr. Charlotte Stevenson DO Primary care physician Active Start: August 14, 2025 Dr. Charlotte Stevenson DO Attending physician Active S tart: August 14, 2025 Dr. Charlotte Stevenson DO Referring Provider Active St art: August 14, 2025 Team Status: Inactive Member Role/Relationship Status Dates Dr. Charlotte Stevenson DO Primary care physician Active Start: August 27, 2025 End: August 27, 2025 TOBIAS Staley Attending physician Active S tart: August 27, 2025 End: August 27, 2025 TOBIAS Staley Referring Provider Active St art: August 27, 2025 End: August 27, 2025 Team Status: Inactive Member Role/Relationship Status Dates Dr. Charlotte Stevenson DO Primary care physician Active Start: September 03, 2025 End: September 03, 2025 Dr. Charlotte Stevenson DO Referring Provider Active St art: September 03, 2025 End: September 03, 2025 Dr. Mohamud Canela MD Attending physician Active Start: September 03, 2025 End: September 03, 2025 FOR RECORDS PERTAINING TO PATIENTS WHO [...] BE BASED ON THE PRIMARY CLINICAL RECORDS. [employer] provides no warranty or guarantee of the accuracy or completeness of information in this document.
[2025-10-19 08:53] LABS: Hematocrit 40.1 % (37-47); Hemoglobin 13.6 g/dL (12.0-15.0); Immature Granulocytes Count 0.030 X10^3/uL (0.0-0.0); Mean Corp Hgb Conc 33.9 g/dL (32-36); Mean Corpuscular Volume 88.5 fL (81-99); Mean Platelet Vol. 9.7 fl (6.2-12.0); NRBC Flagged by Analyzer 0 % (0-5); Platelet Count 296 K/mm3 (150-450); RBC Distribution Width CV 12.1 % (11.6-14.6); RBC Distribution Width SD 39.8 fl (35.1-43.9); Red Blood Count 4.53 M/mm3 (4.2-5.4); White Blood Count 7.6 K/mm3 (4.4-11.0)
[2025-10-19 09:43] LABS: AST(SGOT) 26 U/L (<=31); Alanine Aminotransfer ALT/SGPT 25 U/L (<=34); Albumin, Serum 4.4 g/dL (3.4-4.8); Alkaline Phosphatase 88 U/L (35-104); Anion Gap 10 (5-15); BUN 18 mg/dL (4-19); BUN/Creat Ratio 23.0 RATIO (10-20); Calcium,Total 9.6 mg/dL (7.6-11.0); Carbon Dioxide 26.8 mmol/L (21.0-32.0); Chloride 100 mmol/L (98-108); Cholesterol 160 mg/dL (<=200); Free T3 2.9 pg/mL (2.18-3.98); Globulin 3.3 g/dL (2.2-4.2); Glucose 121 mg/dL (70-99); Low Density Lipoprotein Calc. 75 mg/dL; Potassium 4.1 mmol/L (3.3-5.1); Triglycerides 200 mg/dL; Very Low Density Lipoprotein 40 mg/dL (5-40); cholesterol:hdl ratio screen 3.12
== END | disposition home or self-care (01) ==
LOC: LAB 08:09
PROVIDERS: PCP Family Medicine; Referring Provider Family Medicine; Visit Provider Family Medicine
DX: E78.5 Hyperlipidemia, unspecified (principal); R73.03 Prediabetes; R73.02 Impaired glucose tolerance (oral); E78.1 Pure hyperglyceridemia
CPT/HCPCS: 36415; 80053; 80061; 83036; 84439; 84443; 84481; 85025